=== PATIENT | male | born 1955 | race Caucasian/White ===

== ENCOUNTER → 2016-06-22 | Outpatient (CLI) | payer BC, MEDICARE ==
[2016-06-22 10:40] LABS: Phosphorous 4.2 mg/dL (2.5-4.5); Potassium 4.9 mmol/L (3.5-5.1)
== END | disposition home or self-care (01) ==
LOC: LABWHC1 09:51
PROVIDERS: ATTEND Internal Medicine
DX: Z09 Encounter for follow-up examination after completed treatment for conditions other than malignant neoplasm (principal); Z94.0 Kidney transplant status; Z94.83 Pancreas transplant status
CPT/HCPCS: 36415; 80069

== ENCOUNTER 2016-07-04 10:11 | Emergency (ER) | payer BC, MEDICARE ==
[2016-07-04 11:04] LABS: Anisocytosis Slight; Basophils % (A) 0 %; CH 27.8; Eosinophils # (A) 0.1 k/uL (0-0.7); Eosinophils % (A) 1 %; HCT 28.8 % (39.0-53.0); HDW 3.74; HGB 8.9 gm/dL (13.0-17.5); Hypochromasia Marked; Luc # (Auto) 0.06; Luc % (Auto) 1; Lymphocytes # (A) 0.8 k/uL (1.0-4.8); Lymphocytes % (A) 8 %; MCH 28.1 pg (25.0-35.0); MCHC 31.1 g/dL (31.0-37.0); MCV 90.3 fL (80.0-100.0); Mean Platelet Volume 8.1; Monocytes # (A) 0.3 k/uL (0-1.0); Monocytes % (A) 3 %; Neutrophils # (A) 8.8 k/uL (1.3-7.7); Neutrophils % (A) 88 %; Poikilocytosis Slight; RBC 3.19 m/uL (4.30-5.90); RDW 18.3 % (11.5-15.5); WBC (Perox) 10.63
[2016-07-04 11:16] LABS: Calcium 8.6 mg/dL (8.4-10.2); Magnesium 2.4 mg/dL (1.6-2.3); Total Bilirubin 0.4 mg/dL (0.2-1.3); Total Protein 5.9 g/dL (6.3-8.2)
--- NOTE | 2016-07-04 11:17 | ED ---
Recheck HPI - General Chief Complaint: Recheck/Abnormal Lab/Rx Stated Complaint: Abnormal lab Time Seen by Provider: 07/04/16 10:50 Source: patient, RN notes reviewed Mode of arrival: ambulatory Limitations: no limitations - History of Present Illness Initial Comments: This is a 61-year-old male with a history of a kidney transplant in the who was told recommend because of a low CO2 level on his labs were drawn yesterday. 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 He's had 3 doses of chemo and is to start radiation therapy tomorrow. He's states that his kidney function has deteriorated though he still is making urine. He denies any fevers chills nausea vomiting sweats no headache dizziness blurry vision at this time no nausea no vomiting. - Related Data Home Medications Medication Instructions Recorded Confirmed Atenolol [Tenormin] 50 mg PO QAM 09/01/15 07/04/16 INSULIN LISPRO (HumaLOG) [humaLOG] See Protocol SQ CONTINUOUS 09/01/15 07/04/16 NIFEdipine XL [Procardia XL] 30 mg PO QAM 09/01/15 07/04/16 Pravastatin Sodium [Pravachol] 40 mg PO HS 09/01/15 07/04/16 Sodium Bicarbonate Tab 3,900 mg PO QID 09/01/15 07/04/16 predniSONE 10 mg PO QAM 09/01/15 07/04/16 Dexamethasone [Dexamethasone] See Taper PO DAILY 07/04/16 07/04/16 Finasteride [Finasteride] 2.5 mg PO DAILY 07/04/16 07/04/16 Levothyroxine Sodium [Synthroid] 150 mcg PO DAILY 07/04/16 07/04/16 Ondansetron HCl [Ondansetron HCl] 4 mg PO Q4H PRN 07/04/16 07/04/16 Sulfamethoxazole/Trimethoprim 1 tab PO MOWEFR 07/04/16 07/04/16 [Sulfamethoxazole-Tmp Ss Tablet] Tamsulosin HCl [Tamsulosin HCl] 0.4 mg PO DAILY 07/04/16 07/04/16 Warfarin Sodium [Warfarin Sodium] 2 mg PO DAILY 07/04/16 07/04/16 Allergies Allergy/AdvReac Type Severity Reaction Status Date / Time No Known Allergies Allergy Verified 07/04/16 10:25 Review of Systems ROS Statement: Those systems with pertinent positive or pertinent negative responses have been documented in the HPI. ROS Other: All systems not noted in ROS Statement are negative. Past Medical History Past Medical History: Cancer, Diabetes Mellitus, Deep Vein Thrombosis (DVT), Hyperlipidemia, Hypertension, Renal Disease, Skin Disorder, Thyroid Disorder, Vascular Disorder Additional Past Medical History / Comment(s): wound bottom of left foot, hx vascular calcification, basal cell carcinoma nose removed 2010 History of Any Multi-Drug Resistant Organisms: None Reported Additional Past Surgical History / Comment(s): kidney transplant : 1992 & 1997. RIGHT transmetatarsal amputation. basal cell carcinoma excision. Past Anesthesia/Blood Transfusion Reactions: No Reported Reaction Past Psychological History: No Psychological Hx Reported Smoking Status: Never smoker Past Alcohol Use History: None Reported Past Drug Use History: None Reported - Past Family History Mother Family Medical History: No Reported History General Exam - General Exam Comments Initial Comments: Is a well-developed well-nourished awake alert oriented times 3 male Limitations: no limitations General appearance: alert, in no apparent distress Course Vital Signs 07/04/16 07/04/16 07/04/16 10:23 11:41 13:19 Temperature 95.9 F L Pulse Rate 50 L 59 L 88 Respiratory 16 14 14 Rate Blood Pressure 101/50 103/58 103/60 O2 Sat by Pulse 96 100 96 Oximetry 07/04/16 15:37 Temperature 96.7 F L Pulse Rate 69 Respiratory 14 Rate Blood Pressure 105/67 O2 Sat by Pulse 97 Oximetry Medical Decision Making - Medical Decision Making I did a long discussion with patient regarding findings a also discussed case with Dr. Paula. The original plan was to admit the patient he is refusing admission at this time he just wants IV sodium bicarbonate into be discharged we can make his appointment tomorrow for radiation therapy. He is aware of the risks he states she's been dealing with the renal failure of his transplant for a long time and again is refusing admission he does agree to accept all risks. - Lab Data Result diagrams: 07/04/16 10:50 07/04/16 10:50 Lab Results 07/04/16 07/04/16 Range/Units 10:50 10:50 WBC 10.0 (3.8-10.6) k/uL RBC 3.19 L (4.30-5.90) m/uL Hgb 8.9 L (13.0-17.5) gm/dL Hct 28.8 L (39.0-53.0) % MCV 90.3 (80.0-100.0) fL MCH 28.1 (25.0-35.0) pg MCHC 31.1 (31.0-37.0) g/dL RDW 18.3 H (11.5-15.5) % Plt Count 115 L (150-450) k/uL Neutrophils % 88 % Lymphocytes % 8 % Monocytes % 3 % Eosinophils % 1 % Basophils % 0 % Neutrophils # 8.8 H (1.3-7.7) k/uL Lymphocytes # 0.8 L (1.0-4.8) k/uL Monocytes # 0.3 (0-1.0) k/uL Eosinophils # 0.1 (0-0.7) k/uL Basophils # 0.0 (0-0.2) k/uL Hypochromasia Marked Poikilocytosis Slight Anisocytosis Slight Sodium 136 L (137-145) mmol/L Potassium 5.0 (3.5-5.1) mmol/L Chloride 113 H (98-107) mmol/L Carbon Dioxide 10 L* (22-30) mmol/L Anion Gap 13 mmol/L BUN 100 H* (9-20) mg/dL Creatinine 3.56 H (0.66-1.25) mg/dL Est GFR (MDRD) Af Amer 21 (>60 ml/min/1.73 sqM) Est GFR (MDRD) Non-Af 18 (>60 ml/min/1.73 sqM) Glucose 198 H (74-99) mg/dL Calcium 8.6 (8.4-10.2) mg/dL Magnesium 2.4 H (1.6-2.3) mg/dL Total Bilirubin 0.4 (0.2-1.3) mg/dL AST 11 L (17-59) U/L ALT 36 (21-72) U/L Alkaline Phosphatase 77 (38-126) U/L Total Protein 5.9 L (6.3-8.2) g/dL Albumin 2.7 L (3.5-5.0) g/dL Disposition Clinical Impression: Renal insufficiency syndrome, Acidosis Disposition: HOME SELF-CARE Condition: Good
[2016-07-04] MEDS ORDERED: DEXTROSE 5% IN WATER 1,000 ML with SODIUM BICARB (1 MEQ/ML) 150 ML IV SCH (15:15)
[2016-07-04 16:14] VITALS: TEMP 96.8
--- NOTE | 2016-07-04 17:23 | ED ---
Medical Decision Making - Lab Data Result diagrams: 07/04/16 10:50 07/04/16 10:50 Lab Results 07/04/16 07/04/16 Range/Units 10:50 10:50 WBC 10.0 (3.8-10.6) k/uL RBC 3.19 L (4.30-5.90) m/uL Hgb 8.9 L (13.0-17.5) gm/dL Hct 28.8 L (39.0-53.0) % MCV 90.3 (80.0-100.0) fL MCH 28.1 (25.0-35.0) pg MCHC 31.1 (31.0-37.0) g/dL RDW 18.3 H (11.5-15.5) % Plt Count 115 L (150-450) k/uL Neutrophils % 88 % Lymphocytes % 8 % Monocytes % 3 % Eosinophils % 1 % Basophils % 0 % Neutrophils # 8.8 H (1.3-7.7) k/uL Lymphocytes # 0.8 L (1.0-4.8) k/uL Monocytes # 0.3 (0-1.0) k/uL Eosinophils # 0.1 (0-0.7) k/uL Basophils # 0.0 (0-0.2) k/uL Hypochromasia Marked Poikilocytosis Slight Anisocytosis Slight Sodium 136 L (137-145) mmol/L Potassium 5.0 (3.5-5.1) mmol/L Chloride 113 H (98-107) mmol/L Carbon Dioxide 10 L* (22-30) mmol/L Anion Gap 13 mmol/L BUN 100 H* (9-20) mg/dL Creatinine 3.56 H (0.66-1.25) mg/dL Est GFR (MDRD) Af Amer 21 (>60 ml/min/1.73 sqM) Est GFR (MDRD) Non-Af 18 (>60 ml/min/1.73 sqM) Glucose 198 H (74-99) mg/dL Calcium 8.6 (8.4-10.2) mg/dL Magnesium 2.4 H (1.6-2.3) mg/dL Total Bilirubin 0.4 (0.2-1.3) mg/dL AST 11 L (17-59) U/L ALT 36 (21-72) U/L Alkaline Phosphatase 77 (38-126) U/L Total Protein 5.9 L (6.3-8.2) g/dL Albumin 2.7 L (3.5-5.0) g/dL Disposition Clinical Impression: Renal insufficiency syndrome, Acidosis Disposition: HOME SELF-CARE Condition: Good Instructions: Chronic Kidney Disease (ED) Referrals: Salo Villar MD [Primary Care Provider] - 1-2 days
[2016-07-04 18:34] VITALS: BP 104/60; PULSE 66; RESP 14
== END 2016-07-04 18:40 | disposition home or self-care (01) ==
LOC: EC 10:11
DX: N28.9 Disorder of kidney and ureter, unspecified (principal); E87.2 Acidosis; C85.90 Non-Hodgkin lymphoma, unspecified, unspecified site; E07.9 Disorder of thyroid, unspecified; I10 Essential (primary) hypertension; E11.9 Type 2 diabetes mellitus without complications; E78.5 Hyperlipidemia, unspecified; Z79.4 Long term (current) use of insulin; Z94.0 Kidney transplant status; Z92.21 Personal history of antineoplastic chemotherapy; Z79.01 Long term (current) use of anticoagulants; Z86.718 Personal history of other venous thrombosis and embolism; Z79.899 Other long term (current) drug therapy
CPT/HCPCS: 36415; 80053; 83735; 85025; 96360; 96361; 99283

== ENCOUNTER → 2016-07-06 | Outpatient (CLI) | payer BC, MEDICARE ==
[2016-07-06 14:55] LABS: Calcium 8.5 mg/dL (8.4-10.2); Phosphorous 4.7 mg/dL (2.5-4.5); Potassium 5.3 mmol/L (3.5-5.1)
== END | disposition home or self-care (01) ==
LOC: LABWHC1 13:58
PROVIDERS: ATTEND Internal Medicine
DX: E10.22 Type 1 diabetes mellitus with diabetic chronic kidney disease (principal); N18.9 Chronic kidney disease, unspecified; Z94.0 Kidney transplant status; Z94.83 Pancreas transplant status
CPT/HCPCS: 36415; 80069

== ENCOUNTER → 2016-07-10 | Outpatient (CLI) | payer BC, MEDICARE ==
[2016-07-10 13:47] LABS: Calcium 8.7 mg/dL (8.4-10.2); Potassium 4.7 mmol/L (3.5-5.1)
== END | disposition home or self-care (01) ==
LOC: LABWHC1 12:05
PROVIDERS: ATTEND Internal Medicine
DX: E10.29 Type 1 diabetes mellitus with other diabetic kidney complication (principal); Z94.0 Kidney transplant status
CPT/HCPCS: 36415; 80069

== ENCOUNTER → 2016-08-28 | Outpatient (CLI) | payer BC, MEDICARE ==
[2016-08-28 11:56] LABS: Appearance,Urine Turbid (Clear); Bacteria,Urine Rare /hpf; Bilirubin,Urine Negative (Negative); Glucose,Urine (UA) Negative (Negative); Ketones,Urine Negative (Negative); Leukocyte Esterase,Urine Large (Negative); Nitrite,Urine Negative (Negative); Particle Count 11293; Protein,Urine 1+ (Negative); RBC,Urine 151 /hpf (0-5); Specific Gravity,Urine 1.011 (1.001-1.035); UA Billing (MACRO vs. MICRO) MICRO; Urobilinogen,Urine <2.0 mg/dL (<2.0); WBC,Urine >182 /hpf (0-5)
== END | disposition home or self-care (01) ==
LOC: LABWHC1 11:00
PROVIDERS: ATTEND Family Medicine
DX: N39.0 Urinary tract infection, site not specified (principal)
CPT/HCPCS: 81001; 87077; 87086; 87186

== ENCOUNTER 2016-10-02 09:24 | Outpatient (CLI) | payer BC, MEDICARE ==
[~2016-10-02 09:24] MED LIST: SODIUM CHLORIDE 0.9% 250 ML in EMPTY BAG 1 BAG IV PRN; SODIUM CHLORIDE 0.9% 500 ML in EMPTY BAG 1 BAG IV PRN
[2016-10-02 09:48] VITALS: BP 103/70; RESP 16; TEMP 98
[2016-10-02 10:23] LABS: Anisocytosis Moderate; CH 31.2; CHCM 32.3; HCT 24.3 % (39.0-53.0); HDW 3.37; Hypochromasia Slight; MCH 32.1 pg (25.0-35.0); MCHC 32.9 g/dL (31.0-37.0); MCV 97.3 fL (80.0-100.0); Macrocytosis Moderate; Mean Platelet Volume 8.7; RBC 2.49 m/uL (4.30-5.90); RDW 23.9 % (11.5-15.5); WBC 7.1 k/uL (3.8-10.6); WBC (Perox) 7.44
[2016-10-02 11:11] LABS: Add Differential Manual Differential
[2016-10-02 11:15] LABS: Nucleated Red Blood Cells 0 /100 WBC (0-0); Total Cells Counted 100
[2016-10-02 11:16] LABS: Tear Drop Cells Present
[2016-10-02 11:17] LABS: Polychromasia Present
== END 2016-10-02 13:25 | disposition home or self-care (01) ==
LOC: PROCWHC3 09:24
PROVIDERS: ATTEND Internal Medicine
DX: N18.9 Chronic kidney disease, unspecified (principal); E10.29 Type 1 diabetes mellitus with other diabetic kidney complication; Z94.0 Kidney transplant status
CPT/HCPCS: 85025; 36591; J1642

== ENCOUNTER → 2016-11-17 | Outpatient (CLI) | payer BC, MEDICARE ==
[2016-11-17 10:20] LABS: Anisocytosis Slight; Basophils % (A) 0 %; CHCM 31.8; Eosinophils # (A) 0.1 k/uL (0-0.7); Eosinophils % (A) 1 %; HCT 31.1 % (39.0-53.0); HDW 2.94; HGB 9.8 gm/dL (13.0-17.5); Hypochromasia Slight; Luc # (Auto) 0.13; Luc % (Auto) 3; Lymphocytes # (A) 1.1 k/uL (1.0-4.8); Lymphocytes % (A) 26 %; MCH 32.8 pg (25.0-35.0); MCHC 31.4 g/dL (31.0-37.0); MCV 104.4 fL (80.0-100.0); Macrocytosis Moderate; Mean Platelet Volume 8.6; Monocytes # (A) 0.3 k/uL (0-1.0); Monocytes % (A) 9 %; Neutrophils # (A) 2.5 k/uL (1.3-7.7); Neutrophils % (A) 61 %; RBC 2.98 m/uL (4.30-5.90); RDW 18.1 % (11.5-15.5); WBC 4.1 k/uL (3.8-10.6); WBC (Perox) 4.23
== END | disposition home or self-care (01) ==
LOC: LABWHC1 09:59
PROVIDERS: ATTEND Radiology Radiation Oncology
DX: C85.89 Other specified types of non-Hodgkin lymphoma, extranodal and solid organ sites (principal)
CPT/HCPCS: 36415; 85025

== ENCOUNTER 2016-12-06 13:38 | Emergency (ER) | payer OTHER, BC, MEDICARE ==
[2016-12-06 13:52] VITALS: PULSE 68; TEMP 97.6
[2016-12-06] MEDS ORDERED: SODIUM CHLORIDE 0.9% 1,000 ML IV STA (14:08)
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
[2016-12-06 14:35] VITALS: BP 140/68; RESP 18
== END 2016-12-06 14:50 | disposition home or self-care (01) ==
LOC: EC 13:38
DX: S02.81XA Fracture of other specified skull and facial bones, right side, initial encounter for closed fracture (principal); S52.202A Unspecified fracture of shaft of left ulna, initial encounter for closed fracture; E78.5 Hyperlipidemia, unspecified; E11.9 Type 2 diabetes mellitus without complications; I10 Essential (primary) hypertension; E07.9 Disorder of thyroid, unspecified; Z85.828 Personal history of other malignant neoplasm of skin; Z94.0 Kidney transplant status; Z86.718 Personal history of other venous thrombosis and embolism; Z79.01 Long term (current) use of anticoagulants; Z79.4 Long term (current) use of insulin; Z79.52 Long term (current) use of systemic steroids; Z79.899 Other long term (current) drug therapy; V48.5XXA Car driver injured in noncollision transport accident in traffic accident, initial encounter
CPT/HCPCS: 99284

== ENCOUNTER 2016-12-29 10:45 | Day surgery (SDC) | payer BC, MEDICARE ==
[2016-12-27 09:31] VITALS: BMI 21.3
[~2016-12-29 10:45] MED LIST changes: +DEXAMETHASONE SOD PHOSPHATE 10 MG/ML 1 ML VIAL IV ONE; +LACTATED RINGERS 1,000 ML IV ONE; +MIDAZOLAM 2 MG/2 ML VIAL IV PRN; +ONDANSETRON 4 MG/2 ML VIAL IVP ONE; +SCOPOLAMINE 1.5MG/72HR PATCH TRANSDERM ONE; -SODIUM CHLORIDE 0.9% 250 ML in EMPTY BAG 1 BAG IV PRN; -SODIUM CHLORIDE 0.9% 500 ML in EMPTY BAG 1 BAG IV PRN; +ceFAZolin 2 GM in SODIUM CHLORIDE 0.9% 100 ML IVPB ONE
[2016-12-29] MEDS ORDERED: LIDOCAINE 1% 20 ML VIAL (10MG/ML) FOR IV START INTRADERMA ONE (11:03)
[2016-12-29 11:25] LABS: Glucose,Whole Blood 143 mg/dL (75-99)
[2016-12-29 11:55] LABS: INR 1.1 (<1.1); Partial Thromboplastin Time 23.7 sec (22.0-30.0); Prothrombin Time 11.5 sec (9.0-12.0)
[2016-12-29] MEDS ORDERED: SUCCINYLCHOLINE CHLORIDE 100 MG/5 ML SYR IV ONE (12:40)
[2016-12-29] MEDS ORDERED: PROPOFOL 10 MG/ML 20 ML VIAL IV ONE (12:40)
[2016-12-29] MEDS ORDERED: PHENYLEPHRINE-0.9% NACL SYG 1 MG/10 ML SYRINGE ONE (12:40)
[2016-12-29] MEDS ORDERED: LIDOCAINE 1% INJ 10MG/ML (20 ML MDV) ONE (12:40)
[2016-12-29] MEDS ORDERED: ePHEDrine 50 MG/ML 1 ML AMP ONE (12:40)
[2016-12-29] MEDS ORDERED: LACTATED RINGERS 1,000 ML IV ONE ×2 (12:40→13:39)
[2016-12-29] MEDS ORDERED: MIDAZOLAM 2 MG/2 ML VIAL ONE (12:40)
[2016-12-29] MEDS ORDERED: fentaNYL (PF) 50 MCG/ML 2 ML AMP ONE (12:40)
[2016-12-29] MEDS ORDERED: ceFAZolin 1,000 MG in SODIUM CHLORIDE 0.9% 1,000 ML IRRIGATION ONE (13:05)
[2016-12-29 14:01] LABS: Glucose,Whole Blood 226 mg/dL (75-99)
--- NOTE | 2016-12-29 14:01 | XR ---
Limited left forearm HISTORY: Fracture Intraoperative C-arm image documents the procedure
[2016-12-29 14:09] VITALS: TEMP 96.9
--- NOTE | 2016-12-29 14:12 | FL ---
Fluoroscopy HISTORY: Fracture 1 seconds fluoroscopy time supplied to the referring clinician. 2 intraoperative C-arm images docume nt the procedure. See dictated report from orthopedic surgery.
[2016-12-29] MEDS: HYDROmorphone 1 MG/ML 1 ML SYRINGE IVP PRN ×2 (14:16→14:21)
[2016-12-29 14:27] VITALS: RESP 16
[2016-12-29] MEDS ORDERED: HYDROcodone/APAP 7.5-325MG 1 EACH TAB PO ONE (14:46)
[2016-12-29 15:11] VITALS: BP 113/63; PULSE 55
--- NOTE | 2017-01-03 07:56 | OP ---
DATE OF SERVICE: 12/29/2016 SURGEON, Len Baumann DO CALL CENTER COORDINATOR: none PREOPERATIVE DIAGNOSIS: Displaced fracture of the distal third of the left ulnar shaft. POSTOPERATIVE DIAGNOSIS: Displaced fracture of the distal third of the left ulnar shaft. PROCEDURE PERFORMED: Open reduction, internal fixation of the displaced fracture of the distal third of the shaft of the left ulna. PROCEDURE: Patient was taken to the operative suite and placed in supine position. General inhalation anesthesia performed by the Department of Anesthesiology. A Betadine prep was carried out over the left forearm. The lateral incision over the area of mid position of the fracture. Dissection to the fracture is carried out. The fracture is reduced and distal screw is inserted. Alignment and position are noted. X ray showed anatomical position. The area was irrigated copiously. A No.1 Vicryl suture was then utilized in closing the deep fascia. The subcutaneous tissue was reapproximated with 2-0 Vicryl suture. the skin was reapproximated with 2-0 Nylon suture in an interrupted fashion. Betadine, Adaptic and sterile pressure dressing was applied. A lateral splint is applied. GROSS PATHOLOGY: Displaced fracture of the distal third shaft of the left ulna. GINID
== END 2016-12-29 15:33 | disposition home or self-care (01) ==
LOC: OR 10:45
PROVIDERS: ATTEND Orthopaedic Surgery
DX: S52.222A Displaced transverse fracture of shaft of left ulna, initial encounter for closed fracture (principal); V89.2XXA Person injured in unspecified motor-vehicle accident, traffic, initial encounter; S50.812A Abrasion of left forearm, initial encounter; I10 Essential (primary) hypertension; E03.9 Hypothyroidism, unspecified; E78.5 Hyperlipidemia, unspecified; Z86.718 Personal history of other venous thrombosis and embolism; Z79.01 Long term (current) use of anticoagulants; E11.29 Type 2 diabetes mellitus with other diabetic kidney complication; Z79.4 Long term (current) use of insulin; Z96.41 Presence of insulin pump (external) (internal); N28.9 Disorder of kidney and ureter, unspecified; Z94.0 Kidney transplant status; D69.6 Thrombocytopenia, unspecified; Z79.891 Long term (current) use of opiate analgesic; Z79.899 Other long term (current) drug therapy
CPT/HCPCS: 85610; 85730; 73090; 25545; C1713; J2250; J1100; J0690 ×2; J2405; J2001; J3010; J1170; J2370; J0330; J2704

== ENCOUNTER 2017-03-31 11:08 | Emergency (ER) | payer BC, MEDICARE ==
[2017-03-31] MEDS ORDERED: SODIUM CHLORIDE 0.9% 1,000 ML IV STA (11:35)
--- NOTE | 2017-03-31 11:40 | ED ---
General Adult HPI - General Chief complaint: Extremity Problem,Nontraumatic Stated complaint: DRAGGING LEFT LEG Time Seen by Provider: 03/31/17 11:28 Source: patient, family, RN notes reviewed Mode of arrival: ambulatory Limitations: no limitations - History of Present Illness Initial comments: Patient is a pleasant 61-year-old male presenting to the emergency department with concerns regarding left leg weakness. Onset of symptoms was 5:30 last night. Patient states he does notice symptoms however feels they're pretty mild. is concerned that symptoms are similar to when he was previously diagnosed with brain cancer. Patient has a left frontal tumor and is currently on chemotherapy. Patient's previous symptoms were on the right side. No confusion. No headache. No speech problems. Patient notices no upper extremity weakness. - Related Data Home Medications Medication Instructions Recorded Confirmed Atenolol [Tenormin] 50 mg PO DAILY 09/01/15 03/31/17 NIFEdipine XL [Procardia XL] 30 mg PO DAILY 09/01/15 03/31/17 Pravastatin Sodium [Pravachol] 40 mg PO DAILY 09/01/15 03/31/17 Sodium Bicarbonate Tab 3,900 mg PO QID 09/01/15 03/31/17 Finasteride [Finasteride] 2.5 mg PO DAILY 07/04/16 03/31/17 Tamsulosin HCl [Tamsulosin HCl] 0.8 mg PO QAM 07/04/16 03/31/17 Aspirin [Children's Aspirin] 81 mg PO DAILY 03/31/17 03/31/17 Dexamethasone 0.75 mg PO DAILY 03/31/17 03/31/17 Insulin Aspart (For Pump) [NovoLOG See Protocol SQ-PUMP CONTINUOUS 03/31/17 (For Pump)] Losartan [Cozaar] 50 mg PO DAILY 03/31/17 03/31/17 Previous Rx's Medication Instructions Recorded HYDROcodone/APAP 7.5-325MG [[place] 1 - 2 tab PO Q6HR PRN #60 tab 12/29/16 7.5-325] Allergies Allergy/AdvReac Type Severity Reaction Status Date / Time No Known Allergies Allergy Verified 03/31/17 12:32 Review of Systems ROS Statement: Those systems with pertinent positive or pertinent negative responses have been documented in the HPI. ROS Other: All systems not noted in ROS Statement are negative. Constitutional: Denies: fever Eyes: Denies: eye pain ENT: Denies: ear pain Respiratory: Denies: cough Cardiovascular: Denies: chest pain Endocrine: Denies: fatigue Gastrointestinal: Denies: abdominal pain Genitourinary: Denies: dysuria Musculoskeletal: Denies: back pain Skin: Denies: rash Neurological: Reports: weakness. Denies: headache Past Medical History Past Medical History: Cancer, Diabetes Mellitus, Deep Vein Thrombosis (DVT), Hyperlipidemia, Hypertension, Renal Disease, Skin Disorder, Thyroid Disorder, Vascular Disorder Additional Past Medical History / Comment(s): wound bottom of left foot, hx vascular calcification, basal cell carcinoma nose removed 2010 History of Any Multi-Drug Resistant Organisms: None Reported Additional Past Surgical History / Comment(s): kidney transplant : 1992 & 1997. RIGHT transmetatarsal amputation. basal cell carcinoma excision. Past Anesthesia/Blood Transfusion Reactions: No Reported Reaction Past Psychological History: No Psychological Hx Reported Smoking Status: Never smoker Past Alcohol Use History: None Reported Past Drug Use History: None Reported - Past Family History Mother Family Medical History: No Reported History General Exam Limitations: no limitations General appearance: alert, in no apparent distress Head exam: Present: atraumatic Eye exam: Present: normal appearance, PERRL, EOMI. Absent: nystagmus ENT exam: Present: normal oropharynx Neck exam: Present: normal inspection Respiratory exam: Present: normal lung sounds bilaterally Cardiovascular Exam: Present: regular rate, normal rhythm GI/Abdominal exam: Present: soft. Absent: tenderness Extremities exam: Present: normal inspection, full ROM. Absent: tenderness Neurological exam: Present: alert, oriented X3, CN II-XII intact Expanded Speech: Present: fluid speech Cranial nerves: EOM's Intact: Normal Sensory exam: Upper Extremity Light Touch: Normal, Lower Extremity Light Touch: Normal Motor strength exam: RUE: 5, LUE: 4, RLE: 5, LLE: 4 Eye Response: (4) open spontaneously Motor Response: (6) obeys commands Verbal Response: (5) oriented Psychiatric exam: Present: normal affect, normal mood Skin exam: Present: normal color Course Vital Signs 03/31/17 11:12 Temperature 98 F Pulse Rate 65 Respiratory 20 Rate Blood Pressure 132/69 O2 Sat by Pulse 99 Oximetry - Reevaluation(s) Reevaluation #1: 03/31/17 11:35 Patient recommended computed tomography scan with contrast however refuses any contrast secondary to history of kidney transplant. 03/31/17 12:51 Following report from radiologist patient and family were updated on results. They are made aware of the seriousness of this nature. Patient has previously had care at [facility]. They are recommended going to the closest facility including [facility] or [facility]. Patient and do refuse and would like to go to [facility]. They are aware of possible decompensation in route. 03/31/17 13:02 Case was discussed with Samra as well as Dr. Prabhakar at [facility] who will accept transfer. EKG Findings - EKG Comments: EKG Findings:: Sinus rhythm at 60. NV 178. QRS 88. QT 480. QTC 480. Normal axis. Normal QRS. No acute ST change. Medical Decision Making - Lab Data Result diagrams: 03/31/17 11:46 03/31/17 11:46 Lab Results 03/31/17 03/31/17 03/31/17 Range/Units 11:46 11:46 11:46 WBC 3.3 L (3.8-10.6) k/uL RBC 3.09 L (4.30-5.90) m/uL Hgb 8.9 L (13.0-17.5) gm/dL Hct 27.9 L (39.0-53.0) % MCV 90.3 (80.0-100.0) fL MCH 28.7 (25.0-35.0) pg MCHC 31.8 (31.0-37.0) g/dL RDW 15.2 (11.5-15.5) % Plt Count 87 L (150-450) k/uL Neutrophils % 61 % Lymphocytes % 22 % Monocytes % 10 % Eosinophils % 4 % Basophils % 1 % Neutrophils # 2.0 (1.3-7.7) k/uL Lymphocytes # 0.7 L (1.0-4.8) k/uL Monocytes # 0.3 (0-1.0) k/uL Eosinophils # 0.1 (0-0.7) k/uL Basophils # 0.0 (0-0.2) k/uL Manual Slide Review Performed Hypochromasia Slight Poikilocytosis (manual Present Fragmented RBCs Present PT (9.0-12.0) sec INR (<1.2) APTT (22.0-30.0) sec Sodium 141 (137-145) mmol/L Potassium 4.1 (3.5-5.1) mmol/L Chloride 107 (98-107) mmol/L Carbon Dioxide 26 (22-30) mmol/L Anion Gap 8 mmol/L BUN 38 H (9-20) mg/dL Creatinine 3.08 H (0.66-1.25) mg/dL Est GFR (MDRD) Af Amer 25 (>60 ml/min/1.73 sqM) Est GFR (MDRD) Non-Af 21 (>60 ml/min/1.73 sqM) Glucose 173 H (74-99) mg/dL Calcium 8.6 (8.4-10.2) mg/dL Total Bilirubin 0.3 (0.2-1.3) mg/dL AST 15 L (17-59) U/L ALT 26 (21-72) U/L Alkaline Phosphatase 62 (38-126) U/L Total Creatine Kinase <20 L (55-170) U/L CK-MB (CK-2) 0.4 (0.0-2.4) ng/mL CK-MB (CK-2) Rel Index Troponin I <0.012 (0.000-0.034) ng/mL Total Protein 6.0 L (6.3-8.2) g/dL Albumin 2.8 L (3.5-5.0) g/dL 03/31/17 Range/Units 11:46 WBC (3.8-10.6) k/uL RBC (4.30-5.90) m/uL Hgb (13.0-17.5) gm/dL Hct (39.0-53.0) % MCV (80.0-100.0) fL MCH (25.0-35.0) pg MCHC (31.0-37.0) g/dL RDW (11.5-15.5) % Plt Count (150-450) k/uL Neutrophils % % Lymphocytes % % Monocytes % % Eosinophils % % Basophils % % Neutrophils # (1.3-7.7) k/uL Lymphocytes # (1.0-4.8) k/uL Monocytes # (0-1.0) k/uL Eosinophils # (0-0.7) k/uL Basophils # (0-0.2) k/uL Manual Slide Review Hypochromasia Poikilocytosis (manual Fragmented RBCs PT 11.8 (9.0-12.0) sec INR 1.2 H (<1.2) APTT 24.7 (22.0-30.0) sec Sodium (137-145) mmol/L Potassium (3.5-5.1) mmol/L Chloride (98-107) mmol/L Carbon Dioxide (22-30) mmol/L Anion Gap mmol/L BUN (9-20) mg/dL Creatinine (0.66-1.25) mg/dL Est GFR (MDRD) Af Amer (>60 ml/min/1.73 sqM) Est GFR (MDRD) Non-Af (>60 ml/min/1.73 sqM) Glucose (74-99) mg/dL Calcium (8.4-10.2) mg/dL Total Bilirubin (0.2-1.3) mg/dL AST (17-59) U/L ALT (21-72) U/L Alkaline Phosphatase (38-126) U/L Total Creatine Kinase (55-170) U/L CK-MB (CK-2) (0.0-2.4) ng/mL CK-MB (CK-2) Rel Index Troponin I (0.000-0.034) ng/mL Total Protein (6.3-8.2) g/dL Albumin (3.5-5.0) g/dL - Radiology Data Radiology results: image reviewed (Chest x-ray shows no acute process. Computed tomography scan the brain shows large right frontal acute on subacute subdural hematoma with 8 mm subfalcine shift. Postsurgical changes. Subdural hematoma is 3 cm.) Disposition Clinical Impression: Subdural hematoma Disposition: OTHER INSTITUTION NOT DEFINED Condition: Serious Referrals: Salo Villar MD [Primary Care Provider] - 1-2 days Time of Disposition: 13:03 - Out of Hospital Transfer - Req. Specs Out of Hospital Transfer - Requested Specifics: Other Emergency Center
[2017-03-31 12:10] LABS: Basophils % (A) 1 %; CH 28.7; CHCM 31.9; Eosinophils # (A) 0.1 k/uL (0-0.7); Eosinophils % (A) 4 %; HCT 27.9 % (39.0-53.0); HDW 3.09; HGB 8.9 gm/dL (13.0-17.5); Hypochromasia Slight; Luc % (Auto) 3; Lymphocytes # (A) 0.7 k/uL (1.0-4.8); Lymphocytes % (A) 22 %; MCH 28.7 pg (25.0-35.0); MCHC 31.8 g/dL (31.0-37.0); MCV 90.3 fL (80.0-100.0); Monocytes # (A) 0.3 k/uL (0-1.0); Monocytes % (A) 10 %; Neutrophils % (A) 61 %; RBC 3.09 m/uL (4.30-5.90); RDW 15.2 % (11.5-15.5); WBC 3.3 k/uL (3.8-10.6); WBC (Perox) 3.09
--- NOTE | 2017-03-31 12:12 | CT ---
EXAMINATION TYPE: CT brain wo con DATE OF EXAM: 03/31/2017 COMPARISON: NONE HISTORY: Left leg weakness, Prior tumor removal 2015 CT DLP: 943.8 mGycm Automated exposure control for dose reduction was used. FINDINGS: There is encephalomalacia involving the left frontal lobe. There is a 3 cm subdural hematoma on the r ight. This has both acute and chronic elements. There is approximately 7.8 mm of subfalcine shift tow ards the left. There is been a previous bifrontal craniotomy. There is near complete opacification of the left maxillary sinus with concretions within it. IMPRESSION: 1. LARGE ACUTE ON CHRONIC RIGHT SUBDURAL HEMATOMA WITH 8 MM OF SUBFALCINE SHIFT. 2. EVIDENCE OF A LEFT FRONTAL TRAUMA.. 3. POSTSURGICAL CHANGE. 4. CHRONIC, LEFT MAXILLARY SINUS MUCOSAL DISEASE. THIS REPORT WAS PHONED TO DR. VILLA IN THE EMERGENCY DEPARTMENT AT THE TIME OF REPORTING.
[2017-03-31 12:14] LABS: Calcium 8.6 mg/dL (8.4-10.2); Potassium 4.1 mmol/L (3.5-5.1); Total Bilirubin 0.3 mg/dL (0.2-1.3)
[2017-03-31 12:15] LABS: INR 1.2 (<1.2); Partial Thromboplastin Time 24.7 sec (22.0-30.0); Prothrombin Time 11.8 sec (9.0-12.0)
[2017-03-31 12:26] LABS: Manual Review Performed
[2017-03-31 12:35] LABS: Creatine Kinase <20 U/L (55-170)
[2017-03-31 12:48] LABS: Creatine Kinase MB 0.4 ng/mL (0.0-2.4); Troponin I <0.012 ng/mL (0.000-0.034)
--- NOTE | 2017-03-31 12:52 | XR ---
EXAMINATION TYPE: XR chest 2V DATE OF EXAM: 03/31/2017 HISTORY: altered mental status. REFERENCE: NONE. FINDINGS: There is a MediPort in place via a right subclavian approach. Its tip is at the cavoatrial junction. The lungs are clear. Heart size is within normal limits. There is a small left effusion. IMPRESSION: SMALL LEFT PLEURAL EFFUSION.
[2017-03-31 13:39] VITALS: TEMP 97.8
[2017-03-31 13:41] VITALS: RESP 16
[2017-03-31 14:18] VITALS: BP 148/74; PULSE 78
== END 2017-03-31 14:14 | disposition short-term general hospital (02) ==
LOC: EC 11:08
DX: I62.01 Nontraumatic acute subdural hemorrhage (principal); E11.9 Type 2 diabetes mellitus without complications; E78.5 Hyperlipidemia, unspecified; I10 Essential (primary) hypertension; Z85.89 Personal history of malignant neoplasm of other organs and systems; Z79.82 Long term (current) use of aspirin; Z79.4 Long term (current) use of insulin; Z79.899 Other long term (current) drug therapy
CPT/HCPCS: 36415; 70450; 71020; 80053; 82550; 82553; 84484; 85025; 85610; 85730; 93005; 96360; 96361; 99285

== ENCOUNTER → 2017-07-18 | Outpatient (CLI) | payer MEDICAID, MEDICARE ==
[2017-07-18 10:53] LABS: Albumin 3.5 g/dL (3.5-5.0); Calcium 9.9 mg/dL (8.4-10.2); Phosphorus 3.5 mg/dL (2.5-4.5); Potassium 4.3 mmol/L (3.5-5.1)
[2017-07-18 11:09] LABS: T4, Free (Free Thyroxine) 1.4 ng/dL (0.78-2.19)
[2017-07-18 17:24] LABS: Hemoglobin A1C 6.6 % (4.0-6.0)
== END | disposition home or self-care (01) ==
LOC: LABWHC1 09:46
PROVIDERS: ATTEND Internal Medicine
DX: E10.21 Type 1 diabetes mellitus with diabetic nephropathy (principal)
CPT/HCPCS: 36415; 80069; 83036; 84439; 84443

== ENCOUNTER → 2017-07-31 | Outpatient (CLI) | payer MEDICAID, MEDICARE | END | disposition home or self-care (01) | LOC: LABWHC1 11:40 | PROVIDERS: ATTEND Internal Medicine | DX: Z53.9 Procedure and treatment not carried out, unspecified reason (principal) ==

== ENCOUNTER → 2018-01-07 | Outpatient (CLI) | payer MEDICAID, MEDICARE ==
[2018-01-07 18:49] LABS: Hemoglobin A1C 6.6 % (4.0-6.0)
== END | disposition home or self-care (01) ==
LOC: LABWHC1 07:32
PROVIDERS: ATTEND Internal Medicine Infectious Disease
DX: E11.9 Type 2 diabetes mellitus without complications (principal)
CPT/HCPCS: 36415; 83036

== ENCOUNTER → 2018-01-28 | Outpatient (CLI) | payer MEDICAID, MEDICARE ==
[2018-01-28 10:26] LABS: Anisocytosis Slight; Basophils % (A) 0 %; Eosinophils # (A) 0.1 k/uL (0-0.7); Eosinophils % (A) 1 %; HCT 31.6 % (39.0-53.0); HGB 10.4 gm/dL (13.0-17.5); Lymphocytes # (A) 1.2 k/uL (1.0-4.8); Lymphocytes % (A) 23 %; MCH 27.7 pg (25.0-35.0); MCHC 32.8 g/dL (31.0-37.0); MCV 84.4 fL (80.0-100.0); Mean Platelet Volume 8.1; Monocytes # (A) 0.4 k/uL (0-1.0); Monocytes % (A) 7 %; Neutrophils # (A) 3.6 k/uL (1.3-7.7); Neutrophils % (A) 68 %; RBC 3.74 m/uL (4.30-5.90); RDW 16.5 % (11.5-15.5); WBC 5.3 k/uL (3.8-10.6)
[2018-01-28 10:29] LABS: Platelet Count 79 k/uL (150-450)
[2018-01-28 10:42] LABS: Calcium 9.2 mg/dL (8.4-10.2); Phosphorus 3.1 mg/dL (2.5-4.5); Potassium 4.4 mmol/L (3.5-5.1)
== END | disposition home or self-care (01) ==
LOC: PROCWHC3 09:39
PROVIDERS: ATTEND Internal Medicine Infectious Disease
DX: C85.89 Other specified types of non-Hodgkin lymphoma, extranodal and solid organ sites (principal)
CPT/HCPCS: 80048; 84100; 85025; 36591; J1642

== ENCOUNTER → 2018-06-19 | Outpatient (CLI) | payer MEDICAID, MEDICARE ==
[2018-06-19 15:37] LABS: HCT 32.2 % (39.0-53.0); HGB 10.5 gm/dL (13.0-17.5); Hypochromasia Slight; MCH 29.1 pg (25.0-35.0); MCHC 32.5 g/dL (31.0-37.0); MCV 89.5 fL (80.0-100.0); Mean Platelet Volume 9.4; Platelet Count 116 k/uL (150-450); RDW 15.2 % (11.5-15.5); WBC 5.2 k/uL (3.8-10.6)
[2018-06-19 15:46] LABS: Appearance,Urine Clear (Clear); Bilirubin,Urine Negative (Negative); Blood,Urine Negative (Negative); Color,Urine Light Yellow; Glucose,Urine (UA) 2+ (Negative); Ketones,Urine Negative (Negative); Leukocyte Esterase,Urine Large (Negative); Mucus,Urine Rare /hpf; Nitrite,Urine Negative (Negative); PH, Urine 7.5 (5.0-8.0); Protein,Urine Trace (Negative); RBC,Urine 1 /hpf (0-5); Specific Gravity,Urine 1.007 (1.001-1.035); Urobilinogen,Urine <2.0 mg/dL (<2.0); WBC,Urine 2 /hpf (0-5)
[2018-06-20 03:02] LABS: Albumin 3.8 g/dL (3.80-4.90); Albumin/Globulin Ratio 1.58 (1.20-2.10); Anion Gap 10.2 mmol/L (4.00-12.00); Calcium 9.1 mg/dL (8.7-10.3); Carbon Dioxide 21.8 mmol/L (21.6-31.8); Globulin 2.4 g/dL (1.6-3.3); Phosphorus 3.1 mg/dL (2.4-5.1); Potassium 4.6 mmol/L (3.5-5.5); Total Bilirubin 0.3 mg/dL (0.3-1.2); Total Protein 6.2 g/dL (6.2-8.2)
== END | disposition home or self-care (01) ==
LOC: LABWHC1 14:15
PROVIDERS: ATTEND Family Medicine
DX: R35.1 Nocturia (principal)
CPT/HCPCS: 36415; 80053; 81001; 84100; 84153; 85027

== ENCOUNTER → 2018-07-03 | Outpatient (CLI) | payer MEDICAID, MEDICARE ==
[2018-07-03 16:42] LABS: LDL Cholesterol,Calculated 62.6 mg/dL (0.0-131.0); VLDL Calculation 14.4 mg/dL (5.00-40.00)
[2018-07-03 20:04] LABS: Hemoglobin A1C 6.9 % (4.0-6.0)
== END | disposition home or self-care (01) ==
LOC: LABWHC1 10:30
PROVIDERS: ATTEND Internal Medicine
DX: E10.21 Type 1 diabetes mellitus with diabetic nephropathy (principal)
CPT/HCPCS: 36415; 80061; 82043; 82570; 83036

== ENCOUNTER → 2018-07-29 | Outpatient (CLI) | payer MEDICAID, MEDICARE ==
[2018-07-29 10:12] LABS: Anisocytosis Slight; Basophils % (A) 0 %; Eosinophils # (A) 0.1 k/uL (0-0.7); Eosinophils % (A) 2 %; HCT 33.8 % (39.0-53.0); HGB 10.5 gm/dL (13.0-17.5); Lymphocytes # (A) 1.4 k/uL (1.0-4.8); Lymphocytes % (A) 26 %; MCH 27.7 pg (25.0-35.0); MCHC 31.1 g/dL (31.0-37.0); MCV 89.3 fL (80.0-100.0); Mean Platelet Volume 8.5; Monocytes # (A) 0.4 k/uL (0-1.0); Monocytes % (A) 8 %; Neutrophils # (A) 3.3 k/uL (1.3-7.7); Neutrophils % (A) 62 %; RBC 3.79 m/uL (4.30-5.90); RDW 16.1 % (11.5-15.5); WBC 5.3 k/uL (3.8-10.6)
[2018-07-29 10:23] LABS: Platelet Count 96 k/uL (150-450)
[2018-07-29 17:47] LABS: Albumin 3.7 g/dL (3.80-4.90); Anion Gap 4.6 mmol/L (4.00-12.00); Carbon Dioxide 23.4 mmol/L (21.6-31.8); Phosphorus 3.2 mg/dL (2.4-5.1); Potassium 4.3 mmol/L (3.5-5.5)
== END ==
LOC: LABWHC1 09:21
PROVIDERS: ATTEND Internal Medicine
DX: Z48.22 Encounter for aftercare following kidney transplant (principal); Z94.0 Kidney transplant status
CPT/HCPCS: 36415; 80069; 85025

== ENCOUNTER → 2018-09-02 | Outpatient (CLI) | payer MEDICAID, MEDICARE ==
[2018-09-02 16:02] LABS: Albumin 3.7 g/dL (3.80-4.90); Albumin/Globulin Ratio 1.54 (1.60-3.17); Anion Gap 6.2 mmol/L (4.00-12.00); Calcium 8.7 mg/dL (8.7-10.3); Carbon Dioxide 22.8 mmol/L (21.6-31.8); Globulin 2.4 g/dL (1.6-3.3); Potassium 4.9 mmol/L (3.5-5.5); Total Bilirubin 0.4 mg/dL (0.3-1.2); Total Protein 6.1 g/dL (6.2-8.2)
[2018-09-02 18:46] LABS: Hemoglobin A1C 7.1 % (4.0-6.0)
== END ==
LOC: LABWHC1 09:48
PROVIDERS: ATTEND Internal Medicine
DX: E10.21 Type 1 diabetes mellitus with diabetic nephropathy (principal)
CPT/HCPCS: 36415; 80053; 83036

== ENCOUNTER → 2018-10-14 | Outpatient (CLI) | payer MEDICAID, MEDICARE ==
[2018-10-14 18:44] LABS: Hemoglobin A1C 6.6 % (4.0-6.0)
== END | disposition home or self-care (01) ==
LOC: LABWHC1 09:12
PROVIDERS: ATTEND Internal Medicine
DX: E10.21 Type 1 diabetes mellitus with diabetic nephropathy (principal)
CPT/HCPCS: 36415; 83036

== ENCOUNTER 2018-11-05 14:40 | Inpatient (IN) | payer MEDICAID, MEDICARE ==
[2018-11-05 16:04] LABS: Appearance,Urine Cloudy (Clear); Bilirubin,Urine Negative (Negative); Blood,Urine Moderate (Negative); Color,Urine Light Yellow; Glucose,Urine (UA) Negative (Negative); Ketones,Urine Negative (Negative); Leukocyte Esterase,Urine Large (Negative); Mucus,Urine Rare /hpf; Nitrite,Urine Negative (Negative); PH, Urine 7.5 (5.0-8.0); Protein,Urine 1+ (Negative); RBC,Urine 42 /hpf (0-5); Specific Gravity,Urine 1.011 (1.001-1.035); Urobilinogen,Urine <2.0 mg/dL (<2.0); WBC,Urine 7 /hpf (0-5)
[2018-11-05] MEDS ORDERED: SODIUM CHLORIDE 0.9% 1,000 ML IV SCH (16:45)
--- NOTE | 2018-11-05 16:56 | ED ---
General Adult HPI - General Source: patient, RN notes reviewed, old records reviewed Mode of arrival: ambulatory Limitations: no limitations <Val Thao - Last Filed: 11/05/18 16:52> <Keith Murrieta - Last Filed: 11/05/18 18:56> - General Chief complaint: Recheck/Abnormal Lab/Rx Stated complaint: Kidney pain Time Seen by Provider: 11/05/18 16:10 - History of Present Illness Initial comments: 63-year-old male with extensive history of 2 kidney transplants in 1992, 1997, with transplant team of [facility]. He presents today for abnormal lab values. Patient states that he was recently admitted and discharged from [facility] last Sunday with diagnosis of urinary retention causing kidney failure. Patient nurse's while [place] mentioned the Patient may need dialysis but he has not initiated on dialysis that time. Patient's family Patient reports that he was not seen by neurology or urology while hospitalized at [facility], and stated that he was told to follow up with his outpatient specialty finishing utility person for lab work. He completed the lab work yesterday and was called to coming to emergency department for acute worsening renal failure. Patient was admitted to [facility] and had a Jorge catheter placed and has had some urine output but knows that his urine output has been decreasing. He states is been feeling generally fatigued. He denies any fevers or chills changes in bowel habits. He denies any recent vomiting. Patient also has a history of lymphoma, family states this is caused by immunosuppression drugs from his kidney transplant. He has now been off immunosuppressant drugs and is not a low dose of steroids. Patient patient's reports that his BUN was over 100 and creatinine was 4.5. And Patient needed to be initiated on dialysis. The report that Dr. Stewart has been aware of these changes. (Val Thao) - Related Data Home Medications Medication Instructions Recorded Confirmed Atenolol [Tenormin] 50 mg PO DAILY 09/01/15 11/05/18 NIFEdipine XL [Procardia XL] 30 mg PO DAILY 09/01/15 11/05/18 Pravastatin Sodium [Pravachol] 40 mg PO DAILY 09/01/15 11/05/18 Finasteride 2.5 mg PO DAILY 07/04/16 11/05/18 Aspirin [Children's Aspirin] 81 mg PO DAILY 03/31/17 11/05/18 Dexamethasone 0.75 mg PO DAILY 03/31/17 11/05/18 Losartan [Cozaar] 50 mg PO DAILY 03/31/17 11/05/18 Calcitriol [Rocaltrol] 0.25 mcg PO MOWEFR 11/05/18 11/05/18 Doxazosin [Cardura] 1 mg PO DAILY 11/05/18 11/05/18 Insulin Aspart (Niacinamide) See Protocol SQ-PUMP CONTINUOUS 11/05/18 11/05/18 [Fiasp 100 Unit/ml Vial] Iron Polysaccharide Complex 150 mg PO DAILY 11/05/18 11/05/18 [Ferrex 150] Levothyroxine Sodium 150 mcg PO DAILY 11/05/18 11/05/18 Sodium Bicarbonate Tab 2,600 mg PO BID 11/05/18 11/05/18 Tamsulosin [Flomax] 0.4 mg PO DAILY 11/05/18 11/05/18 predniSONE 10 mg PO DAILY 11/05/18 11/05/18 Allergies Allergy/AdvReac Type Severity Reaction Status Date / Time No Known Allergies Allergy Verified 11/05/18 17:09 Review of Systems ROS Other: All systems not noted in ROS Statement are negative. <Val Thao - Last Filed: 11/05/18 16:52> ROS Other: All systems not noted in ROS Statement are negative. <Keith Murrieta - Last Filed: 11/05/18 18:56> ROS Statement: Those systems with pertinent positive or pertinent negative responses have been documented in the HPI. Past Medical History Past Medical History: Cancer, Diabetes Mellitus, Deep Vein Thrombosis (DVT), Hyperlipidemia, Hypertension, Renal Disease, Skin Disorder, Thyroid Disorder, Vascular Disorder Additional Past Medical History / Comment(s): wound bottom of left foot, hx vascular calcification, basal cell carcinoma nose removed 2010. BRAIN CANCER History of Any Multi-Drug Resistant Organisms: None Reported Additional Past Surgical History / Comment(s): kidney transplant : 1992 & 1997. RIGHT transmetatarsal amputation. basal cell carcinoma excision.BRAIN TUMOR REMOVED WITH CHEMO Past Anesthesia/Blood Transfusion Reactions: No Reported Reaction Past Psychological History: No Psychological Hx Reported Smoking Status: Never smoker Past Alcohol Use History: None Reported Past Drug Use History: None Reported - Past Family History Mother Family Medical History: Diabetes Mellitus <Val Thao - Last Filed: 11/05/18 16:52> General Exam Limitations: no limitations General appearance: alert, in no apparent distress Head exam: Present: atraumatic, normocephalic, normal inspection Eye exam: Present: normal appearance, PERRL, EOMI. Absent: scleral icterus, conjunctival injection, periorbital swelling ENT exam: Present: normal exam, mucous membranes moist Neck exam: Present: normal inspection, other. Absent: tenderness, meningismus, lymphadenopathy Respiratory exam: Present: normal lung sounds bilaterally, other (Patient has a port over his right chest wall.). Absent: respiratory distress, wheezes, rales, rhonchi, stridor Cardiovascular Exam: Present: regular rate, normal rhythm, normal heart sounds. Absent: systolic murmur, diastolic murmur, rubs, gallop, clicks GI/Abdominal exam: Present: soft, normal bowel sounds. Absent: distended, tenderness, guarding, rebound, rigid Extremities exam: Present: normal inspection, full ROM, normal capillary refill. Absent: tenderness, pedal edema, joint swelling, calf tenderness Back exam: Present: normal inspection Neurological exam: Present: alert, oriented X3, CN II-XII intact Psychiatric exam: Present: normal affect, normal mood Skin exam: Present: warm, dry, intact, normal color. Absent: rash <Val Thao - Last Filed: 11/05/18 16:52> - General Exam Comments Initial Comments: 63-year-old male. Alert and oriented 3. (Val Thao) Course Vital Signs 11/05/18 14:54 Temperature 98 F Pulse Rate 72 Respiratory 20 Rate Blood Pressure 177/98 O2 Sat by Pulse 98 Oximetry Medical Decision Making - Lab Data Result diagrams: 11/05/18 16:45 11/05/18 16:45 <Keith Murrieta - Last Filed: 11/05/18 18:56> - Medical Decision Making 63-year-old male in presenting with worsening renal function. Patient appears tremulous, he is hypertensive. He has normal potassium. Creatinine is 4.8 he has elevated BUN. I did discuss case with the specialty finishing utility person Dr. Stewart who is familiar with this patient. Recommends 80 mg of Lasix twice daily. We will evaluate the patient the morning for possible vascular access and need for hemodialysis. (Keith Murrieta) - Lab Data Lab Results 11/05/18 11/05/18 11/05/18 Range/Units 15:56 16:45 16:45 WBC 4.7 (3.8-10.6) k/uL RBC 3.06 L (4.30-5.90) m/uL Hgb 8.9 L (13.0-17.5) gm/dL Hct 26.2 L (39.0-53.0) % MCV 85.4 (80.0-100.0) fL MCH 29.0 (25.0-35.0) pg MCHC 33.9 (31.0-37.0) g/dL RDW 15.8 H (11.5-15.5) % Plt Count 96 L (150-450) k/uL Neutrophils % 76 % Lymphocytes % 16 % Monocytes % 5 % Eosinophils % 1 % Basophils % 0 % Neutrophils # 3.6 (1.3-7.7) k/uL Lymphocytes # 0.7 L (1.0-4.8) k/uL Monocytes # 0.2 (0-1.0) k/uL Eosinophils # 0.1 (0-0.7) k/uL Basophils # 0.0 (0-0.2) k/uL Sodium 138 (137-145) mmol/L Potassium 4.8 (3.5-5.1) mmol/L Chloride 110 H (98-107) mmol/L Carbon Dioxide 19 L (22-30) mmol/L Anion Gap 9 mmol/L BUN 97 H (9-20) mg/dL Creatinine 4.81 H (0.66-1.25) mg/dL Est GFR (CKD-EPI)AfAm 14 (>60 ml/min/1.73 sqM) Est GFR (CKD-EPI)NonAf 12 (>60 ml/min/1.73 sqM) Glucose 108 H (74-99) mg/dL Calcium 8.4 (8.4-10.2) mg/dL Total Bilirubin 0.4 (0.2-1.3) mg/dL AST 18 (17-59) U/L ALT 32 (21-72) U/L Alkaline Phosphatase 48 (38-126) U/L Troponin I (0.000-0.034) ng/mL Total Protein 6.0 L (6.3-8.2) g/dL Albumin 3.1 L (3.5-5.0) g/dL Amylase 32 (30-110) U/L Lipase 79 (23-300) U/L Urine Color Light Yellow Urine Appearance Cloudy (Clear) Urine pH 7.5 (5.0-8.0) Ur Specific [place] 1.011 (1.001-1.035) Urine Protein 1+ H (Negative) Urine Glucose (UA) Negative (Negative) Urine Ketones Negative (Negative) Urine Blood Moderate H (Negative) Urine Nitrite Negative (Negative) Urine Bilirubin Negative (Negative) Urine Urobilinogen <2.0 (<2.0) mg/dL Ur Leukocyte Esterase Large H (Negative) Urine RBC 42 H (0-5) /hpf Urine WBC 7 H (0-5) /hpf Urine Mucus Rare H (None) /hpf 11/05/18 Range/Units 16:45 WBC (3.8-10.6) k/uL RBC (4.30-5.90) m/uL Hgb (13.0-17.5) gm/dL Hct (39.0-53.0) % MCV (80.0-100.0) fL MCH (25.0-35.0) pg MCHC (31.0-37.0) g/dL RDW (11.5-15.5) % Plt Count (150-450) k/uL Neutrophils % % Lymphocytes % % Monocytes % % Eosinophils % % Basophils % % Neutrophils # (1.3-7.7) k/uL Lymphocytes # (1.0-4.8) k/uL Monocytes # (0-1.0) k/uL Eosinophils # (0-0.7) k/uL Basophils # (0-0.2) k/uL Sodium (137-145) mmol/L Potassium (3.5-5.1) mmol/L Chloride (98-107) mmol/L Carbon Dioxide (22-30) mmol/L Anion Gap mmol/L BUN (9-20) mg/dL Creatinine (0.66-1.25) mg/dL Est GFR (CKD-EPI)AfAm (>60 ml/min/1.73 sqM) Est GFR (CKD-EPI)NonAf (>60 ml/min/1.73 sqM) Glucose (74-99) mg/dL Calcium (8.4-10.2) mg/dL Total Bilirubin (0.2-1.3) mg/dL AST (17-59) U/L ALT (21-72) U/L Alkaline Phosphatase (38-126) U/L Troponin I 0.025 (0.000-0.034) ng/mL Total Protein (6.3-8.2) g/dL Albumin (3.5-5.0) g/dL Amylase (30-110) U/L Lipase (23-300) U/L Urine Color Urine Appearance (Clear) Urine pH (5.0-8.0) Ur Specific [place] (1.001-1.035) Urine Protein (Negative) Urine Glucose (UA) (Negative) Urine Ketones (Negative) Urine Blood (Negative) Urine Nitrite (Negative) Urine Bilirubin (Negative) Urine Urobilinogen (<2.0) mg/dL Ur Leukocyte Esterase (Negative) Urine RBC (0-5) /hpf Urine WBC (0-5) /hpf Urine Mucus (None) /hpf Disposition <Val Thao - Last Filed: 11/05/18 16:52> Is patient prescribed a controlled substance at d/c from ED?: No Decision to Admit Reason: Admit from EC Decision Date: 11/05/18 Decision Time: 18:56 <Keith Murrieta - Last Filed: 11/05/18 18:56> Clinical Impression: Fluid overload, Acute on chronic renal failure Disposition: ADMITTED IP TO THIS HOSP Condition: Stable Referrals: Salo Villar MD [Primary Care Provider] - 1-2 days
[2018-11-05 17:11] LABS: Albumin 3.1 g/dL (3.5-5.0); Calcium 8.4 mg/dL (8.4-10.2); Potassium 4.8 mmol/L (3.5-5.1); Total Bilirubin 0.4 mg/dL (0.2-1.3)
[2018-11-05 17:37] LABS: Basophils % (A) 0 %; Eosinophils # (A) 0.1 k/uL (0-0.7); Eosinophils % (A) 1 %; HCT 26.2 % (39.0-53.0); HGB 8.9 gm/dL (13.0-17.5); Lymphocytes # (A) 0.7 k/uL (1.0-4.8); Lymphocytes % (A) 16 %; MCHC 33.9 g/dL (31.0-37.0); MCV 85.4 fL (80.0-100.0); Mean Platelet Volume 8.2; Monocytes # (A) 0.2 k/uL (0-1.0); Monocytes % (A) 5 %; Neutrophils # (A) 3.6 k/uL (1.3-7.7); Neutrophils % (A) 76 %; RBC 3.06 m/uL (4.30-5.90); RDW 15.8 % (11.5-15.5); WBC 4.7 k/uL (3.8-10.6)
[2018-11-05 17:38] LABS: Platelet Count 96 k/uL (150-450)
[2018-11-05] MEDS ORDERED: FUROSEMIDE 10 MG/ML 10 ML VIAL IV STA (18:43)
[2018-11-05] MEDS ORDERED: NALOXONE 0.4 MG/ML 1 ML VIAL IV PRN (18:45)
[2018-11-05] MEDS ORDERED: ACETAMINOPHEN TAB 325 MG TAB PO PRN (18:45)
[2018-11-05] MEDS: DOXAZOSIN 1 MG TAB PO SCH ×2 (20:19→20:20)
[2018-11-05] MEDS ORDERED: INSULIN ASPART 100 UNIT SQ-PUMP SCH (21:15)
--- NOTE | 2018-11-05 21:23 | P.HPIM ---
History of Present Illness H&P Date: 11/05/18 Chief Complaint: fluid overload, acute kidney failure with chronic kidney d isease, urgent h 63-year-old male one of Dr. Salo Villar's patient with past medical history of type 2 diabetes on insulin pump, history of dizziness thrombosis, history of hypertension hyperlipidemia and chronic kidney disease post kidney transplant time to 93 and 98 with acute kidney failure in the last few months become much worse over the last 3 month period of time mahamed Ratliff was s een nephrology today and been with a fluid overload and worsening symptoms especially with his kidney function patient was instructed to come to the hospital process and been admitted for possible need for dialysis line and needed hemodialysis urgently over the next 24 hours. Patient is still having slight difficulty in breathing with mild pain and discomfort and noncontrolled hypertension. Review of Systems CONSTITUTIONAL: Well-developed no acute respiratory distress. EYES: No icterus sclerae, no conjunctivitis. EARS, NOSE, MOUTH, THROAT, and FACE: No sore throat, lymphadenopathy, carotid bruits or deformity. scar tissue over the 4 had from recent craniotomy. RESPIRATORY: positive shortness of breath no cough or wheezes. CARDIOVASCULAR: No CP, Palpitation, PND, Orthopnea, or angina. GASTROINTESTINAL: slight abdominal discomfort with nausea no vomiting GENITOURINARY: has an indwelling Jorge catheter with no hematuria, decrease urine output INTEGUMENT/BREAST: Negative for any muscular injury with mild osteoarthritis.. HEMATOLOGIC/LYMPHATIC: Negative for bleed or purpura. MUSCULOSKELTAL: Negative for Myalgia or arthralgia. NEURLOGICAL: No LOC, Sz or syncope, blurred vision dizziness or abnormality.. BEHAVIORAL/PSYCH: Negative. ENDOCRINE: Negative. Past Medical History Past Medical History: Cancer, Diabetes Mellitus, Deep Vein Thrombosis (DVT), Hyperlipidemia, Hypertension, Renal Disease, Skin Disorder, Thyroid Disorder, Vascular Disorder Additional Past Medical History / Comment(s): wound bottom of left foot, hx vascular calcification, basal cell carcinoma nose removed 2010. BRAIN CANCER History of Any Multi-Drug Resistant Organisms: None Reported Additional Past Surgical History / Comment(s): kidney transplant : 1992 & 1997. RIGHT transmetatarsal amputation. basal cell carcinoma excision.BRAIN TUMOR REMOVED WITH CHEMO Past Anesthesia/Blood Transfusion Reactions: No Reported Reaction Past Psychological History: No Psychological Hx Reported Smoking Status: Never smoker Past Alcohol Use History: None Reported Past Drug Use History: None Reported - Past Family History Mother Family Medical History: Diabetes Mellitus Medications and Allergies Home Medications Medication Instructions Recorded Confirmed Type Atenolol [Tenormin] 50 mg PO DAILY 09/01/15 11/05/18 History NIFEdipine XL [Procardia XL] 30 mg PO DAILY 09/01/15 11/05/18 History Pravastatin Sodium [Pravachol] 40 mg PO DAILY 09/01/15 11/05/18 History Finasteride 2.5 mg PO DAILY 07/04/16 11/05/18 History Aspirin [Children's Aspirin] 81 mg PO DAILY 03/31/17 11/05/18 History Dexamethasone 0.75 mg PO DAILY 03/31/17 11/05/18 History Losartan [Cozaar] 50 mg PO DAILY 03/31/17 11/05/18 History Calcitriol [Rocaltrol] 0.25 mcg PO MOWEFR 11/05/18 11/05/18 History Doxazosin [Cardura] 1 mg PO DAILY 11/05/18 11/05/18 History Insulin Aspart (Niacinamide) See Protocol SQ-PUMP CONTINUOUS 11/05/18 11/05/18 H istory [Fiasp 100 Unit/ml Vial] Iron Polysaccharide Complex 150 mg PO DAILY 11/05/18 11/05/18 History [Ferrex 150] Levothyroxine Sodium 150 mcg PO DAILY 11/05/18 11/05/18 History Sodium Bicarbonate Tab 2,600 mg PO BID 11/05/18 11/05/18 History Tamsulosin [Flomax] 0.4 mg PO DAILY 11/05/18 11/05/18 History predniSONE 10 mg PO DAILY 11/05/18 11/05/18 History Allergies Allergy/AdvReac Type Severity Reaction Status Date / Time No Known Allergies Allergy Verified 11/05/18 17:09 Physical Exam Vitals: Vital Signs Temp Pulse Resp BP Pulse Ox 11/05/18 20:21 69 16 191/109 96 11/05/18 20:00 68 18 194/112 97 11/05/18 19:00 97.9 F 66 16 205/102 97 11/05/18 17:00 72 20 181/56 98 11/05/18 14:54 98 F 72 20 177/98 98 Intake and Output 11/05/18 11/05/18 11/05/18 06:59 14:59 22:59 Output Total 450 Balance -450 Output: Urine 450 Other: Weight 87.09 kg General Appearance: Alert, cooperative, no distress, appears stated age. Neck HEENT: Supple, no lymphadenopathy, no thyroid enlargement, no carotid bruits. right forehead the craniotomy side Lungs: decreased breath some bilaterally with fine rhonchi , no crackles or wheezes. Chest Wall: decrease expansion with deep inspiration no tenderness and no deformity was found on exam, no costochondral pain or discomfort. Heart: Regular rate and rhythm, S1, S2 normal, no murmur, rub or gallop. Back: Symmetric, no curvature, ROM normal, no CVA tenderness. Abdomen: Soft, non-tender, bowel sounds active all four quadrants, no masses, no organomegaly. the left side of lower abdominal area had the insulin pump pain and the right side had the sensor for a glucometer. Extremities: Extremities normal, atraumatic, no cyanosis or edema. Pulses: 2+ and symmetric. Skin: Skin color, texture, tugor normal, no rashes or lesions. Neurologic: Alert oriented x3 cranial nerves II through XII intact, no motor deficit, no abnormal balance or gait. Results CBC & Chem 7: 11/05/18 16:45 11/05/18 16:45 Labs: Abnormal Lab Results - Last 24 Hours (Table) 11/05/18 11/05/18 11/05/18 Range/Units 15:56 16:45 16:45 RBC 3.06 L (4.30-5.90) m/uL Hgb 8.9 L (13.0-17.5) gm/dL Hct 26.2 L (39.0-53.0) % RDW 15.8 H (11.5-15.5) % Plt Count 96 L (150-450) k/uL Lymphocytes # 0.7 L (1.0-4.8) k/uL Chloride 110 H (98-107) mmol/L Carbon Dioxide 19 L (22-30) mmol/L BUN 97 H (9-20) mg/dL Creatinine 4.81 H (0.66-1.25) mg/dL Glucose 108 H (74-99) mg/dL Total Protein 6.0 L (6.3-8.2) g/dL Albumin 3.1 L (3.5-5.0) g/dL Urine Protein 1+ H (Negative) Urine Blood Moderate H (Negative) Ur Leukocyte Esterase Large H (Negative) Urine RBC 42 H (0-5) /hpf Urine WBC 7 H (0-5) /hpf Urine Mucus Rare H (None) /hpf Thrombosis Risk Factor Assmnt - DVT/VTE Prophylaxis DVT/VTE Prophylaxis: Pharmacologic Prophylaxis ordered, Mechanical Prophylaxis ordered Assessment and Plan Plan: 1 acute kidney failure: On the chronic kidney disease with worsening kidney function over the last few month , patient will be hospitalized we'll consult nephrology, we probably need to see vascular surgery and plan for dialysis line and therefore hemodialysis. 2 Fluid overload: From worsening kidney function and acute kidney failure, patient most likely will need hemodialysis as the vest management. 3 type 2 diabetes on insulin pump: Continue insulin pump the same will be managed as an outpatient. 4 urgent hypertension: Blood pressure is not under control in the emergency room patient might have missed few dose of his medication between his nifedipine, Cozaar, Cardura and atenolol will resume all meds and add clonidine for high blood pressure above 160/90. 5 BPH: Patient has been on Flomax, Cardura and still have Jorge catheter. 6 post kidney transplant: Remain on steroid at this point patient apparently is not using most of his transfer medication. 7 chronic iron deficiency anemia: Has been on Procrit and iron sulfate continue medication. 8 arrhythmia: Remain on Tenormin 50 mg a day. 9 hypothyroidism: Continue patient on levothyroxine 150 g daily. 10 hyperlipidemia: Remain on Pravachol 40 mg a day. 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 12 history of DVT and is thrombosis: Will continue patient on DVT prophylaxis. 13 GI prophylaxis: Continue patient on H2 navneet. CODE STATUS: Full code. Admit patient to inpatient status for more than 2 nights.
[2018-11-05] MEDS: cloNIDine HCL 0.1 MG TAB PO PRN (22:41)
[2018-11-05 22:57] VITALS: BMI 24.6
[2018-11-05] MEDS ORDERED: INSULIN PUMP BASAL RATES 1 EACH MISC MISCELLANE PRN (23:16)
[2018-11-05] MEDS ORDERED: INSULIN ASPART (NovoLOG) 100 UNIT/ML VIAL SQ PRN (23:16)
[2018-11-05] MEDS ORDERED: INSPUCOR MISCELLANE PRN (23:16)
[2018-11-05] MEDS: FUROSEMIDE 10 MG/ML 10 ML VIAL IV SCH (23:29)
[2018-11-06] MEDS: SODIUM BICARBONATE TAB 650 MG TAB PO SCH ×3 (00:13→20:43)
[2018-11-06] MEDS: hydrALAZINE HCL 20 MG/ML 1 ML VIAL IVP PRN ×2 (00:25→13:07)
[2018-11-06 02:29] LABS: Glucose,Whole Blood 123 mg/dL (75-99)
[2018-11-06] MEDS: cloNIDine HCL 0.1 MG TAB PO PRN ×3 (03:36→17:51)
[2018-11-06] MEDS: LEVOTHYROXINE 75 MCG TAB PO SCH (06:06)
[2018-11-06 06:44] LABS: Glucose,Whole Blood 132 mg/dL (75-99)
[2018-11-06] MEDS: INSULIN PUMP MEAL BOLUS 1 UNIT MISC MISCELLANE SCH ×4 (06:47→20:42)
[2018-11-06] MEDS: CALCITRIOL 0.25 MCG CAP PO SCH (08:48)
[2018-11-06] MEDS: FINASTERIDE 5 MG TAB PO SCH (08:48)
[2018-11-06] MEDS: LOSARTAN 50 MG TAB PO SCH (08:49)
[2018-11-06] MEDS: PRAVASTATIN SODIUM 40 MG TAB PO SCH (08:49)
[2018-11-06] MEDS: TAMSULOSIN 0.4 MG CAP.ER.24H PO SCH (08:49)
[2018-11-06] MEDS: NIFEdipine XL 30 MG TAB.ER.24 PO SCH (08:49)
[2018-11-06] MEDS: predniSONE 10 MG TAB PO SCH (08:49)
[2018-11-06] MEDS: ATENOLOL 50 MG TAB PO SCH (08:53)
[2018-11-06] MEDS: DEXAMETHASONE 0.5 MG TAB PO SCH (08:58)
[2018-11-06] MEDS: DOXAZOSIN 1 MG TAB PO SCH (09:00)
[2018-11-06] MEDS: IRON POLYSACCHARIDES COMPLEX 150 MG CAP PO SCH (09:00)
[2018-11-06] MEDS: FUROSEMIDE 10 MG/ML 10 ML VIAL IV SCH ×2 (09:13→20:42)
[2018-11-06] MEDS: ASPIRIN 81 MG PO SCH (11:20)
[2018-11-06 12:06] LABS: Glucose,Whole Blood 150 mg/dL (75-99)
[2018-11-06] MEDS ORDERED: INSULIN PUMP ACTIVE INSULIN 1 EACH MISC MISCELLANE PRN (12:12)
[2018-11-06] MEDS ORDERED: INSULIN PUMP TARGET GLUCOSE 1 EACH MISC MISCELLANE PRN (12:12)
--- NOTE | 2018-11-06 12:52 | P.NPCON ---
History of Present Illness - Reason for Consult chronic renal failure - History of Present Illness Reason for consultation: Acute kidney injury on chronic kidney disease History of present illness: Patient is a 63-year-old male seen in renal consultation for acute kidney injury on chronic kidney disease. 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 He then received a living unrelated renal allograft in 1997. His renal function has been progressively declining. Emili rome is maintained on prednisone 10 mg daily for antirejection. Other immunosuppression medications were discontinued due to his history of [employer] lymphoma. Patient was recently admitted at [facility] for acute allograft dysfunction. He was noted to have urinary retention and had a Jorge c atheter placed. Renal function did not improve significantly. Yesterday the patient was feeling unwell and came to the hospital. He is maintained on IV Lasix and has good urine output. However his renal function has not improved much. Creatinine on admission was 4.81. He denies chest pain or shortness of breath. No vomiting or diarrhea. Vital signs are stable. General: The patient appeared well nourished and normally developed. HEENT: Head exam is unremarkable. Neck is without jugular venous distension. LUNGS: Lungs are clear to auscultation and percussion. Breath sounds decreased. HEART: Rate and Rhythm are regular. First and second heart sounds normal. No murmurs, rubs or gallops. ABDOMEN: Abdominal exam reveals normal bowel sounds. Non-tender and non- distended. No evidence of peritonitis. EXTREMITITES: No clubbing, cyanosis, or edema. Past Medical History Past Medical History: Cancer, Diabetes Mellitus, Deep Vein Thrombosis (DVT), Hy perlipidemia, Hypertension, Renal Disease, Skin Disorder, Thyroid Disorder, Vascular Disorder Additional Past Medical History / Comment(s): wound bottom of left foot, hx vascular calcification, basal cell carcinoma nose removed 2010. BRAIN CANCER History of Any Multi-Drug Resistant Organisms: None Reported Additional Past Surgical History / Comment(s): kidney transplant : 1992 & 1997. RIGHT transmetatarsal amputation. basal cell carcinoma excision.BRAIN TUMOR REMOVED WITH CHEMO Past Anesthesia/Blood Transfusion Reactions: No Reported Reaction Past Psychological History: No Psychological Hx Reported Smoking Status: Never smoker Past Alcohol Use History: None Reported Past Drug Use History: None Reported - Past Family History Mother Family Medical History: Diabetes Mellitus Medications and Allergies Home Medications Medication Instructions Recorded Confirmed Type Atenolol [Tenormin] 50 mg PO DAILY 09/01/15 11/05/18 History NIFEdipine XL [Procardia XL] 30 mg PO DAILY 09/01/15 11/05/18 History Pravastatin Sodium [Pravachol] 40 mg PO DAILY 09/01/15 11/05/18 History Finasteride 2.5 mg PO DAILY 07/04/16 11/05/18 History Aspirin [Children's Aspirin] 81 mg PO DAILY 03/31/17 11/05/18 History Dexamethasone 0.75 mg PO DAILY 03/31/17 11/05/18 History Losartan [Cozaar] 50 mg PO DAILY 03/31/17 11/05/18 History Calcitriol [Rocaltrol] 0.25 mcg PO MOWEFR 11/05/18 11/05/18 History Doxazosin [Cardura] 1 mg PO DAILY 11/05/18 11/05/18 History Insulin Aspart (Niacinamide) See Protocol SQ-PUMP CONTINUOUS 11/05/18 11/05/18 History [Fiasp 100 Unit/ml Vial] Iron Polysaccharide Complex 150 mg PO DAILY 11/05/18 11/05/18 History [Ferrex 150] Levothyroxine Sodium 150 mcg PO DAILY 11/05/18 11/05/18 History Sodium Bicarbonate Tab 2,600 mg PO BID 11/05/18 11/05/18 History Tamsulosin [Flomax] 0.4 mg PO DAILY 11/05/18 11/05/18 History predniSONE 10 mg PO DAILY 11/05/18 11/05/18 History Allergies Allergy/AdvReac Type Severity Reaction Status Date / Time No Known Allergies Allergy Verified 11/05/18 17:09 Physical Exam Vitals: Vital Signs Temp Pulse Pulse Resp BP BP BP 11/06/18 12:23 174/94 11/06/18 11:19 97.9 F 70 16 180/109 11/06/18 08:00 16 11/06/18 07:51 98.3 F 75 16 193/90 11/06/18 04:51 172/80 11/06/18 03:40 97.8 F 67 18 183/94 11/06/18 01:26 184/95 11/06/18 00:22 206/96 11/05/18 22:42 97.8 F 73 18 206/98 11/05/18 22:02 97.8 F 74 18 177/93 11/05/18 21:00 71 18 180/102 11/05/18 20:21 69 16 191/109 11/05/18 20:00 68 18 194/112 11/05/18 19:00 97.9 F 66 16 205/102 11/05/18 17:00 72 20 181/56 11/05/18 14:54 98 F 72 20 177/98 Pulse Ox 11/06/18 12:23 11/06/18 11:19 97 11/06/18 08:00 11/06/18 07:51 97 11/06/18 04:51 11/06/18 03:40 98 11/06/18 01:26 11/06/18 00:22 11/05/18 22:42 95 11/05/18 22:02 99 11/05/18 21:00 99 11/05/18 20:21 96 11/05/18 20:00 97 11/05/18 19:00 97 11/05/18 17:00 98 11/05/18 14:54 98 Intake and Output 11/05/18 11/06/18 11/06/18 22:59 06:59 14:59 Intake Total 230 Output Total 750 1300 Balance -750 -1070 Intake: Oral 230 Output: Urine 750 1300 Other: Voiding Method Indwelling Catheter Indwelling Catheter Indwelling Catheter Weight 87.5 kg Results - Lab Results Most recent lab results Calcium 8.4 mg/dL (8.4-10.2) 11/05/18 16:45 11/05/18 16:45 11/05/18 16:45 Assessment and Plan Plan: Assessment: 1. 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 Patient has chronic kidney disease stage IV with progressively declining renal function. Creatinine 4.81 today. 2. Urinary retention. Patient currently is a Jorge catheter in place which was placed over a week ago at [facility]. 3. Metabolic acidosis secondary to acute kidney injury. 4. 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 Patient received a living unrelated renal allograft in 1997. 5. History of [employer] lymphoma. 6. Anemia of chronic kidney disease. 7. Hypertension with chronic kidney disease. Blood pressures high. Plan: With worsening renal function and signs of uremia, I will initiate renal replacement therapy. Patient and in agreement. Consult vascular surgery for permacath placement. Consult housing case manager to help facilitate outpatient hemodialysis in [place]. Maintain oral sodium bicarbonate. Check iron studies. Add Aranesp. Maintain Ojrge catheter. Patient will need to follow-up with urology outpatient. Maintain prednisone 10 mg once daily. First treatment of hemodialysis tomorrow. Thank you for the consultation. I will continue to follow patient with you during his hospital stay.
[2018-11-06] MEDS ORDERED: DARBEPOETIN ALFA 40 MCG/0.4 ML SYRINGE SQ SCH (13:00)
--- NOTE | 2018-11-06 14:15 | P.PN ---
Subjective Progress Note Date: 11/06/18 63-year-old male one of Dr. Salo Villar's patient with past medical history of type 2 diabetes on insulin pump, history of dizziness thrombosis, history of hypertension hyperlipidemia and chronic kidney disease post kidney transplant time to 93 and 98 with acute kidney failure in the last few months become much worse over the last 3 month period of time mahamed Ratliff was seen nephrology today and been with a fluid overload and worsening symptoms especially with his kidney function patient was instructed to come to the hospital process and been admitted for possible need for dialysis line and needed hemodialysis urgently over the next 24 hours. Patient is still having slight difficulty in breathing with mild pain and discomfort and noncontrolled hypertension. 11/06: We will add in a consult with Dr. Healy for dialysis catheter placement. Dr. Stewart is on consult and plan is to start hemodialysis.. Patient is continued on sodium bicarb, Aranesp added, iron studies ordered. Jorge catheter to be in place. And prednisone to be continued at 10 mg daily. Plan is to start hemodialysis tomorrow. He has been afebrile, blood pressure 174/94, heart rate in the 70s, pulse ox 97% on room air. Repeat lab work has been ordered for tomorrow. Review of Systems CONSTITUTIONAL: Well-developed no acute respiratory distress. Denies fever, denies chills. EYES: No icterus sclerae, no conjunctivitis. EARS, NOSE, MOUTH, THROAT, and FACE: No sore throat, lymphadenopathy, carotid bruits or deformity. scar tissue over the 4 had from recent craniotomy. RESPIRATORY: positive shortness of breath no cough or wheezes. CARDIOVASCULAR: No CP, Palpitation, PND, Orthopnea, or angina. GASTROINTESTINAL: slight abdominal discomfort with nausea no vomiting GENITOURINARY: has an indwelling Jorge catheter with no hematuria, decrease urine output INTEGUMENT/BREAST: Negative for any muscular injury with mild osteoarthritis.. HEMATOLOGIC/LYMPHATIC: Negative for bleed or purpura. MUSCULOSKELTAL: Negative for Myalgia or arthralgia. NEURLOGICAL: No LOC, Sz or syncope, blurred vision dizziness or abnormality.. BEHAVIORAL/PSYCH: Negative. ENDOCRINE: Negative. Objective - Vital Signs Vital signs: Vital Signs Temp 97.9 F 11/06/18 11:19 Pulse 70 11/06/18 11:19 Resp 16 11/06/18 11:19 BP 174/94 11/06/18 12:23 Pulse Ox 97 11/06/18 11:19 Intake & Output 11/05/18 11/06/18 11/06/18 18:59 06:59 18:59 Intake Total 230 Output Total 750 1300 Balance -750 -1070 Weight 87.09 kg 87.5 kg Intake: Oral 230 Output: Urine 750 1300 Other: Voiding Method Indwelling Catheter Indwelling Catheter - Exam General Appearance: Alert, cooperative, no acute distress, appears stated age. Neck HEENT: Supple, no lymphadenopathy, no thyroid enlargement, no carotid bruits. right forehead the craniotomy side Lungs: decreased breath some bilaterally with fine rhonchi , no crackles or wheezes. Chest Wall: decrease expansion with deep inspiration no tenderness and no deformity was found on exam, no costochondral pain or discomfort. Heart: Regular rate and rhythm, S1, S2 normal, no murmur, rub or gallop. Back: Symmetric, no curvature, ROM normal, no CVA tenderness. Abdomen: Soft, non-tender, bowel sounds active all four quadrants, no masses, no organomegaly. the left side of lower abdominal area had the insulin pump pain and the right side had the sensor for a glucometer. Extremities: Extremities normal, atraumatic, no cyanosis or edema. Pulses: 2+ and symmetric. Skin: Skin color, texture, tugor normal, no rashes or lesions. Neurologic: Alert oriented x3 cranial nerves II through XII intact, no motor deficit, no abnormal balance or gait. - Labs CBC & Chem 7: 11/05/18 16:45 11/05/18 16:45 Labs: Abnormal Lab Results - Last 24 Hours (Table) 11/05/18 11/05/18 11/05/18 Range/Units 15:56 16:45 16:45 RBC 3.06 L (4.30-5.90) m/uL Hgb 8.9 L (13.0-17.5) gm/dL Hct 26.2 L (39.0-53.0) % RDW 15.8 H (11.5-15.5) % Plt Count 96 L (150-450) k/uL Lymphocytes # 0.7 L (1.0-4.8) k/uL Chloride 110 H (98-107) mmol/L Carbon Dioxide 19 L (22-30) mmol/L BUN 97 H (9-20) mg/dL Creatinine 4.81 H (0.66-1.25) mg/dL Glucose 108 H (74-99) mg/dL POC Glucose (mg/dL) (75-99) mg/dL Total Protein 6.0 L (6.3-8.2) g/dL Albumin 3.1 L (3.5-5.0) g/dL Urine Protein 1+ H (Negative) Urine Blood Moderate H (Negative) Ur Leukocyte Esterase Large H (Negative) Urine RBC 42 H (0-5) /hpf Urine WBC 7 H (0-5) /hpf Urine Mucus Rare H (None) /hpf 11/06/18 11/06/18 11/06/18 Range/Units 02:27 06:44 11:45 RBC (4.30-5.90) m/uL Hgb (13.0-17.5) gm/dL Hct (39.0-53.0) % RDW (11.5-15.5) % Plt Count (150-450) k/uL Lymphocytes # (1.0-4.8) k/uL Chloride (98-107) mmol/L Carbon Dioxide (22-30) mmol/L BUN (9-20) mg/dL Creatinine (0.66-1.25) mg/dL Glucose (74-99) mg/dL POC Glucose (mg/dL) 123 H 132 H 150 H (75-99) mg/dL Total Protein (6.3-8.2) g/dL Albumin (3.5-5.0) g/dL Urine Protein (Negative) Urine Blood (Negative) Ur Leukocyte Esterase (Negative) Urine RBC (0-5) /hpf Urine WBC (0-5) /hpf Urine Mucus (None) /hpf Assessment and Plan Plan: 1 Acute allograft dysfunction now progressed to end-stage renal disease. Consult with Dr. Pat mota. Plan is to start hemodialysis tomorrow. Vascular surgery consult for permacath placement. Continue Aranesp, Hexadrol, calcitriol, sodium bicarb. 2 Fluid overload: From worsening kidney function and acute kidney failure. Continue as in #1. 3 type 2 diabetes on insulin pump: Continue insulin pump the same will be managed as an outpatient. 4 urgent hypertension with underlying hypertension with chronic kidney disease. Continue Catapres as needed, hydralazine as needed, atenolol 50 mg daily, losartan 50 mg daily, Procardia 30 mg daily. 5 BPH with urinary retention. Continue Jorge, Flomax, Cardura. 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 Continue prednisone 10 mg daily, Hexadrol 7 anemia of chronic kidney disease. Iron studies ordered by nephrology. Emili nt started on Aranesp. 8 arrhythmia: Remain on Tenormin 50 mg a day. 9 hypothyroidism: Continue patient on levothyroxine 150 g daily. 10 hyperlipidemia: Remain on Pravachol 40 mg a day. 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 12 history of DVT and thrombosis. 13 Metabolic acidosis secondary to acute kidney injury. Continue sodium bicarb. 14 GI prophylaxis: Continue pepcid. CODE STATUS: Full code. Discharge plan: Home Impression and plan of care have been directed as dictated by the signing physician. Nya Rwals nurse practitioner acting as scribe for signing physician.
[2018-11-06] MEDS ORDERED: fentaNYL (PF) 50 MCG/ML 2 ML AMP IV ONE (16:45)
[2018-11-06] MEDS ORDERED: MIDAZOLAM (PF) 2 MG/2 ML VIAL IV ONE (16:45)
--- NOTE | 2018-11-06 17:14 | P.OP ---
Date of Procedure: 11/06/18 Preoperative Diagnosis: On a kidney diseasestage V. Postoperative Diagnosis: Same. Procedure(s) Performed: Ultrasound guided cannulation left internal jugular vein. Placement of a tunneled hemodialysis catheter via left internal jugular vein with fluoroscopic guidance. Anesthesia: local (With IV sedation of 50 g of fentanyl and 2 mg Versed) Surgeon: Jose Juan Rawls Estimated Blood Loss (ml): 10 IV fluids (ml): 25 Urine output (ml): 0 Pathology: none sent Condition: stable Disposition: floor Indications for Procedure: Patient is a 63-year-old male with a history of chronic renal insufficiency which has progressed to the need for chronic hemodialysis who presents for insertion of a tunneled hemodialysis catheter. Operative Findings: Normal appearing left internal jugular vein Description of Procedure: Patient was brought to the cardiac catheterization laboratory. Ultrasound was utilized to interrogate the left internal jugular vein. This vein was found be normally patent, compressible free of visible thrombus. The patient was placed supine on the artery catheterization table. The left lateral neck as well as the left supraclavicular and anterior chest wall areas were sterilely prepped and draped in the usual manner. Patient received 1 g of Ancef administered intravenously for prophylactic purposes. Ultrasound was utilized to identify the internal jugular vein. Tissues overlying the internal jugular vein were localized with 1% Xylocaine. Utilizing ultrasound guidance a multipurpose needle was utilized to cannulate the vein. Once cannulated Softip guidewire was advanced under fluoroscopic guidance down into the superior vena cava. 1% Xylocaine was utilized for local anesthesia of the tissues lateral and below the angle of clavicle. Through this anesthetized and the skin skin incision was made and the urinalysis catheter was tunneled between the 2 incisions. Vessel dilators of increasing size were advanced and withdrawn from over the guidewire. The catheter sheath and dilator advanced over the guidewire. Guidewire and dilator were withdrawn and the catheter was advanced through the sheath and the sheath was then peeled away. Fluoroscopy demonstrated the catheter to be in good position and free of kinking. Both limbs of the catheter were flushed and blood was easily aspirated through both limbs of the catheter. Each limb was then blocked with 5000 units of heparin times volume sufficient to fill each limb. Replaced over each limb. The neck wound was closed with 4-0 Vicryl and the catheter secured to skin with 3-0 nylon. Proper dressings were applied. Patient tolerated the procedure well. A chest x-ray will be obtained to rule out the possibility of a pneumothorax and to confirm placement of the catheter.
[2018-11-06 17:30] LABS: Glucose,Whole Blood 168 mg/dL (75-99)
--- NOTE | 2018-11-06 18:14 | XR ---
EXAMINATION TYPE: XR chest 1V portable DATE OF EXAM: 11/06/2018 COMPARISON: 03/31/2017 HISTORY: Altered mental status TECHNIQUE: Single frontal view of the chest is obtained. FINDINGS: Heart is normal. There is blunting of both costophrenic angles. There is right central jesse ous catheter with the tip in the superior vena cava. There is left central venous catheter with tip a t the top of the right atrium. There is no heart failure. There is airspace infiltrate at both lung b ases. IMPRESSION: Basilar pulmonary infiltrates and bilateral pleural effusions are significantly increase d compared to old exam. Normal heart.
[2018-11-06 20:38] LABS: Glucose,Whole Blood 141 mg/dL (75-99)
[2018-11-06] MEDS: HYDROmorphone 0.5 MG/0.5 ML SYRINGE IVP PRN ×2 (20:42→23:49)
[2018-11-06 21:29] LABS: Iron Saturation 16.52 (15.00-50.00)
[2018-11-07] MEDS: LEVOTHYROXINE 75 MCG TAB PO SCH (06:04)
[2018-11-07] MEDS: hydrALAZINE HCL 20 MG/ML 1 ML VIAL IVP PRN ×2 (06:04→23:00)
[2018-11-07 06:23] LABS: Basophils % (A) 0 %; Eosinophils # (A) 0.1 k/uL (0-0.7); Eosinophils % (A) 2 %; HCT 25.3 % (39.0-53.0); HGB 8.6 gm/dL (13.0-17.5); Lymphocytes # (A) 0.9 k/uL (1.0-4.8); Lymphocytes % (A) 21 %; MCH 30.2 pg (25.0-35.0); MCHC 33.9 g/dL (31.0-37.0); Mean Platelet Volume 8.7; Monocytes # (A) 0.3 k/uL (0-1.0); Monocytes % (A) 7 %; Neutrophils % (A) 69 %; RBC 2.84 m/uL (4.30-5.90); RDW 15.8 % (11.5-15.5); WBC 4.4 k/uL (3.8-10.6)
[2018-11-07 06:30] LABS: Glucose,Whole Blood 192 mg/dL (75-99)
[2018-11-07 06:30] LABS: Calcium 7.9 mg/dL (8.4-10.2); Potassium 4.6 mmol/L (3.5-5.1)
[2018-11-07] MEDS: INSULIN PUMP MEAL BOLUS 1 UNIT MISC MISCELLANE SCH ×4 (06:41→20:56)
[2018-11-07 06:49] LABS: Platelet Count 83 k/uL (150-450)
[2018-11-07] MEDS: ASPIRIN 81 MG PO SCH (08:19)
[2018-11-07] MEDS: ATENOLOL 50 MG TAB PO SCH (08:19)
[2018-11-07] MEDS: DEXAMETHASONE 0.5 MG TAB PO SCH (08:20)
[2018-11-07] MEDS: DOXAZOSIN 1 MG TAB PO SCH ×2 (08:21)
[2018-11-07] MEDS: FAMOTIDINE 20 MG TAB PO SCH (08:22)
[2018-11-07] MEDS: FINASTERIDE 5 MG TAB PO SCH (08:22)
[2018-11-07] MEDS: IRON POLYSACCHARIDES COMPLEX 150 MG CAP PO SCH (08:23)
[2018-11-07] MEDS: LOSARTAN 50 MG TAB PO SCH (08:23)
[2018-11-07] MEDS: NIFEdipine XL 30 MG TAB.ER.24 PO SCH (08:24)
[2018-11-07] MEDS: PRAVASTATIN SODIUM 40 MG TAB PO SCH (08:24)
[2018-11-07] MEDS: predniSONE 10 MG TAB PO SCH (08:24)
[2018-11-07] MEDS: TAMSULOSIN 0.4 MG CAP.ER.24H PO SCH (08:24)
[2018-11-07] MEDS: SODIUM BICARBONATE TAB 650 MG TAB PO SCH ×2 (08:25→21:00)
[2018-11-07] MEDS: FUROSEMIDE 10 MG/ML 10 ML VIAL IV SCH ×2 (08:26→21:02)
--- NOTE | 2018-11-07 10:47 | P.PN ---
Subjective Patient is seen in follow-up for acute allograft dysfunction which now appears to have progressed to end-stage renal disease. Patient was started on hemodialysis today. Currently seeing while undergoing hemodialysis. He is feeling better. No chest pain or shortness of breath. Patient has a Jorge catheter for urinary retention. Urine output remains good. Vital signs are stable. General: The patient appeared well nourished and normally developed. HEENT: Head exam is unremarkable. Neck is without jugular venous distension. LUNGS: Lungs are clear to auscultation and percussion. Breath sounds decreased. HEART: Rate and Rhythm are regular. First and second heart sounds normal. No murmurs, rubs or gallops. ABDOMEN: Abdominal exam reveals normal bowel sounds. Non-tender and non- distended. No evidence of peritonitis. EXTREMITITES: No clubbing, cyanosis, or edema. Objective - Vital Signs Vital signs: Vital Signs Temp 97.1 F L 11/07/18 05:50 Pulse 91 11/07/18 05:50 Resp 16 11/07/18 05:50 BP 171/98 11/07/18 05:50 Pulse Ox 100 11/07/18 05:50 Intake & Output 11/06/18 11/07/18 11/07/18 18:59 06:59 18:59 Intake Total 503 230 Output Total 2400 1500 Balance -1897 -1270 Intake: IV 123 Sodium Chloride 0.9% 1, 80 000 ml @ 50 mls/hr IV . Q20H [facility] Rx#:[id number] Oral 380 230 Output: Urine 2400 1500 Uretheral (Jorge) 900 Other: Voiding Method Indwelling Catheter Indwelling Catheter - Labs CBC & Chem 7: 11/07/18 06:00 11/07/18 06:00 Labs: Abnormal Lab Results - Last 24 Hours (Table) 11/05/18 11/06/18 11/06/18 Range/Units 16:45 11:45 17:23 RBC (4.30-5.90) m/uL Hgb (13.0-17.5) gm/dL Hct (39.0-53.0) % RDW (11.5-15.5) % Plt Count (150-450) k/uL Lymphocytes # (1.0-4.8) k/uL Chloride (98-107) mmol/L Carbon Dioxide (22-30) mmol/L BUN (9-20) mg/dL Creatinine (0.66-1.25) mg/dL Glucose (74-99) mg/dL POC Glucose (mg/dL) 150 H 168 H (75-99) mg/dL Calcium (8.4-10.2) mg/dL Iron 38 L (65-175) ug/dL 11/06/18 11/07/18 11/07/18 Range/Units 20:37 06:00 06:00 RBC 2.84 L (4.30-5.90) m/uL Hgb 8.6 L (13.0-17.5) gm/dL Hct 25.3 L (39.0-53.0) % RDW 15.8 H (11.5-15.5) % Plt Count 83 L (150-450) k/uL Lymphocytes # 0.9 L (1.0-4.8) k/uL Chloride 109 H (98-107) mmol/L Carbon Dioxide 21 L (22-30) mmol/L BUN 106 H* (9-20) mg/dL Creatinine 4.72 H (0.66-1.25) mg/dL Glucose 166 H (74-99) mg/dL POC Glucose (mg/dL) 141 H (75-99) mg/dL Calcium 7.9 L (8.4-10.2) mg/dL Iron (65-175) ug/dL 11/07/18 Range/Units 06:29 RBC (4.30-5.90) m/uL Hgb (13.0-17.5) gm/dL Hct (39.0-53.0) % RDW (11.5-15.5) % Plt Count (150-450) k/uL Lymphocytes # (1.0-4.8) k/uL Chloride (98-107) mmol/L Carbon Dioxide (22-30) mmol/L BUN (9-20) mg/dL Creatinine (0.66-1.25) mg/dL Glucose (74-99) mg/dL POC Glucose (mg/dL) 192 H (75-99) mg/dL Calcium (8.4-10.2) mg/dL Iron (65-175) ug/dL Assessment and Plan Plan: Assessment: 1. 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 Patient has chronic kidney disease stage IV with progressively declining renal function. Creatinine 4.72 today with BUN 106. Permacath placed on November 06. 2. Urinary retention. Patient currently has a Jorge catheter in place which was placed over a week ago at [facility]. 3. Metabolic acidosis secondary to acute kidney injury. Better. 4. 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 Patient received a living unrelated renal allograft in 1997. 5. History of DISC SANDER lymphoma. 6. Anemia of chronic kidney disease maintained on Aranesp. Iron deficiency noted. 7. Hypertension with chronic kidney disease. Better. Plan: With worsening renal function, volume overload and signs of uremia, patient was started on hemodialysis today. Currently seen while undergoing hemodialysis. Next treatment tomorrow. accounts receivable manager to help facilitate outpatient hemodialysis in [place]. Maintain oral sodium bicarbonate. IV iron 3 doses. First dose today. Maintain prednisone 10 mg once daily. Discontinue Jorge catheter and monitor serial postvoid residuals.
--- NOTE | 2018-11-07 10:55 | IR ---
Fluoroscopy HISTORY: Dialysis catheter placement 0.3 minutes fluoroscopy time supplied to the referring clinician. 102 intraoperative C-arm images d ocument the procedure. See dictated report from vascular surgery.
[2018-11-07 11:52] LABS: Glucose,Whole Blood 162 mg/dL (75-99)
[2018-11-07 13:47] LABS: Hepatitis A Antibody IgM Non-Reactive (Non-Reactive); Hepatitis B Core IgM Non-Reactive (Non-Reactive)
--- NOTE | 2018-11-07 16:25 | P.PN ---
Subjective Progress Note Date: 11/07/18 63-year-old male one of Dr. Salo Villar's patient with past medical history of type 2 diabetes on insulin pump, history of dizziness thrombosis, history of hypertension hyperlipidemia and chronic kidney disease post kidney transplant time to 93 and 98 with acute kidney failure in the last few months become much worse over the last 3 month period of time mahamed Ratliff was seen nephrology today and been with a fluid overload and worsening symptoms especially with his kidney function patient was instructed to come to the hospital process and been admitted for possible need for dialysis line and needed hemodialysis urgently over the next 24 hours. Patient is still having slight difficulty in breathing with mild pain and discomfort and noncontrolled hypertension. 11/06: We will add in a consult with Dr. Healy for dialysis catheter placement. Dr. Stewart is on consult and plan is to start hemodialysis.. Patient is continued on sodium bicarb, Aranesp added, iron studies ordered. Jorge catheter to be in place. And prednisone to be continued at 10 mg daily. Plan is to start hemodialysis tomorrow. He has been afebrile, blood pressure 174/94, heart rate in the 70s, pulse ox 97% on room air. Repeat lab work has been ordered for tomorrow. 11/07: Patient is undergone permacath placement in the left internal jugular vein with Dr. Dillon yesterday. He is scheduled for hemodialysis to start today and again tomorrow as recommended by Dr. Stewart. Patient denies any chest pain or shortness of breath. Jorge catheter is in place. Patient has been ordered for IV Ferrlecit. Review of Systems CONSTITUTIONAL: Denies fever, denies chills. EYES: No icterus sclerae, no conjunctivitis. EARS, NOSE, MOUTH, THROAT, and FACE: No sore throat, lymphadenopathy, carotid bruits or deformity. scar tissue over the 4 had from recent craniotomy. RESPIRATORY: positive shortness of breath no cough or wheezes. CARDIOVASCULAR: No CP, Palpitation, PND, Orthopnea, or angina. GASTROINTESTINAL: slight abdominal discomfort with nausea no vomiting GENITOURINARY: has an indwelling Jorge catheter with no hematuria, decrease urine output INTEGUMENT/BREAST: Negative for any muscular injury with mild osteoarthritis.. HEMATOLOGIC/LYMPHATIC: Negative for bleed or purpura. MUSCULOSKELTAL: Negative for Myalgia or arthralgia. NEURLOGICAL: No LOC, Sz or syncope, blurred vision dizziness or abnormality.. BEHAVIORAL/PSYCH: Negative. ENDOCRINE: Negative. Objective - Vital Signs Vital signs: Vital Signs Temp 97.1 F L 11/07/18 05:50 Pulse 91 11/07/18 05:50 Resp 16 11/07/18 05:50 BP 171/98 11/07/18 05:50 Pulse Ox 100 11/07/18 05:50 Intake & Output 11/06/18 11/07/18 11/07/18 18:59 06:59 18:59 Intake Total 503 230 Output Total 2400 1500 Balance -1897 -1270 Intake: IV 123 Sodium Chloride 0.9% 1, 80 000 ml @ 50 mls/hr IV . Q20H [facility] Rx#:[id number] Oral 380 230 Output: Urine 2400 1500 Uretheral (Jorge) 900 Other: Voiding Method Indwelling Catheter Indwelling Catheter - Exam General Appearance: Alert, cooperative, no acute distress, appears stated age. Neck HEENT: Supple, no lymphadenopathy, no thyroid enlargement, no carotid bruits. right forehead the craniotomy side Lungs: decreased breath some bilaterally with fine rhonchi , no crackles or wheezes. Chest Wall: decrease expansion with deep inspiration no tenderness and no deformity was found on exam, no costochondral pain or discomfort. Heart: Regular rate and rhythm, S1, S2 normal, no murmur, rub or gallop. Back: Symmetric, no curvature, ROM normal, no CVA tenderness. Abdomen: Soft, non-tender, bowel sounds active all four quadrants, no masses, no organomegaly. the left side of lower abdominal area had the insulin pump pain and the right side had the sensor for a glucometer. Extremities: Extremities normal, atraumatic, no cyanosis or edema. Pulses: 2+ and symmetric. Skin: Skin color, texture, tugor normal, no rashes or lesions. Neurologic: Alert oriented x3 cranial nerves II through XII intact, no motor deficit, no abnormal balance or gait. - Labs CBC & Chem 7: 11/07/18 06:00 11/07/18 06:00 Labs: Abnormal Lab Results - Last 24 Hours (Table) 11/05/18 11/06/18 11/06/18 Range/Units 16:45 11:45 17:23 RBC (4.30-5.90) m/uL Hgb (13.0-17.5) gm/dL Hct (39.0-53.0) % RDW (11.5-15.5) % Plt Count (150-450) k/uL Lymphocytes # (1.0-4.8) k/uL Chloride (98-107) mmol/L Carbon Dioxide (22-30) mmol/L BUN (9-20) mg/dL Creatinine (0.66-1.25) mg/dL Glucose (74-99) mg/dL POC Glucose (mg/dL) 150 H 168 H (75-99) mg/dL Calcium (8.4-10.2) mg/dL Iron 38 L (65-175) ug/dL 11/06/18 11/07/18 11/07/18 Range/Units 20:37 06:00 06:00 RBC 2.84 L (4.30-5.90) m/uL Hgb 8.6 L (13.0-17.5) gm/dL Hct 25.3 L (39.0-53.0) % RDW 15.8 H (11.5-15.5) % Plt Count 83 L (150-450) k/uL Lymphocytes # 0.9 L (1.0-4.8) k/uL Chloride 109 H (98-107) mmol/L Carbon Dioxide 21 L (22-30) mmol/L BUN 106 H* (9-20) mg/dL Creatinine 4.72 H (0.66-1.25) mg/dL Glucose 166 H (74-99) mg/dL POC Glucose (mg/dL) 141 H (75-99) mg/dL Calcium 7.9 L (8.4-10.2) mg/dL Iron (65-175) ug/dL 11/07/18 Range/Units 06:29 RBC (4.30-5.90) m/uL Hgb (13.0-17.5) gm/dL Hct (39.0-53.0) % RDW (11.5-15.5) % Plt Count (150-450) k/uL Lymphocytes # (1.0-4.8) k/uL Chloride (98-107) mmol/L Carbon Dioxide (22-30) mmol/L BUN (9-20) mg/dL Creatinine (0.66-1.25) mg/dL Glucose (74-99) mg/dL POC Glucose (mg/dL) 192 H (75-99) mg/dL Calcium (8.4-10.2) mg/dL Iron (65-175) ug/dL Assessment and Plan Plan: 1 Acute allograft dysfunction now progressed to end-stage renal disease. Consult with Dr. Pat mota. Plan is to start hemodialysis today with repeat tomorrow. Vascular surgery has placed permacath. Continue Aranesp, Hexadrol, calcitriol, sodium bicarb. 2 Fluid overload: From worsening kidney function and acute kidney failure. Continue as in #1. 3 type 2 diabetes on insulin pump: Continue insulin pump the same will be managed as an outpatient. 4 urgent hypertension with underlying hypertension with chronic kidney disease. Continue Catapres as needed, hydralazine as needed, atenolol 50 mg daily, losartan 50 mg daily, Procardia 30 mg daily. 5 BPH with urinary retention. Continue Jorge, Flomax, Cardura. 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 Continue prednisone 10 mg daily, Hexadrol 7 anemia of chronic kidney disease. Iron studies ordered by nephrology. Patient started on Aranesp. 8 arrhythmia: Remain on Tenormin 50 mg a day. 9 hypothyroidism: Continue patient on levothyroxine 150 g daily. 10 hyperlipidemia: Remain on Pravachol 40 mg a day. 11 history of malignant brain tumor from his suppress immune system from t ransfer medication, post craniotomy with good result so far. 12 history of DVT and thrombosis. 13 Metabolic acidosis secondary to acute kidney injury. Continue sodium bicarb. 14 GI prophylaxis: Continue pepcid. CODE STATUS: Full code. Discharge plan: Home Impression and plan of care have been directed as dictated by the signing physician. Nya Rawls nurse practitioner acting as scribe for signing physician.
[2018-11-07] MEDS: SODIUM FERRIC GLUCONAT-SUCROSE 125 MG in SODIUM CHLORIDE 0.9% 100 ML IVPB SCH (16:35)
[2018-11-07 16:49] LABS: Glucose,Whole Blood 198 mg/dL (75-99)
[2018-11-07 19:24] LABS: Hepatitis B Surface AB- Quant 3.5 mIU/mL
[2018-11-07 20:29] LABS: Glucose,Whole Blood 122 mg/dL (75-99)
[2018-11-08 04:48] VITALS: RESP 16
[2018-11-08] MEDS: hydrALAZINE HCL 20 MG/ML 1 ML VIAL IVP PRN (04:54)
[2018-11-08 05:58] LABS: Glucose,Whole Blood 130 mg/dL (75-99)
[2018-11-08] MEDS: LEVOTHYROXINE 75 MCG TAB PO SCH (06:17)
[2018-11-08 06:46] LABS: Calcium 7.8 mg/dL (8.4-10.2); Magnesium 2.5 mg/dL (1.6-2.3); Potassium 3.9 mmol/L (3.5-5.1)
--- NOTE | 2018-11-08 08:46 | P.PN ---
Subjective Patient is seen in follow-up for acute allograft dysfunction which now appears to have progressed to end-stage renal disease. Patient was started on hemodialysis on November 07. Tolerated hemodialysis well yesterday. He is feeling better. No chest pain or shortness of breath. Jorge catheter was removed yesterday. He has been voiding. About 300 mL of urine was obtained with straight catheterization overnight. Vital signs are stable. General: The patient appeared well nourished and normally developed. HEENT: Head exam is unremarkable. Neck is without jugular venous distension. LUNGS: Lungs are clear to auscultation and percussion. Breath sounds decreased. HEART: Rate and Rhythm are regular. First and second heart sounds normal. No murmurs, rubs or gallops. ABDOMEN: Abdominal exam reveals normal bowel sounds. Non-tender and non-disten ded. No evidence of peritonitis. EXTREMITITES: No clubbing, cyanosis, or edema. Objective - Vital Signs Vital signs: Vital Signs Temp 98.1 F 11/08/18 04:44 Pulse 68 11/08/18 04:44 Resp 16 11/08/18 04:44 BP 160/74 11/08/18 05:59 Pulse Ox 98 11/08/18 04:44 Intake & Output 11/07/18 11/08/18 11/08/18 18:59 06:59 18:59 Intake Total 1080 Output Total 2825 400 Balance -1745 -400 Weight 86.228 kg Intake: IV 240 Sodium Chloride 0.9% 1, 240 000 ml @ 50 mls/hr IV . Q20H BLAKE Rx#:[id number] Oral 840 Output: Urine 325 400 Hemodialysis 1000 Other 1500 Other: Voiding Method Indwelling Catheter Urinal - Labs CBC & Chem 7: 11/07/18 06:00 11/08/18 06:15 Labs: Abnormal Lab Results - Last 24 Hours (Table) 11/07/18 11/07/18 11/07/18 Range/Units 11:49 16:47 20:26 Sodium (137-145) mmol/L BUN (9-20) mg/dL Creatinine (0.66-1.25) mg/dL Glucose (74-99) mg/dL POC Glucose (mg/dL) 162 H 198 H 122 H (75-99) mg/dL Calcium (8.4-10.2) mg/dL Magnesium (1.6-2.3) mg/dL 11/08/18 11/08/18 Range/Units 05:56 06:15 Sodium 136 L (137-145) mmol/L BUN 79 H (9-20) mg/dL Creatinine 4.09 H (0.66-1.25) mg/dL Glucose 121 H (74-99) mg/dL POC Glucose (mg/dL) 130 H (75-99) mg/dL Calcium 7.8 L (8.4-10.2) mg/dL Magnesium 2.5 H (1.6-2.3) mg/dL Assessment and Plan Plan: Assessment: 1. 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 Patient has chronic kidney disease stage IV with progressively declining renal function. Permacath placed on November 06. Started on hemodialysis November 07. 2. Urinary retention. Patient had a Jorge catheter over a week ago at [facility]. Jorge catheter was discontinued yesterday. He has been voiding on his own. 3. Metabolic acidosis secondary to acute kidney injury. Better. 4. 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 Patient received a living unrelated renal allograft in 1997. 5. History of PROPOSAL DIRECTOR lymphoma. 6. Anemia of chronic kidney disease maintained on Aranesp. Iron deficiency noted. 7. Hypertension with chronic kidney disease. Plan: With worsening renal function, volume overload and signs of uremia, patient was started on hemodialysis on November 07. Second treatment of hemodialysis today. manager economic to help facilitate outpatient hemodialysis in [place]. Discontinue oral sodium bicarbonate. IV iron 3 doses. Second dose today. Maintain prednisone 10 mg once daily. Continue to monitor serial postvoid residuals. I will change Lasix to 80 mg orally twice daily. Stable to be discharged home from nephrology standpoint after dialysis today.
[2018-11-08] MEDS: LOSARTAN 50 MG TAB PO SCH (08:52)
[2018-11-08] MEDS: FAMOTIDINE 20 MG TAB PO SCH (08:52)
[2018-11-08] MEDS: PRAVASTATIN SODIUM 40 MG TAB PO SCH (08:52)
[2018-11-08] MEDS: ASPIRIN 81 MG PO SCH (08:52)
[2018-11-08] MEDS: INSULIN PUMP MEAL BOLUS 1 UNIT MISC MISCELLANE SCH ×3 (08:52→18:13)
[2018-11-08] MEDS: predniSONE 10 MG TAB PO SCH (08:52)
[2018-11-08] MEDS: NIFEdipine XL 30 MG TAB.ER.24 PO SCH (08:53)
[2018-11-08] MEDS: FINASTERIDE 5 MG TAB PO SCH (08:53)
[2018-11-08] MEDS: ATENOLOL 50 MG TAB PO SCH (08:53)
[2018-11-08] MEDS: DEXAMETHASONE 0.5 MG TAB PO SCH (08:53)
[2018-11-08] MEDS: TAMSULOSIN 0.4 MG CAP.ER.24H PO SCH (08:53)
[2018-11-08] MEDS: IRON POLYSACCHARIDES COMPLEX 150 MG CAP PO SCH (08:54)
[2018-11-08] MEDS: DOXAZOSIN 1 MG TAB PO SCH ×2 (08:54)
[2018-11-08] MEDS: CALCITRIOL 0.25 MCG CAP PO SCH (08:57)
[2018-11-08] MEDS: SODIUM FERRIC GLUCONAT-SUCROSE 125 MG in SODIUM CHLORIDE 0.9% 100 ML IVPB SCH (08:57)
[2018-11-08 11:20] VITALS: TEMP 98
[2018-11-08 11:48] LABS: Glucose,Whole Blood 116 mg/dL (75-99)
--- NOTE | 2018-11-08 11:56 | P.DS ---
Providers Date of admission: 11/05/18 18:45 Expected date of discharge: 11/08/18 Attending physician: Ricardo Guillen Consults: 11/05/18 18:45 Consult Physician Urgent Consulting Provider: Felipe Stewart Consult Reason/Comments: Acute on chronic renal failure status post transplant Do you want consulting provider notified?: Already Contacted 11/06/18 10:49 Consult Physician Routine Consulting Provider: Marques Healy Consult Reason/Comments: HD cath Do you want consulting provider notified?: Yes [facility]: 63-year-old male one of Dr. Salo Villar's patient with past medical history of type 2 diabetes on insulin pump, history of dizziness thrombosis, history of hypertension hyperlipidemia and chronic kidney disease post kidney transplant time to 93 and 98 with acute kidney failure in the last few months become much worse over the last 3 month period of time mahamed Ratliff was seen nephrology today and been with a fluid overload and worsening symptoms especially with his kidney function patient was instructed to come to the hospital process and been admitted for possible need for dialysis line and needed hemodialysis urgently over the next 24 hours. Patient is still having slight difficulty in breathing with mild pain and discomfort and noncontrolled hypertension. 11/06: We will add in a consult with Dr. Healy for dialysis catheter placement. Dr. Stewart is on consult and plan is to start hemodialysis.. Patient is continued on sodium bicarb, Aranesp added, iron studies ordered. Jorge catheter to be in place. And prednisone to be continued at 10 mg daily. Plan is to start hemodialysis tomorrow. He has been afebrile, blood pressure 174/94, heart rate in the 70s, pulse ox 97% on room air. Repeat lab work has been ordered for tomorrow. 11/07: Patient is undergone permacath placement in the left internal jugular vein with Dr. Dillon yesterday. He is scheduled for hemodialysis to start today and again tomorrow as recommended by Dr. Stewart. Patient denies any chest pain or shortness of breath. Jorge catheter is in place. Patient has been ordered for IV Ferrlecit. 11/08: Patient states that his shortness of breath is about the same from when he came in. He has been arranged for hemodialysis in [place] Sunday. He has been cleared for discharge by Dr. Stewart later today after hemodialysis is completed. Jorge catheter was discontinued last evening. Patient has been afebrile, heart rate 65, blood pressure 164/84, pulse ox 96% on room air. die cast engineer has been a sinus rhythm. Repeat lab work shows a sodium 136, potassium 3.9, chloride 106, CO2 24, BUN 79 and creatinine 4.09. Blood sugars running between 116 1:30. Magnesium 2.5. diversified crops i farmworker has met with the patient's regarding [place] paperwork. Patient will be discharged home today in stable condition. Discharge diagnoses: 1 Acute allograft dysfunction now progressed to end-stage renal disease. 2 Fluid overload: From worsening kidney function and acute kidney failure. 3 type 2 diabetes on insulin pump 4 urgent hypertension with underlying hypertension with chronic kidney disease. 5 BPH with urinary retention. 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 7 anemia of chronic kidney disease. 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 13 Metabolic acidosis secondary to acute kidney injury. Discharge plan: Home Impression and plan of care have been directed as dictated by the signing physician. Nya Rawls nurse practitioner acting as scribe for signing physician. Patient Condition at Discharge: Good Plan - Discharge Summary Discharge Rx Participant: Yes New Discharge Prescriptions: New Furosemide [Lasix] 80 mg PO BID@0900,1600 #60 tab Continue NIFEdipine XL [Procardia XL] 30 mg PO DAILY Atenolol [Tenormin] 50 mg PO DAILY Pravastatin Sodium [Pravachol] 40 mg PO DAILY Finasteride 2.5 mg PO DAILY Dexamethasone 0.75 mg PO DAILY Losartan [Cozaar] 50 mg PO DAILY Aspirin [Children's Aspirin] 81 mg PO DAILY predniSONE 10 mg PO DAILY Levothyroxine Sodium 150 mcg PO DAILY Tamsulosin [Flomax] 0.4 mg PO DAILY Iron Polysaccharide Complex [Ferrex 150] 150 mg PO DAILY Doxazosin [Cardura] 1 mg PO DAILY Calcitriol [Rocaltrol] 0.25 mcg PO MOWEFR Insulin Aspart (Niacinamide) [Fiasp 100 Unit/ml Vial] See Protocol SQ-PUMP CONTINUOUS Discontinued Sodium Bicarbonate Tab 2,600 mg PO BID Discharge Medication List Atenolol [Tenormin] 50 mg PO DAILY 09/01/15 [History] NIFEdipine XL [Procardia XL] 30 mg PO DAILY 09/01/15 [History] Pravastatin Sodium [Pravachol] 40 mg PO DAILY 09/01/15 [History] Finasteride 2.5 mg PO DAILY 07/04/16 [History] Aspirin [Children's Aspirin] 81 mg PO DAILY 03/31/17 [History] Dexamethasone 0.75 mg PO DAILY 03/31/17 [History] Losartan [Cozaar] 50 mg PO DAILY 03/31/17 [History] Calcitriol [Rocaltrol] 0.25 mcg PO MOWEFR 11/05/18 [History] Doxazosin [Cardura] 1 mg PO DAILY 11/05/18 [History] Insulin Aspart (Niacinamide) [Fiasp 100 Unit/ml Vial] See Protocol SQ-PUMP CONTINUOUS 11/05/18 [History] Iron Polysaccharide Complex [Ferrex 150] 150 mg PO DAILY 11/05/18 [History] Levothyroxine Sodium 150 mcg PO DAILY 11/05/18 [History] Tamsulosin [Flomax] 0.4 mg PO DAILY 11/05/18 [History] predniSONE 10 mg PO DAILY 11/05/18 [History] Furosemide [Lasix] 80 mg PO BID@0900,1600 #60 tab 11/08/18 [Rx] Follow up Appointment(s)/Referral(s): Jose Juan Rawls DO [Doctor of Osteopathic Medicine] - 2 Weeks Salo Villar MD [Primary Care Provider] - 11/14/18 1:45 pm () Patient Instructions/Handouts: Perma-cath Placement (DC) Activity/Diet/Wound Care/Special Instructions: Dialysis set up through [facility] in [place] for Sunday, Sunday and Sunday at 1130. First appointment is SundayNovember 11. Clinic asking that you be there at 1100 with all of your medications and insurance card so the admission paperwork can be completed. You may contact them at [phone].
[2018-11-08 14:55] VITALS: BP 187/89; PULSE 57
[2018-11-08] MEDS: FUROSEMIDE 80 MG TAB PO SCH ×2 (15:49→16:04)
== END 2018-11-08 18:21 | disposition home or self-care (01) | DRG 683 ==
LOC: EC 14:40 → 3SCARD 18:45
PROVIDERS: ADMIT Internal Medicine Geriatric Medicine; ATTEND Internal Medicine Geriatric Medicine
PROC: 02HV33Z Insertion of Infusion Device into Superior Vena Cava, Percutaneous Approach (ICD-10-PCS; principal; 2018-11-06 16:20)
PROC: 5A1D70Z Performance of Urinary Filtration, Intermittent, Less than 6 Hours Per Day (ICD-10-PCS; 2018-11-06 16:20)
DX: N17.9 Acute kidney failure, unspecified (principal); I12.0 Hypertensive chronic kidney disease with stage 5 chronic kidney disease or end stage renal disease; E87.2 Acidosis; Z94.83 Pancreas transplant status; N18.6 End stage renal disease; D50.9 Iron deficiency anemia, unspecified; D63.1 Anemia in chronic kidney disease; E03.9 Hypothyroidism, unspecified; E11.22 Type 2 diabetes mellitus with diabetic chronic kidney disease; E78.5 Hyperlipidemia, unspecified; N40.1 Benign prostatic hyperplasia with lower urinary tract symptoms; R33.8 Other retention of urine; Z79.4 Long term (current) use of insulin; Z79.52 Long term (current) use of systemic steroids; Z79.82 Long term (current) use of aspirin; Z79.890 Hormone replacement therapy; Z79.899 Other long term (current) drug therapy; Z83.3 Family history of diabetes mellitus; Z85.72 Personal history of non-Hodgkin lymphomas; Z85.828 Personal history of other malignant neoplasm of skin; Z85.841 Personal history of malignant neoplasm of brain; Z86.718 Personal history of other venous thrombosis and embolism; Z96.41 Presence of insulin pump (external) (internal); Z99.2 Dependence on renal dialysis; I49.9 Cardiac arrhythmia, unspecified
CPT/HCPCS: 36415; 36571; 71045; 76937; 77001; 80048; 80053; 80074; 81001; 82150; 82728; 83540; 83550; 83690; 83735; 84484; 85025; 86706; 90935; 96374; 96375; 99284

== ENCOUNTER 2019-02-06 07:08 | Day surgery (SDC) | payer MEDICAID, MEDICARE ==
[2019-02-04 12:50] VITALS: BMI 21.2
[~2019-02-06 07:08] MED LIST changes: -DEXAMETHASONE SOD PHOSPHATE 10 MG/ML 1 ML VIAL IV ONE; -LACTATED RINGERS 1,000 ML IV ONE; +LACTATED RINGERS 1,000 ML IV SCH; -MIDAZOLAM 2 MG/2 ML VIAL IV PRN; -ONDANSETRON 4 MG/2 ML VIAL IVP ONE; -SCOPOLAMINE 1.5MG/72HR PATCH TRANSDERM ONE; -ceFAZolin 2 GM in SODIUM CHLORIDE 0.9% 100 ML IVPB ONE
[2019-02-06 07:41] VITALS: TEMP 97.7
[2019-02-06] MEDS ORDERED: LIDOCAINE 1% 20 ML VIAL (10MG/ML) FOR IV START INTRADERMA ONE (07:50)
[2019-02-06 07:59] LABS: Glucose,Whole Blood 144 mg/dL (75-99)
[2019-02-06] MEDS ORDERED: PROPOFOL 10 MG/ML 20 ML VIAL IV ONE (07:59)
[2019-02-06] MEDS ORDERED: ATENOLOL 50 MG TAB PO STA (08:03)
--- NOTE | 2019-02-06 08:15 | P.PCN ---
Date of Procedure: 02/06/19 Procedure(s) Performed: BRIEF HISTORY: Patient is a 63-year-old pleasant white male, scheduled for an elective colonoscopy as a part of screening for colorectal neoplasia. His last colonoscopy was 15 years ago. PROCEDURE PERFORMED: Colonoscopy. PREOPERATIVE DIAGNOSIS: Screening for colon cancer. IV sedation per Anesthesia. PROCEDURE: After informed consent was obtained, the patient, was brought into the endoscopy unit. IV sedation was administered by Anesthesia under continuous monitoring. Digital rectal examination was normal. Initially the Olympus CF-160 flexible video colonoscope was then inserted in the rectum, gradually advanced into the cecum without any difficulty. Careful examination was performed as the scope was gradually being withdrawn. Ileocecal valve and the appendiceal orifice were visualized and appeared normal. Prep was excellent. Mucosa of the cecum, ascending colon, transverse colon, descending colon, sigmoid colon, and rectum appeared normal. Scattered sigmoid diverticulosis seen. Retroflexion was performed in the rectum and no lesions were seen. The patient tolerated the procedure well. IMPRESSION: Normal-appearing colon from rectum to cecum with no evidence of colorectal neoplasia Scattered sigmoid diverticulosis . RECOMMENDATIONS: Findings of this examination were discussed with the patient as well as his family. He was advised to have a repeat screening colonoscopy in 10 years.
[2019-02-06 08:33] LABS: Glucose,Whole Blood 122 mg/dL (75-99)
[2019-02-06 08:38] VITALS: BP 107/78; PULSE 78; RESP 18
== END 2019-02-06 09:05 | disposition home or self-care (01) ==
LOC: ORWHC2ENDO 07:08
PROVIDERS: ATTEND Internal Medicine Gastroenterology
DX: Z12.11 Encounter for screening for malignant neoplasm of colon (principal); K57.30 Diverticulosis of large intestine without perforation or abscess without bleeding; I10 Essential (primary) hypertension; E11.9 Type 2 diabetes mellitus without complications; E07.9 Disorder of thyroid, unspecified; C44.91 Basal cell carcinoma of skin, unspecified; Z86.718 Personal history of other venous thrombosis and embolism; Z79.890 Hormone replacement therapy; Z79.4 Long term (current) use of insulin; Z79.899 Other long term (current) drug therapy
CPT/HCPCS: G0121; J2704; 45378

== ENCOUNTER → 2019-02-18 | Outpatient (CLI) | payer MEDICAID, MEDICARE ==
--- NOTE | 2019-02-18 15:35 | MR ---
EXAMINATION TYPE: MR brain wo con DATE OF EXAM: 02/18/2019 COMPARISON: CT brain dated 03/31/2017 HISTORY: Non-Hodgkins lymphoma TECHNIQUE: Multiplanar, multisequence images of the brain and brainstem is performed without intravenous contras t as the patient refused contrast. FINDINGS: Diffusion weighted images demonstrate no evidence of a recent infarct or other diffusion ab normality. Extra-axial T2 hyperintense and FLAIR hypointense posterior fossa cystic structure has mas s effect on the right cerebellar hemisphere compatible with a benign arachnoid cyst measuring approxi mately 4.8 x 1.1 cm. 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 Small right subdural hygroma appears chronic measuring 8 mm in greatest thickness near along the right hemisphere. There is mild ventricular dilatation of the r emainder of the ventricles that is symmetric to sulcal prominence on the basis of age-related atrophy . Extensive nonspecific white matter changes seen as FLAIR hyperintensity in the periventricular and subcortical white matter. A questionable nodule is seen on the flair axial fat sat sequence, image 27 measuring 8 mm that is isointense to kaminski matter. However this is not visualized on coronal nor axia l T2-weighted imaging and may be artifactual. This is at the cranial aspect of encephalomalacia along the postsurgical site of the left frontal lobe. Midline structures demonstrate normal morphology. The craniocervical junction appears within normal limits. The dural venous sinuses appear patent. There is circumferential mucosal thickening of the le ft maxillary sinus, moderate in degree with scant mucosal thickening in the right maxillary sinus and ethmoid sinuses. Mild leftward nasal septal deviation. Scant mucosal thickening of the frontal sinus es. Sphenoid sinuses and mastoid air cells appear well aerated. IMPRESSION: 1. Questionable 8mm nodule along the cranial aspect of encephalomalacia of the left frontal lobe in t he prior resection cavity. Contrast is recommended to further evaluate this nodule as it is seen on F LAIR images only and may be artifactual. 2. Extensive nonspecific white matter change. As mentioned above more focal encephalomalacia of the l eft frontal lobe from prior surgical resection with extra-axial loculated fluid accumulation along th e anterior resection site margin, possible seroma. 3. Small chronic-appearing right subdural hygroma measuring 8 mm in thickness. 4. Moderate pansinusitis most pronounced of the left maxillary sinus.
== END | disposition home or self-care (01) ==
LOC: RADMRIMAIN 12:03
PROVIDERS: ATTEND Internal Medicine Hematology & Oncology
DX: G93.89 Other specified disorders of brain (principal); R90.89 Other abnormal findings on diagnostic imaging of central nervous system; G96.0 Cerebrospinal fluid leak
CPT/HCPCS: 70551

== ENCOUNTER → 2019-05-09 | Outpatient (CLI) | payer MEDICAID, MEDICARE ==
--- NOTE | 2019-05-10 05:18 | MR ---
EXAMINATION TYPE: MR foot LT wo con DATE OF EXAM: 05/09/2019 COMPARISON: None HISTORY: Type II diabetes with foot ulcer Standard multiplanar, multisequence MRI departmental protocol Multiplanar, multisequence images of the left foot were acquired. FINDINGS: Calcaneus is intact. Talus is intact. Distal tibia and fibula appear intact. Intertarsal isidoro int spaces are fairly normal. There is amputation deformity of the foot at the level of the base of t he metatarsals. There is on the STIR images increased signal in the proximal fifth metatarsal. There is also slight i ncreased signal in the base of the third and fourth metatarsals. There is loss of bone marrow signal. The Achilles tendon is intact. Medial and lateral flexor tendons appear intact. Plantar fascia appea rs intact. IMPRESSION: There is increased edema signal in the base of the third fourth and fifth metatarsals. This could rel ate to osteomyelitis.
== END ==
LOC: RADMRIMAIN 12:01
PROVIDERS: ATTEND Internal Medicine Infectious Disease
DX: R60.0 Localized edema (principal); E11.621 Type 2 diabetes mellitus with foot ulcer; M21.549 Acquired clubfoot, unspecified foot

== ENCOUNTER → 2019-07-25 | Outpatient (CLI) | payer MEDICAID, MEDICARE ==
--- NOTE | 2019-07-25 11:08 | MR ---
MR brain without contrast HISTORY: BAR ATTENDANT lymphoma Multiplanar multisequence imaging through the brain and correlated to prior brain MRI 02/18/2019 Patient refused intravenous gadolinium There is no specific restricted diffusion. Ex vacuo phenomenon is present of the anterior horn of the left lateral ventricle with encephalomalacia and associated cystic appearance of the left frontal re gion as on prior exam, there is adjacent gliotic change as on prior, extensive periventricular as wel l as subcortical and juxtacortical hyperintensities on inversion recovery T2-weighted sequences again noted. Frontal craniotomy change again seen. Nodular focus towards the convexity left frontal lobe s hows a similar appearance on inversion recovery sequences measuring approximately 8 mm but not seen o n T2 or T1-weighted images. There is no evident hemorrhage or hydrocephalus. Cortical atrophy again n oted. Cerebellopontine angles, corpus callosum, pituitary, cervical medullary junction are stable. Ce rebral spinal fluid signal lateral to the right cerebellar hemisphere is again seen. There are normal vascular flow voids. Mild inflammatory change present in the ethmoid air cells, mucosal disease in t he frontal sinus, maxillary sinuses similar to prior. Her graft impression: Essentially stable exam.
== END | disposition home or self-care (01) ==
LOC: RADMRIMAIN 08:50
PROVIDERS: ATTEND Internal Medicine Hematology & Oncology
DX: C85.89 Other specified types of non-Hodgkin lymphoma, extranodal and solid organ sites (principal)
CPT/HCPCS: 70551

== ENCOUNTER → 2019-07-29 | Outpatient (CLI) | payer MEDICAID, MEDICARE ==
--- NOTE | 2019-07-30 10:28 | P.ARTDOP ---
Arterial Doppler LOWER EXTREMITY ARTERIAL DOPPLER: DATE OF SERVICE: 07/29/2019 Reason for study: Ulcer right heel and left foot. Doppler waveforms: Multiphasic bilaterally throughout. Pulse volume recording: Mild distal blunting. Pressure gradients: Mild very distal gradient. Ankle-brachial indices: Cannot occlude. Toe brachial indices: 0.49 on the right, no toe on the left Impression: Normal study with calcific wall disease and good perfusion to the toe level.
== END | disposition home or self-care (01) ==
LOC: RADUSWWP 14:05
PROVIDERS: ATTEND Internal Medicine Infectious Disease
DX: E11.621 Type 2 diabetes mellitus with foot ulcer (principal); M21.549 Acquired clubfoot, unspecified foot; L97.512 Non-pressure chronic ulcer of other part of right foot with fat layer exposed; L97.523 Non-pressure chronic ulcer of other part of left foot with necrosis of muscle; L89.153 Pressure ulcer of sacral region, stage 3; I96 Gangrene, not elsewhere classified
CPT/HCPCS: 93923

== ENCOUNTER 2019-09-16 10:11 | Inpatient (IN) | payer MEDICAID, MEDICARE ==
[2019-09-16 10:49] LABS: Glucose,Whole Blood 130 mg/dL (75-99)
--- NOTE | 2019-09-16 10:56 | ED ---
Weakness HPI - General Chief complaint: Weakness Stated complaint: confusion Time Seen by Provider: 09/16/19 10:11 Source: patient, family, EMS, RN notes reviewed, old records reviewed Mode of arrival: EMS Limitations: no limitations - History of Present Illness Initial comments: This is a 64-year-old male with a history of non-Hodgkin's lymphoma chronic renal failure who is on peritoneal dialysis history of 2 kidney transplants in the past in the late with a history of recent urinary tract infections he was on vancomycin with the last dose being approximately 10 days ago who presents by EMS with complaints of increased weakness and increased urinary frequency also this morning confusion the other symptoms have been coming on over last several days. No nausea no vomiting no diarrhea. Per paramedics temperature of 101.3. No re-reports of rhinorrhea cough earaches sore throat. MD Complaint: generalized weakness - Related Data Home Medications Medication Instructions Recorded Confirmed Atenolol [Tenormin] 50 mg PO DAILY 09/01/15 02/06/19 NIFEdipine XL [Procardia XL] 30 mg PO DAILY 09/01/15 02/06/19 Pravastatin Sodium [Pravachol] 40 mg PO DAILY 09/01/15 02/06/19 Finasteride 2.5 mg PO DAILY 07/04/16 02/06/19 Dexamethasone 0.75 mg PO DAILY 03/31/17 02/06/19 Losartan [Cozaar] 50 mg PO DAILY 03/31/17 02/06/19 Doxazosin [Cardura] 1 mg PO DAILY 11/05/18 02/06/19 Insulin Aspart (Niacinamide) See Protocol SQ-PUMP CONTINUOUS 11/05/18 02/06/19 [Fiasp 100 Unit/ml Vial] Iron Polysaccharide Complex 150 mg PO DAILY 11/05/18 02/06/19 [Ferrex 150] Levothyroxine Sodium 150 mcg PO DAILY 11/05/18 02/06/19 Tamsulosin [Flomax] 0.4 mg PO DAILY 11/05/18 02/06/19 predniSONE 10 mg PO DAILY 11/05/18 02/06/19 Allergies Allergy/AdvReac Type Severity Reaction Status Date / Time No Known Allergies Allergy Verified 02/06/19 07:40 Review of Systems ROS Statement: Those systems with pertinent positive or pertinent negative responses have been documented in the HPI. ROS Other: All systems not noted in ROS Statement are negative. Limitations: ROS unobtainable due to patients medical condition (The patient is a poor historian) Past Medical History Past Medical History: Cancer, Diabetes Mellitus, Deep Vein Thrombosis (DVT), Hyperlipidemia, Hypertension, Renal Disease, Skin Disorder, Thyroid Disorder, Vascular Disorder Additional Past Medical History / Comment(s): , hx vascular calcification, basal cell carcinoma nose removed 2010. BRAIN CANCER History of Any Multi-Drug Resistant Organisms: None Reported Additional Past Surgical History / Comment(s): kidney transplant : 1992 & 1997. RIGHT transmetatarsal amputation. basal cell carcinoma excision.BRAIN TUMOR REMOVED WITH CHEMO . COLONOSCOPY Past Anesthesia/Blood Transfusion Reactions: No Reported Reaction Past Psychological History: No Psychological Hx Reported Smoking Status: Never smoker Past Alcohol Use History: None Reported Past Drug Use History: None Reported - Past Family History Mother Family Medical History: Diabetes Mellitus General Exam - General Exam Comments Initial Comments: This is a well-developed well-nourished awake alert though pleasantly confused male Limitations: no limitations General appearance: alert, in no apparent distress Head exam: Present: atraumatic, normocephalic, normal inspection Eye exam: Present: normal appearance, PERRL, EOMI. Absent: scleral icterus, conjunctival injection, periorbital swelling ENT exam: Present: mucous membranes dry Neck exam: Present: normal inspection, full ROM. Absent: tenderness, meningismus, lymphadenopathy Respiratory exam: Present: normal lung sounds bilaterally. Absent: respiratory distress, wheezes, rales, rhonchi, stridor Cardiovascular Exam: Present: regular rate, normal rhythm, normal heart sounds. Absent: systolic murmur, diastolic murmur, rubs, gallop, clicks GI/Abdominal exam: Present: soft, normal bowel sounds, other (CAPD catheter in place patient is on insulin pump also). Absent: distended, tenderness, guarding, rebound, rigid Extremities exam: Present: full ROM, normal capillary refill, other (Left foot demonstrates partial amputation). Absent: tenderness, pedal edema, joint swelling, calf tenderness Back exam: Present: normal inspection Neurological exam: Present: alert, altered, CN II-XII intact Psychiatric exam: Present: normal affect, normal mood Skin exam: Present: warm, dry, intact, normal color. Absent: rash Course Vital Signs 09/16/19 09/16/19 09/16/19 10:15 10:30 11:00 Temperature 99.2 F Pulse Rate 82 82 80 Respiratory 20 18 18 Rate Blood Pressure 120/90 120/90 133/89 O2 Sat by Pulse 99 99 100 Oximetry 09/16/19 09/16/19 11:30 12:00 Temperature Pulse Rate 81 82 Respiratory 19 18 Rate Blood Pressure 143/91 130/82 O2 Sat by Pulse 98 99 Oximetry EKG Findings - EKG Results: EKG: interpreted by ERMD (Atrial fibrillation rate of 89 QRS 84 QT since QTC 35 8/435 low-voltage QRS nonspecific T-wave configuration) Medical Decision Making - Medical Decision Making I did discuss the findings with the patient family member as well as with Dr. Barnard. The patient will be admitted consultation with infectious disease. - Lab Data Result diagrams: 09/16/19 10:39 09/16/19 10:39 Lab Results 09/16/19 09/16/19 09/16/19 Range/Units 10:39 10:39 10:39 WBC 9.6 (3.8-10.6) k/uL RBC 3.72 L (4.30-5.90) m/uL Hgb 11.5 L (13.0-17.5) gm/dL Hct 34.4 L (39.0-53.0) % MCV 92.5 (80.0-100.0) fL MCH 30.8 (25.0-35.0) pg MCHC 33.3 (31.0-37.0) g/dL RDW 15.7 H (11.5-15.5) % Plt Count 92 L (150-450) k/uL Neutrophils % 84 % Lymphocytes % 9 % Monocytes % 5 % Eosinophils % 0 % Basophils % 0 % Neutrophils # 8.0 H (1.3-7.7) k/uL Lymphocytes # 0.9 L (1.0-4.8) k/uL Monocytes # 0.5 (0-1.0) k/uL Eosinophils # 0.0 (0-0.7) k/uL Basophils # 0.0 (0-0.2) k/uL Manual Slide Review Performed Poikilocytosis Slight Sodium 133 L (137-145) mmol/L Potassium 3.0 L (3.5-5.1) mmol/L Chloride 102 (98-107) mmol/L Carbon Dioxide 18 L (22-30) mmol/L Anion Gap 13 mmol/L BUN 77 H (9-20) mg/dL Creatinine 8.70 H* (0.66-1.25) mg/dL Est GFR (CKD-EPI)AfAm 7 (>60 ml/min/1.73 sqM) Est GFR (CKD-EPI)NonAf 6 (>60 ml/min/1.73 sqM) Glucose 111 H (74-99) mg/dL POC Glucose (mg/dL) (75-99) mg/dL POC Glu Md Physician Dermatologist ID Calcium 7.6 L (8.4-10.2) mg/dL Magnesium 2.0 (1.6-2.3) mg/dL Total Bilirubin 0.5 (0.2-1.3) mg/dL AST 17 (17-59) U/L ALT 13 (4-49) U/L Alkaline Phosphatase 73 (38-126) U/L Ammonia <9 (<30) umol/L Creatine Kinase 52 L (55-170) U/L Troponin I (0.000-0.034) ng/mL Total Protein 5.4 L (6.3-8.2) g/dL Albumin 2.6 L (3.5-5.0) g/dL Urine Color Urine Appearance (Clear) Urine pH (5.0-8.0) Ur Specific [place] (1.001-1.035) Urine Protein (Negative) Urine Glucose (UA) (Negative) Urine Ketones (Negative) Urine Blood (Negative) Urine Nitrite (Negative) Urine Bilirubin (Negative) Urine Urobilinogen (<2.0) mg/dL Ur Leukocyte Esterase (Negative) Urine RBC (0-5) /hpf Urine WBC (0-5) /hpf Urine WBC Clumps (None) /hpf Urine Bacteria (None) /hpf Urine Mucus (None) /hpf 09/16/19 09/16/19 09/16/19 Range/Units 10:39 10:39 10:48 WBC (3.8-10.6) k/uL RBC (4.30-5.90) m/uL Hgb (13.0-17.5) gm/dL Hct (39.0-53.0) % MCV (80.0-100.0) fL MCH (25.0-35.0) pg MCHC (31.0-37.0) g/dL RDW (11.5-15.5) % Plt Count (150-450) k/uL Neutrophils % % Lymphocytes % % Monocytes % % Eosinophils % % Basophils % % Neutrophils # (1.3-7.7) k/uL Lymphocytes # (1.0-4.8) k/uL Monocytes # (0-1.0) k/uL Eosinophils # (0-0.7) k/uL Basophils # (0-0.2) k/uL Manual Slide Review Poikilocytosis Sodium (137-145) mmol/L Potassium (3.5-5.1) mmol/L Chloride (98-107) mmol/L Carbon Dioxide (22-30) mmol/L Anion Gap mmol/L BUN (9-20) mg/dL Creatinine (0.66-1.25) mg/dL Est GFR (CKD-EPI)AfAm (>60 ml/min/1.73 sqM) Est GFR (CKD-EPI)NonAf (>60 ml/min/1.73 sqM) Glucose (74-99) mg/dL POC Glucose (mg/dL) 130 H (75-99) mg/dL POC Glu Md Physician Dermatologist ID Agueda Anderson Calcium (8.4-10.2) mg/dL Magnesium (1.6-2.3) mg/dL Total Bilirubin (0.2-1.3) mg/dL AST (17-59) U/L ALT (4-49) U/L Alkaline Phosphatase (38-126) U/L Ammonia (<30) umol/L Creatine Kinase (55-170) U/L Troponin I 0.031 (0.000-0.034) ng/mL Total Protein (6.3-8.2) g/dL Albumin (3.5-5.0) g/dL Urine Color Yellow Urine Appearance Cloudy (Clear) Urine pH 8.5 H (5.0-8.0) Ur Specific [place] 1.010 (1.001-1.035) Urine Protein 1+ H (Negative) Urine Glucose (UA) Negative (Negative) Urine Ketones Negative (Negative) Urine Blood Large H (Negative) Urine Nitrite Negative (Negative) Urine Bilirubin Negative (Negative) Urine Urobilinogen <2.0 (<2.0) mg/dL Ur Leukocyte Esterase Large H (Negative) Urine RBC >182 H (0-5) /hpf Urine WBC >182 H (0-5) /hpf Urine WBC Clumps Moderate H (None) /hpf Urine Bacteria Rare H (None) /hpf Urine Mucus Rare H (None) /hpf - Radiology Data Radiology results: report reviewed (I did review the imaging and report no acute findings.), image reviewed Disposition Clinical Impression: Urinary tract infection, Chronic renal failure, Febrile illness, acute, Acute confusional state, Hypokalemia Disposition: ADMITTED IP TO THIS HOSP Condition: Fair Referrals: Salo Villar MD [Primary Care Provider] - 1-2 days
[2019-09-16 11:04] LABS: Basophils % (A) 0 %; Eosinophils % (A) 0 %; HCT 34.4 % (39.0-53.0); HGB 11.5 gm/dL (13.0-17.5); Lymphocytes # (A) 0.9 k/uL (1.0-4.8); Lymphocytes % (A) 9 %; MCH 30.8 pg (25.0-35.0); MCHC 33.3 g/dL (31.0-37.0); MCV 92.5 fL (80.0-100.0); Mean Platelet Volume 8.9; Monocytes # (A) 0.5 k/uL (0-1.0); Monocytes % (A) 5 %; Neutrophils % (A) 84 %; Poikilocytosis Slight; RBC 3.72 m/uL (4.30-5.90); RDW 15.7 % (11.5-15.5); WBC 9.6 k/uL (3.8-10.6)
--- NOTE | 2019-09-16 11:06 | XR ---
EXAMINATION TYPE: XR chest 1V portable DATE OF EXAM: 09/16/2019 COMPARISON: 11/06/2018 INDICATION: Fever altered mental status TECHNIQUE: Single frontal view of the chest is obtained. FINDINGS: The heart size is normal. The pulmonary vasculature is normal. The lungs are clear. Double-lumen catheter is on the right with the tips in the superior vena cava region. IMPRESSION: 1. No acute pulmonary process.
[2019-09-16 11:10] LABS: Albumin 2.6 g/dL (3.5-5.0); Calcium 7.6 mg/dL (8.4-10.2); Total Bilirubin 0.5 mg/dL (0.2-1.3); Total Protein 5.4 g/dL (6.3-8.2)
[2019-09-16 11:18] LABS: Appearance,Urine Cloudy (Clear); Bacteria,Urine Rare /hpf; Bilirubin,Urine Negative (Negative); Blood,Urine Large (Negative); Color,Urine Yellow; Glucose,Urine (UA) Negative (Negative); Ketones,Urine Negative (Negative); Leukocyte Esterase,Urine Large (Negative); Mucus,Urine Rare /hpf; Nitrite,Urine Negative (Negative); PH, Urine 8.5 (5.0-8.0); Protein,Urine 1+ (Negative); RBC,Urine >182 /hpf (0-5); Urobilinogen,Urine <2.0 mg/dL (<2.0); WBC,Urine >182 /hpf (0-5)
[2019-09-16 12:49] LABS: Platelet Count 92 k/uL (150-450)
[2019-09-16] MEDS ORDERED: PIPERACILLIN-TAZOBACTAM 3.375 GM in SODIUM CHLORIDE 0.9% 100 ML IVPB STA (13:05)
[2019-09-16] MEDS ORDERED: VANCOMYCIN IV PER PHARMACY 1 EACH MISC MISCELLANE PRN (13:05)
[2019-09-16] MEDS ORDERED: ACETAMINOPHEN TAB 325 MG TAB PO PRN (13:13)
[2019-09-16] MEDS ORDERED: NALOXONE 0.4 MG/ML 1 ML VIAL IV PRN (13:13)
[2019-09-16] MEDS ORDERED: POTASSIUM CHLORIDE ER 20 MEQ TAB.ER PO STA (13:19)
[2019-09-16] MEDS ORDERED: VANCOMYCIN 1,250 MG in SODIUM CHLORIDE 0.9% 250 ML IVPB ONE (13:30)
[2019-09-16] MEDS: SODIUM CHLORIDE 0.9% 1,000 ML IV SCH (15:00)
[2019-09-16] MEDS: DIALYSIS (PERIT 1.5%) 2,000 ML 30 G/2,000 ML BAG INTRAPERIT SCH ×2 (15:29→20:57)
[2019-09-16 16:51] LABS: Glucose,Whole Blood 120 mg/dL (75-99)
[2019-09-16] MEDS: INSULIN ASPART (NovoLOG) 100 UNIT/ML VIAL SQ SCH ×2 (16:52→20:34)
[2019-09-16 20:13] LABS: Glucose,Whole Blood 200 mg/dL (75-99)
[2019-09-16] MEDS: PIPERACILLIN-TAZOBACTAM 3.375 GM in SODIUM CHLORIDE 0.9% 100 ML IVPB SCH (21:29)
[2019-09-17] MEDS: DIALYSIS (PERIT 1.5%) 2,000 ML 30 G/2,000 ML BAG INTRAPERIT SCH (03:07)
[2019-09-17] MEDS: PIPERACILLIN-TAZOBACTAM 3.375 GM in SODIUM CHLORIDE 0.9% 100 ML IVPB SCH ×2 (06:10→17:17)
[2019-09-17] MEDS: LEVOTHYROXINE 100 MCG TAB PO SCH (06:10)
[2019-09-17 07:09] LABS: Glucose,Whole Blood 391 mg/dL (75-99)
[2019-09-17] MEDS: TAMSULOSIN 0.4 MG CAP.ER.24H PO SCH (07:17)
[2019-09-17] MEDS: INSULIN ASPART (NovoLOG) 100 UNIT/ML VIAL SQ SCH ×5 (07:17→20:06)
[2019-09-17] MEDS: NIFEdipine XL 30 MG TAB.ER.24 PO SCH (07:17)
[2019-09-17] MEDS: PRAVASTATIN SODIUM 40 MG TAB PO SCH (07:17)
[2019-09-17] MEDS: IRON POLYSACCHARIDES COMPLEX 150 MG CAP PO SCH (07:18)
[2019-09-17] MEDS: FINASTERIDE 5 MG TAB PO SCH (07:18)
[2019-09-17] MEDS: predniSONE 10 MG TAB PO SCH (07:18)
[2019-09-17] MEDS: DEXAMETHASONE 0.5 MG TAB PO SCH (07:19)
--- NOTE | 2019-09-17 08:18 | P.NPCON ---
History of Present Illness - Reason for Consult end stage renal disease - History of Present Illness Reason for consultation: End-stage renal disease History of present illness: The patient is a 64-year-old male seen in renal consultation for end-stage renal disease. He is maintained on peritoneal dialys is. Patient presented to the hospital due to generalized weakness. He does admit to burning with urination. He had a temperature of 101F on admission. He is awake and alert. Overall feeling better. He is maintained on IV antibiotics. Patient denies any issues with peritoneal dialysis. He denies any abdominal pain. No vomiting or diarrhea. No chest pain or shortness of breath. Hemodynamically stable. Urine culture is pending. Vital signs are stable. General: The patient appeared well nourished and normally developed. HEENT: Head exam is unremarkable. Neck is without jugular venous distension. LUNGS: Lungs are clear to auscultation and percussion. HEART: Rate and Rhythm are regular. ABDOMEN: Nontender. EXTREMITITES: No clubbing, cyanosis, or edema. Past Medical History Past Medical History: Cancer, Diabetes Mellitus, Dialysis, Deep Vein Thrombosis (DVT), GERD/Reflux, Hyperlipidemia, Hypertension, Osteoarthritis (OA), Prostate Disorder, Renal Disease, Skin Disorder, Thyroid Disorder, Vascular Disorder Additional Past Medical History / Comment(s): , hx vascular calcification, basal cell carcinoma nose removed 2010. BRAIN CANCER, NHL History of Any Multi-Drug Resistant Organisms: None Reported Additional Past Surgical History / Comment(s): kidney transplant : 1992 & 1997. Left transmetatarsal amputation. basal cell carcinoma excision.BRAIN TUMOR R EMOVED WITH CHEMO . COLONOSCOPY Past Anesthesia/Blood Transfusion Reactions: No Reported Reaction Past Psychological History: No Psychological Hx Reported Smoking Status: Never smoker Past Alcohol Use History: None Reported Past Drug Use History: None Reported - Past Family History Mother Family Medical History: No Reported History (Mother at the age of 85 from old age.) Father Family Medical History: No Reported History (Father at the age of 95 from old age.) Brother(s) Family Medical History: No Reported History (patient has 2 brothers alive and well.) Sister(s) Family Medical History: No Reported History (patient has 4 sisters alive and well.) Son(s) Family Medical History: No Reported History (patient has 2 healthy boys 33 and 34 year old.) Medications and Allergies Home Medications Medication Instructions Recorded Confirmed Type Pravastatin Sodium [Pravachol] 40 mg PO HS 09/01/15 09/16/19 History Finasteride 2.5 mg PO DAILY 07/04/16 09/16/19 History Insulin Aspart (Niacinamide) See Protocol SQ-PUMP DIRECTED 11/05/18 09/16/19 History [Fiasp 100 Unit/ml Vial] Iron Polysaccharide Complex 150 mg PO DAILY 11/05/18 09/16/19 History [Ferrex 150] Levothyroxine Sodium 150 mcg PO DAILY 11/05/18 09/16/19 History Tamsulosin [Flomax] 0.4 mg PO BID 11/05/18 09/16/19 History Apixaban [Eliquis] 2.5 mg PO BID 09/16/19 09/16/19 History Atorvastatin [Lipitor] 40 mg PO HS 09/16/19 09/16/19 History Calcitriol 0.5 mg PO WE 09/16/19 09/16/19 History Collagenase [Santyl] 1 applic TOPICAL BID PRN 09/16/19 09/16/19 History Dialyvite 800-Zinc 15 Tab 0.8m 1 tab PO HS 09/16/19 09/16/19 History Famotidine [Pepcid] 20 mg PO HS 09/16/19 09/16/19 History Metoprolol Succinate [Toprol XL] 50 mg PO HS 09/16/19 09/16/19 History Midodrine HCl [ProAmatine] 10 mg PO TID 09/16/19 09/16/19 History Sevelamer Carbonate 1,600 mg PO TID-W/MEALS 09/16/19 09/16/19 History predniSONE 9 mg PO DAILY 09/16/19 09/16/19 History Allergies Allergy/AdvReac Type Severity Reaction Status Date / Time No Known Allergies Allergy Verified 02/06/19 07:40 Physical Exam Vitals: Vital Signs Temp Pulse Pulse Resp BP BP Pulse Ox 09/17/19 07:14 98.4 F 73 16 109/58 98 09/17/19 03:36 98.2 F 82 18 130/76 95 09/17/19 00:00 14 09/16/19 23:30 98.2 F 72 14 135/88 94 L 09/16/19 18:36 98.5 F 73 14 122/83 93 L 09/16/19 16:00 17 09/16/19 15:00 99.2 F 54 L 17 107/65 98 09/16/19 14:04 101.0 F H 84 20 127/92 99 09/16/19 12:00 82 18 130/82 99 09/16/19 11:30 81 19 143/91 98 09/16/19 11:00 80 18 133/89 100 09/16/19 10:30 82 18 120/90 99 09/16/19 10:15 99.2 F 82 20 120/90 99 Intake and Output 09/16/19 09/17/19 09/17/19 22:59 06:59 14:59 Other: Voiding Method Toilet CAPD # Voids 1 # Bowel Movements 1 Results - Lab Results Most recent lab results Calcium 7.6 mg/dL (8.4-10.2) L 09/16/19 10:39 Magnesium 2.0 mg/dL (1.6-2.3) 09/16/19 10:39 09/16/19 10:39 09/16/19 10:39 Assessment and Plan Plan: Assessment: 1. End-stage renal disease maintained on peritoneal dialysis. 2. UTI maintained on antibiotics. Urine culture pending. 3. Diabetes mellitus. 4. Hypertension with chronic kidney disease. Controlled. Plan: Maintain current peritoneal dialysis exchanges. Add fibrin to dialysate bags. Check dialysate for cell count, culture and Gram stain. Follow-up cultures. Hold losartan if systolic blood pressure less than 120. Thank you for the consultation. I will continue to follow the patient during his hospital stay.
[2019-09-17] MEDS ORDERED: VANCOMYCIN 1,250 MG in SODIUM CHLORIDE 0.9% 250 ML IVPB ONE (09:00)
[2019-09-17] MEDS ORDERED: LOSARTAN 50 MG TAB PO SCH (09:00)
[2019-09-17] MEDS ORDERED: ATENOLOL 50 MG TAB PO SCH (09:00)
[2019-09-17 09:42] LABS: Calcium 7.3 mg/dL (8.4-10.2); Potassium 3.1 mmol/L (3.5-5.1)
[2019-09-17] MEDS: HEPARIN SODIUM (1,000 UNIT/ML) 1,250 UNIT in DIALYSIS (PERITONL) DEX 1.5% 2,000 ML INTRAPERIT SCH ×3 (10:22→21:15)
--- NOTE | 2019-09-17 11:48 | P.HPIM ---
History of Present Illness H&P Date: 09/16/19 Chief Complaint: weakness This is a 64-year-old male one of Dr. Salo Coelho patient with a previous medical history significant for hypertension and hypertensive cardiovascular disease, hyperlipidemia, diabetes mellitus type 2, hypothyroidism, benign prostatic hypertrophy, history of renal transplant times 2 in 1992 1994 post allograft failure with end-stage renal disease currently on peritoneal dialysis, patient was recently treated for what appears to be a urinary tract infection with a vancomycin as an outpatient according to the emergency room physician note and he was brought into the ER at [facility] today because of increased weakness and dry cugh along with low grade temperature, he was found to have leukocytosis with minimal lymphopenia according to the EMS report his temperature was elevated in route to the hospital, patient was tested for influenza A and B and COVID-19, his urinalysis showed evidence of acute UTI with significant hematuria as well his nitrites was negative however there was clumps of WBC, patient was started on IV antibiotic in the form of Zosyn and vancomycin urine culture, blood culture, infectious disease consultation from Dr. De Leon. Review of Systems Constitutional: Reports anorexia, Reports fatigue, Reports lethargy, Reports weakness Eyes: denies blurred vision, denies bulging eye, denies decreased vision Ears: deny: decreased hearing Ears, nose, mouth and throat: Denies dysphagia, Denies neck lump, Denies sore throat Cardiovascular: Denies chest pain, Denies decreased exercise tolerance, Denies dyspnea on exertion, Denies lightheadedness, Denies rapid heart beat, Denies shortness of breath, Denies syncope Respiratory: Denies congestion, Denies cough, Denies cough with sputum, Denies home oxygen, Denies sleep apnea, Denies snoring, Denies wheezing Gastrointestinal: Denies abdominal pain, Denies BRBPR, Denies heartburn, Denies melena, Denies nausea, Denies vomiting Genitourinary: Denies dysuria, Denies nocturia Musculoskeletal: Denies myalgias Musculoskeletal: absent: ankle pain, ankle stiffness, ankle swelling, elbow pain, elbow stiffness, elbow swelling, hand pain, hand stiffness, hand swelling, hip pain, hip stiffness, hip swelling, knee pain, knee stiffness, knee swelling, shoulder pain, shoulder stiffness, shoulder swelling, wrist pain, wrist stiffness, wrist swelling Integumentary: Denies pruritus, Denies rash Neurological: Denies numbness, Denies weakness Psychiatric: Denies anxiety, Denies depression Endocrine: Denies fatigue, Denies weight change Past Medical History Past Medical History: Cancer, Diabetes Mellitus, Dialysis, Deep Vein Thrombosis (DVT), GERD/Reflux, Hyperlipidemia, Hypertension, Osteoarthritis (OA), Prostate Disorder, Renal Disease, Skin Disorder, Thyroid Disorder, Vascular Disorder Additional Past Medical History / Comment(s): , hx vascular calcification, basal cell carcinoma nose removed 2010. BRAIN CANCER, NHL History of Any Multi-Drug Resistant Organisms: None Reported Additional Past Surgical History / Comment(s): kidney transplant : 1992 & 1997. Left transmetatarsal amputation. basal cell carcinoma excision.BRAIN TUMOR REMOVED WITH CHEMO . COLONOSCOPY Past Anesthesia/Blood Transfusion Reactions: No Reported Reaction Past Psychological History: No Psychological Hx Reported Smoking Status: Never smoker Past Alcohol Use History: None Reported Past Drug Use History: None Reported - Past Family History Mother Family Medical History: No Reported History (Mother at the age of 85 from old age.) Father Family Medical History: No Reported History (Father at the age of 95 from old age.) Brother(s) Family Medical History: No Reported History (patient has 2 brothers alive and well.) Sister(s) Family Medical History: No Reported History (patient has 4 sisters alive and well.) Son(s) Family Medical History: No Reported History (patient has 2 healthy boys 33 and 34 year old.) Medications and Allergies Home Medications Medication Instructions Recorded Confirmed Type Pravastatin Sodium [Pravachol] 40 mg PO HS 09/01/15 09/16/19 History Finasteride 2.5 mg PO DAILY 07/04/16 09/16/19 History Insulin Aspart (Niacinamide) See Protocol SQ-PUMP DIRECTED 11/05/18 09/16/19 History [Fiasp 100 Unit/ml Vial] Iron Polysaccharide Complex 150 mg PO DAILY 11/05/18 09/16/19 History [Ferrex 150] Levothyroxine Sodium 150 mcg PO DAILY 11/05/18 09/16/19 History Tamsulosin [Flomax] 0.4 mg PO BID 11/05/18 09/16/19 History Apixaban [Eliquis] 2.5 mg PO BID 09/16/19 09/16/19 History Atorvastatin [Lipitor] 40 mg PO HS 09/16/19 09/16/19 History Calcitriol 0.5 mg PO WE 09/16/19 09/16/19 History Collagenase [Santyl] 1 applic TOPICAL BID PRN 09/16/19 09/16/19 History Dialyvite 800-Zinc 15 Tab 0.8m 1 tab PO HS 09/16/19 09/16/19 History Famotidine [Pepcid] 20 mg PO HS 09/16/19 09/16/19 History Metoprolol Succinate [Toprol XL] 50 mg PO HS 09/16/19 09/16/19 History Midodrine HCl [ProAmatine] 10 mg PO TID 09/16/19 09/16/19 History Sevelamer Carbonate 1,600 mg PO TID-W/MEALS 09/16/19 09/16/19 History predniSONE 9 mg PO DAILY 09/16/19 09/16/19 History Allergies Allergy/AdvReac Type Severity Reaction Status Date / Time No Known Allergies Allergy Verified 02/06/19 07:40 Physical Exam Vitals: Vital Signs Temp Pulse Resp BP Pulse Ox 09/16/19 14:04 101.0 F H 84 20 127/92 99 09/16/19 12:00 82 18 130/82 99 09/16/19 11:30 81 19 143/91 98 09/16/19 11:00 80 18 133/89 100 09/16/19 10:30 82 18 120/90 99 09/16/19 10:15 99.2 F 82 20 120/90 99 Intake and Output 09/15/19 09/16/19 09/16/19 22:59 06:59 14:59 Other: Weight 70.307 kg H EENT: Head is atraumatic, normocephalic, pupils are equal round reactive light no compression, extraocular muscle movement intact. Neck: Supple, no JVP, no lymphadenopathy. Chest: Decreased breath sound in bases, few rhonchi, no expiratory wheezes, no chest wall tenderness, no costal retractions. Heart: First heart sounds depressed, second heart sounds normal, there are systolic ejection murmur 2/6 located in left sternal border. Abdomen: Soft, nontender, nondistended, positive bowel sounds, positive for PD catheter with a clear liquid. Extremities: Left transmetatarsal amputation, right lower extremity mild edema, dorsalis pedis +1 on the right side. Neurologic examination: Patient appears to be drowsy arousable moves all his extremities. Results CBC & Chem 7: 09/16/19 10:39 09/17/19 08:58 Labs: Abnormal Lab Results - Last 24 Hours (Table) 09/16/19 09/16/19 09/16/19 Range/Units 10:39 10:39 10:39 RBC 3.72 L (4.30-5.90) m/uL Hgb 11.5 L (13.0-17.5) gm/dL Hct 34.4 L (39.0-53.0) % RDW 15.7 H (11.5-15.5) % Plt Count 92 L (150-450) k/uL Neutrophils # 8.0 H (1.3-7.7) k/uL Lymphocytes # 0.9 L (1.0-4.8) k/uL Sodium 133 L (137-145) mmol/L Potassium 3.0 L (3.5-5.1) mmol/L Carbon Dioxide 18 L (22-30) mmol/L BUN 77 H (9-20) mg/dL Creatinine 8.70 H* (0.66-1.25) mg/dL Glucose 111 H (74-99) mg/dL POC Glucose (mg/dL) (75-99) mg/dL Calcium 7.6 L (8.4-10.2) mg/dL Creatine Kinase 52 L (55-170) U/L Total Protein 5.4 L (6.3-8.2) g/dL Albumin 2.6 L (3.5-5.0) g/dL Urine pH 8.5 H (5.0-8.0) Urine Protein 1+ H (Negative) Urine Blood Large H (Negative) Ur Leukocyte Esterase Large H (Negative) Urine RBC >182 H (0-5) /hpf Urine WBC >182 H (0-5) /hpf Urine WBC Clumps Moderate H (None) /hpf Urine Bacteria Rare H (None) /hpf Urine Mucus Rare H (None) /hpf 09/16/19 Range/Units 10:48 RBC (4.30-5.90) m/uL Hgb (13.0-17.5) gm/dL Hct (39.0-53.0) % RDW (11.5-15.5) % Plt Count (150-450) k/uL Neutrophils # (1.3-7.7) k/uL Lymphocytes # (1.0-4.8) k/uL Sodium (137-145) mmol/L Potassium (3.5-5.1) mmol/L Carbon Dioxide (22-30) mmol/L BUN (9-20) mg/dL Creatinine (0.66-1.25) mg/dL Glucose (74-99) mg/dL POC Glucose (mg/dL) 130 H (75-99) mg/dL Calcium (8.4-10.2) mg/dL Creatine Kinase (55-170) U/L Total Protein (6.3-8.2) g/dL Albumin (3.5-5.0) g/dL Urine pH (5.0-8.0) Urine Protein (Negative) Urine Blood (Negative) Ur Leukocyte Esterase (Negative) Urine RBC (0-5) /hpf Urine WBC (0-5) /hpf Urine WBC Clumps (None) /hpf Urine Bacteria (None) /hpf Urine Mucus (None) /hpf Thrombosis Risk Factor Assmnt - DVT/VTE Prophylaxis DVT/VTE Prophylaxis: Pharmacologic Prophylaxis ordered, Mechanical Prophylaxis ordered Assessment and Plan Assessment: Assessment and plan: 1. Metabolic encephalopathy likely related to UTI with sepsis cannot rule out influenza AB/COVID-19. Please check influenza swabs as well as COVID 19. Continue with contact and droplet precautions, start the patient on IV antibiotic in the form of Zosyn and vancomycin pharmacy to dose its peak and trough, patient will be seen in consultation by infectious disease, blood culture, urine culture. 2. End stage renal disease on peritoneal dialysis. Counseled nephrology for PD dialysis ordered. 3. Mild hyponatremia. Repeat CMP in the next 24 hours. 4. Hypokalemia. Status post replacement. 5. Metabolic acidosis likely related to end-stage renal disease and possible sepsis. Repeat CMP in the next 24 hours. 6. Hypertension and hypertensive cardiovascular disease. Continue Atenolol 50mg orally daily, Nifedipine 30 mg orally daily and Losartan 50 mg orally daily. 7. Hyperlipidemia. Continue Pravastatin 40 mg orally once every day. 8. Hypothyroidism. Continue Synthroid 150 mcg orally once every day. 9. History of renal transplant x2 post allograft failure currently on PD. Patient has been on prednisone 9 mg orally once per day. 10. Diabetes mellitus type 2. Continue with SSI. 12. History of brain cancer status post craniotomy. Currently in remission. 13. History of DVT. Resolved. 14. BPH . we will continue with Flomax 0.4 mg orally daily and Finasteride 2.5 mg orally daily along with Doxazosin 1 mg orally daily. 14. DVT prophylaxis. Heparin 5000 units SC Q 12 h. 15. GI prophylaxis. Continue with PPI 16. Admit to inpatient. Estimated length of stay 2 midnights. 17. Patient is full code.
[2019-09-17] MEDS ORDERED: POTASSIUM CHLORIDE ER 20 MEQ TAB.ER PO STA (11:56)
[2019-09-17 11:57] LABS: Glucose,Whole Blood 365 mg/dL (75-99)
[2019-09-17] MEDS: HEPARIN SODIUM,PORCINE 5,000 UNIT/ML 1 ML VIAL SQ SCH ×2 (12:46→23:43)
[2019-09-17] MEDS: DOXAZOSIN 1 MG TAB PO SCH (12:47)
--- NOTE | 2019-09-17 13:26 | P.PN ---
Subjective Progress Note Date: 09/17/19 This is a 64-year-old male one of Dr. Salo Coelho patient with a previous medical history significant for hypertension and hypertensive cardiovascular disease, hyperlipidemia, diabetes mellitus type 2, hypothyroidism, benign prostatic hypertrophy, history of renal transplant times 2 in 1992 1994 post allograft failure with end-stage renal disease currently on peritoneal dialysis, patient was recently treated for what appears to be a urinary tract infection with a vancomycin as an outpatient according to the emergency room physician note and he was brought into the ER at [facility] today because of increased weakness and dry cugh along with low grade temperature, he was found t o have leukocytosis with minimal lymphopenia according to the EMS report his temperature was elevated in route to the hospital, patient was tested for influenza A and B and COVID-19, his urinalysis showed evidence of acute UTI with significant hematuria as well his nitrites was negative however there was clumps of WBC, patient was started on IV antibiotic in the form of Zosyn and vancomycin urine culture, blood culture, infectious disease consultation from Dr. De Leon. 09/16: Patient has been seen in consultation by Dr. Steawrt for end-stage renal disease on peritoneal dialysis. CAPD to be continued. Patient has been afebrile since admission, heart rate 73, blood pressure 109/58, pulse ox 98% on room air. Losartan to be held if systolic blood pressure less than 120 but home medication list was reviewed and patient is no longer on this medication which will be discontinued and metoprolol started.. Patient is currently on Zosyn and vancomycin. Urine culture is in progress. COVID-19 testing is pending. Blood sugars are running up to 391 this morning and scheduled NovoLog will be added. Home medications will be resumed. There is a consult in place for Dr. De Leon as well. Objective - Vital Signs Vital signs: Vital Signs Temp 98.4 F 09/17/19 07:14 Pulse 73 09/17/19 07:14 Resp 16 09/17/19 07:14 BP 109/58 09/17/19 07:14 Pulse Ox 98 09/17/19 07:14 Intake & Output 09/16/19 09/17/19 09/17/19 18:59 06:59 18:59 Weight 70.307 kg Other: Voiding Method Toilet CAPD # Voids 1 # Bowel Movements 1 - Exam Review of Systems Constitutional: Reports anorexia, Reports fatigue, Reports lethargy, Reports weakness, denies fever, denies chills Eyes: denies blurred vision, denies bulging eye, denies decreased vision Ears: deny: decreased hearing Ears, nose, mouth and throat: Denies dysphagia, Denies neck lump, Denies sore throat Cardiovascular: Denies chest pain, Denies decreased exercise tolerance, Denies dyspnea on exertion, Denies lightheadedness, Denies rapid heart beat, Denies shortness of breath, Denies syncope Respiratory: Denies congestion, Denies cough, Denies cough with sputum, Denies home oxygen, Denies sleep apnea, Denies snoring, Denies wheezing Gastrointestinal: Denies abdominal pain, Denies BRBPR, Denies heartburn, Denies melena, Denies nausea, Denies vomiting Genitourinary: Denies dysuria, Denies nocturia Musculoskeletal: Denies myalgias Musculoskeletal: absent: ankle pain, ankle stiffness, ankle swelling, elbow pain, elbow stiffness, elbow swelling, hand pain, hand stiffness, hand swelling, hip pain, hip stiffness, hip swelling, knee pain, knee stiffness, knee swelling, shoulder pain, shoulder stiffness, shoulder swelling, wrist pain, wrist stiffness, wrist swelling Integumentary: Denies pruritus, Denies rash Neurological: Denies numbness, Denies weakness Psychiatric: Denies anxiety, Denies depression Endocrine: Denies fatigue, Denies weight change Physical examination GEN: This is a 64-year-old thin male. He is resting in bed and appears to be comfortable and in no acute distress. HEENT: Head is atraumatic, normocephalic, pupils are equal round reactive light no compression, extraocular muscle movement intact. Neck: Supple, no JVP, no lymphadenopathy. Chest: Decreased breath sound in bases, few rhonchi, no expiratory wheezes, no chest wall tenderness, no costal retractions. Heart: First heart sounds depressed, second heart sounds normal, there are systo lic ejection murmur 2/6 located in left sternal border. Abdomen: Soft, nontender, nondistended, positive bowel sounds, positive for PD catheter with a clear liquid. Extremities: Left transmetatarsal amputation, right lower extremity mild edema, dorsalis pedis +1 on the right side. Neurologic examination: Patient appears to be drowsy arousable moves all his extremities. - Labs CBC & Chem 7: 09/16/19 10:39 09/17/19 08:58 Labs: Abnormal Lab Results - Last 24 Hours (Table) 09/16/19 09/16/19 09/16/19 Range/Units 10:39 10:39 10:39 RBC 3.72 L (4.30-5.90) m/uL Hgb 11.5 L (13.0-17.5) gm/dL Hct 34.4 L (39.0-53.0) % RDW 15.7 H (11.5-15.5) % Plt Count 92 L (150-450) k/uL Neutrophils # 8.0 H (1.3-7.7) k/uL Lymphocytes # 0.9 L (1.0-4.8) k/uL Sodium 133 L (137-145) mmol/L Potassium 3.0 L (3.5-5.1) mmol/L Carbon Dioxide 18 L (22-30) mmol/L BUN 77 H (9-20) mg/dL Creatinine 8.70 H* (0.66-1.25) mg/dL Glucose 111 H (74-99) mg/dL POC Glucose (mg/dL) (75-99) mg/dL Calcium 7.6 L (8.4-10.2) mg/dL Creatine Kinase 52 L (55-170) U/L Total Protein 5.4 L (6.3-8.2) g/dL Albumin 2.6 L (3.5-5.0) g/dL Urine pH 8.5 H (5.0-8.0) Urine Protein 1+ H (Negative) Urine Blood Large H (Negative) Ur Leukocyte Esterase Large H (Negative) Urine RBC >182 H (0-5) /hpf Urine WBC >182 H (0-5) /hpf Urine WBC Clumps Moderate H (None) /hpf Urine Bacteria Rare H (None) /hpf Urine Mucus Rare H (None) /hpf 09/16/19 09/16/19 09/16/19 Range/Units 10:48 16:49 20:11 RBC (4.30-5.90) m/uL Hgb (13.0-17.5) gm/dL Hct (39.0-53.0) % RDW (11.5-15.5) % Plt Count (150-450) k/uL Neutrophils # (1.3-7.7) k/uL Lymphocytes # (1.0-4.8) k/uL Sodium (137-145) mmol/L Potassium (3.5-5.1) mmol/L Carbon Dioxide (22-30) mmol/L BUN (9-20) mg/dL Creatinine (0.66-1.25) mg/dL Glucose (74-99) mg/dL POC Glucose (mg/dL) 130 H 120 H 200 H (75-99) mg/dL Calcium (8.4-10.2) mg/dL Creatine Kinase (55-170) U/L Total Protein (6.3-8.2) g/dL Albumin (3.5-5.0) g/dL Urine pH (5.0-8.0) Urine Protein (Negative) Urine Blood (Negative) Ur Leukocyte Esterase (Negative) Urine RBC (0-5) /hpf Urine WBC (0-5) /hpf Urine WBC Clumps (None) /hpf Urine Bacteria (None) /hpf Urine Mucus (None) /hpf 09/17/19 Range/Units 07:06 RBC (4.30-5.90) m/uL Hgb (13.0-17.5) gm/dL Hct (39.0-53.0) % RDW (11.5-15.5) % Plt Count (150-450) k/uL Neutrophils # (1.3-7.7) k/uL Lymphocytes # (1.0-4.8) k/uL Sodium (137-145) mmol/L Potassium (3.5-5.1) mmol/L Carbon Dioxide (22-30) mmol/L BUN (9-20) mg/dL Creatinine (0.66-1.25) mg/dL Glucose (74-99) mg/dL POC Glucose (mg/dL) 391 H (75-99) mg/dL Calcium (8.4-10.2) mg/dL Creatine Kinase (55-170) U/L Total Protein (6.3-8.2) g/dL Albumin (3.5-5.0) g/dL Urine pH (5.0-8.0) Urine Protein (Negative) Urine Blood (Negative) Ur Leukocyte Esterase (Negative) Urine RBC (0-5) /hpf Urine WBC (0-5) /hpf Urine WBC Clumps (None) /hpf Urine Bacteria (None) /hpf Urine Mucus (None) /hpf Microbiology - Last 24 Hours (Table) 09/16/19 10:39 Urine Culture - Preliminary Urine,Voided Assessment and Plan Plan: 1. Metabolic encephalopathy likely related to UTI with sepsis cannot rule out COVID-19. Influenza testing negative. Testing pending for COVID 19. Continue with contact and droplet precautions, start the patient on IV antibiotic in the form of Zosyn and vancomycin pharmacy to dose its peak and trough, patient will be seen in consultation by infectious disease, blood culture, urine culture. 2. End stage renal disease on peritoneal dialysis. Counseled nephrology for PD dialysis ordered. 3. Mild hyponatremia. Repeat CMP in the next 24 hours. 4. Hypokalemia. Status post replacement. 5. Metabolic acidosis likely related to end-stage renal disease and possible sepsis. Repeat CMP in the next 24 hours. 6. Hypertension and hypertensive cardiovascular disease. Continue Nifedipine 30 mg orally daily and Toprol-XL 50 mg at bedtime. 7. Hyperlipidemia. Continue Pravastatin 40 mg orally once every day. 8. Hypothyroidism. Continue Synthroid 150 mcg orally once every day. 9. History of renal transplant x2 post allograft failure currently on PD. Patient has been on prednisone 10 mg orally once per day. 10. Diabetes mellitus type 2. Continue with SSI. 12. History of brain cancer status post craniotomy. Currently in remission. 13. History of DVT. Resolved. 14. BPH . we will continue with Flomax 0.4 mg orally daily and Finasteride 2.5 mg orally daily along with Doxazosin 1 mg orally daily. 14. DVT prophylaxis. Heparin 5000 units SC Q 12 h. 15. GI prophylaxis. Continue with PPI 16. Patient is full code. Discharge plan: home Impression and plan of care have been directed as dictated by the signing physician. Nya Rawls nurse practitioner acting as scribe for signing physician.
[2019-09-17] MEDS ORDERED: CALCITRIOL 0.25 MCG CAP PO SCH (14:00)
[2019-09-17 14:50] LABS: Color,BF Yellow
[2019-09-17 14:51] LABS: Appearance,BF Clear; Nucleated Cells, Body Fluid 175 /uL; RBC, Body Fluid 115 /uL
[2019-09-17 14:53] LABS: Mononuclear WBC,Body Fluid 80 %; Polynuclear WBC,Body Fluid 20 %; Total Cells Counted,Body Fluid 100
[2019-09-17] MEDS: SODIUM CHLORIDE 0.9% 1,000 ML IV SCH (15:22)
[2019-09-17 16:55] LABS: Glucose,Whole Blood 349 mg/dL (75-99)
[2019-09-17] MEDS: MIDODRINE 5 MG TAB PO SCH (17:17)
[2019-09-17] MEDS: SEVELAMER 800 MG TAB PO SCH (17:18)
[2019-09-17 20:00] LABS: Glucose,Whole Blood 378 mg/dL (75-99)
[2019-09-17] MEDS: APIXABAN 2.5 MG TABLET PO SCH (20:07)
[2019-09-17] MEDS: SODIUM BICARBONATE TAB 650 MG TAB PO SCH (20:17)
[2019-09-17] MEDS ORDERED: INSULIN DETEMIR (LEVEMIR) 100 UNIT/ML SYR SQ SCH (21:00)
[2019-09-17] MEDS ORDERED: COLLAGENASE 250 UNIT/GM OINTMENT 30 GM TUBE TOPICAL SCH (21:00)
[2019-09-17] MEDS ORDERED: FAMOTIDINE 20 MG TAB PO SCH (21:00)
[2019-09-17] MEDS ORDERED: METOPROLOL SUCCINATE (ER) 50 MG TAB.ER.24H PO SCH (21:00)
[2019-09-18] MEDS: HEPARIN SODIUM (1,000 UNIT/ML) 1,250 UNIT in DIALYSIS (PERITONL) DEX 1.5% 2,000 ML INTRAPERIT SCH ×3 (03:33→16:18)
[2019-09-18] MEDS: PIPERACILLIN-TAZOBACTAM 3.375 GM in SODIUM CHLORIDE 0.9% 100 ML IVPB SCH (06:01)
[2019-09-18] MEDS: LEVOTHYROXINE 100 MCG TAB PO SCH (06:01)
[2019-09-18 06:51] LABS: Glucose,Whole Blood 131 mg/dL (75-99)
[2019-09-18] MEDS: INSULIN ASPART (NovoLOG) 100 UNIT/ML VIAL SQ SCH ×4 (07:28→11:59)
[2019-09-18] MEDS: TAMSULOSIN 0.4 MG CAP.ER.24H PO SCH (07:29)
[2019-09-18] MEDS: APIXABAN 2.5 MG TABLET PO SCH (07:29)
[2019-09-18] MEDS: FINASTERIDE 5 MG TAB PO SCH (07:29)
[2019-09-18] MEDS: predniSONE 10 MG TAB PO SCH (07:29)
[2019-09-18] MEDS: MIDODRINE 5 MG TAB PO SCH ×2 (07:29→12:12)
[2019-09-18] MEDS: PRAVASTATIN SODIUM 40 MG TAB PO SCH (07:29)
[2019-09-18] MEDS: IRON POLYSACCHARIDES COMPLEX 150 MG CAP PO SCH (07:30)
[2019-09-18] MEDS: SEVELAMER 800 MG TAB PO SCH ×2 (07:30→12:12)
[2019-09-18] MEDS ORDERED: PANTOPRAZOLE 40 MG TABLET PO SCH (07:30)
[2019-09-18] MEDS: DOXAZOSIN 1 MG TAB PO SCH (07:30)
[2019-09-18] MEDS: DEXAMETHASONE 0.5 MG TAB PO SCH (07:31)
[2019-09-18] MEDS: NIFEdipine XL 30 MG TAB.ER.24 PO SCH (07:32)
[2019-09-18] MEDS: SODIUM BICARBONATE TAB 650 MG TAB PO SCH (07:37)
[2019-09-18 09:12] LABS: Calcium 7.7 mg/dL (8.4-10.2); Magnesium 2.2 mg/dL (1.6-2.3); Potassium 3.4 mmol/L (3.5-5.1)
[2019-09-18] MEDS ORDERED: POTASSIUM CHLORIDE ER 20 MEQ TAB.ER PO STA (10:12)
--- NOTE | 2019-09-18 10:18 | P.PN ---
Subjective Patient is seen in follow-up for end-stage renal disease. He is maintained on peritoneal dialysis. Patient denies any abdominal pain. Dialysate is not cloudy. Urine cultures positive for group D enterococcus and is receiving IV antibiotics. No chest pain or shortness of breath. Vital signs are stable. General: The patient appeared well nourished and normally developed. HEENT: Head exam is unremarkable. Neck is without jugular venous distension. LUNGS: Lungs are clear to auscultation and percussion. Breath sounds decreased. HEART: Rate and Rhythm are regular. First and second heart sounds normal. No murmurs, rubs or gallops. ABDOMEN: Nontender. EXTREMITITES: No clubbing, cyanosis, or edema. Objective - Vital Signs Vital signs: Vital Signs Temp 97.2 F L 09/18/19 09:41 Pulse 80 09/18/19 09:41 Resp 16 09/18/19 09:41 BP 107/67 09/18/19 09:41 Pulse Ox 97 09/18/19 09:41 Intake & Output 09/17/19 09/18/19 09/18/19 18:59 06:59 18:59 Intake Total 480 100 Balance 480 100 Intake: Intake, IV Titration 100 Amount Piperacillin-Tazobactam 3 100 .375 gm In Sodium Chloride 0.9% 100 ml @ 25 mls/hr IVPB Q12H [facility] Rx# :[id number] Oral 480 Other: Voiding Method Toilet Toilet CAPD CAPD # Voids 1 1 # Bowel Movements 1 - Labs CBC & Chem 7: 09/16/19 10:39 09/18/19 07:39 Labs: Abnormal Lab Results - Last 24 Hours (Table) 09/17/19 09/17/19 09/17/19 Range/Units 11:55 16:53 19:58 Sodium (137-145) mmol/L Potassium (3.5-5.1) mmol/L Carbon Dioxide (22-30) mmol/L BUN (9-20) mg/dL Creatinine (0.66-1.25) mg/dL Glucose (74-99) mg/dL POC Glucose (mg/dL) 365 H 349 H 378 H (75-99) mg/dL Calcium (8.4-10.2) mg/dL 09/18/19 09/18/19 Range/Units 06:50 07:39 Sodium 133 L (137-145) mmol/L Potassium 3.4 L (3.5-5.1) mmol/L Carbon Dioxide 18 L (22-30) mmol/L BUN 84 H (9-20) mg/dL Creatinine 8.29 H* (0.66-1.25) mg/dL Glucose 114 H (74-99) mg/dL POC Glucose (mg/dL) 131 H (75-99) mg/dL Calcium 7.7 L (8.4-10.2) mg/dL Microbiology - Last 24 Hours (Table) 09/17/19 10:30 Gram Stain - Preliminary Peritoneal Fluid Body Fluid Culture - Preliminary 09/16/19 10:39 Urine Culture - Preliminary Urine,Voided Group D Enterococcus 09/16/19 10:39 Blood Culture - Preliminary Blood No Growth after 24 hours Assessment and Plan Plan: Assessment: 1. End-stage renal disease maintained on peritoneal dialysis. 2. UTI maintained on antibiotics. Urine culture positive for group D enterococcus. 3. Diabetes mellitus. 4. Hypertension with chronic kidney disease. Controlled. 5. Hypokalemia from poor oral intake and PD losses. 6. Metabolic acidosis secondary to chronic kidney disease. Maintained on oral sodium bicarb. Better. Plan: Maintain current peritoneal dialysis exchanges. Maintain fibrin in dialysate bags. Repeat dialysate for cell count, culture and Gram stain. Doubt peritonitis. Fluid culture shows no organisms or PMNs. Cell count was slightly high at 175 but the PMN count was only 20%. Follow-up cultures. Hold losartan if systolic blood pressure less than 120. Replace potassium. 40 mEq today.
[2019-09-18 10:37] LABS: Vancomycin,Random 18.5 ug/mL
[2019-09-18 11:44] LABS: Glucose,Whole Blood 71 mg/dL (75-99)
[2019-09-18] MEDS ORDERED: VANCOMYCIN 1,250 MG in SODIUM CHLORIDE 0.9% 250 ML IVPB ONE (12:00)
[2019-09-18] MEDS ORDERED: LINEZOLID 600 MG TAB PO SCH (14:30)
--- NOTE | 2019-09-18 14:32 | P.DS ---
Providers Date of admission: 09/16/19 13:14 Expected date of discharge: 09/18/19 Attending physician: Thomas Barnard Consults: 09/16/19 14:26 Consult Physician Routine Consulting Provider: Felipe Stewart Consult Reason/Comments: CAPD Do you want consulting provider notified?: Yes [facility] Course: This is a 64-year-old male one of Dr. Salo Coelho patient with a previous medical history significant for hypertension and hypertensive cardiovascular disease, hyperlipidemia, diabetes mellitus type 2, hypothyroidism, benign prost atic hypertrophy, history of renal transplant times 2 in 1992 1994 post allograft failure with end-stage renal disease currently on peritoneal dialysis, patient was recently treated for what appears to be a urinary tract infection with a vancomycin as an outpatient according to the emergency room physician note and he was brought into the ER at [facility] today because of increased weakness and dry cugh along with low grade temperature, he was found to have leukocytosis with minimal lymphopenia according to the EMS report his temperature was elevated in route to the hospital, patient was tested for influenza A and B and COVID-19, his urinalysis showed evidence of acute UTI with significant hematuria as well his nitrites was negative however there was clumps of WBC, patient was started on IV antibiotic in the form of Zosyn and vancomycin urine culture, blood culture, infectious disease consultation from Dr. De Leon. 09/16: Patient has been seen in consultation by Dr. Stewart for end-stage renal disease on peritoneal dialysis. CAPD to be continued. Patient has been afebrile since admission, heart rate 73, blood pressure 109/58, pulse ox 98% on room air. Losartan to be held if systolic blood pressure less than 120 but home medication list was reviewed and patient is no longer on this medication which will be discontinued and metoprolol started.. Patient is currently on Zosyn and vancomycin. Urine culture is in progress. COVID-19 testing is pending. Blood sugars are running up to 391 this morning and scheduled NovoLog will be added. Home medications will be resumed. There is a consult in place for Dr. De Leon as well. 09/17: COVID-19 testing negative. Patient's been afebrile, heart rate 61, blood pressure 117/68, pulse ox 100% on room air. Yesterday, peritoneal fluid was sent for examination finding clear fluid on the RBCs 115, nucleated cells 175, Donya nuclear cells 20, mononuclear 80. Fluid culture is in progress. Blood cultures no growth at 24 hours. Urine culture preliminary group D enterococcus. Repeat lab work reveals sodium 133, potassium 3.4, chloride 102, CO2 18, BUN 84 creatinine 8.29. Blood sugars running between 71 and 131. Much improved from yesterday running in the 300s. Patient to resume his insulin pump once he gets home. Patient has been seen by Dr. De Leon for UTI and put on Zyvox. Patient will be discharged home today in stable condition. Discharge diagnoses: 1. Metabolic encephalopathy likely related to enterococcus faecium UTI with sepsis. COVID-19 negative. COVID-19 infection ruled out. 2. End stage renal disease on peritoneal dialysis. 3. Mild hyponatremia. 4. Hypokalemia. 5. Metabolic acidosis likely related to end-stage renal disease and possible sepsis. 6. Hypertension and hypertensive cardiovascular disease. 7. Hyperlipidemia. 8. Hypothyroidism. 9. History of renal transplant x2 post allograft failure currently on PD. 10. Diabetes mellitus type 2. 12. History of brain cancer status post craniotomy. Currently in remission. 13. History of DVT. Resolved. 14. BPH. Discharge plan: home Impression and plan of care have been directed as dictated by the signing physician. Nya Rawls nurse practitioner acting as scribe for signing physician. Patient Condition at Discharge: Good Plan - Discharge Summary New Discharge Prescriptions: New Linezolid [Zyvox] 600 mg PO Q12H #12 tab Sodium Bicarbonate Tab 650 mg PO BID #60 tab Continue Pravastatin Sodium [Pravachol] 40 mg PO HS Finasteride 2.5 mg PO DAILY Levothyroxine Sodium 150 mcg PO DAILY Tamsulosin [Flomax] 0.4 mg PO BID Iron Polysaccharide Complex [Ferrex 150] 150 mg PO DAILY Insulin Aspart (Niacinamide) [Fiasp 100 Unit/ml Vial] See Protocol SQ-PUMP DIRECTED predniSONE 9 mg PO DAILY Dialyvite 800-Zinc 15 Tab 0.8m 1 tab PO HS Calcitriol 0.5 mg PO WE Collagenase [Santyl] 1 applic TOPICAL BID PRN PRN Reason: hs-mon,wed,fri Sevelamer Carbonate 1,600 mg PO TID-W/MEALS Metoprolol Succinate [Toprol XL] 50 mg PO HS Famotidine [Pepcid] 20 mg PO HS Midodrine HCl [ProAmatine] 10 mg PO TID Apixaban [Eliquis] 2.5 mg PO BID Atorvastatin [Lipitor] 40 mg PO HS Discharge Medication List Pravastatin Sodium [Pravachol] 40 mg PO HS 09/01/15 [History] Finasteride 2.5 mg PO DAILY 07/04/16 [History] Insulin Aspart (Niacinamide) [Fiasp 100 Unit/ml Vial] See Protocol SQ-PUMP DIRECTED 11/05/18 [History] Iron Polysaccharide Complex [Ferrex 150] 150 mg PO DAILY 11/05/18 [History] Levothyroxine Sodium 150 mcg PO DAILY 11/05/18 [History] Tamsulosin [Flomax] 0.4 mg PO BID 11/05/18 [History] Apixaban [Eliquis] 2.5 mg PO BID 09/16/19 [History] Atorvastatin [Lipitor] 40 mg PO HS 09/16/19 [History] Calcitriol 0.5 mg PO WE 09/16/19 [History] Collagenase [Santyl] 1 applic TOPICAL BID PRN 09/16/19 [History] Dialyvite 800-Zinc 15 Tab 0.8m 1 tab PO HS 09/16/19 [History] Famotidine [Pepcid] 20 mg PO HS 09/16/19 [History] Metoprolol Succinate [Toprol XL] 50 mg PO HS 09/16/19 [History] Midodrine HCl [ProAmatine] 10 mg PO TID 09/16/19 [History] Sevelamer Carbonate 1,600 mg PO TID-W/MEALS 09/16/19 [History] predniSONE 9 mg PO DAILY 09/16/19 [History] Linezolid [Zyvox] 600 mg PO Q12H #12 tab 09/18/19 [Rx] Sodium Bicarbonate Tab 650 mg PO BID #60 tab 09/18/19 [Rx] Follow up Appointment(s)/Referral(s): Felipe Stewart DO [STAFF PHYSICIAN] - 2 Weeks Khushi De Leon MD [STAFF PHYSICIAN] - 2 Weeks Salo Villar MD [Primary Care Provider] - 1 Week
[2019-09-18 14:35] VITALS: BP 102/61; PULSE 60; RESP 18; TEMP 97.5
[2019-09-18 14:52] VITALS: BMI 19.9
--- NOTE | 2019-09-18 16:45 | CONS ---
CONSULTATION DATE OF SERVICE: 09/18/2019 REASON FOR CONSULTATION: VRE urinary tract infection and discharge antibiotic recommendation. HISTORY OF PRESENT ILLNESS: The patient is a 64-year-old, male with a past medical history significant for non-Hodgkin lymphoma, chronic renal insufficiency. The patient did have 2 kidney transplant in the past, currently undergoing peritoneal dialysis. Currently, the patient was treated for UTI on vancomycin, he is presenting to the ER at [facility] on September 15 by EMS with complaint of increased weakness and increased urinary frequency along with some confusion that has been noticed over the last few days. The patient did have a temperature of 101.3 per the EMS and on arrival to the hospital. The patient did spike a fever of 101.0 as well. The patient did not have significant tachycardia or need for supplemental oxygen. Patient did have a normal white count with minimal mild lymphopenia. He did not have LDH, CRP or procalcitonin checked. Influenza PCR was negative. Subsequently, he did have a normal coronavirus swab which came back negative. The patient did have positive UA with large leukocyte esterase, more than 1 to 2 WBC, moderate bacteria. Culture now showing VRE that prompted this infectious disease consultation for discharge antibiotic recommendation. The patient also has some peritoneal fluid sent, did not shows significant by cloudy fluid or elevated white count. The patient is currently clinically feeling better. REVIEW OF SYSTEMS: Positive points have been mentioned in HPI. Rest of the systems have been negative. PAST MEDICAL HISTORY: Non-Hodgkin lymphoma, hypertension, hyperlipidemia, DVT, diabetes mellitus, hypothyroidism, basal cell carcinoma. PAST SURGICAL HISTORY: Kidney transplant x2, right transmetatarsal amputation with tarsal excision, tumor removed with chemo and colonoscopy. SOCIAL HISTORY: The patient denies smoking, drinking or drug use. FAMILY HISTORY: Mother history of diabetes mellitus. ALLERGIES: No known drug allergies. MEDICATIONS: The patient is currently on Tylenol, Eliquis, Rocaltrol, Cardura, Pepcid, Proscar, NovoLog, Levemir, Synthroid, Midodrine, Narcan, Procardia XL, Zosyn and vancomycin. PHYSICAL EXAMINATION: Blood pressure 117/68 with a pulse of 61, temperature 97.5, he is 100% on room air. General description is a middle-aged male up, in the bed in no distress. No tachypnea or dyspnea for respiration use. HEENT: Shows slight pallor. No scleral icterus. Oral mucosa is dry, no pharyngeal erythema, no thrush. NECK: Trachea central, no thyromegaly. LUNGS: Unlabored breathing. Clear to auscultation. No wheeze or crackles. HEART: S1, S2. Regular rate and rhythm. ABDOMEN: Soft, no tenderness. No guarding or rigidity. EXTREMITIES: No edema of the feet. SKIN: Examination no rash or mass palpable. NEUROLOGICAL: Patient is awake, alert, oriented x3. Mood and affect normal. LABS: Hemoglobin is 11.5 with white count of 9.6, BUN of 84, creatinine 8.29, potassium is 3.4. Peritoneal fluid was clear. Only 175 WBCs. Urine shows more than 1 to 2 WBC and large ascites. Culture with VRE, more than 100,000 colonies that is resistant to ampicillin and Cipro. DIAGNOSTIC IMPRESSION AND PLAN: Patient admitted to the hospital with fever, likely UTI in this patient who does have a peritoneal dialysis but still makes urine and has some urinary symptoms of frequency and burning, possible asymptomatic urinary tract infection. PLAN: 1. Discontinue vancomycin and Zosyn. 2. Start the patient on Zyvox 600 mg p.o. q.12 hours. Duration of antibiotic should be 7 days. Prescription sent to pharmacy. Thank you for this consultation. MMODL / IJN: [id number] /
== END 2019-09-18 16:18 | disposition home or self-care (01) | DRG 871 ==
LOC: EC 10:11 → 4SSUR 13:14
PROVIDERS: ADMIT Internal Medicine; ATTEND Internal Medicine
DX: A41.81 Sepsis due to Enterococcus (principal); G93.41 Metabolic encephalopathy; N18.6 End stage renal disease; N39.0 Urinary tract infection, site not specified; Z16.21 Resistance to vancomycin; E87.1 Hypo-osmolality and hyponatremia; E87.2 Acidosis; I13.11 Hypertensive heart and chronic kidney disease without heart failure, with stage 5 chronic kidney disease, or end stage renal disease; T86.12 Kidney transplant failure; E03.9 Hypothyroidism, unspecified; E11.22 Type 2 diabetes mellitus with diabetic chronic kidney disease; Z20.828 Contact with and (suspected) exposure to other viral communicable diseases; E78.5 Hyperlipidemia, unspecified; E87.6 Hypokalemia; N40.0 Benign prostatic hyperplasia without lower urinary tract symptoms; K21.9 Gastro-esophageal reflux disease without esophagitis; M19.90 Unspecified osteoarthritis, unspecified site; Z79.01 Long term (current) use of anticoagulants; Z79.890 Hormone replacement therapy; Z79.899 Other long term (current) drug therapy; Z79.52 Long term (current) use of systemic steroids; Z99.2 Dependence on renal dialysis; Z86.718 Personal history of other venous thrombosis and embolism; Z85.841 Personal history of malignant neoplasm of brain; Z85.828 Personal history of other malignant neoplasm of skin; Z87.440 Personal history of urinary (tract) infections; Z89.431 Acquired absence of right foot; Z85.72 Personal history of non-Hodgkin lymphomas; Z83.3 Family history of diabetes mellitus; Y83.0 Surgical operation with transplant of whole organ as the cause of abnormal reaction of the patient, or of later complication, without mention of misadventure at the time of the procedure
CPT/HCPCS: 36415; 71045; 80048; 80053; 80202; 81001; 82140; 82550; 83735; 84484; 85025; 87040; 87070; 87077; 87086; 87186; 87205; 87502; 89050; 93005; 96365; 99285

== ENCOUNTER 2019-09-26 20:32 | Inpatient (IN) | payer MEDICAID, MEDICARE ==
[2019-09-26] MEDS ORDERED: SODIUM CHLORIDE 0.9% 1,000 ML IV STA (21:02)
--- NOTE | 2019-09-26 21:07 | ED ---
General Adult HPI - General Chief complaint: Seizure Stated complaint: poss seizure Time Seen by Provider: 09/26/19 20:36 Source: patient, RN/MD, EMS, RN notes reviewed Mode of arrival: EMS Limitations: no limitations - History of Present Illness Initial comments: Patient is a pleasant 64-year-old male presenting to the emergency department with concern for seizure. Patient denies any history of seizure and does not recall having any seizures. Reportedly stated that patient had generalized seizure activity there were short lasting and then patient was postictal for approximately 10 minutes following this. Patient states he feels fine and has no complaints. Patient is unclear why he is in the emergency department. Patient does have known history of lymphoma and previous brain tumor removal. Patient states he is not currently on treatment for this, and he is doing well. - Related Data Home Medications Medication Instructions Recorded Confirmed Pravastatin Sodium [Pravachol] 40 mg PO HS 09/01/15 09/26/19 Finasteride 2.5 mg PO DAILY 07/04/16 09/26/19 Insulin Aspart (Niacinamide) See Protocol SQ-PUMP DIRECTED 11/05/18 09/26/19 [Fiasp 100 Unit/ml Vial] Iron Polysaccharide Complex 150 mg PO DAILY 11/05/18 09/26/19 [Ferrex 150] Levothyroxine Sodium 150 mcg PO DAILY 11/05/18 09/26/19 Tamsulosin [Flomax] 0.4 mg PO BID 11/05/18 09/26/19 Apixaban [Eliquis] 2.5 mg PO BID 09/16/19 09/26/19 Atorvastatin [Lipitor] 40 mg PO HS 09/16/19 09/26/19 Calcitriol 0.5 mg PO WE 09/16/19 09/26/19 Collagenase [Santyl] 1 applic TOPICAL BID PRN 09/16/19 09/26/19 Dialyvite 800-Zinc 15 Tab 0.8m 1 tab PO HS 09/16/19 09/26/19 Famotidine [Pepcid] 20 mg PO HS 09/16/19 09/26/19 Metoprolol Succinate [Toprol XL] 50 mg PO HS 09/16/19 09/26/19 Midodrine HCl [ProAmatine] 10 mg PO TID 09/16/19 09/26/19 Sevelamer Carbonate 1,600 mg PO TID-W/MEALS 09/16/19 09/26/19 predniSONE 4 mg PO DAILY 09/16/19 09/26/19 predniSONE 5 mg PO DAILY 09/26/19 09/26/19 Previous Rx's Medication Instructions Recorded Sodium Bicarbonate Tab 650 mg PO BID #60 tab 09/18/19 Allergies Allergy/AdvReac Type Severity Reaction Status Date / Time No Known Allergies Allergy Verified 02/06/19 07:40 Review of Systems ROS Statement: Those systems with pertinent positive or pertinent negative responses have been documented in the HPI. ROS Other: All systems not noted in ROS Statement are negative. Constitutional: Denies: fever, chills Eyes: Denies: eye pain ENT: Denies: ear pain Respiratory: Denies: cough Cardiovascular: Denies: chest pain Endocrine: Denies: fatigue Gastrointestinal: Denies: abdominal pain Genitourinary: Denies: dysuria Musculoskeletal: Denies: back pain Skin: Denies: rash Neurological: Denies: headache, weakness, confusion Past Medical History Past Medical History: Atrial Fibrillation, Cancer, Diabetes Mellitus, Dialysis, Deep Vein Thrombosis (DVT), GERD/Reflux, Hyperlipidemia, Hypertension, Osteoarthritis (OA), Prostate Disorder, Renal Disease, Skin Disorder, Thyroid Disorder, Vascular Disorder Additional Past Medical History / Comment(s): , hx vascular calcification, basal cell carcinoma nose removed 2010. BRAIN CANCER, NHL History of Any Multi-Drug Resistant Organisms: VRE Date of last positivie culture/infection: 09/16/19 MDRO Source:: VRE URINE Additional Past Surgical History / Comment(s): kidney transplant : 1992 & 1997. Left transmetatarsal amputation. basal cell carcinoma excision.BRAIN TUMOR REMOVED WITH CHEMO . COLONOSCOPY Past Anesthesia/Blood Transfusion Reactions: No Reported Reaction Past Psychological History: No Psychological Hx Reported Smoking Status: Never smoker Past Alcohol Use History: None Reported Past Drug Use History: None Reported - Past Family History Mother Family Medical History: No Reported History (Mother at the age of 85 from old age.) Father Family Medical History: No Reported History (Father at the age of 95 from old age.) Brother(s) Family Medical History: No Reported History (patient has 2 brothers alive and well.) Sister(s) Family Medical History: No Reported History (patient has 4 sisters alive and well.) Son(s) Family Medical History: No Reported History (patient has 2 healthy boys 33 and 34 year old.) General Exam Limitations: no limitations General appearance: alert, in no apparent distress Head exam: Present: other (Old well-healed surgical sites) Eye exam: Present: normal appearance, PERRL, EOMI ENT exam: Present: normal oropharynx Neck exam: Present: normal inspection Respiratory exam: Present: normal lung sounds bilaterally Cardiovascular Exam: Present: irregular rhythm GI/Abdominal exam: Present: soft. Absent: tenderness Extremities exam: Present: normal inspection Neurological exam: Present: alert, oriented X3, CN II-XII intact. Absent: motor sensory deficit Psychiatric exam: Present: normal affect, normal mood Skin exam: Present: normal color Course Vital Signs 09/26/19 09/26/19 20:54 21:05 Temperature 99.1 F Pulse Rate 79 72 Respiratory 18 18 Rate Blood Pressure 122/91 138/94 O2 Sat by Pulse 96 100 Oximetry EKG Findings - EKG Comments: EKG Findings:: Atrial flutter with a rate of 77. QRS 86. QT 408. QTC 461. Normal axis. Normal QRS. Nonspecific T waves. Medical Decision Making - Medical Decision Making Patient reevaluated and resting comfortably in bed. Patient updated on results and plan. Case was discussed in detail with Dr. Guillen, covering for Dr. Villar, time will admit. He agrees with antiepileptic medication. Oncology will also be placed supervisor purification. - Lab Data Result diagrams: 09/26/19 21:12 09/26/19 21:12 Lab Results 09/26/19 09/26/19 09/26/19 Range/Units 21:12 21:12 22:00 WBC 6.2 (3.8-10.6) k/uL RBC 3.71 L (4.30-5.90) m/uL Hgb 11.3 L (13.0-17.5) gm/dL Hct 34.7 L (39.0-53.0) % MCV 93.3 (80.0-100.0) fL MCH 30.4 (25.0-35.0) pg MCHC 32.6 (31.0-37.0) g/dL RDW 15.1 (11.5-15.5) % Plt Count 89 L (150-450) k/uL Neutrophils % 82 % Lymphocytes % 11 % Monocytes % 4 % Eosinophils % 1 % Basophils % 0 % Neutrophils # 5.1 (1.3-7.7) k/uL Lymphocytes # 0.7 L (1.0-4.8) k/uL Monocytes # 0.3 (0-1.0) k/uL Eosinophils # 0.0 (0-0.7) k/uL Basophils # 0.0 (0-0.2) k/uL Manual Slide Review Performed Sodium 132 L (137-145) mmol/L Potassium 3.4 L (3.5-5.1) mmol/L Chloride 99 (98-107) mmol/L Carbon Dioxide 20 L (22-30) mmol/L Anion Gap 13 mmol/L BUN 72 H (9-20) mg/dL Creatinine 8.84 H* (0.66-1.25) mg/dL Est GFR (CKD-EPI)AfAm 7 (>60 ml/min/1.73 sqM) Est GFR (CKD-EPI)NonAf 6 (>60 ml/min/1.73 sqM) Glucose 99 (74-99) mg/dL Calcium 8.1 L (8.4-10.2) mg/dL Magnesium 2.4 H (1.6-2.3) mg/dL Total Bilirubin 0.3 (0.2-1.3) mg/dL AST 21 (17-59) U/L ALT 14 (4-49) U/L Alkaline Phosphatase 79 (38-126) U/L Total Protein 5.2 L (6.3-8.2) g/dL Albumin 2.3 L (3.5-5.0) g/dL Urine Color Light Yellow Urine Appearance Clear (Clear) Urine pH 8.5 H (5.0-8.0) Ur Specific Pearl 1.006 (1.001-1.035) Urine Protein 1+ H (Negative) Urine Glucose (UA) Negative (Negative) Urine Ketones Negative (Negative) Urine Blood Large H (Negative) Urine Nitrite Negative (Negative) Urine Bilirubin Negative (Negative) Urine Urobilinogen <2.0 (<2.0) mg/dL Ur Leukocyte Esterase Large H (Negative) Urine RBC 148 H (0-5) /hpf Urine WBC 10 H (0-5) /hpf Urine Mucus Rare H (None) /hpf Disposition Clinical Impression: New onset seizure Disposition: ADMITTED IP TO THIS HOSP Is patient prescribed a controlled substance at d/c from ED?: No Referrals: Salo Villar MD [Primary Care Provider] - 1-2 days Decision Time: 22:59
[2019-09-26 21:42] LABS: Albumin 2.3 g/dL (3.5-5.0); Calcium 8.1 mg/dL (8.4-10.2); Magnesium 2.4 mg/dL (1.6-2.3); Potassium 3.4 mmol/L (3.5-5.1); Total Bilirubin 0.3 mg/dL (0.2-1.3); Total Protein 5.2 g/dL (6.3-8.2)
[2019-09-26 21:44] LABS: Basophils % (A) 0 %; Eosinophils % (A) 1 %; HCT 34.7 % (39.0-53.0); HGB 11.3 gm/dL (13.0-17.5); Lymphocytes # (A) 0.7 k/uL (1.0-4.8); Lymphocytes % (A) 11 %; MCH 30.4 pg (25.0-35.0); MCHC 32.6 g/dL (31.0-37.0); MCV 93.3 fL (80.0-100.0); Mean Platelet Volume 8.8; Monocytes # (A) 0.3 k/uL (0-1.0); Monocytes % (A) 4 %; Neutrophils # (A) 5.1 k/uL (1.3-7.7); Neutrophils % (A) 82 %; RBC 3.71 m/uL (4.30-5.90); RDW 15.1 % (11.5-15.5); WBC 6.2 k/uL (3.8-10.6)
--- NOTE | 2019-09-26 21:45 | CT ---
EXAMINATION TYPE: CT brain wo con DATE OF EXAM: 09/26/2019 COMPARISON: 03/31/2017 and MRI 02/18/2019 HISTORY: 64-year-old male possible seizure TECHNIQUE: Examination was done in axial plane without intravenous contrast. Coronal and sagittal r econstructions performed. CT DLP: 1099.4 mGycm Automated exposure control for dose reduction was used. FINDINGS: Right parietal mario hole. Bifrontal craniotomy flap. Some curvilinear calcification anterior left fro ntal convexity is unchanged, likely postsurgical change. There is extensive encephalomalacia within t he anterior left frontal lobe with its secondary asymmetric enlargement frontal horn left lateral jesse tricle. Mild generalized supratentorial volume loss. Moderate patchy white matter hypodensities poste rior hemispheres. Extensive atherosclerotic calcifications within the carotid siphons. There is no evidence of acute intracranial hemorrhage, acute ischemic changes, mass, mass-effect, or extra-axial fluid collection. There is no effacement of cerebral sulci or basal subarachnoid cister ns. There is no hydrocephalus. There is no midline shift. Patel-white matter distinction is preserv ed. Moderate mucosal thickening left maxillary sinus. Reactive new osteogenesis left maxillary sinus wall and some chronic calcification within the sinus back to 2016. Mastoid air cells are well pneumatized . Orbits and globes are intact. IMPRESSION: 1. Right frontal craniotomy flap. Extensive anterior left frontal lobe encephalomalacia from prior va scular or traumatic insult. 2. Mild generalized atrophy and moderate changes of chronic small vessel ischemic disease. 3. No acute intracranial abnormality seen. 4. Chronic left maxillary sinus disease. Given calcification which was present dating back to 2016, c onsider superimposed aspergillus infection.
[2019-09-26 21:47] LABS: Platelet Count 89 k/uL (150-450)
[2019-09-26 22:19] LABS: Appearance,Urine Clear (Clear); Bilirubin,Urine Negative (Negative); Blood,Urine Large (Negative); Color,Urine Light Yellow; Glucose,Urine (UA) Negative (Negative); Ketones,Urine Negative (Negative); Leukocyte Esterase,Urine Large (Negative); Mucus,Urine Rare /hpf; Nitrite,Urine Negative (Negative); PH, Urine 8.5 (5.0-8.0); Protein,Urine 1+ (Negative); RBC,Urine 148 /hpf (0-5); Specific Gravity,Urine 1.006 (1.001-1.035); Urobilinogen,Urine <2.0 mg/dL (<2.0); WBC,Urine 10 /hpf (0-5)
[2019-09-26] MEDS ORDERED: levETIRAcetam IV 750 MG in SODIUM CHLORIDE 0.9% 100 ML IVPB SCH (23:00)
[2019-09-26] MEDS ORDERED: NALOXONE 0.4 MG/ML 1 ML VIAL IV PRN (23:00)
[2019-09-26] MEDS ORDERED: levETIRAcetam IV 750 MG in SODIUM CHLORIDE 0.9% 100 ML IVPB ONE (23:15)
[2019-09-26] MEDS ORDERED: COLLAGENASE 250 UNIT/GM OINTMENT 30 GM TUBE TOPICAL PRN (23:35)
[2019-09-26] MEDS ORDERED: INSULIN ASPART SQ-PUMP SCH (23:45)
[2019-09-27 00:18] LABS: Glucose,Whole Blood 64 mg/dL (75-99)
[2019-09-27 00:47] LABS: Glucose,Whole Blood 69 mg/dL (75-99)
[2019-09-27 01:37] LABS: Glucose,Whole Blood 111 mg/dL (75-99)
[2019-09-27] MEDS: SODIUM CHLORIDE 0.9% 1,000 ML IV SCH (02:21)
[2019-09-27] MEDS: LEVOTHYROXINE 100 MCG TAB PO SCH (06:35)
[2019-09-27 07:22] LABS: Glucose,Whole Blood 269 mg/dL (75-99)
[2019-09-27] MEDS: IRON POLYSACCHARIDES COMPLEX 150 MG CAP PO SCH (08:02)
[2019-09-27] MEDS: MIDODRINE 5 MG TAB PO SCH ×3 (08:02→17:14)
[2019-09-27] MEDS: SEVELAMER 800 MG TAB PO SCH ×3 (08:02→17:14)
[2019-09-27] MEDS: FINASTERIDE 5 MG TAB PO SCH (08:02)
[2019-09-27] MEDS: TAMSULOSIN 0.4 MG CAP.ER.24H PO SCH ×2 (08:02→20:36)
[2019-09-27] MEDS: predniSONE 5 MG TAB PO SCH (08:02)
[2019-09-27] MEDS: APIXABAN 2.5 MG TABLET PO SCH ×2 (08:02→20:35)
[2019-09-27] MEDS: SODIUM BICARBONATE TAB 650 MG TAB PO SCH ×2 (08:03→20:36)
[2019-09-27] MEDS: predniSONE 1 MG TAB PO SCH (08:03)
[2019-09-27] MEDS: INSULIN ASPART (NovoLOG) 100 UNIT/ML VIAL SQ SCH ×4 (08:03→20:35)
[2019-09-27 09:18] VITALS: BMI 22.4
[2019-09-27] MEDS ORDERED: levETIRAcetam IV 750 MG in SODIUM CHLORIDE 0.9% 100 ML IVPB SCH (11:00)
--- NOTE | 2019-09-27 11:36 | P.HPIM ---
History of Present Illness H&P Date: 09/27/19 Chief Complaint: New onset of seizure, recent history of UTI with sepsis, post craniotomy, t 64-year-old male one of Dr. 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 Patient was doing very well until 09/26/2019 when he had 10 minute witnessed seizure at home he lost his consciousness and had tonic-clonic seizure activity left him debilitated his ended up calling 911 and brought him to the Emergency department at [facility] where was seen and evaluated ended up going for CAT scan of the brain along with full blood work no major finding was found. Patient was loaded with Keppra he was still not acting well mentally decided to admit patient to the hospital not been able to transfer him to any Neuro Center and no neurology service on board family and patient are aware of it so will be managing his in you and try seizure medication and probably run at EEG and stabilized patient to allow him to go home and follow up with his neurosurgeon the neurologist as an outpatient. Review of Systems CONSTITUTIONAL: Well-developed no acute respiratory distress. EYES: No icterus sclerae, no conjunctivitis. EARS, NOSE, MOUTH, THROAT, and FACE: No sore throat, lymphadenopathy, carotid bruits or deformity. RESPIRATORY: No SOB cough or wheezes. CARDIOVASCULAR: No CP, Palpitation, PND, Orthopnea, or angina. GASTROINTESTINAL: No Abd pain, Nausea or vomiting, no Diarrhea or constipation, No GI Bleed, no distention or masses. Mild nausea GENITOURINARY: Negative for Hematuria or UTI, no kidney stones. Mild polyuria with no burning patient had end-stage kidney disease on CAPD. INTEGUMENT/BREAST: Negative for any muscular injury with mild osteoarthritis.. HEMATOLOGIC/LYMPHATIC: Negative for bleed or purpura. MUSCULOSKELTAL: Negative for Myalgia or arthralgia. NEURLOGICAL: Still confused had chronic craniotomy for brain tumor and had seizure activity yesterday. BEHAVIORAL/PSYCH: Negative. ENDOCRINE: Negative. Past Medical History Past Medical History: Atrial Fibrillation, Cancer, Diabetes Mellitus, Dialysis, Deep Vein Thrombosis (DVT), GERD/Reflux, Hyperlipidemia, Hypertension, Osteoarthritis (OA), Prostate Disorder, Renal Disease, Skin Disorder, Thyroid Disorder, Vascular Disorder Additional Past Medical History / Comment(s): , hx vascular calcification, basal cell carcinoma nose removed 2010. BRAIN CANCER, NHL History of Any Multi-Drug Resistant Organisms: VRE Date of last positivie culture/infection: 09/16/19 MDRO Source:: VRE URINE Additional Past Surgical History / Comment(s): kidney transplant : 1992 & 1997. Left transmetatarsal amputation. basal cell carcinoma excision.BRAIN TUMOR REMOVED WITH CHEMO . COLONOSCOPY Past Anesthesia/Blood Transfusion Reactions: No Reported Reaction Past Psychological History: No Psychological Hx Reported Smoking Status: Never smoker Past Alcohol Use History: None Reported Past Drug Use History: None Reported - Past Family History Mother Family Medical History: No Reported History Father Family Medical History: No Reported History Brother(s) Family Medical History: No Reported History Sister(s) Family Medical History: No Reported History Son(s) Family Medical History: No Reported History Medications and Allergies Home Medications Medication Instructions Recorded Confirmed Type Finasteride 2.5 mg PO DAILY 07/04/16 09/26/19 History Insulin Aspart (Niacinamide) See Protocol SQ-PUMP DIRECTED 11/05/18 09/26/19 History [Fiasp 100 Unit/ml Vial] Iron Polysaccharide Complex 150 mg PO DAILY 11/05/18 09/26/19 History [Ferrex 150] Levothyroxine Sodium 150 mcg PO DAILY 11/05/18 09/26/19 History Tamsulosin [Flomax] 0.4 mg PO BID 11/05/18 09/26/19 History Apixaban [Eliquis] 2.5 mg PO BID 09/16/19 09/26/19 History Atorvastatin [Lipitor] 40 mg PO HS 09/16/19 09/26/19 History Calcitriol 0.5 mg PO WE 09/16/19 09/26/19 History Collagenase [Santyl] 1 applic TOPICAL BID PRN 09/16/19 09/26/19 History Dialyvite 800-Zinc 15 Tab 0.8m 1 tab PO HS 09/16/19 09/26/19 History Famotidine [Pepcid] 20 mg PO HS 09/16/19 09/26/19 History Metoprolol Succinate [Toprol XL] 50 mg PO HS 09/16/19 09/26/19 History Midodrine HCl [ProAmatine] 10 mg PO TID 09/16/19 09/26/19 History Sevelamer Carbonate 1,600 mg PO TID-W/MEALS 09/16/19 09/26/19 History predniSONE 4 mg PO DAILY 09/16/19 09/26/19 History Sodium Bicarbonate Tab 650 mg PO BID #60 tab 09/18/19 09/26/19 Rx predniSONE 5 mg PO DAILY 09/26/19 09/26/19 History Allergies Allergy/AdvReac Type Severity Reaction Status Date / Time No Known Allergies Allergy Verified 02/06/19 07:40 Physical Exam Vitals: Vital Signs Temp Pulse Pulse Resp BP BP Pulse Ox 09/27/19 06:37 98.1 F 77 20 149/82 97 09/27/19 01:30 79 145/88 09/27/19 00:07 97.8 F 80 20 161/104 95 09/26/19 23:13 75 18 129/77 99 09/26/19 21:05 72 18 138/94 100 09/26/19 20:54 99.1 F 79 18 122/91 96 Intake and Output 09/26/19 09/27/19 09/27/19 22:59 06:59 14:59 Other: # Bowel Movements 1 Weight 77.111 kg 77.111 kg 77.111 kg General Appearance: Alert, cooperative, no distress, appears stated age. Neck HEENT: Supple, no lymphadenopathy, no thyroid enlargement, no carotid bruits. Scar tissue the forehead area and the spiritism from previous craniotomy Lungs: Clear to auscultation without crackles or wheezes no rhonchi, no deformity. Chest Wall: Chest wall normal expansion with deep inspiration no tenderness and no deformity was found on exam, no costochondral pain or discomfort. Heart: Regular rate and rhythm, S1, S2 normal, no murmur, rub or gallop. Back: Symmetric, no curvature, ROM normal, no CVA tenderness. Abdomen: Soft positive bowel sounds slight distended with CAPD fluid in the ab dominal area. Extremities: Extremities normal, atraumatic, no cyanosis or edema. Pulses: 2+ and symmetric. Skin: Skin color, texture, tugor normal, no rashes or lesions. Neurologic: Alert slightly confused [place] or 2-12 intact positive generalized weakness not able to do gait exam at this point. Results CBC & Chem 7: 09/26/19 21:12 09/26/19 21:12 Labs: Abnormal Lab Results - Last 24 Hours (Table) 09/26/19 09/26/19 09/26/19 Range/Units 21:12 21:12 22:00 RBC 3.71 L (4.30-5.90) m/uL Hgb 11.3 L (13.0-17.5) gm/dL Hct 34.7 L (39.0-53.0) % Plt Count 89 L (150-450) k/uL Lymphocytes # 0.7 L (1.0-4.8) k/uL Sodium 132 L (137-145) mmol/L Potassium 3.4 L (3.5-5.1) mmol/L Carbon Dioxide 20 L (22-30) mmol/L BUN 72 H (9-20) mg/dL Creatinine 8.84 H* (0.66-1.25) mg/dL POC Glucose (mg/dL) (75-99) mg/dL Calcium 8.1 L (8.4-10.2) mg/dL Magnesium 2.4 H (1.6-2.3) mg/dL Total Protein 5.2 L (6.3-8.2) g/dL Albumin 2.3 L (3.5-5.0) g/dL Urine pH 8.5 H (5.0-8.0) Urine Protein 1+ H (Negative) Urine Blood Large H (Negative) Ur Leukocyte Esterase Large H (Negative) Urine RBC 148 H (0-5) /hpf Urine WBC 10 H (0-5) /hpf Urine Mucus Rare H (None) /hpf 09/27/19 09/27/19 09/27/19 Range/Units 00:15 00:42 01:24 RBC (4.30-5.90) m/uL Hgb (13.0-17.5) gm/dL Hct (39.0-53.0) % Plt Count (150-450) k/uL Lymphocytes # (1.0-4.8) k/uL Sodium (137-145) mmol/L Potassium (3.5-5.1) mmol/L Carbon Dioxide (22-30) mmol/L BUN (9-20) mg/dL Creatinine (0.66-1.25) mg/dL POC Glucose (mg/dL) 64 L 69 L 111 H (75-99) mg/dL Calcium (8.4-10.2) mg/dL Magnesium (1.6-2.3) mg/dL Total Protein (6.3-8.2) g/dL Albumin (3.5-5.0) g/dL Urine pH (5.0-8.0) Urine Protein (Negative) Urine Blood (Negative) Ur Leukocyte Esterase (Negative) Urine RBC (0-5) /hpf Urine WBC (0-5) /hpf Urine Mucus (None) /hpf 09/27/19 Range/Units 07:20 RBC (4.30-5.90) m/uL Hgb (13.0-17.5) gm/dL Hct (39.0-53.0) % Plt Count (150-450) k/uL Lymphocytes # (1.0-4.8) k/uL Sodium (137-145) mmol/L Potassium (3.5-5.1) mmol/L Carbon Dioxide (22-30) mmol/L BUN (9-20) mg/dL Creatinine (0.66-1.25) mg/dL POC Glucose (mg/dL) 269 H (75-99) mg/dL Calcium (8.4-10.2) mg/dL Magnesium (1.6-2.3) mg/dL Total Protein (6.3-8.2) g/dL Albumin (3.5-5.0) g/dL Urine pH (5.0-8.0) Urine Protein (Negative) Urine Blood (Negative) Ur Leukocyte Esterase (Negative) Urine RBC (0-5) /hpf Urine WBC (0-5) /hpf Urine Mucus (None) /hpf Thrombosis Risk Factor Assmnt - DVT/VTE Prophylaxis DVT/VTE Prophylaxis: Pharmacologic Prophylaxis ordered, Mechanical Prophylaxis ordered - Choose All That Apply Any of the Below Risk Factors Present?: No Other Risk Factors: Yes Each Risk Factor Represents 2 Points: Age 61-74 years Other congenital or acquired thrombophilia - If yes, enter type in comment: No Thrombosis Risk Factor Assessment Total Risk Factor Score: 2 Thrombosis Risk Factor Assessment Level: Low Risk Assessment and Plan Plan: 1 new onset of seizure activity: Patient will be hospitalized was loaded with Keppra 750 mg twice a day with switch him to oral Keppra 500 mg twice a day EEG was order CAT scan of the brain didn't show any abnormality at this point and patient had not had any other seizure activity since his admission we'll continue O2 keep lorazepam and had for any status seizure. 2 history of brain tumor post removal and chemotherapy back in 2016 has been seen neurosurgeon [place] the city no neurologist in town currently. 3 VRE infection with enterococcus infection from 10 days ago had finished full course of Zyvox his UA still not totally normal at this point awaiting for culture. 4 end-stage renal disease: Patient is on CAPD 3 times a day will consult nephrology. 5 A. fib with RVR: Remain on anticoagulation still on metoprolol with pulse rates under control currently. 6 hypothyroidism: Remain on levothyroxine 150 g daily. 7 type 2 diabetes: Has been on insulin pump according to him has been running slightly bit low the 20 came to the emergency department patient was not hypoglycemic at the time insulin pump will be continue and should be managed by his oil well services dispatcher shortly. 8 BPH: Continue patient on tamsulosin and finasteride. 9 hyperlipidemia: Remain on Lipitor 40 mg a day. 10 iron deficiency anemia: Remain on iron supplement along with multivitamins. 11 mild hypotension: Was on midodrine 10 mg 3 times a day. CODE STATUS: DO NOT RESUSCITATE per patient choice. GI prophylaxis: Patient will be on Pepcid 20 mg daily at bedtime. DVT prophylaxis: Remain on anticoagulation. Admit patient to inpatient status for 1-2 nights.
[2019-09-27 11:38] LABS: Glucose,Whole Blood 222 mg/dL (75-99)
[2019-09-27] MEDS: DIALYSIS (PERIT 1.5%) 2,500 ML 37.5 G/2,500 ML BAG INTRAPERIT SCH (12:45)
[2019-09-27 16:27] LABS: Glucose,Whole Blood 183 mg/dL (75-99)
[2019-09-27] MEDS: DIALYSIS (PERIT 2.5%) 2,500 ML 62.5 G/2,500 ML BAG INTRAPERIT SCH (17:15)
[2019-09-27 20:12] LABS: Appearance,BF Clear; Color,BF Colorless; Nucleated Cells, Body Fluid 92 /uL; RBC, Body Fluid 376 /uL
[2019-09-27 20:23] LABS: Mononuclear WBC,Body Fluid 97 %; Polynuclear WBC,Body Fluid 3 %; Total Cells Counted,Body Fluid 100
[2019-09-27] MEDS: levETIRAcetam 500 MG TAB PO SCH (20:36)
[2019-09-27 20:46] LABS: Glucose,Whole Blood 289 mg/dL (75-99)
[2019-09-27] MEDS ORDERED: FAMOTIDINE 20 MG TAB PO SCH (21:00)
[2019-09-27] MEDS ORDERED: ATORVASTATIN 40 MG TAB PO SCH (21:00)
[2019-09-27] MEDS ORDERED: DIALYVITE ZINC PO SCH (21:00)
[2019-09-27] MEDS ORDERED: PRAVASTATIN SODIUM 40 MG TAB PO SCH (21:00)
[2019-09-27] MEDS ORDERED: METOPROLOL SUCCINATE (ER) 50 MG TAB.ER.24H PO SCH (21:00)
--- NOTE | 2019-09-27 21:02 | CONS ---
CONSULTATION REASON FOR CONSULT: End-stage renal disease. HISTORY OF PRESENT ILLNESS: Patient is a 64-year-old male with end-stage renal disease, currently on peritoneal dialysis. He has had a liver transplant which has failed and he is now on dialysis. The patient had been on hemodialysis after his episode of PD peritonitis and has now gone back to PD. He was admitted to the hospital as his noticed that the patient had a seizure. It appears that it was about 10 minutes. The patient does not remember. Tonic-clonic activity is documented in the chart and therefore the had called 911. The patient has a history of underlying VRE urinary tract infection for which he was treated with Zyvox. He states his PD fluid has been clear. He denies any abdominal pain. There is no fever, chills, nausea, vomiting. He was tested for Covid- 19 and was negative. PAST MEDICAL HISTORY: Atrial fibrillation, ESRD, type 2 diabetes, history of DVT, hypertension, gastroesophageal reflux disease, hypertension, BPH, hypothyroidism, basal cell cancer removal, non-Hodgkin's lymphoma, history of VRE, previous history of kidney transplant. PAST SURGICAL HISTORY: Renal transplant, left metatarsal amputation, resection of basal cell cancer, removal of brain tumor followed by chemotherapy, history of colonoscopy. SOCIAL HISTORY: Negative for smoking, drug abuse or alcohol abuse. MEDICATIONS: Medications prior to admission included finasteride, insulin, sodium, Flomax, Eliquis, Lipitor, calcitriol, Pepcid, Toprol, midodrine, Renvela, prednisone, sodium bicarb. ALLERGIES: None. REVIEW OF SYSTEMS: As per HPI. Other systems negative. EXAMINATION: Patient is comfortable, awake, not in any acute distress. Alert and oriented x3. Blood pressure is 149/82, heart rate 77 per minute. He is afebrile. Examination of the heart S1, S2. Examination of the lungs, decreased breath sounds at bases. ABDOMEN: Soft, nontender. Examination of lower extremities shows no evidence of edema. FINAL CLEANER exam grossly intact. LAB: Shows hemoglobin 11.3, white cell count 6.2, platelet count 89,000, sodium 132, potassium 3.4. UA shows WBCs 10, protein 1+. ASSESSMENT: 1. End-stage renal disease, on peritoneal dialysis. Continue current PD exchanges. I will send the PD fluid down for cell count. 2. Seizure with no prior history of seizures, started on Keppra. The patient will see Neurology as outpatient as no inpatient Neurology service is available at this time. 3. 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 4. Hypothyroidism. PLAN: Check PD fluid for cell count. Continue current medications. Continue current PD exchanges. Continue the sodium bicarb for metabolic acidosis as well. Thank you for the consultation. We will continue to follow the patient with you during his hospitalization. MMPRASANTHL / IJN: [id number] /
[2019-09-28] MEDS: DIALYSIS (PERIT 1.5%) 2,500 ML 37.5 G/2,500 ML BAG INTRAPERIT SCH ×2 (00:15→12:45)
[2019-09-28] MEDS: SODIUM CHLORIDE 0.9% 1,000 ML IV SCH (00:22)
[2019-09-28 04:44] VITALS: BP 106/79; PULSE 79; RESP 18; TEMP 97.4
[2019-09-28] MEDS: DIALYSIS (PERIT 2.5%) 2,500 ML 62.5 G/2,500 ML BAG INTRAPERIT SCH (05:38)
[2019-09-28] MEDS: LEVOTHYROXINE 100 MCG TAB PO SCH (05:38)
[2019-09-28 07:40] LABS: Glucose,Whole Blood 474 mg/dL (75-99)
[2019-09-28] MEDS: predniSONE 5 MG TAB PO SCH (07:59)
[2019-09-28] MEDS: SEVELAMER 800 MG TAB PO SCH ×2 (07:59→12:58)
[2019-09-28] MEDS: SODIUM BICARBONATE TAB 650 MG TAB PO SCH (07:59)
[2019-09-28] MEDS: IRON POLYSACCHARIDES COMPLEX 150 MG CAP PO SCH (07:59)
[2019-09-28] MEDS: FINASTERIDE 5 MG TAB PO SCH (07:59)
[2019-09-28] MEDS: TAMSULOSIN 0.4 MG CAP.ER.24H PO SCH (07:59)
[2019-09-28] MEDS: predniSONE 1 MG TAB PO SCH (07:59)
[2019-09-28] MEDS: levETIRAcetam 500 MG TAB PO SCH (08:00)
[2019-09-28] MEDS: APIXABAN 2.5 MG TABLET PO SCH (08:00)
[2019-09-28] MEDS: MIDODRINE 5 MG TAB PO SCH ×2 (08:00→12:58)
[2019-09-28] MEDS: INSULIN ASPART (NovoLOG) 100 UNIT/ML VIAL SQ SCH ×2 (08:00→12:58)
--- NOTE | 2019-09-28 10:39 | P.DS ---
Providers Date of admission: 09/26/19 23:00 Attending physician: Ricardo Guillen Consults: 09/26/19 23:05 Consult Physician Urgent Consulting Provider: Michell Wright Consult Reason/Comments: Peritoneal dialysis Do you want consulting provider notified?: Yes Primary care physician: Salo Villar [facility] Course: Chief Complaint: New onset of seizure, recent history of UTI with sepsis, post craniotomy, t 64-year-old male one of Dr. 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 Patient was doing very well until 09/26/2019 when he had 10 minute witnessed seizure at home he lost his consciousness and had tonic-clonic seizure activity left him debilitated his ended up calling 911 and brought him to the Emergency department at [facility] where was seen and evaluated ended up going for CAT scan of the brain along with full blood work no major finding was found. Patient was loaded with Keppra he was still not acting well mentally decided to admit patient to the hospital not been able to transfer him to any Neuro Center and no neurology service on board family and patient are aware of it so will be managing his in you and try seizure medication and probably run at EEG and stabilized patient to allow him to go home and follow up with his neurosurgeon the neurologist as an outpatient. Review of Systems CONSTITUTIONAL: Well-developed no acute respiratory distress. EYES: No icterus sclerae, no conjunctivitis. EARS, NOSE, MOUTH, THROAT, and FACE: No sore throat, lymphadenopathy, carotid bruits or deformity. RESPIRATORY: No SOB cough or wheezes. CARDIOVASCULAR: No CP, Palpitation, PND, Orthopnea, or angina. GASTROINTESTINAL: No Abd pain, Nausea or vomiting, no Diarrhea or constipation, No GI Bleed, no distention or masses. Mild nausea GENITOURINARY: Negative for Hematuria or UTI, no kidney stones. Mild polyuria with no burning patient had end-stage kidney disease on CAPD. INTEGUMENT/BREAST: Negative for any muscular injury with mild osteoarthritis.. HEMATOLOGIC/LYMPHATIC: Negative for bleed or purpura. MUSCULOSKELTAL: Negative for Myalgia or arthralgia. NEURLOGICAL: Still confused had chronic craniotomy for brain tumor and had seizure activity yesterday. BEHAVIORAL/PSYCH: Negative. ENDOCRINE: Negative. Physical Exam Vitals: General Appearance: Alert, cooperative, no distress, appears stated age. Neck HEENT: Supple, no lymphadenopathy, no thyroid enlargement, no carotid bruits. Scar tissue the forehead area and the uatsdin from previous craniotomy Lungs: Clear to auscultation without crackles or wheezes no rhonchi, no deformity. Chest Wall: Chest wall normal expansion with deep inspiration no tenderness and no deformity was found on exam, no costochondral pain or discomfort. Heart: Regular rate and rhythm, S1, S2 normal, no murmur, rub or gallop. Back: Symmetric, no curvature, ROM normal, no CVA tenderness. Abdomen: Soft positive bowel sounds slight distended with CAPD fluid in the abdominal area. Extremities: Extremities normal, atraumatic, no cyanosis or edema. Pulses: 2+ and symmetric. Skin: Skin color, texture, tugor normal, no rashes or lesions. Neurologic: Alert slightly confused [place] or 2-12 intact positive generalized weakness not able to do gait exam at this point. Assessment and Plan Plan: 1 new onset of seizure activity: Patient will be hospitalized was loaded with Keppra 750 mg twice a day with switch him to oral Keppra 500 mg twice a day EEG was order CAT scan of the brain didn't show any abnormality at this point and patient had not had any other seizure activity since his admission we'll continue O2 keep lorazepam and had for any status seizure. 2 history of brain tumor post removal and chemotherapy back in 2016 has been seen neurosurgeon [place] in the city no neurologist in town currently. 3 VRE infection with enterococcus infection from 10 days ago had finished full course of Zyvox his UA still not totally normal at this point awaiting for cult ure. 4 end-stage renal disease: Patient is on CAPD 3 times a day will consult nephrology. 5 A. fib with RVR: Remain on anticoagulation still on metoprolol with pulse rates under control currently. 6 hypothyroidism: Remain on levothyroxine 150 g daily. 7 type 2 diabetes: Has been on insulin pump according to him has been running slightly bit low the 20 came to the emergency department patient was not hypoglycemic at the time insulin pump will be continue and should be managed by his formula mixer shortly. 8 BPH: Continue patient on tamsulosin and finasteride. 9 hyperlipidemia: Remain on Lipitor 40 mg a day. 10 iron deficiency anemia: Remain on iron supplement along with multivitamins. 11 mild hypotension: Was on midodrine 10 mg 3 times a day. CODE STATUS: DO NOT RESUSCITATE per patient choice. Hospital course: Patient done very well with Keppra no further seizure, medication was changed to 500 mg orally twice a day, EEG was ordered and was not done we'll be done as an outpatient patient will follow-up with neurology and neurosurgeon as an outpatient along with follow-up with nephrology for CAPD and primary care doctor Jian sometimes earlier this week. Patient is stable to be discharged home the only prescription will be sent this Keppra and he was kept on his insulin pump along with slight and scale be was giving to the patient to follow any blood sugar higher than 150 to be cover with the bolus of insulin to keep it under control. Plan - Discharge Summary Discharge Rx Participant: No New Discharge Prescriptions: New levETIRAcetam [Keppra] 500 mg PO Q12HR #60 tab INSULIN ASPART (NovoLOG) [NovoLOG (formulary)] 0 unit SQ ACHS vial Continue Finasteride 2.5 mg PO DAILY Levothyroxine Sodium 150 mcg PO DAILY Tamsulosin [Flomax] 0.4 mg PO BID Iron Polysaccharide Complex [Ferrex 150] 150 mg PO DAILY Insulin Aspart (Niacinamide) [Fiasp 100 Unit/ml Vial] See Protocol SQ-PUMP DIRECTED predniSONE 4 mg PO DAILY Dialyvite 800-Zinc 15 Tab 0.8m 1 tab PO HS Calcitriol 0.5 mg PO WE Collagenase [Santyl] 1 applic TOPICAL BID PRN PRN Reason: hs-mon,wed,fri Sevelamer Carbonate 1,600 mg PO TID-W/MEALS Metoprolol Succinate [Toprol XL] 50 mg PO HS Famotidine [Pepcid] 20 mg PO HS Midodrine HCl [ProAmatine] 10 mg PO TID Apixaban [Eliquis] 2.5 mg PO BID Atorvastatin [Lipitor] 40 mg PO HS Sodium Bicarbonate Tab 650 mg PO BID #60 tab predniSONE 5 mg PO DAILY Discharge Medication List Finasteride 2.5 mg PO DAILY 07/04/16 [History] Insulin Aspart (Niacinamide) [Fiasp 100 Unit/ml Vial] See Protocol SQ-PUMP DIRECTED 11/05/18 [History] Iron Polysaccharide Complex [Ferrex 150] 150 mg PO DAILY 11/05/18 [History] Levothyroxine Sodium 150 mcg PO DAILY 11/05/18 [History] Tamsulosin [Flomax] 0.4 mg PO BID 11/05/18 [History] Apixaban [Eliquis] 2.5 mg PO BID 09/16/19 [History] Atorvastatin [Lipitor] 40 mg PO HS 09/16/19 [History] Calcitriol 0.5 mg PO WE 09/16/19 [History] Collagenase [Santyl] 1 applic TOPICAL BID PRN 09/16/19 [History] Dialyvite 800-Zinc 15 Tab 0.8m 1 tab PO HS 09/16/19 [History] Famotidine [Pepcid] 20 mg PO HS 09/16/19 [History] Metoprolol Succinate [Toprol XL] 50 mg PO HS 09/16/19 [History] Midodrine HCl [ProAmatine] 10 mg PO TID 09/16/19 [History] Sevelamer Carbonate 1,600 mg PO TID-W/MEALS 09/16/19 [History] predniSONE 4 mg PO DAILY 09/16/19 [History] Sodium Bicarbonate Tab 650 mg PO BID #60 tab 09/18/19 [Rx] predniSONE 5 mg PO DAILY 09/26/19 [History] INSULIN ASPART (NovoLOG) [NovoLOG (formulary)] 0 unit SQ ACHS vial 09/28/19 [Rx] levETIRAcetam [Keppra] 500 mg PO Q12HR #60 tab 09/28/19 [Rx] Follow up Appointment(s)/Referral(s): Salo Villar MD [Primary Care Provider] - 1-2 days
[2019-09-28 12:26] LABS: Glucose,Whole Blood 430 mg/dL (75-99)
--- NOTE | 2019-09-28 15:02 | PN ---
PROGRESS NOTE Patient is seen for followup for end-stage renal disease. He is currently maintained on . He was admitted to the hospital with a seizure. The patient has not had any further seizures. He is maintained on Keppra and he will follow up with the neurologist as an outpatient. EXAMINATION: Blood pressure is 106/79, heart rate 79 per minute. He is afebrile. Examination shows patient is euvolemic, with no evidence of edema lower extremities. ABDOMEN: Soft, nontender. AUDIO INSTALLER exam grossly intact. LABS: Show PD fluid cell count about 92, and appearance was clear. ASSESSMENT: 1. End-stage renal disease maintained on peritoneal dialysis. We will continue the same exchanges for now. 2. Seizure. Patient will see Neurology as outpatient. Currently he has been started on Keppra. 3. History of failed renal transplant. PLAN: Continue current medications. Patient can be discharged from nephrology standpoint. Follow up as outpatient with Urology and at the [facility]. MMODL / IJN: [id number] /
[2019-10-01] MEDS ORDERED: CALCITRIOL 0.25 MCG CAP PO SCH (09:00)
== END 2019-09-28 14:49 | disposition home or self-care (01) | DRG 100 ==
LOC: EC 20:32 → 6NMEDSUR 23:00 → OBSVTOIN 23:00 → 6NMEDSUR 23:33
PROVIDERS: ADMIT Internal Medicine Geriatric Medicine; ATTEND Internal Medicine Geriatric Medicine
DX: R56.9 Unspecified convulsions (principal); N18.6 End stage renal disease; I12.0 Hypertensive chronic kidney disease with stage 5 chronic kidney disease or end stage renal disease; Z16.21 Resistance to vancomycin; Z94.0 Kidney transplant status; Z94.4 Liver transplant status; B95.2 Enterococcus as the cause of diseases classified elsewhere; D50.9 Iron deficiency anemia, unspecified; E03.9 Hypothyroidism, unspecified; E11.22 Type 2 diabetes mellitus with diabetic chronic kidney disease; E78.5 Hyperlipidemia, unspecified; I48.91 Unspecified atrial fibrillation; N25.0 Renal osteodystrophy; N40.0 Benign prostatic hyperplasia without lower urinary tract symptoms; Z66 Do not resuscitate; Z79.01 Long term (current) use of anticoagulants; Z79.4 Long term (current) use of insulin; Z79.890 Hormone replacement therapy; Z79.899 Other long term (current) drug therapy; Z85.72 Personal history of non-Hodgkin lymphomas; Z85.828 Personal history of other malignant neoplasm of skin; Z85.841 Personal history of malignant neoplasm of brain; Z86.718 Personal history of other venous thrombosis and embolism; Z87.440 Personal history of urinary (tract) infections; Z96.41 Presence of insulin pump (external) (internal); Z99.2 Dependence on renal dialysis
CPT/HCPCS: 36415; 70450; 80053; 81001; 83735; 85025; 87070; 87205; 89050; 93005; 96360; 96361; 99285

== ENCOUNTER 2019-10-01 12:06 | Inpatient (IN) | payer MEDICAID, MEDICARE ==
[2019-10-01 12:27] LABS: Glucose,Whole Blood 236 mg/dL (75-99)
[2019-10-01] MEDS ORDERED: SODIUM CHLORIDE 0.9% 500 ML 500 ML IV ONE (12:31)
--- NOTE | 2019-10-01 12:48 | ED ---
General Adult HPI - General Chief complaint: Fever Stated complaint: fever Time Seen by Provider: 10/01/19 12:15 Source: patient, family Mode of arrival: wheelchair Limitations: no limitations - History of Present Illness Initial comments: 64-year-old male patient with history of end-stage renal disease currently receiving peritoneal dialysis, recent urinary tract infection, new-onset seizures recently started on Keppra, presents to the emergency department today for evaluation of elevated blood sugar. Patient states that this morning he found his blood sugar to be elevated on 230. States usually runs around 100. He does take insulin. States he did have oatmeal with real sugar for breakfast. Patient also reports that he had a fever last night of 101F. States he did not take any medication for this. Denies any current hematuria, dysuria, urinary frequency, urinary urgency. Denies any rash, cough, congestion, shortness of breath, sore throat, or nasal congestion. Denies any vomiting or diarrhea. Denies alteration to his taste or smell. Patient denies any recent rash, chest pain, abdominal pain, constipation, back pain, numbness, tingling, dizziness, weakness, headache, visual changes, or any other complaints. - Related Data Home Medications Medication Instructions Recorded Confirmed Finasteride 2.5 mg PO DAILY 07/04/16 10/01/19 Insulin Aspart (Niacinamide) See Protocol SQ-PUMP DIRECTED 11/05/18 10/01/19 [Fiasp 100 Unit/ml Vial] Iron Polysaccharide Complex 150 mg PO DAILY 11/05/18 10/01/19 [Ferrex 150] Levothyroxine Sodium 150 mcg PO DAILY 11/05/18 10/01/19 Tamsulosin [Flomax] 0.4 mg PO BID 11/05/18 10/01/19 Apixaban [Eliquis] 2.5 mg PO BID 09/16/19 10/01/19 Atorvastatin [Lipitor] 40 mg PO HS 09/16/19 10/01/19 Calcitriol 0.5 mg PO WE 09/16/19 10/01/19 Collagenase [Santyl] 1 applic TOPICAL BID PRN 09/16/19 10/01/19 Dialyvite 800-Zinc 15 Tab 0.8m 1 tab PO HS 09/16/19 10/01/19 Famotidine [Pepcid] 20 mg PO HS 09/16/19 10/01/19 Metoprolol Succinate [Toprol XL] 50 mg PO HS 09/16/19 10/01/19 Midodrine HCl [ProAmatine] 10 mg PO TID 09/16/19 10/01/19 Sevelamer Carbonate 1,600 mg PO TID-W/MEALS 09/16/19 10/01/19 predniSONE 4 mg PO DAILY 09/16/19 10/01/19 predniSONE 5 mg PO DAILY 09/26/19 10/01/19 INSULIN ASPART (NovoLOG) [NovoLOG 8 unit SQ ACHS PRN 10/01/19 10/01/19 (formulary)] Previous Rx's Medication Instructions Recorded Sodium Bicarbonate Tab 650 mg PO BID #60 tab 09/18/19 levETIRAcetam [Keppra] 500 mg PO Q12HR #60 tab 09/28/19 Allergies Allergy/AdvReac Type Severity Reaction Status Date / Time No Known Allergies Allergy Verified 10/01/19 13:53 Review of Systems ROS Statement: Those systems with pertinent positive or pertinent negative responses have been documented in the HPI. ROS Other: All systems not noted in ROS Statement are negative. Past Medical History Past Medical History: Atrial Fibrillation, Cancer, Diabetes Mellitus, Dialysis, Deep Vein Thrombosis (DVT), GERD/Reflux, Hyperlipidemia, Hypertension, Osteoarthritis (OA), Prostate Disorder, Renal Disease, Skin Disorder, Thyroid Disorder, Vascular Disorder Additional Past Medical History / Comment(s): , hx vascular calcification, basal cell carcinoma nose removed 2010. BRAIN CANCER, NHL History of Any Multi-Drug Resistant Organisms: VRE Date of last positivie culture/infection: 09/16/19 MDRO Source:: VRE URINE Additional Past Surgical History / Comment(s): kidney transplant : 1992 & 1997. Left transmetatarsal amputation. basal cell carcinoma excision.BRAIN TUMOR REMOVED WITH CHEMO . COLONOSCOPY Past Anesthesia/Blood Transfusion Reactions: No Reported Reaction Past Psychological History: No Psychological Hx Reported Smoking Status: Never smoker Past Alcohol Use History: None Reported Past Drug Use History: None Reported - Past Family History Mother Family Medical History: No Reported History Father Family Medical History: No Reported History Brother(s) Family Medical History: No Reported History Sister(s) Family Medical History: No Reported History Son(s) Family Medical History: No Reported History General Exam Limitations: no limitations General appearance: alert, in no apparent distress, other (Physical well- developed, well-nourished adult male patient in no acute distress. Vital signs upon presentation are temperature 97.7F, pulse 77, respirations 18, blood pressure 101/69, pulse ox 100% on room air.) Eye exam: Present: normal appearance, PERRL, EOMI. Absent: scleral icterus, conjunctival injection, periorbital swelling ENT exam: Present: normal exam, normal oropharynx, mucous membranes moist Respiratory exam: Present: normal lung sounds bilaterally. Absent: respiratory distress, wheezes, rales, rhonchi, stridor Cardiovascular Exam: Present: regular rate, normal rhythm, normal heart sounds. Absent: systolic murmur, diastolic murmur, rubs, gallop, clicks GI/Abdominal exam: Present: soft, normal bowel sounds. Absent: distended, tenderness, guarding, rebound, rigid Neurological exam: Present: alert, oriented X3, CN II-XII intact Psychiatric exam: Present: normal affect, normal mood Skin exam: Present: warm, dry, intact, normal color. Absent: rash Course Vital Signs 10/01/19 10/01/19 10/01/19 12:07 13:00 15:15 Temperature 97.7 F 97.9 F Pulse Rate 77 70 69 Respiratory 18 18 18 Rate Blood Pressure 101/69 125/95 130/93 O2 Sat by Pulse 100 96 98 Oximetry Medical Decision Making - Medical Decision Making 64-year-old male patient presents to the emergency department today for evaluation of fever and elevated blood sugar. Patient states last evening he had a temperature elevated at 101F. Patient does receive peritoneal dialysis, denies any abdominal pain or tenderness. Denies any vomiting or diarrhea. Patient has had history of urinary tract infection with VRE. Labs reviewed and did reveal mildly elevated white blood cell count. Urinary tract infection is present. We will send this for culture. His last culture and sensitivity showed very limited antibiotic selection so we'll admit to the hospital and gentamicin. Nephrology and infectious disease will be consulted. Patient is agreeable this plan. - Lab Data Result diagrams: 10/01/19 12:36 10/01/19 12:36 Lab Results 10/01/19 10/01/19 10/01/19 Range/Units 12:26 12:36 12:36 WBC 5.6 (3.8-10.6) k/uL RBC 3.81 L (4.30-5.90) m/uL Hgb 11.4 L (13.0-17.5) gm/dL Hct 36.0 L (39.0-53.0) % MCV 94.5 (80.0-100.0) fL MCH 29.8 (25.0-35.0) pg MCHC 31.5 (31.0-37.0) g/dL RDW 14.9 (11.5-15.5) % Plt Count 88 L (150-450) k/uL Neutrophils % 74 % Lymphocytes % 14 % Monocytes % 10 % Eosinophils % 0 % Basophils % 0 % Neutrophils # 4.1 (1.3-7.7) k/uL Lymphocytes # 0.8 L (1.0-4.8) k/uL Monocytes # 0.6 (0-1.0) k/uL Eosinophils # 0.0 (0-0.7) k/uL Basophils # 0.0 (0-0.2) k/uL Sodium (137-145) mmol/L Potassium (3.5-5.1) mmol/L Chloride (98-107) mmol/L Carbon Dioxide (22-30) mmol/L Anion Gap mmol/L BUN (9-20) mg/dL Creatinine (0.66-1.25) mg/dL Est GFR (CKD-EPI)AfAm (>60 ml/min/1.73 sqM) Est GFR (CKD-EPI)NonAf (>60 ml/min/1.73 sqM) Glucose (74-99) mg/dL POC Glucose (mg/dL) 236 H (75-99) mg/dL POC Glu [employer] Offbearer ID Amber Leong Calcium (8.4-10.2) mg/dL Magnesium (1.6-2.3) mg/dL Total Bilirubin (0.2-1.3) mg/dL AST (17-59) U/L ALT (4-49) U/L Alkaline Phosphatase (38-126) U/L Total Protein (6.3-8.2) g/dL Albumin (3.5-5.0) g/dL Urine Color Yellow Urine Appearance Cloudy (Clear) Urine pH 8.5 H (5.0-8.0) Ur Specific [place] 1.009 (1.001-1.035) Urine Protein 1+ H (Negative) Urine Glucose (UA) Negative (Negative) Urine Ketones Negative (Negative) Urine Blood Large H (Negative) Urine Nitrite Negative (Negative) Urine Bilirubin Negative (Negative) Urine Urobilinogen <2.0 (<2.0) mg/dL Ur Leukocyte Esterase Large H (Negative) Urine RBC >182 H (0-5) /hpf Urine WBC 66 H (0-5) /hpf Ur Squamous Epith Cells 1 (0-4) /hpf Urine Bacteria Rare H (None) /hpf Urine Mucus Occasional H (None) /hpf 10/01/19 10/01/19 Range/Units 12:36 12:36 WBC (3.8-10.6) k/uL RBC (4.30-5.90) m/uL Hgb (13.0-17.5) gm/dL Hct (39.0-53.0) % MCV (80.0-100.0) fL MCH (25.0-35.0) pg MCHC (31.0-37.0) g/dL RDW (11.5-15.5) % Plt Count (150-450) k/uL Neutrophils % % Lymphocytes % % Monocytes % % Eosinophils % % Basophils % % Neutrophils # (1.3-7.7) k/uL Lymphocytes # (1.0-4.8) k/uL Monocytes # (0-1.0) k/uL Eosinophils # (0-0.7) k/uL Basophils # (0-0.2) k/uL Sodium 138 (137-145) mmol/L Potassium 3.1 L (3.5-5.1) mmol/L Chloride 100 (98-107) mmol/L Carbon Dioxide 24 (22-30) mmol/L Anion Gap 14 mmol/L BUN 64 H (9-20) mg/dL Creatinine 7.77 H* (0.66-1.25) mg/dL Est GFR (CKD-EPI)AfAm 8 (>60 ml/min/1.73 sqM) Est GFR (CKD-EPI)NonAf 7 (>60 ml/min/1.73 sqM) Glucose 211 H (74-99) mg/dL POC Glucose (mg/dL) (75-99) mg/dL POC Glu [employer] Offbearer ID Calcium 7.9 L (8.4-10.2) mg/dL Magnesium 2.5 H (1.6-2.3) mg/dL Total Bilirubin 0.4 (0.2-1.3) mg/dL AST 21 (17-59) U/L ALT 16 (4-49) U/L Alkaline Phosphatase 92 (38-126) U/L Total Protein 5.2 L (6.3-8.2) g/dL Albumin 2.3 L (3.5-5.0) g/dL Urine Color Urine Appearance (Clear) Urine pH (5.0-8.0) Ur Specific [place] (1.001-1.035) Urine Protein (Negative) Urine Glucose (UA) (Negative) Urine Ketones (Negative) Urine Blood (Negative) Urine Nitrite (Negative) Urine Bilirubin (Negative) Urine Urobilinogen (<2.0) mg/dL Ur Leukocyte Esterase (Negative) Urine RBC (0-5) /hpf Urine WBC (0-5) /hpf Ur Squamous Epith Cells (0-4) /hpf Urine Bacteria (None) /hpf Urine Mucus (None) /hpf Disposition Clinical Impression: Urinary tract infection, History of infection with vancomycin resistant Enterococcus (VRE) Disposition: ADMITTED IP TO THIS HOSP Condition: Serious Decision to Admit Reason: Admit from EC Decision Date: 10/01/19 Decision Time: 14:31
[2019-10-01 13:00] LABS: Appearance,Urine Cloudy (Clear); Bacteria,Urine Rare /hpf; Bilirubin,Urine Negative (Negative); Blood,Urine Large (Negative); Color,Urine Yellow; Glucose,Urine (UA) Negative (Negative); Ketones,Urine Negative (Negative); Leukocyte Esterase,Urine Large (Negative); Mucus,Urine Occasional /hpf; Nitrite,Urine Negative (Negative); PH, Urine 8.5 (5.0-8.0); Protein,Urine 1+ (Negative); RBC,Urine >182 /hpf (0-5); Specific Gravity,Urine 1.009 (1.001-1.035); Squamous Epithelial Cell,Urine 1 /hpf (0-4); Urobilinogen,Urine <2.0 mg/dL (<2.0); WBC,Urine 66 /hpf (0-5)
[2019-10-01 13:04] LABS: Basophils % (A) 0 %; Eosinophils % (A) 0 %; HGB 11.4 gm/dL (13.0-17.5); Lymphocytes # (A) 0.8 k/uL (1.0-4.8); Lymphocytes % (A) 14 %; MCH 29.8 pg (25.0-35.0); MCHC 31.5 g/dL (31.0-37.0); MCV 94.5 fL (80.0-100.0); Mean Platelet Volume 9.8; Monocytes # (A) 0.6 k/uL (0-1.0); Monocytes % (A) 10 %; Neutrophils # (A) 4.1 k/uL (1.3-7.7); Neutrophils % (A) 74 %; RBC 3.81 m/uL (4.30-5.90); RDW 14.9 % (11.5-15.5); WBC 5.6 k/uL (3.8-10.6)
[2019-10-01 13:06] LABS: Albumin 2.3 g/dL (3.5-5.0); Calcium 7.9 mg/dL (8.4-10.2); Platelet Count 88 k/uL (150-450); Potassium 3.1 mmol/L (3.5-5.1); Total Bilirubin 0.4 mg/dL (0.2-1.3); Total Protein 5.2 g/dL (6.3-8.2)
[2019-10-01] MEDS ORDERED: POTASSIUM CHLORIDE ER 20 MEQ TAB.ER PO STA (13:40)
[2019-10-01] MEDS ORDERED: GENTAMICIN PER PHARMACY MISCELLANE PRN (13:43)
[2019-10-01] MEDS ORDERED: GENTAMICIN 110 MG in SODIUM CHLORIDE 0.9% 100 ML IVPB ONE (14:00)
[2019-10-01] MEDS ORDERED: NALOXONE 0.4 MG/ML 1 ML VIAL IV PRN (14:12)
[2019-10-01] MEDS ORDERED: ACETAMINOPHEN TAB 325 MG TAB PO PRN (14:12)
[2019-10-01] MEDS ORDERED: COLLAGENASE 250 UNIT/GM OINTMENT 30 GM TUBE TOPICAL PRN (14:19)
[2019-10-01] MEDS: INSULIN ASPART SQ SCH (15:49)
[2019-10-01] MEDS ORDERED: SODIUM CHLORIDE 0.9% IV SCH (16:00)
[2019-10-01] MEDS ORDERED: GENTAMICIN IV SCH (16:00)
[2019-10-01] MEDS: MIDODRINE 5 MG TAB PO SCH ×2 (16:27→21:13)
[2019-10-01 17:15] LABS: Glucose,Whole Blood 93 mg/dL (75-99)
[2019-10-01] MEDS: DIALYSIS (PERITONL) DEX 1.5% 2,000 ML INTRAPERIT SCH (17:16)
[2019-10-01] MEDS: SEVELAMER 800 MG TAB PO SCH (17:17)
[2019-10-01 20:35] LABS: Glucose,Whole Blood 196 mg/dL (75-99)
[2019-10-01] MEDS ORDERED: INSULIN ASPART (NovoLOG) 100 UNIT/ML VIAL SQ PRN (20:37)
[2019-10-01] MEDS ORDERED: ATORVASTATIN 40 MG TAB PO SCH (21:00)
[2019-10-01] MEDS: levETIRAcetam 500 MG TAB PO SCH (21:13)
[2019-10-01] MEDS: APIXABAN 2.5 MG TABLET PO SCH (21:13)
[2019-10-01] MEDS: FAMOTIDINE 20 MG TAB PO SCH (21:13)
[2019-10-01] MEDS: METOPROLOL SUCCINATE (ER) 50 MG TAB.ER.24H PO SCH (21:13)
[2019-10-01] MEDS: TAMSULOSIN 0.4 MG CAP.ER.24H PO SCH (21:14)
[2019-10-01] MEDS: DIALYVITE ZINC PO SCH (21:14)
[2019-10-01] MEDS: SODIUM BICARBONATE TAB 650 MG TAB PO SCH (21:14)
--- NOTE | 2019-10-01 23:48 | CONS ---
CONSULTATION DATE OF SERVICE: 10/01/2019 REASON FOR CONSULTATION: Urinary tract infection. HISTORY OF PRESENT ILLNESS: The patient is a 64-year-old male with a past medical history significant for end-stage renal disease in this patient who did have a failed kidney transplant, currently on peritoneal dialysis. Also history of non-Hodgkin lymphoma. He was recently admitted to this facility at the beginning of September when the patient was diagnosed with a VRE urinary tract infection. He was advised a 7-day course of oral Zyvox on discharge. The patient is now presenting back to [facility] ER this afternoon with the chief complaints of fever of one-day duration and elevated blood sugar. The patient says his symptoms had been going on for about a day before he presented to the hospital. He did have a fever of 101.9 yesterday. The patient denies having any headache. No URI symptoms. Denies having any chest pain or shortness of breath or cough. No abdominal pain or cloudy peritoneal fluid. He has been complaining of some cloudy urine, though, but no blood or mucus in the urine or any diarrhea. With these symptoms, the patient was evaluated by the ER physician. On arrival in the ER, the patient did not have any fever. He had a normal white count. He did have a positive UA with large leukocyte esterase, more than WBCs. Urine culture has been obtained. The patient was started on gentamicin and Rocephin and admitted to the hospital. Infectious Disease was consulted for further recommendations regarding antibiotic therapy. REVIEW OF SYSTEMS: Positive points have been mentioned in the HPI. Rest of the systems are negative. PAST MEDICAL HISTORY: Non-Hodgkin lymphoma, end-stage renal disease, on peritoneal dialysis, hypertension, hyperlipidemia, DVT, diabetes mellitus, hypothyroidism, basal cell carcinoma. PAST SURGICAL HISTORY: Kidney transplant x2, transmetatarsal amputation of the left foot and colonoscopy. SOCIAL HISTORY: The patient denies smoking, drinking or drug use. FAMILY HISTORY: Mother with history of diabetes mellitus. ALLERGIES: NO KNOWN DRUG ALLERGIES. MEDICATIONS: The patient is currently on Rocephin 1 gram daily. He is on gentamicin, Eliquis, Tylenol, Rocaltrol, Pepcid, Proscar, Keppra, Synthroid, Toprol-XL, sliding scale insulin, prednisone, Flomax. PHYSICAL EXAMINATION: Blood pressure 145/88 with a pulse of 80, temperature 98.8. He is 97% on room air. General description is a middle-aged male lying in bed in no distress. No tachypnea or accessory muscle of respiration use. HEENT examination shows slight pallor. No scleral icterus. Oral mucosa membrane is dry. No pharyngeal erythema or thrush. NECK: Trachea is central. No thyromegaly. LUNGS: Unlabored breathing. Clear to auscultation anteriorly. No wheeze or crackle. HEART: S1, S2. Regular rate and rhythm. No added sound. ABDOMEN: Soft. No tenderness. No guarding or rigidity. EXTREMITIES: No edema of the feet. On examination of the right foot, he did have a plantar ulcer. Base looks clean with no slough tissue or surrounding swelling or redness. Left foot lateral border did have a wound with some surrounding callus, but no slough tissue or any drainage. Neurologically the patient is awake, alert, oriented x3. Mood and affect normal. LABS: Hemoglobin is 11.4, white count 5.6. BUN of 64, creatinine 7.77. Urine has been positive. DIAGNOSTIC IMPRESSION AND PLAN: Patient presented to hospital with a fever, elevated blood sugar with concern for a symptomatic urinary tract infection in this patient who had recently grown vancomycin- resistant Enterococcus; could be the same pathogen or Gram-negative. The patient currently with no respiratory symptoms or findings on lung examination. Abdomen has been soft. No other obvious clinical focus of infection. PLAN: 1. Discontinue gentamicin. 2. Will start the patient on daptomycin 4 mg/kg q.48 and continue with Rocephin. 3. Wait for the peritoneal fluid analysis. 4. Will follow on his clinical condition and culture to further adjust medication if needed. Thank you for this consultation. Will follow this patient along with you. MMODL / IJN: [id number] /
[2019-10-02] MEDS: DIALYSIS (PERITONL) DEX 1.5% 2,000 ML INTRAPERIT SCH ×5 (00:16→23:21)
[2019-10-02 06:59] LABS: Glucose,Whole Blood 337 mg/dL (75-99)
[2019-10-02] MEDS: INSULIN ASPART (NovoLOG) 100 UNIT/ML VIAL SQ SCH ×5 (08:15→20:47)
[2019-10-02] MEDS: FINASTERIDE 5 MG TAB PO SCH (08:16)
[2019-10-02] MEDS: SEVELAMER 800 MG TAB PO SCH ×3 (08:16→16:32)
[2019-10-02] MEDS: SODIUM BICARBONATE TAB 650 MG TAB PO SCH ×2 (08:16→20:48)
[2019-10-02] MEDS: MIDODRINE 5 MG TAB PO SCH ×3 (08:16→20:48)
[2019-10-02] MEDS: levETIRAcetam 500 MG TAB PO SCH ×2 (08:17→20:48)
[2019-10-02] MEDS: TAMSULOSIN 0.4 MG CAP.ER.24H PO SCH ×2 (08:17→20:48)
[2019-10-02] MEDS: predniSONE 5 MG TAB PO SCH (08:17)
[2019-10-02] MEDS: APIXABAN 2.5 MG TABLET PO SCH ×2 (08:17→20:47)
[2019-10-02] MEDS: LEVOTHYROXINE 75 MCG TAB PO SCH (08:17)
[2019-10-02 08:32] LABS: HCT 33.3 % (39.0-53.0); HGB 10.6 gm/dL (13.0-17.5); Hypochromasia Slight; MCH 30.6 pg (25.0-35.0); MCHC 31.8 g/dL (31.0-37.0); MCV 96.4 fL (80.0-100.0); Mean Platelet Volume 9.1; RBC 3.45 m/uL (4.30-5.90); RDW 14.9 % (11.5-15.5); WBC 4.4 k/uL (3.8-10.6)
[2019-10-02 08:35] LABS: Platelet Count 89 k/uL (150-450)
[2019-10-02 08:52] LABS: Calcium 7.5 mg/dL (8.4-10.2); Potassium 3.5 mmol/L (3.5-5.1); Total Bilirubin 0.4 mg/dL (0.2-1.3); Total Protein 4.7 g/dL (6.3-8.2)
[2019-10-02] MEDS ORDERED: GENTAMICIN 110 MG in SODIUM CHLORIDE 0.9% 100 ML IVPB ONE (10:00)
--- NOTE | 2019-10-02 11:33 | P.HPIM ---
History of Present Illness H&P Date: 10/02/19 Chief Complaint: Elevated blood sugar This is a 64-year-old male one of Dr. Salo Villar patient with a previous medical history significant for hypertension and hypertensive cardiovascular disease, hyperlipidemia, diabetes mellitus type 2, hypothyroidism, benign prostatic hypertrophy, history of renal transplant times 2 in 1992 and 1997 post allograft failure with end-stage renal disease currently on peritoneal dialysis. Patient was recently treated for a urinary tract infection with vancomycin as an outpatient according to the emergency room physician note and he was brought into the ER at [facility] on September 15 was admitted to the hospital because of increased weakness and dry cugh along with low grade temperature, he was found to have leukocytosis with minimal lymphopenia. Influenza testing and COVID-19 testing negative. Patient was treated for Enterococcus faecium UTI and sepsis, followed by Dr. De Leon and discharged on Zyvox. Patient then presented on September 26 when he had a witnessed 10 minute seizure at home with tonic-clonic movement and loss of consciousness. Patient was started on Keppra and discharged home on September 27. Patient was found yesterday morning with elevated blood sugar at 230 normally runs at 100 as well as fever of 101 the night before. Patient denies having any abdominal pain, nausea vomiting, no diarrhea. He was last seen in the wound healing center on 09/23. Patient came into [facility] emergency center for evaluation. He was afebrile, heart rate 77, blood pressure 101/69, pulse ox 100%. WBC 5.6, hemoglobin 11.4, platelet count 88. Lymphocytes low at 0.8. Sodium 138, potassium 3.1, chloride 100, CO2 24, BUN 64 creatinine 7.77, blood sugar 211. Urinalysis cloudy, blood large, leukoesterase large, RBCs greater than 182, wbc's 66, bacteria rare. Magnesium 2.5. Liver function tests within normal limits. Patient was admitted to the MedSurg floor. Patient was started on gentamicin, Rocephin, consults with infectious disease and nephrology. Patient has been seen by Dr. De Leon with recommendations to discontinue gentamicin. Start patient on daptomycin and continue Rocephin.Blood, peritoneal fluid and urine culture have all been obtained. Dr. Stewart is following as well. Patient is continued on CAPD. Review of Systems Constitutional: Reports chills, Reports fatigue, Reports fever, Denies anorexia, Denies lethargy, Denies malaise, Denies poor appetite, Denies weakness, Denies weight loss Eyes: denies blurred vision, denies pain, denies loss of vision Ears, nose, mouth and throat: Denies dysphagia, Denies headache, Denies nasal congestion, Denies nasal discharge, Denies sore throat, Denies vertigo Cardiovascular: Denies chest pain, Denies decreased exercise tolerance, Denies dyspnea on exertion, Denies edema, Denies leg edema, Denies lightheadedness, Denies shortness of breath, Denies syncope Respiratory: Denies cough, Denies cough with sputum, Denies dyspnea, Denies hemoptysis, Denies home oxygen, Denies respiratory infections, Denies wheezing Gastrointestinal: Denies abdominal pain, Denies bloating, Denies diarrhea, Denies loss of appetite, Denies nausea, Denies vomiting Genitourinary: Denies dysuria, Denies urinary frequency, Denies urinary retention Musculoskeletal: Denies frequent falls, Denies gait dysfunction, Denies muscle weakness, Denies myalgias Integumentary: Reports wounds, Denies pruritus, Denies rash Neurological: Denies change in mentation, Denies change in speech, Denies numbness, Denies seizures, Denies weakness Psychiatric: Denies anxiety, Denies depression Endocrine: Reports high blood sugars, Denies fatigue, Denies weight change Past Medical History Past Medical History: Atrial Fibrillation, Cancer, Diabetes Mellitus, Dialysis, Deep Vein Thrombosis (DVT), GERD/Reflux, Hyperlipidemia, Hypertension, Osteoarthritis (OA), Prostate Disorder, Renal Disease, Skin Disorder, Thyroid Disorder, Vascular Disorder Additional Past Medical History / Comment(s): , hx vascular calcification, basal cell carcinoma nose removed 2010. BRAIN CANCER, NHL History of Any Multi-Drug Resistant Organisms: VRE Date of last positivie culture/infection: 09/16/19 MDRO Source:: VRE URINE Additional Past Surgical History / Comment(s): kidney transplant : 1992 & 1997. Left transmetatarsal amputation. basal cell carcinoma excision.BRAIN TUMOR REMOVED WITH CHEMO . COLONOSCOPY Past Anesthesia/Blood Transfusion Reactions: No Reported Reaction Past Psychological History: No Psychological Hx Reported Smoking Status: Never smoker Past Alcohol Use History: None Reported Past Drug Use History: None Reported - Past Family History Mother Family Medical History: No Reported History Father Family Medical History: No Reported History Brother(s) Family Medical History: No Reported History Sister(s) Family Medical History: No Reported History Son(s) Family Medical History: No Reported History Medications and Allergies Home Medications Medication Instructions Recorded Confirmed Type Finasteride 2.5 mg PO DAILY 07/04/16 10/01/19 History Insulin Aspart (Niacinamide) See Protocol SQ-PUMP DIRECTED 11/05/18 10/01/19 History [Fiasp 100 Unit/ml Vial] Iron Polysaccharide Complex 150 mg PO DAILY 11/05/18 10/01/19 History [Ferrex 150] Levothyroxine Sodium 150 mcg PO DAILY 11/05/18 10/01/19 History Tamsulosin [Flomax] 0.4 mg PO BID 11/05/18 10/01/19 History Apixaban [Eliquis] 2.5 mg PO BID 09/16/19 10/01/19 History Atorvastatin [Lipitor] 40 mg PO HS 09/16/19 10/01/19 History Calcitriol 0.5 mg PO WE 09/16/19 10/01/19 History Collagenase [Santyl] 1 applic TOPICAL BID PRN 09/16/19 10/01/19 History Dialyvite 800-Zinc 15 Tab 0.8m 1 tab PO HS 09/16/19 10/01/19 History Famotidine [Pepcid] 20 mg PO HS 09/16/19 10/01/19 History Metoprolol Succinate [Toprol XL] 50 mg PO HS 09/16/19 10/01/19 History Midodrine HCl [ProAmatine] 10 mg PO TID 09/16/19 10/01/19 History Sevelamer Carbonate 1,600 mg PO TID-W/MEALS 09/16/19 10/01/19 History predniSONE 4 mg PO DAILY 09/16/19 10/01/19 History Sodium Bicarbonate Tab 650 mg PO BID #60 tab 09/18/19 10/01/19 Rx predniSONE 5 mg PO DAILY 09/26/19 10/01/19 History levETIRAcetam [Keppra] 500 mg PO Q12HR #60 tab 09/28/19 10/01/19 Rx INSULIN ASPART (NovoLOG) [NovoLOG 8 unit SQ ACHS PRN 10/01/19 10/01/19 History (formulary)] Allergies Allergy/AdvReac Type Severity Reaction Status Date / Time No Known Allergies Allergy Verified 10/01/19 13:53 Physical Exam Vitals: Vital Signs Temp Pulse Pulse Resp BP BP Pulse Ox 10/02/19 07:00 98.1 F 94 18 121/77 95 10/02/19 04:00 16 10/02/19 00:20 98.5 F 90 16 147/73 97 10/01/19 19:50 16 10/01/19 19:18 98.8 F 80 18 145/88 97 10/01/19 15:52 97.8 F 73 17 134/77 94 L 10/01/19 15:15 97.9 F 69 18 130/93 98 10/01/19 13:00 70 18 125/95 96 10/01/19 12:07 97.7 F 77 18 101/69 100 Intake and Output 10/01/19 10/02/19 10/02/19 22:59 06:59 14:59 Other: # Voids 1 Weight 72.575 kg Gen: This is a thin 64-year-old male. Patient is resting in bed and appears to be comfortable and in no acute distress. HEENT: Head is atraumatic, normocephalic. Pupils equal, round. Sclerae is anicteric. Scar on the jehovah's witness from previous craniotomy. NECK: Supple. No JVD. No lymphadenopathy. No thyromegaly. LUNGS: Clear to auscultation. No wheezes or rhonchi. No intercostal retractions. HEART: Regular rate and rhythm. No murmur. ABDOMEN: Soft. Bowel sounds are present. No masses. No tenderness. CAPD catheter in place. EXTREMITIES: No pedal edema. No calf tenderness. Diabetic ulcers on the left lateral foot and right heel. See nursing documentation for details. NEUROLOGICAL: Patient is awake, alert and oriented x3. Cranial nerves 2 through 12 are grossly intact. Results CBC & Chem 7: 10/02/19 07:39 10/02/19 07:39 Labs: Abnormal Lab Results - Last 24 Hours (Table) 10/01/19 10/01/19 10/01/19 Range/Units 12:26 12:36 12:36 RBC 3.81 L (4.30-5.90) m/uL Hgb 11.4 L (13.0-17.5) gm/dL Hct 36.0 L (39.0-53.0) % Plt Count 88 L (150-450) k/uL Lymphocytes # 0.8 L (1.0-4.8) k/uL Potassium (3.5-5.1) mmol/L BUN (9-20) mg/dL Creatinine (0.66-1.25) mg/dL Glucose (74-99) mg/dL POC Glucose (mg/dL) 236 H (75-99) mg/dL Calcium (8.4-10.2) mg/dL Magnesium (1.6-2.3) mg/dL Total Protein (6.3-8.2) g/dL Albumin (3.5-5.0) g/dL Urine pH 8.5 H (5.0-8.0) Urine Protein 1+ H (Negative) Urine Blood Large H (Negative) Ur Leukocyte Esterase Large H (Negative) Urine RBC >182 H (0-5) /hpf Urine WBC 66 H (0-5) /hpf Urine Bacteria Rare H (None) /hpf Urine Mucus Occasional H (None) /hpf 10/01/19 10/01/19 10/01/19 Range/Units 12:36 12:36 20:34 RBC (4.30-5.90) m/uL Hgb (13.0-17.5) gm/dL Hct (39.0-53.0) % Plt Count (150-450) k/uL Lymphocytes # (1.0-4.8) k/uL Potassium 3.1 L (3.5-5.1) mmol/L BUN 64 H (9-20) mg/dL Creatinine 7.77 H* (0.66-1.25) mg/dL Glucose 211 H (74-99) mg/dL POC Glucose (mg/dL) 196 H (75-99) mg/dL Calcium 7.9 L (8.4-10.2) mg/dL Magnesium 2.5 H (1.6-2.3) mg/dL Total Protein 5.2 L (6.3-8.2) g/dL Albumin 2.3 L (3.5-5.0) g/dL Urine pH (5.0-8.0) Urine Protein (Negative) Urine Blood (Negative) Ur Leukocyte Esterase (Negative) Urine RBC (0-5) /hpf Urine WBC (0-5) /hpf Urine Bacteria (None) /hpf Urine Mucus (None) /hpf 10/02/19 Range/Units 06:55 RBC (4.30-5.90) m/uL Hgb (13.0-17.5) gm/dL Hct (39.0-53.0) % Plt Count (150-450) k/uL Lymphocytes # (1.0-4.8) k/uL Potassium (3.5-5.1) mmol/L BUN (9-20) mg/dL Creatinine (0.66-1.25) mg/dL Glucose (74-99) mg/dL POC Glucose (mg/dL) 337 H (75-99) mg/dL Calcium (8.4-10.2) mg/dL Magnesium (1.6-2.3) mg/dL Total Protein (6.3-8.2) g/dL Albumin (3.5-5.0) g/dL Urine pH (5.0-8.0) Urine Protein (Negative) Urine Blood (Negative) Ur Leukocyte Esterase (Negative) Urine RBC (0-5) /hpf Urine WBC (0-5) /hpf Urine Bacteria (None) /hpf Urine Mucus (None) /hpf Microbiology - Last 24 Hours (Table) 10/01/19 12:36 Urine Culture - Preliminary Urine,Voided Thrombosis Risk Factor Assmnt - DVT/VTE Prophylaxis DVT/VTE Prophylaxis: Pharmacologic Prophylaxis ordered Assessment and Plan Plan: 1. Febrile illness, possibly related to urinary tract infection. Consult with Dr. De Leon appreciated. Gentamicin was discontinued. Patient was started on daptomycin and continued on Rocephin. Blood culture, urine culture and peritoneal fluid culture in progress. 2. Elevated blood sugar secondary to infection. Continue treatment as in #1. 3. Mild hypokalemia, status post replacement. 4. Recent hospitalization for new onset seizure activity possibly due to Zyvox. Continue Keppra 500 mg twice daily. No further seizure activity. 5. History of brain tumor status post removal and chemotherapy in 2016. 6. End-stage renal disease on CAPD. Consult nephrology. Continue midodrine 10 mg 3 times daily. 7. Hypertension, hypertensive cardiovascular disease. Continue Toprol-XL 50 mg at bedtime. 8. History of renal transplant 2 post allograft failure currently on CAPD. Continue prednisone 9 mg daily. 9. Hyperlipidemia. 10. Hypothyroidism. Continue levothyroxine 150 g daily. 11. Diabetes mellitus type 2, insulin requiring. Continue insulin pump. 12. History of DVT, resolved. 13. Benign prostatic hypertrophy. Continue Flomax 0.4 mg twice daily and finasteride 2.5 mg dailyy. 14. Chronic thrombocytopenia. Monitor. 15. Anemia of chronic disease. Continue supplementation. 16. Chronic atrial fibrillation. Continue Eliquis. 17. Diabetic foot ulcer left lateral foot and right calcaneus. 18. DVT prophylaxis. Eliquis. 19. GI prophylaxis. Patient will be admitted to the hospital for a minimum of 2 night stay. Discharge plan: Most likely return home. Impression and plan of care have been directed as dictated by the signing physician. Nya Rawls nurse practitioner acting as scribe for signing makaylai livia.
[2019-10-02] MEDS: INSULIN ASPART SQ SCH (11:38)
[2019-10-02 11:57] LABS: Glucose,Whole Blood 343 mg/dL (75-99)
--- NOTE | 2019-10-02 12:09 | P.NPCON ---
History of Present Illness - Reason for Consult end stage renal disease - History of Present Illness Reason for consultation: End-stage renal disease History of present illness: Patient is a 64-year-old male seen in renal consultation for end-stage renal disease. He is maintained on peritoneal dialysis. Patient denies any problems with his PDA changes. Patient states that dialysis it has been clear. He denies any abdominal pain. No vomiting or diarrhea. Patient was recently admitted for seizure episode and was discharged on Sunday. No seizure episodes since. He is also being treated for VRE UTI and was receiving Zyvox outpatient. It has now been changed to IV daptomycin. He is also receiving IV Rocephin at this time. Repeat cultures are pending. He was having some dysuria prior to ad mission but is better now. He is also afebrile this morning. Hemodynamically stable. No edema. Vital signs are stable. General: The patient appeared well nourished and normally developed. HEENT: Head exam is unremarkable. Neck is without jugular venous distension. LUNGS: Lungs are clear to auscultation and percussion. Breath sounds decreased. HEART: Rate and Rhythm are regular. First and second heart sounds normal. No murmurs, rubs or gallops. ABDOMEN: Abdominal exam reveals normal bowel sounds. Non-tender and non- distended. EXTREMITITES: No clubbing, cyanosis, or edema. Past Medical History Past Medical History: Atrial Fibrillation, Cancer, Diabetes Mellitus, Dialysis, Deep Vein Thrombosis (DVT), GERD/Reflux, Hyperlipidemia, Hypertension, Ost eoarthritis (OA), Prostate Disorder, Renal Disease, Skin Disorder, Thyroid Disorder, Vascular Disorder Additional Past Medical History / Comment(s): , hx vascular calcification, basal cell carcinoma nose removed 2010. BRAIN CANCER, NHL History of Any Multi-Drug Resistant Organisms: VRE Date of last positivie culture/infection: 09/16/19 MDRO Source:: VRE URINE Additional Past Surgical History / Comment(s): kidney transplant : 1992 & 1997. Left transmetatarsal amputation. basal cell carcinoma excision.BRAIN TUMOR REMOVED WITH CHEMO . COLONOSCOPY Past Anesthesia/Blood Transfusion Reactions: No Reported Reaction Past Psychological History: No Psychological Hx Reported Smoking Status: Never smoker Past Alcohol Use History: None Reported Past Drug Use History: None Reported - Past Family History Mother Family Medical History: No Reported History Father Family Medical History: No Reported History Brother(s) Family Medical History: No Reported History Sister(s) Family Medical History: No Reported History Son(s) Family Medical History: No Reported History Medications and Allergies Home Medications Medication Instructions Recorded Confirmed Type Finasteride 2.5 mg PO DAILY 07/04/16 10/01/19 History Insulin Aspart (Niacinamide) See Protocol SQ-PUMP DIRECTED 11/05/18 10/01/19 History [Fiasp 100 Unit/ml Vial] Iron Polysaccharide Complex 150 mg PO DAILY 11/05/18 10/01/19 History [Ferrex 150] Levothyroxine Sodium 150 mcg PO DAILY 11/05/18 10/01/19 History Tamsulosin [Flomax] 0.4 mg PO BID 11/05/18 10/01/19 History Apixaban [Eliquis] 2.5 mg PO BID 09/16/19 10/01/19 History Atorvastatin [Lipitor] 40 mg PO HS 09/16/19 10/01/19 History Calcitriol 0.5 mg PO WE 09/16/19 10/01/19 History Collagenase [Santyl] 1 applic TOPICAL BID PRN 09/16/19 10/01/19 History Dialyvite 800-Zinc 15 Tab 0.8m 1 tab PO HS 09/16/19 10/01/19 History Famotidine [Pepcid] 20 mg PO HS 09/16/19 10/01/19 History Metoprolol Succinate [Toprol XL] 50 mg PO HS 09/16/19 10/01/19 History Midodrine HCl [ProAmatine] 10 mg PO TID 09/16/19 10/01/19 History Sevelamer Carbonate 1,600 mg PO TID-W/MEALS 09/16/19 10/01/19 History predniSONE 4 mg PO DAILY 09/16/19 10/01/19 History Sodium Bicarbonate Tab 650 mg PO BID #60 tab 09/18/19 10/01/19 Rx predniSONE 5 mg PO DAILY 09/26/19 10/01/19 History levETIRAcetam [Keppra] 500 mg PO Q12HR #60 tab 09/28/19 10/01/19 Rx INSULIN ASPART (NovoLOG) [NovoLOG 8 unit SQ ACHS PRN 10/01/19 10/01/19 History (formulary)] Allergies Allergy/AdvReac Type Severity Reaction Status Date / Time No Known Allergies Allergy Verified 10/01/19 13:53 Physical Exam Vitals: Vital Signs Temp Pulse Pulse Resp BP BP Pulse Ox 10/02/19 11:14 98.9 F 93 16 110/69 10/02/19 07:00 98.1 F 94 18 121/77 95 10/02/19 04:00 16 10/02/19 00:20 98.5 F 90 16 147/73 97 10/01/19 19:50 16 10/01/19 19:18 98.8 F 80 18 145/88 97 10/01/19 15:52 97.8 F 73 17 134/77 94 L 10/01/19 15:15 97.9 F 69 18 130/93 98 10/01/19 13:00 70 18 125/95 96 10/01/19 12:07 97.7 F 77 18 101/69 100 Intake and Output 10/01/19 10/02/19 10/02/19 22:59 06:59 14:59 Other: # Voids 1 Weight 72.575 kg Results - Lab Results Most recent lab results Calcium 7.5 mg/dL (8.4-10.2) L 10/02/19 07:39 Magnesium 2.5 mg/dL (1.6-2.3) H 10/01/19 12:36 10/02/19 07:39 10/02/19 07:39 Assessment and Plan Plan: assessment: 1. End-stage renal disease maintained on peritoneal dialysis. 2. 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 Repeat culture pending. 3. Chronic kidney disease mineral bone disease maintained on Renvela and calcitriol. 4. Diabetes mellitus. 5. Metabolic acidosis secondary to chronic kidney disease maintained on oral bicarbonate. 6. Chronic hypotension maintained on midodrine. Plan: Maintain current PD exchanges with 1.5% dextrose solution. Follow-up cultures. Maintain midodrine. Thank you for the consultation. I will continue to follow patient with you during his hospital stay.
[2019-10-02] MEDS: IRON POLYSACCHARIDES COMPLEX 150 MG CAP PO SCH (12:30)
[2019-10-02] MEDS ORDERED: INSULIN ASPART (NovoLOG) 100 UNIT/ML VIAL SQ ONE (13:36)
--- NOTE | 2019-10-02 14:03 | P.CONS ---
History of Present Illness - Reason for Consult Consult date: 10/02/19 Wound care - History of Present Illness This is a 64-year-old patient known to the wound care center being seen on 4 S. for continuation of wound care. Patient comes to the wound care center weekly. Patient has a ulceration to the left lateral foot and to the right calcaneus. Patient has an owll boot that he utilizes for the left foot. A owl boot was ordered for the right foot however he has not received it yet. Patient has noted increased drainage to the right calcaneus ulceration. He states that started about a week ago. Patient is in the hospital for a resistant UTI. Patient's past medical history significant for atrophic fibrillation, diabetes mellitus, dialysis, reflux, hyperlipidemia, hypertension, end-stage renal disease, hypothyroid, brain cancer Review of Systems Review Of Systems: Constitutional: No fever, no chills, no night sweats. No weight change. No wea kness, fatigue or lethargy. No daytime sleepiness. Integumentary:reports wounds, no lesions. No rash or pruritus. No unusual bruising. No change in hair or nails. Past Medical History Past Medical History: Atrial Fibrillation, Cancer, Diabetes Mellitus, Dialysis, Deep Vein Thrombosis (DVT), GERD/Reflux, Hyperlipidemia, Hypertension, Osteoart hritis (OA), Prostate Disorder, Renal Disease, Skin Disorder, Thyroid Disorder, Vascular Disorder Additional Past Medical History / Comment(s): , hx vascular calcification, basal cell carcinoma nose removed 2010. BRAIN CANCER, NHL History of Any Multi-Drug Resistant Organisms: VRE Year Discovered:: 09/16/19 MDRO Source:: VRE URINE Additional Past Surgical History / Comment(s): kidney transplant : 1992 & 1997. Left transmetatarsal amputation. basal cell carcinoma excision.BRAIN TUMOR REMOVED WITH CHEMO . COLONOSCOPY Past Anesthesia/Blood Transfusion Reactions: No Reported Reaction Past Psychological History: No Psychological Hx Reported Smoking Status: Never smoker Past Alcohol Use History: None Reported Past Drug Use History: None Reported - Past Family History Mother Family Medical History: No Reported History Father Family Medical History: No Reported History Brother(s) Family Medical History: No Reported History Sister(s) Family Medical History: No Reported History Son(s) Family Medical History: No Reported History Medications and Allergies Home Medications Medication Instructions Recorded Confirmed Type Finasteride 2.5 mg PO DAILY 07/04/16 10/01/19 History Insulin Aspart (Niacinamide) See Protocol SQ-PUMP DIRECTED 11/05/18 10/01/19 History [Fiasp 100 Unit/ml Vial] Iron Polysaccharide Complex 150 mg PO DAILY 11/05/18 10/01/19 History [Ferrex 150] Levothyroxine Sodium 150 mcg PO DAILY 11/05/18 10/01/19 History Tamsulosin [Flomax] 0.4 mg PO BID 11/05/18 10/01/19 History Apixaban [Eliquis] 2.5 mg PO BID 09/16/19 10/01/19 History Atorvastatin [Lipitor] 40 mg PO HS 09/16/19 10/01/19 History Calcitriol 0.5 mg PO WE 09/16/19 10/01/19 History Collagenase [Santyl] 1 applic TOPICAL BID PRN 09/16/19 10/01/19 History Dialyvite 800-Zinc 15 Tab 0.8m 1 tab PO HS 09/16/19 10/01/19 History Famotidine [Pepcid] 20 mg PO HS 09/16/19 10/01/19 History Metoprolol Succinate [Toprol XL] 50 mg PO HS 09/16/19 10/01/19 History Midodrine HCl [ProAmatine] 10 mg PO TID 09/16/19 10/01/19 History Sevelamer Carbonate 1,600 mg PO TID-W/MEALS 09/16/19 10/01/19 History predniSONE 4 mg PO DAILY 09/16/19 10/01/19 History Sodium Bicarbonate Tab 650 mg PO BID #60 tab 09/18/19 10/01/19 Rx predniSONE 5 mg PO DAILY 09/26/19 10/01/19 History levETIRAcetam [Keppra] 500 mg PO Q12HR #60 tab 09/28/19 10/01/19 Rx INSULIN ASPART (NovoLOG) [NovoLOG 8 unit SQ ACHS PRN 10/01/19 10/01/19 History (formulary)] Allergies Allergy/AdvReac Type Severity Reaction Status Date / Time No Known Allergies Allergy Verified 10/01/19 13:53 Physical Exam Vitals: Vital Signs Temp Pulse Pulse Resp BP BP Pulse Ox 04/16/20 11:14 98.9 F 93 16 110/69 10/02/19 07:00 98.1 F 94 18 121/77 95 10/02/19 04:00 16 10/02/19 00:20 98.5 F 90 16 147/73 97 10/01/19 19:50 16 10/01/19 19:18 98.8 F 80 18 145/88 97 10/01/19 15:52 97.8 F 73 17 134/77 94 L 10/01/19 15:15 97.9 F 69 18 130/93 98 Intake and Output 10/01/19 10/02/19 10/02/19 22:59 06:59 14:59 Other: # Voids 1 Weight 72.575 kg Physical exam: General Appearance: Alert, cooperative, no distress, appears stated age. Skin: Left lateral foot ulceration diabetic foot ulceration with fatty layer ex posure. Measuring approximately 1.9 x 0.4 x 0.1 cm, there is no tunneling however there is undermining starting at 8:00 ending at 11:00 with a maximum distance of 0.3 cm a medium amount of serous sickness drainage noted. Wound margin is indistinct and nonvisible. Small amount of granulation is seen within the wound bed. There is a medium amount of necrotic tissue that include Slough. Right calcaneus ulceration diabetic foot ulceration with fatty layer exposure measuring proximally 2.4 x 1.9 x 0.1 cm there is no tunneling or undermining. There is moderate amount amount of serous drainage wound margins are indistinct and nonvisible, large amount of granulation within the wound that a moderate amount of necrotic tissue within the wound bed that includes adherent Slough, all other Skin color, texture, tugor normal, no rashes or lesions. Neurologic: Alert oriented x3 Results CBC & Chem 7: 10/02/19 07:39 10/02/19 07:39 Labs: Abnormal Lab Results - Last 24 Hours (Table) 10/01/19 10/01/19 10/02/19 Range/Units 12:36 20:34 06:55 RBC (4.30-5.90) m/uL Hgb (13.0-17.5) gm/dL Hct (39.0-53.0) % Plt Count (150-450) k/uL Sodium (137-145) mmol/L BUN (9-20) mg/dL Creatinine (0.66-1.25) mg/dL Glucose (74-99) mg/dL POC Glucose (mg/dL) 196 H 337 H (75-99) mg/dL Calcium (8.4-10.2) mg/dL Magnesium 2.5 H (1.6-2.3) mg/dL Total Protein (6.3-8.2) g/dL Albumin (3.5-5.0) g/dL 10/02/19 10/02/19 10/02/19 Range/Units 07:39 07:39 11:54 RBC 3.45 L (4.30-5.90) m/uL Hgb 10.6 L (13.0-17.5) gm/dL Hct 33.3 L (39.0-53.0) % Plt Count 89 L (150-450) k/uL Sodium 132 L (137-145) mmol/L BUN 63 H (9-20) mg/dL Creatinine 7.45 H* (0.66-1.25) mg/dL Glucose 344 H (74-99) mg/dL POC Glucose (mg/dL) 343 H (75-99) mg/dL Calcium 7.5 L (8.4-10.2) mg/dL Magnesium (1.6-2.3) mg/dL Total Protein 4.7 L (6.3-8.2) g/dL Albumin 2.0 L (3.5-5.0) g/dL Microbiology - Last 24 Hours (Table) 10/02/19 01:15 Body Fluid Culture - Preliminary Peritoneal Fluid 10/01/19 12:36 Urine Culture - Preliminary Urine,Voided Assessment and Plan (1) Diabetic ulcer of left foot associated with diabetes mellitus due to underlying condition, with fat layer exposed Current Visit: No Status: Acute Code(s): E08.621 - DIABETES MELLITUS DUE TO UNDERLYING CONDITION W FOOT ULCER; L97.522 - NON-PRS CHRONIC ULCER OTH PRT LEFT FOOT W FAT LAYER EXPOSED SNOMED Code(s): 744107121 (2) Type 2 diabetes mellitus with right diabetic foot infection Current Visit: No Status: Acute Code(s): E11.69 - TYPE 2 DIABETES MELLITUS WITH OTHER SPECIFIED COMPLICATION SNOMED Code(s): 10555957 Plan: Left lateral foot ulceration continue with collagen to the site. Apply collagen, saline moistened gauze, dry gauze, rolled gauze and secure with paper tape change Sunday. The right calcaneus ulceration change to absorptive Silver to help with drainage apply dry foam and rolled gauze secured with paper tape change Sunday. You may change the outer dressing if it is heavily soiled as needed however leave the silver and plays every 48 hours. Continue to use owl boot to the left foot, and nonweightbearing to the right calcaneus. Patient to continue his outpatient wound care treatments upon discharge. However due to the covid 19 some of these appointments can be done patellar telehealth. Thank you kindly for the consultation. Any questions please contact the wound care center DNP note has been reviewed and discussed with Dr. Goff and the impression and plan of care has been directed as dictated.
[2019-10-02 16:42] LABS: Glucose,Whole Blood 366 mg/dL (75-99)
--- NOTE | 2019-10-02 20:29 | PN ---
PROGRESS NOTE DATE OF SERVICE: 10/02/2019 REASON FOR FOLLOWUP: Fever and urinary tract infection. INTERVAL HISTORY: The patient is currently afebrile. The patient is breathing comfortably. The patient denies having any chest pain or shortness of breath or cough. No nausea, vomiting, abdominal pain or diarrhea. PHYSICAL EXAMINATION: Blood pressure 144/83 with a pulse of 77, temperature 98.8. He is 96% on room air. General description is a middle-aged male lying in bed in no distress. RESPIRATORY SYSTEM: Unlabored breathing. Clear to auscultation anteriorly. HEART: S1, S2. Regular rate and rhythm. ABDOMEN: Soft. No tenderness. LABS: White count 4.4. Urinary cultures are currently pending. The peritoneal fluid was not sent for analysis though sent for cultures, which are currently pending. DIAGNOSTIC IMPRESSION AND PLAN: Patient admitted to hospital with a fever with concern for possible urinary tract infection in this patient with a history of VRE urinary tract infection recently. We are waiting for the urine culture to be finalized. Continue with the Rocephin and daptomycin and monitor his clinical course closely. MMODL / IJN: [id number] /
[2019-10-02 20:35] LABS: Glucose,Whole Blood 284 mg/dL (75-99)
[2019-10-02] MEDS: FAMOTIDINE 20 MG TAB PO SCH (20:47)
[2019-10-02] MEDS: METOPROLOL SUCCINATE (ER) 50 MG TAB.ER.24H PO SCH (20:48)
[2019-10-02] MEDS ORDERED: INSULIN DETEMIR (LEVEMIR) 100 UNIT/ML SYR SQ SCH (21:00)
[2019-10-02] MEDS: DIALYVITE ZINC PO SCH (22:48)
[2019-10-03] MEDS: DIALYSIS (PERITONL) DEX 1.5% 2,000 ML INTRAPERIT SCH ×2 (05:00→11:35)
[2019-10-03 07:00] LABS: Glucose,Whole Blood 54 mg/dL (75-99)
[2019-10-03 07:10] LABS: Glucose,Whole Blood 66 mg/dL (75-99)
[2019-10-03] MEDS: INSULIN ASPART (NovoLOG) 100 UNIT/ML VIAL SQ SCH ×5 (07:28→22:35)
[2019-10-03 07:31] LABS: Glucose,Whole Blood 128 mg/dL (75-99)
[2019-10-03] MEDS: SODIUM BICARBONATE TAB 650 MG TAB PO SCH ×2 (07:33→21:52)
[2019-10-03] MEDS: TAMSULOSIN 0.4 MG CAP.ER.24H PO SCH ×2 (07:34→21:53)
[2019-10-03] MEDS: levETIRAcetam 500 MG TAB PO SCH ×2 (07:34→21:52)
[2019-10-03] MEDS: SEVELAMER 800 MG TAB PO SCH ×3 (07:34→16:12)
[2019-10-03] MEDS: MIDODRINE 5 MG TAB PO SCH ×3 (07:34→21:53)
[2019-10-03] MEDS: APIXABAN 2.5 MG TABLET PO SCH ×2 (07:34→21:46)
[2019-10-03] MEDS: LEVOTHYROXINE 75 MCG TAB PO SCH (07:34)
[2019-10-03] MEDS: FINASTERIDE 5 MG TAB PO SCH (07:34)
[2019-10-03] MEDS: predniSONE 5 MG TAB PO SCH (07:35)
--- NOTE | 2019-10-03 11:27 | P.PN ---
Subjective Patient is seen in follow-up for her incisional disease. He is maintained on peritoneal dialysis. Urine cultures positive for group D enterococcus. He is receiving IV antibiotics. Currently awake and alert. No chest pain or shortness of breath. No abdominal pain. Vital signs are stable. General: The patient appeared well nourished and normally developed. HEENT: Head exam is unremarkable. Neck is without jugular venous distension. LUNGS: Lungs are clear to auscultation and percussion. Breath sounds decreased. HEART: Rate and Rhythm are regular. First and second heart sounds normal. No murmurs, rubs or gallops. ABDOMEN: Abdominal exam reveals normal bowel sounds. Non-tender and non- distended. EXTREMITITES: No clubbing, cyanosis, or edema. Objective - Vital Signs Vital signs: Vital Signs Temp 98.0 F 10/03/19 07:00 Pulse 101 H 10/03/19 07:00 Resp 19 10/03/19 07:00 BP 125/79 10/03/19 07:00 Pulse Ox 99 10/03/19 07:00 Intake & Output 10/02/19 10/03/19 10/03/19 18:59 06:59 18:59 Intake Total 150 Balance 150 Intake: Intake, IV Titration 50 Amount cefTRIAXone 1 gm In 50 Sodium Chloride 0.9% 50 ml @ 100 mls/hr IVPB Q24H [facility] Rx#:[id number] Oral 100 Other: # Voids 1 - Labs CBC & Chem 7: 10/02/19 07:39 10/02/19 07:39 Labs: Abnormal Lab Results - Last 24 Hours (Table) 10/02/19 10/02/19 10/02/19 Range/Units 11:54 16:28 20:33 POC Glucose (mg/dL) 343 H 366 H 284 H (75-99) mg/dL 10/03/19 10/03/19 10/03/19 Range/Units 06:51 07:08 07:29 POC Glucose (mg/dL) 54 L 66 L 128 H (75-99) mg/dL Microbiology - Last 24 Hours (Table) 10/02/19 01:15 Gram Stain - Preliminary Peritoneal Fluid Body Fluid Culture - Preliminary 10/01/19 12:36 Urine Culture - Preliminary Urine,Voided Group D Enterococcus 10/01/19 14:11 Blood Culture - Preliminary Blood No Growth after 24 hours Assessment and Plan Plan: assessment: 1. End-stage renal disease maintained on peritoneal dialysis. 2. 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 Repeat culture positive for group D enterococcus. 3. Chronic kidney disease mineral bone disease maintained on Renvela and calcitriol. 4. Diabetes mellitus. 5. Metabolic acidosis secondary to chronic kidney disease maintained on oral bicarbonate. 6. Chronic hypotension maintained on midodrine. Plan: Maintain current PD exchanges with 1.5% dextrose solution. Follow-up cultures. Maintain midodrine.
[2019-10-03 11:31] LABS: Glucose,Whole Blood 99 mg/dL (75-99)
--- NOTE | 2019-10-03 12:06 | P.PN ---
Subjective Progress Note Date: 10/03/19 This is a 64-year-old male one of Dr. Salo Villar patient with a previous medical history significant for hypertension and hypertensive cardiovascular disease, hyperlipidemia, diabetes mellitus type 2, hypothyroidism, benign prostatic hypertrophy, history of renal transplant times 2 in 1992 and 1997 post allograft failure with end-stage renal disease currently on peritoneal dialysis. Patient was recently treated for a urinary tract infection with vancomycin as an outpatient according to the emergency room physician note and he was brought into the ER at [facility] on September 15 was admitted to the hospital because of increased weakness and dry cugh along with low grade temperature, he was found to have leukocytosis with minimal lymphopenia. Influenza testing and COVID-19 testing negative. Patient was treated for Enterococcus faecium UTI and sepsis, followed by Dr. De Leon and discharged on Zyvox. Patient then presented on September 26 when he had a witnessed 10 minute seizure at home with tonic-clonic movement and loss of consciousness. Patient was started on Keppra and discharged home on September 27. Patient was found yesterday morning with elevated blood sugar at 230 normally runs at 100 as well as fever of 101 the night before. Patient denies having any abdominal pain, nausea vomiting, no diarrhea. He was last seen in the wound healing center on 09/23. Patient came into [facility] emergency center for evaluation. He was afebrile, heart rate 77, blood pressure 101/69, pulse ox 100%. WBC 5.6, hemoglobin 11.4, platelet count 88. Lymphocytes low at 0.8. Sodium 138, potassium 3.1, chloride 100, CO2 24, BUN 64 creatinine 7.77, blood sugar 211. Urinalysis cloudy, blood large, leukoesterase large, RBCs greater than 182, wbc's 66, bacteria rare. Magnesium 2.5. Liver function tests within normal limits. Patient was admitted to the MedSurg floor. Patient was started on gentamicin, Rocephin, consults with infectious disease and nephrology. Patient has been seen by Dr. De Leon with recommendations to discontinue gentamicin. Start patient on daptomycin and continue Rocephin. Blood, peritoneal fluid and urine culture have all been obtained. Dr. Stewart is following as well. Patient is continued on CAPD. 10/02: Dr. De Leon recommends continuing Rocephin and daptomycin. Patient has been seen by the wound care team with recommendations for local wound care. Patient is afebrile, heart rate 60, blood pressure 137/84, pulse ox 96% on room air. Th e patient's insulin pump was not functioning yesterday and patient was started on Levemir 21 units at bedtime, NovoLog 7 units with meals and NovoLog scale. Yesterday, blood sugars were running in the 300s. This morning, patient's blood sugar was at 54. Scheduled NovoLog will be discontinued and Levemir decreased to 18 units. Urine culture is showing group D enterococcus. Blood culture no growth in 24 hours and peritoneal fluid in process. Dr. De Leon has cleared patient for midline placement which will be ordered for today. Patient does have a sitter at the bedside. He is known to have short-term memory loss and at time confused which is his baseline. business operations manager has followed up with the patient's regarding plan for discharge home and IV antibiotics. [facility] care arranged. Objective - Vital Signs Vital signs: Vital Signs Temp 99 F 10/03/19 05:27 Pulse 60 10/03/19 05:27 Resp 18 10/03/19 05:27 BP 137/84 10/03/19 05:27 Pulse Ox 96 10/03/19 05:27 Intake & Output 10/02/19 10/03/19 10/03/19 18:59 06:59 18:59 Intake Total 150 Balance 150 Intake: Intake, IV Titration 50 Amount cefTRIAXone 1 gm In 50 Sodium Chloride 0.9% 50 ml @ 100 mls/hr IVPB Q24H [facility] Rx#:[id number] Oral 100 Other: # Voids 1 - Exam Review of Systems Constitutional: Denies chills, Reports fatigue, Reports fever, Denies anorexia, Denies lethargy, Denies malaise, Denies poor appetite, Denies weakness, Denies weight loss Eyes: denies blurred vision, denies pain, denies loss of vision Ears, nose, mouth and throat: Denies dysphagia, Denies headache, Denies nasal congestion, Denies nasal discharge, Denies sore throat, Denies vertigo Cardiovascular: Denies chest pain, Denies decreased exercise tolerance, Denies dyspnea on exertion, Denies edema, Denies leg edema, Denies lightheadedness, Denies shortness of breath, Denies syncope Respiratory: Denies cough, Denies cough with sputum, Denies dyspnea, Denies hemoptysis, Denies home oxygen, Denies respiratory infections, Denies wheezing Gastrointestinal: Denies abdominal pain, Denies bloating, Denies diarrhea, Denies loss of appetite, Denies nausea, Denies vomiting Genitourinary: Denies dysuria, Denies urinary frequency, Denies urinary retention Musculoskeletal: Denies frequent falls, Denies gait dysfunction, Denies muscle weakness, Denies myalgias Integumentary: Reports wounds, Denies pruritus, Denies rash Neurological: Denies change in mentation, Denies change in speech, Denies numbness, Denies seizures, Denies weakness Psychiatric: Denies anxiety, Denies depression Endocrine: Reports high blood sugars, Denies fatigue, Denies weight change Physical examination Gen: This is a thin 64-year-old male. Patient is resting in bed and appears to be comfortable and in no acute distress. Sitter is at the bedside. HEENT: Head is atraumatic, normocephalic. Pupils equal, round. Sclerae is anicteric. Scar on the buddhism from previous craniotomy. NECK: Supple. No JVD. No lymphadenopathy. No thyromegaly. LUNGS: Clear to auscultation. No wheezes or rhonchi. No intercostal retractio ns. HEART: Regular rate and rhythm. No murmur. ABDOMEN: Soft. Bowel sounds are present. No masses. No tenderness. CAPD catheter in place. EXTREMITIES: No pedal edema. No calf tenderness. Diabetic ulcers on the left lateral foot and right heel. See nursing documentation for details. NEUROLOGICAL: Patient is awake, alert and oriented x2. Cranial nerves 2 through 12 are grossly intact. - Labs CBC & Chem 7: 10/02/19 07:39 10/02/19 07:39 Labs: Abnormal Lab Results - Last 24 Hours (Table) 10/02/19 10/02/19 10/02/19 Range/Units 07:39 07:39 11:54 RBC 3.45 L (4.30-5.90) m/uL Hgb 10.6 L (13.0-17.5) gm/dL Hct 33.3 L (39.0-53.0) % Plt Count 89 L (150-450) k/uL Sodium 132 L (137-145) mmol/L BUN 63 H (9-20) mg/dL Creatinine 7.45 H* (0.66-1.25) mg/dL Glucose 344 H (74-99) mg/dL POC Glucose (mg/dL) 343 H (75-99) mg/dL Calcium 7.5 L (8.4-10.2) mg/dL Total Protein 4.7 L (6.3-8.2) g/dL Albumin 2.0 L (3.5-5.0) g/dL 10/02/19 10/02/19 10/03/19 Range/Units 16:28 20:33 06:51 RBC (4.30-5.90) m/uL Hgb (13.0-17.5) gm/dL Hct (39.0-53.0) % Plt Count (150-450) k/uL Sodium (137-145) mmol/L BUN (9-20) mg/dL Creatinine (0.66-1.25) mg/dL Glucose (74-99) mg/dL POC Glucose (mg/dL) 366 H 284 H 54 L (75-99) mg/dL Calcium (8.4-10.2) mg/dL Total Protein (6.3-8.2) g/dL Albumin (3.5-5.0) g/dL 10/03/19 10/03/19 Range/Units 07:08 07:29 RBC (4.30-5.90) m/uL Hgb (13.0-17.5) gm/dL Hct (39.0-53.0) % Plt Count (150-450) k/uL Sodium (137-145) mmol/L BUN (9-20) mg/dL Creatinine (0.66-1.25) mg/dL Glucose (74-99) mg/dL POC Glucose (mg/dL) 66 L 128 H (75-99) mg/dL Calcium (8.4-10.2) mg/dL Total Protein (6.3-8.2) g/dL Albumin (3.5-5.0) g/dL Microbiology - Last 24 Hours (Table) 10/02/19 01:15 Gram Stain - Preliminary Peritoneal Fluid Body Fluid Culture - Preliminary 04/15/20 12:36 Urine Culture - Preliminary Urine,Voided Group D Enterococcus 10/01/19 14:11 Blood Culture - Preliminary Blood No Growth after 24 hours Assessment and Plan Plan: 1. Febrile illness, possibly related to urinary tract infection. Consult with Dr. De Leon appreciated. Continue daptomycin and Rocephin. Blood culture, urine culture and peritoneal fluid culture in progress. Midline ordered. 2. Elevated blood sugar secondary to infection. Continue treatment as in #1. 3. Mild hypokalemia, status post replacement. 4. Recent hospitalization for new onset seizure activity possibly due to Zyvox. Continue Keppra 500 mg twice daily. No further seizure activity. 5. History of brain tumor status post removal and chemotherapy in 2016. 6. End-stage renal disease on CAPD. Consult nephrology. Continue midodrine 10 mg 3 times daily. 7. Hypertension, hypertensive cardiovascular disease. Continue Toprol-XL 50 mg at bedtime. 8. History of renal transplant 2 post allograft failure currently on CAPD. Continue prednisone 9 mg daily. 9. Hyperlipidemia. 10. Hypothyroidism. Continue levothyroxine 150 g daily. 11. Diabetes mellitus type 2, insulin requiring, uncontrolled with hypog lycemia. Levemir decreased to 18 units at bedtime, NovoLog schedule discontinued. Continue NovoLog scale. 12. History of DVT, resolved. 13. Benign prostatic hypertrophy. Continue Flomax 0.4 mg twice daily and finasteride 2.5 mg dailyy. 14. Chronic thrombocytopenia. Monitor. 15. Anemia of chronic disease. Continue supplementation. 16. Chronic atrial fibrillation. Continue Eliquis. 17. Diabetic foot ulcer left lateral foot and right calcaneus. Wound Care Team consult appreciated. Continue local wound care 18. DVT prophylaxis. Eliquis. 19. GI prophylaxis. 20. Short-term memory deficit with suspected dementia. Mental status is at baseline. Sitter is at bedside. Discharge plan: business operations manager has confirmed that patient will be returning home with the patient's and she will manage IV antibiotics. [facility] care has been arranged. Impression and plan of care have been directed as dictated by the signing physician. Nya Rawls nurse practitioner acting as scribe for signing physician.
[2019-10-03] MEDS: INSULIN ASPART SQ SCH (12:25)
[2019-10-03] MEDS: IRON POLYSACCHARIDES COMPLEX 150 MG CAP PO SCH (12:26)
[2019-10-03] MEDS: HEPARIN SODIUM PORCINE INTRAPERIT SCH ×2 (16:12→21:53)
[2019-10-03] MEDS: DIALYSIS DEX INTRAPERIT SCH ×2 (16:12→21:53)
[2019-10-03 16:41] LABS: Glucose,Whole Blood 194 mg/dL (75-99)
[2019-10-03 17:17] LABS: Hepatitis B Surface Antigen Non-Reactive (Non-Reactive); Hepatitis C IgG Antibody Non-Reactive (Non-Reactive)
[2019-10-03 21:33] LABS: Glucose,Whole Blood 300 mg/dL (75-99)
[2019-10-03] MEDS: DIALYVITE ZINC PO SCH (21:41)
[2019-10-03] MEDS: FAMOTIDINE 20 MG TAB PO SCH (21:51)
[2019-10-03] MEDS: METOPROLOL SUCCINATE (ER) 50 MG TAB.ER.24H PO SCH (21:52)
[2019-10-03] MEDS: INSULIN DETEMIR (LEVEMIR) 100 UNIT/ML SYR SQ SCH (22:35)
--- NOTE | 2019-10-04 00:29 | PN ---
PROGRESS NOTE DATE OF SERVICE: 10/03/2019 REASON FOR FOLLOWUP: Urinary tract infection. INTERVAL HISTORY: The patient is currently afebrile. He has been breathing comfortably. Denies having any chest pain. No cough. No nausea, no vomiting. No abdominal pain or diarrhea. PHYSICAL EXAMINATION: Blood pressure is 119/75, pulse of 85, temperature 98.2. He is 97% on room air. General description: The patient is a middle-aged male lying in bed in no distress. Respiratory system: Unlabored breathing. Clear to auscultation anteriorly. Heart S1, S2. Regular rate and rhythm. Abdomen soft, no tenderness. LABS: Urine has been finalized with VRE. DIAGNOSTIC IMPRESSION AND PLAN: Patient admitted to the hospital with fever, source likely VRE urinary tract infection. Patient is covered with daptomycin to continue for at least another 7-10 days for which a midline will be placed in view of recurrent infection of the hand. Continue supportive care. MMODL / IJN: [id number] /
[2019-10-04] MEDS: HEPARIN SODIUM PORCINE INTRAPERIT SCH ×4 (04:17→20:51)
[2019-10-04] MEDS: DIALYSIS DEX INTRAPERIT SCH ×4 (04:17→20:51)
[2019-10-04 06:34] LABS: Glucose,Whole Blood 93 mg/dL (75-99)
[2019-10-04] MEDS: INSULIN ASPART (NovoLOG) 100 UNIT/ML VIAL SQ SCH ×4 (07:58→20:28)
[2019-10-04] MEDS: SODIUM BICARBONATE TAB 650 MG TAB PO SCH ×2 (08:07→20:28)
[2019-10-04] MEDS: APIXABAN 2.5 MG TABLET PO SCH ×2 (08:08→20:29)
[2019-10-04] MEDS: SEVELAMER 800 MG TAB PO SCH ×3 (08:08→17:44)
[2019-10-04] MEDS: LEVOTHYROXINE 75 MCG TAB PO SCH (08:08)
[2019-10-04] MEDS: TAMSULOSIN 0.4 MG CAP.ER.24H PO SCH ×2 (08:08→20:28)
[2019-10-04] MEDS: predniSONE 5 MG TAB PO SCH (08:08)
[2019-10-04] MEDS: FINASTERIDE 5 MG TAB PO SCH (08:08)
[2019-10-04] MEDS: levETIRAcetam 500 MG TAB PO SCH ×2 (08:08→20:28)
[2019-10-04] MEDS: IRON POLYSACCHARIDES COMPLEX 150 MG CAP PO SCH (08:09)
[2019-10-04] MEDS: MIDODRINE 5 MG TAB PO SCH ×3 (09:41→20:29)
--- NOTE | 2019-10-04 10:42 | P.PN ---
Subjective Progress Note Date: 10/04/19 Principal diagnosis: 64-year-old is a patient known to us with ESRD, previous kidney transplant which failed, came in because of urinary tract infection with VRE. The IV antibiotics He is currently on 1.5% 2000 mL 4 exchanges a day Lasix as needed. About 200 mL. He denies any fever chills cough shortness of breath nausea vomiting His only diabetes atrial fibrillation DVT hypertension and wound infection of his feet. He had kidney transplant in 1992 at 89 has had left metatarsal amputation. History of a [employer] tumor treated with chemotherapy Objective - Vital Signs Vital signs: Vital Signs Temp 98.2 F 10/04/19 10:04 Pulse 77 10/04/19 10:04 Resp 16 10/04/19 10:04 BP 102/62 10/04/19 10:04 Pulse Ox 95 10/04/19 10:04 Intake & Output 10/03/19 10/04/19 10/04/19 18:59 06:59 18:59 Intake Total 240 150 250 Balance 240 150 250 Intake: Intake, IV Titration 150 Amount DAPTOmycin 300 mg In 100 Sodium Chloride 0.9% 50 ml @ 100 mls/hr IVPB Q48H [facility] Rx#:[id number] cefTRIAXone 1 gm In 50 Sodium Chloride 0.9% 50 ml @ 100 mls/hr IVPB Q24H [facility] Rx#:[id number] Oral 240 250 Other: Voiding Method CAPD # Voids 1 1 # Bowel Movements 1 2 On exam he is awake alert seems to be somewhat forgetful office treatment schedule regarding PD No JVP neck is supple no wheezes asymmetry Lungs are clear to auscultation with good air entry bilaterally Heart sounds are unremarkable he is in atrial fibrillation. Abdomen soft nontender exit site is clear with aggressive Extremity exam was trace edema His feet are bandaged Neurologically awake alert oriented 3 but poor memory No asterixis - Labs CBC & Chem 7: 10/02/19 07:39 10/02/19 07:39 Labs: Abnormal Lab Results - Last 24 Hours (Table) 10/03/19 10/03/19 Range/Units 16:36 21:32 POC Glucose (mg/dL) 194 H 300 H (75-99) mg/dL Microbiology - Last 24 Hours (Table) 10/02/19 01:15 Gram Stain - Preliminary Peritoneal Fluid Body Fluid Culture - Preliminary 10/01/19 12:36 Urine Culture - Final Urine,Voided Enterococcus faecium VRE 10/01/19 14:11 Blood Culture - Preliminary Blood No Growth after 48 hours Assessment and Plan Assessment: Impression 1. ESRD on peritoneal dialysis on 1.5% 2 L 4 exchanges. Ultrafiltration is minimal 2. Admitted for UTI with enterococcus cc in, sensitive to daptomycin and currently on 3. Diabetes mellitus with diabetic feet 4. Atrial fibrillation 5. Hypotension on midodrine 6. Mild hyponatremia secondary to ESRD Recommendation 1. Maintain dialysis with 1.5% 2 L 4 exchanges 2. Monitor labs including hemoglobin A calcium phosphorus. 3. Treat UTI as at present
[2019-10-04 11:33] LABS: Glucose,Whole Blood 185 mg/dL (75-99)
[2019-10-04 16:19] LABS: Glucose,Whole Blood 64 mg/dL (75-99)
[2019-10-04 16:42] LABS: Glucose,Whole Blood 93 mg/dL (75-99)
[2019-10-04 20:17] LABS: Glucose,Whole Blood 242 mg/dL (75-99)
[2019-10-04] MEDS: METOPROLOL SUCCINATE (ER) 50 MG TAB.ER.24H PO SCH (20:28)
[2019-10-04] MEDS: INSULIN DETEMIR (LEVEMIR) 100 UNIT/ML SYR SQ SCH (20:28)
[2019-10-04] MEDS: FAMOTIDINE 20 MG TAB PO SCH (20:28)
[2019-10-04] MEDS: DIALYVITE ZINC PO SCH (20:29)
--- NOTE | 2019-10-04 20:46 | P.PN ---
Subjective Progress Note Date: 10/04/19 Principal diagnosis: Sepsis and UTI, recent history of seizure, altered mental status, history of brain tumor post craniotomy and chemotherapy, end-stage renal disease on CAPD, history of renal transplant time to post allograft failure. 64-year-old male one of Dr. Salo Villar's patient who was hospitalized week early for a tonic-clonic seizure as a new onset of seizure was started on Keppra that's shortly after right UTI with enterococcus infection was treated with Zyvox for total of 10 days shortly after he is done with his antibiotic he had a seizure activity and turn around and return to the hospital 3 days later with fever chills and altered mental status found to have DC with very positive urine at this point. Patient was started on daptomycin IV consult infectious disease and admitted to the hospital. Patient infection was found to be enterococcus as well and VRE this time the patient will be on longer term of daptomycin IV with no Zyvox this time should plan to do management for between 2-3 weeks. Back to his seizure activity I believe there is a slight interaction and possibility that side effect of Zyvox might have caused seizure at the time which I highly encourage the patient and his still to see his neurologist soon and go for an EEG and determine whether he should be on Keppra long-term or short-term at this point. Patient has been seen by the wound care team and recommendation for local wound care. Blood sugar still not totally controlled but doing better on current medication and management patient was on insulin pump with supposed to be started back soon as he goes home. If stable and been able to be discharged tomorrow if not on Sunday patient already had midline and the right forearm area and his antibiotic infusion is done through with at this point. Objective - Vital Signs Vital signs: Vital Signs Temp 98.7 F 10/04/19 15:00 Pulse 72 10/04/19 15:00 Resp 16 10/04/19 16:20 BP 100/54 10/04/19 15:00 Pulse Ox 96 10/04/19 15:00 Intake & Output 10/04/19 10/04/19 10/05/19 06:59 18:59 06:59 Intake Total 150 1380 Balance 150 1380 Intake: Intake, IV Titration 150 Amount DAPTOmycin 300 mg In 100 Sodium Chloride 0.9% 50 ml @ 100 mls/hr IVPB Q48H [facility] Rx#:[id number] cefTRIAXone 1 gm In 50 Sodium Chloride 0.9% 50 ml @ 100 mls/hr IVPB Q24H [facility] Rx#:[id number] Oral 1380 Other: Voiding Method Toilet Toilet CAPD CAPD # Voids 1 3 # Bowel Movements 2 - Exam Review of systems: CONSTITUTIONAL: Well-developed no acute respiratory distress. EYES: No icterus sclerae, no conjunctivitis. EARS, NOSE, MOUTH, THROAT, and FACE: No sore throat, lymphadenopathy, carotid bruits or deformity. RESPIRATORY: No SOB cough or wheezes. CARDIOVASCULAR: No CP, Palpitation, PND, Orthopnea, or angina. GASTROINTESTINAL: No Abd pain, Nausea or vomiting, no Diarrhea or constipation, No GI Bleed, no distention or masses. GENITOURINARY: End-stage renal disease on CAPD. INTEGUMENT/BREAST: Negative for any muscular injury with mild osteoarthritis.. HEMATOLOGIC/LYMPHATIC: Negative for bleed or purpura. MUSCULOSKELTAL: Dialyze muscle and joint pain. NEURLOGICAL: Mild mental status change in the recent history of seizure. BEHAVIORAL/PSYCH: Negative. ENDOCRINE: Negative. Physical examination: General Appearance: Alert, cooperative, no distress, appears stated age. Neck HEENT: Supple, no lymphadenopathy, no thyroid enlargement, no carotid bruits. Scar tissue in the forehead area from craniotomy. Lungs: Clear to auscultation without crackles or wheezes no rhonchi, no deformity. Chest Wall: Chest wall normal expansion with deep inspiration no tenderness and no deformity was found on exam, no costochondral pain or discomfort. Heart: Regular rate and rhythm, S1, S2 normal, no murmur, rub or gallop. Back: Symmetric, no curvature, ROM normal, no CVA tenderness. Abdomen: Soft positive bowel sounds slight peritoneal fluid and from CAPD no tenderness no rebound or rigidity. Extremities: Extremities normal, atraumatic, no cyanosis or edema. Pulses: 2+ and symmetric. Skin: Skin color, texture, tugor normal, no rashes or lesions. Neurologic: Alert slight confusion chronic nerve II-12 intact positive generalized weakness no focal deficit possible normal balance and gait. - Labs CBC & Chem 7: 10/02/19 07:39 10/02/19 07:39 Labs: Abnormal Lab Results - Last 24 Hours (Table) 10/03/19 10/04/19 10/04/19 Range/Units 21:32 11:32 16:17 POC Glucose (mg/dL) 300 H 185 H 64 L (75-99) mg/dL 10/04/19 Range/Units 20:16 POC Glucose (mg/dL) 242 H (75-99) mg/dL Microbiology - Last 24 Hours (Table) 10/01/19 14:11 Blood Culture - Preliminary Blood No Growth after 72 hours 10/02/19 01:15 Gram Stain - Preliminary Peritoneal Fluid Body Fluid Culture - Preliminary 10/01/19 12:36 Urine Culture - Final Urine,Voided Enterococcus faecium VRE Assessment and Plan Assessment: 1 UTI with acute sepsis: Secondary to VRE, patient has been on daptomycin and Rocephin patient will be continue on daptomycin longer term exteriorly has a mi dline and will try to make an arrangement for outpatient IV infusion versus custodial rehab. 2 type 2 diabetes on insulin pump with a blood sugar been elevated patient pump is now working currently in the hospital continue to adjust his insulin ~insulin pump his back. 3 end-stage renal disease on CAPD currently seen nephrology regular basis continue management. 4 history of brain tumor post craniotomy and chemotherapy from 2016. 5 recent hospitalization with seizure activity most likely secondary to Zyvox patient remain on Keppra 500 mg twice a day today seen urology and run an EEG and decide long-term management by [facility]. 6 hypothyroidism: Remain on levothyroxine 150 g daily. 7 hypertension: Remain on Toprol-XL 50 mg at bedtime. 8 history of renal transplant 2 post allograft failure patient is on CAPD currently still on prednisone. 9 diuretics ulcer of the left foot associated with diabetes and chronic disease patient still seen at the wound clinic still doing collagen and the dressing. 10 A. fib with RVR: Remain on Eliquis 2.5 mg twice a day along with metoprolol XL 50 mg daily. 11 mildly hypotension: Patient remain on midodrine on as needed basis. 12 chronic anemia: Remain on iron supplement. CODE STATUS: Full code. Discharge expectation: In the next 24-48 hours.
--- NOTE | 2019-10-04 23:20 | PN ---
PROGRESS NOTE DATE OF SERVICE: 10/04/2019 REASON FOR FOLLOW UP: VRE urinary tract infection. INTERVAL HISTORY: The patient is currently afebrile. He has been breathing comfortably. Denies having any chest pain, cough. No nausea, vomiting. No abdominal pain. No diarrhea. PHYSICAL EXAMINATION: Blood pressure 150/84 with a pulse of 86. Temperature 98.1. He is 97% on room air. General description is a middle-aged male lying in bed in no distress. Respiratory system: Unlabored breathing. Clear to auscultation anteriorly. Heart S1, S2. Regular rate and rhythm. Abdomen soft, no tenderness. LABS: Urine has been finalized with VRE. Blood culture negative. Peritoneal fluid culture so far pending. DIAGNOSTIC IMPRESSION AND PLAN: Patient with VRE urinary tract infection in view of recurrent infection, he did a get a midline to continue with daptomycin. Hopefully can be arranged on Sunday for a total of 2 weeks and will monitor clinical course closely. MMODL / IJN: [id number] /
[2019-10-05] MEDS: HEPARIN SODIUM PORCINE INTRAPERIT SCH ×4 (02:51→20:54)
[2019-10-05] MEDS: DIALYSIS DEX INTRAPERIT SCH ×4 (02:51→20:54)
[2019-10-05 06:39] LABS: Glucose,Whole Blood 31 mg/dL (75-99)
[2019-10-05] MEDS ORDERED: DEXTROSE 50% SYRINGE 50 ML IVP ONE (06:56)
[2019-10-05] MEDS: INSULIN ASPART (NovoLOG) 100 UNIT/ML VIAL SQ SCH ×4 (07:01→20:29)
[2019-10-05 07:02] LABS: Glucose,Whole Blood 48 mg/dL (75-99)
[2019-10-05 07:34] LABS: Glucose,Whole Blood 218 mg/dL (75-99)
[2019-10-05] MEDS: FINASTERIDE 5 MG TAB PO SCH (07:51)
[2019-10-05] MEDS: TAMSULOSIN 0.4 MG CAP.ER.24H PO SCH ×2 (07:51→20:29)
[2019-10-05] MEDS: MIDODRINE 5 MG TAB PO SCH ×3 (07:51→20:29)
[2019-10-05] MEDS: SODIUM BICARBONATE TAB 650 MG TAB PO SCH ×2 (07:51→20:29)
[2019-10-05] MEDS: APIXABAN 2.5 MG TABLET PO SCH ×2 (07:52→20:29)
[2019-10-05] MEDS: LEVOTHYROXINE 75 MCG TAB PO SCH (07:52)
[2019-10-05] MEDS: SEVELAMER 800 MG TAB PO SCH ×3 (07:52→17:09)
[2019-10-05] MEDS: predniSONE 5 MG TAB PO SCH (07:53)
[2019-10-05] MEDS: IRON POLYSACCHARIDES COMPLEX 150 MG CAP PO SCH (07:53)
[2019-10-05] MEDS: levETIRAcetam 500 MG TAB PO SCH ×2 (07:53→20:30)
[2019-10-05 07:57] LABS: Glucose,Whole Blood 181 mg/dL (75-99)
[2019-10-05 11:18] LABS: Glucose,Whole Blood 119 mg/dL (75-99)
--- NOTE | 2019-10-05 11:55 | P.PN ---
Subjective Progress Note Date: 10/05/19 Principal diagnosis: 64-year-old is a patient known to us with ESRD, previous kidney transplant which failed, came in because of symptomatic urinary tract infection with VRE. On IV antibiotics He is currently on 1.5% 2000 mL 4 exchanges a day UF is neg 200- 400 cc but has giood UO and does not have sob or edema, He denies any fever chills cough shortness of breath nausea vomiting He has diabetes atrial fibrillation DVT hypertension and wound infection of his feet. He had kidney transplant in 1992 at 89 has had left metatarsal amputation. History of a [employer] tumor treated with chemotherapy Objective - Vital Signs Vital signs: Vital Signs Temp 95.4 F L 10/05/19 08:06 Pulse 107 H 10/05/19 07:00 Resp 13 10/05/19 07:06 BP 109/68 10/05/19 07:00 Pulse Ox 94 L 10/05/19 07:00 Intake & Output 10/04/19 10/05/19 10/05/19 18:59 06:59 18:59 Intake Total 1380 50 700 Balance 1380 50 700 Intake: Intake, IV Titration 50 Amount cefTRIAXone 1 gm In 50 Sodium Chloride 0.9% 50 ml @ 100 mls/hr IVPB Q24H [facility] Rx#:[id number] Oral 1380 700 Other: Voiding Method Toilet Toilet Toilet CAPD CAPD CAPD # Voids 3 1 HEENT: no JVP, neck is supple, HS: normal , no robs, gallop, murmurs LUNGS: Clear to Auscyltation, good BS bilat ABD: soft, non tender EXT: no edema [employer] ; [facility] ORx3 - Labs CBC & Chem 7: 10/02/19 07:39 10/02/19 07:39 Labs: Abnormal Lab Results - Last 24 Hours (Table) 10/04/19 10/04/19 10/05/19 Range/Units 16:17 20:16 06:36 POC Glucose (mg/dL) 64 L 242 H 31 L (75-99) mg/dL 10/05/19 10/05/19 10/05/19 Range/Units 06:54 07:07 07:55 POC Glucose (mg/dL) 48 L 218 H 181 H (75-99) mg/dL 04/19/20 Range/Units 11:16 POC Glucose (mg/dL) 119 H (75-99) mg/dL Microbiology - Last 24 Hours (Table) 10/02/19 01:15 Gram Stain - Preliminary Peritoneal Fluid Body Fluid Culture - Preliminary 10/01/19 14:11 Blood Culture - Preliminary Blood No Growth after 72 hours Assessment and Plan Assessment: Impression 1. ESRD on peritoneal dialysis on 1.5% 2 L 4 exchanges. Ultrafiltration is minimal to negative, 200-400 cc but Good UO and no volume overload. 2. Admitted for UTI with enterococcus cc in, sensitive to daptomycin and currently on it 3. Diabetes mellitus with diabetic feet 4. Atrial fibrillation 5. Hypotension on midodrine 6. Mild hyponatremia secondary to ESRD Recommendation 1. Maintain dialysis with 1.5% 2 L 4 exchanges 2. Monitor labs including hemoglobin calcium phosphorus. 3. Treat UTI as at present
[2019-10-05 13:31] LABS: Glucose,Whole Blood 159 mg/dL (75-99)
[2019-10-05 16:17] LABS: Glucose,Whole Blood 102 mg/dL (75-99)
[2019-10-05 20:26] LABS: Glucose,Whole Blood 288 mg/dL (75-99)
[2019-10-05] MEDS: FAMOTIDINE 20 MG TAB PO SCH (20:29)
[2019-10-05] MEDS: METOPROLOL SUCCINATE (ER) 50 MG TAB.ER.24H PO SCH (20:29)
[2019-10-05] MEDS: INSULIN DETEMIR (LEVEMIR) 100 UNIT/ML SYR SQ SCH (20:30)
[2019-10-05] MEDS: DIALYVITE ZINC PO SCH (20:57)
--- NOTE | 2019-10-05 21:36 | P.PN ---
Subjective Progress Note Date: 10/05/19 Principal diagnosis: Sepsis and UTI, recent history of seizure, altered mental status, history of brain tumor post craniotomy and chemotherapy, end-stage renal disease on CAPD, history of renal transplant time to post allograft failure. 64-year-old male one of Dr. Salo Villar's patient who was hospitalized week early for a tonic-clonic seizure as a new onset of seizure was started on Keppra that's shortly after right UTI with enterococcus infection was treated with Zyvox for total of 10 days shortly after he is done with his antibiotic he had a seizure activity and turn around and return to the hospital 3 days later with fever chills and altered mental status found to have IL with very positive urine at this point. Patient was started on daptomycin IV consult infectious disease and admitted to the hospital. Patient infection was found to be enterococcus as well and VRE this time the patient will be on longer term of daptomycin IV with no Zyvox this time should plan to do management for between 2-3 weeks. Back to his seizure activity I believe there is a slight interaction and possibility that side effect of Zyvox might have caused seizure at the time which I highly encourage the patient and his still to see his neurologist soon and go for an EEG and determine whether he should be on Keppra long-term or short-term at this point. Patient has been seen by the wound care team and recommendation for local wound care. Blood sugar still not totally controlled but doing better on current medication and management patient was on insulin pump with supposed to be started back soon as he goes home. If stable and been able to be discharged tomorrow if not on Sunday patient already had midline and the right forearm area and his antibiotic infusion is done through with at this point. 10/04: Patient has done very well so far less symptomatic no seizure activity has a midline on the right arm still doing antibiotics with daptomycin which patient be continued for total of 2-3 weeks. And prepare for discharge tomorrow either home with IV infusion antibiotic or alf with IV antibiotics. Objective - Vital Signs Vital signs: Vital Signs Temp 97.6 F 10/05/19 03:00 Pulse 89 10/05/19 03:00 Resp 18 10/05/19 03:00 BP 136/89 10/05/19 03:00 Pulse Ox 97 10/05/19 03:00 Intake & Output 10/04/19 10/05/19 10/05/19 18:59 06:59 18:59 Intake Total 1380 50 Balance 1380 50 Intake: Intake, IV Titration 50 Amount cefTRIAXone 1 gm In 50 Sodium Chloride 0.9% 50 ml @ 100 mls/hr IVPB Q24H [facility] Rx#:[id number] Oral 1380 Other: Voiding Method Toilet Toilet CAPD CAPD # Voids 3 1 - Exam Review of systems: CONSTITUTIONAL: Well-developed no acute respiratory distress. EYES: No icterus sclerae, no conjunctivitis. EARS, NOSE, MOUTH, THROAT, and FACE: No sore throat, lymphadenopathy, carotid bruits or deformity. RESPIRATORY: No SOB cough or wheezes. CARDIOVASCULAR: No CP, Palpitation, PND, Orthopnea, or angina. GASTROINTESTINAL: No Abd pain, Nausea or vomiting, no Diarrhea or constipation, No GI Bleed, no distention or masses. GENITOURINARY: End-stage renal disease on CAPD. INTEGUMENT/BREAST: Negative for any muscular injury with mild osteoarthritis.. HEMATOLOGIC/LYMPHATIC: Negative for bleed or purpura. MUSCULOSKELTAL: Dialyze muscle and joint pain. NEURLOGICAL: Mild mental status change in the recent history of seizure. BEHAVIORAL/PSYCH: Negative. ENDOCRINE: Negative. Physical examination: General Appearance: Alert, cooperative, no distress, appears stated age. Neck HEENT: Supple, no lymphadenopathy, no thyroid enlargement, no carotid bruits. Scar tissue in the forehead area from craniotomy. Lungs: Clear to auscultation without crackles or wheezes no rhonchi, no deformity. Chest Wall: Chest wall normal expansion with deep inspiration no tenderness and no deformity was found on exam, no costochondral pain or discomfort. Heart: Regular rate and rhythm, S1, S2 normal, no murmur, rub or gallop. Back: Symmetric, no curvature, ROM normal, no CVA tenderness. Abdomen: Soft positive bowel sounds slight peritoneal fluid and from CAPD no tenderness no rebound or rigidity. Extremities: Extremities normal, atraumatic, no cyanosis or edema. Pulses: 2+ and symmetric. Skin: Skin color, texture, tugor normal, no rashes or lesions. Neurologic: Alert slight confusion chronic nerve II-12 intact positive generalized weakness no focal deficit possible normal balance and gait. - Labs CBC & Chem 7: 10/02/19 07:39 10/02/19 07:39 Labs: Abnormal Lab Results - Last 24 Hours (Table) 10/04/19 10/04/19 10/04/19 Range/Units 11:32 16:17 20:16 POC Glucose (mg/dL) 185 H 64 L 242 H (75-99) mg/dL 10/05/19 10/05/19 Range/Units 06:36 06:54 POC Glucose (mg/dL) 31 L 48 L (75-99) mg/dL Microbiology - Last 24 Hours (Table) 10/01/19 14:11 Blood Culture - Preliminary Blood No Growth after 72 hours 10/02/19 01:15 Gram Stain - Preliminary Peritoneal Fluid Body Fluid Culture - Preliminary Assessment and Plan Assessment: 1 UTI with acute sepsis: Secondary to VRE, patient has been on daptomycin and Rocephin patient will be continue on daptomycin longer term exteriorly has a midline and will try to make an arrangement for outpatient IV infusion versus alf rehab. 2 type 2 diabetes on insulin pump: Pump is out for now patient is on Lantus and NovoLog continue to adjust medication to his discharge home to go back on his insulin pump. 3 end-stage renal disease on CAPD currently seen nephrology regular basis continue management. 4 history of brain tumor post craniotomy and chemotherapy from 2016. 5 recent hospitalization with seizure activity most likely secondary to Zyvox patient remain on Keppra 500 mg twice a day today seen urology and run an EEG and decide long-term management by neurology. 6 hypothyroidism: Remain on levothyroxine 150 g daily. 7 hypertension: Remain on Toprol-XL 50 mg at bedtime. 8 history of renal transplant 2 post allograft failure patient is on CAPD currently still on prednisone. 9 diuretics ulcer of the left foot associated with diabetes and chronic disease patient still seen at the wound clinic still doing collagen and the dressing. 10 A. fib with RVR: Remain on Eliquis 2.5 mg twice a day along with metoprolol XL 50 mg daily. 11 mildly hypotension: Patient remain on midodrine on as needed basis. 12 chronic anemia: Remain on iron supplement. CODE STATUS: Full code. Discharge planning: Hopefully home tomorrow with IV antibiotics for total of 2-3 weeks or rehab with IV infusion..
--- NOTE | 2019-10-06 02:03 | PN ---
PROGRESS NOTE DATE OF SERVICE: 10/05/2019 REASON FOR FOLLOWUP: VRE urinary tract infection. INTERVAL HISTORY: The patient is currently afebrile. The patient has been breathing comfortably. Patient denies having any chest pain or shortness of breath or cough. No nausea, vomiting or diarrhea. PHYSICAL EXAMINATION: Blood pressure 134/80 with a pulse of 72, temperature 97.6. He is 98% on room air. General description is a middle-aged male lying in bed in no distress. RESPIRATORY SYSTEM: Unlabored breathing, clear to auscultation anteriorly. HEART: S1, S2. Regular rate and rhythm. ABDOMEN: Soft, no tenderness. LAB: Peritoneal fluid culture so far negative. Blood culture negative. Urine with the VRE. DIAGNOSTIC IMPRESSION AND PLAN: Patient with VRE urinary tract infection. The patient is currently covered with daptomycin to continue to finish a total of 2 week course of therapy. He did have Midline hopefully antibiotic arranged tomorrow so he can go home. Continue supportive care. MMODL / IJN: [id number] /
[2019-10-06] MEDS: HEPARIN SODIUM PORCINE INTRAPERIT SCH ×2 (02:53→09:05)
[2019-10-06] MEDS: DIALYSIS DEX INTRAPERIT SCH ×2 (02:53→09:05)
[2019-10-06 07:02] LABS: Glucose,Whole Blood 40 mg/dL (75-99)
[2019-10-06 07:02] LABS: Glucose,Whole Blood 40 mg/dL (75-99)
[2019-10-06 07:23] LABS: Glucose,Whole Blood 71 mg/dL (75-99)
[2019-10-06] MEDS: INSULIN ASPART (NovoLOG) 100 UNIT/ML VIAL SQ SCH ×2 (08:00→12:14)
[2019-10-06 08:30] VITALS: PULSE 87
[2019-10-06] MEDS: APIXABAN 2.5 MG TABLET PO SCH (08:31)
[2019-10-06] MEDS: FINASTERIDE 5 MG TAB PO SCH (08:31)
[2019-10-06] MEDS: LEVOTHYROXINE 75 MCG TAB PO SCH (08:31)
[2019-10-06] MEDS: SODIUM BICARBONATE TAB 650 MG TAB PO SCH (08:31)
[2019-10-06] MEDS: MIDODRINE 5 MG TAB PO SCH (08:32)
[2019-10-06] MEDS: TAMSULOSIN 0.4 MG CAP.ER.24H PO SCH (08:33)
[2019-10-06] MEDS: SEVELAMER 800 MG TAB PO SCH ×2 (08:34→12:14)
[2019-10-06] MEDS: levETIRAcetam 500 MG TAB PO SCH (08:34)
[2019-10-06] MEDS: predniSONE 5 MG TAB PO SCH (08:35)
[2019-10-06 09:16] VITALS: BP 130/75; RESP 14; TEMP 98.1
[2019-10-06 11:45] LABS: Glucose,Whole Blood 76 mg/dL (75-99)
--- NOTE | 2019-10-06 11:55 | P.DS ---
Providers Date of admission: 10/01/19 14:12 Expected date of discharge: 10/06/19 Attending physician: Ricardo Guillen Consults: 10/01/19 14:03 Consult Physician Routine Consulting Provider: Khushi De Leon Consult Reason/Comments: history of VRE Do you want consulting provider notified?: Yes 10/01/19 14:16 Consult Physician Routine Consulting Provider: Michell Wright Consult Reason/Comments: Dialysis Do you want consulting provider notified?: Yes Primary care physician: Salo Villar [facility] Course: This is a 64-year-old male one of Dr. Salo Villar patient with a previous medical history significant for hypertension and hypertensive cardiovascular disease, hyperlipidemia, diabetes mellitus type 2, hypothyroidism, benign prostatic hypertrophy, history of renal transplant times 2 in 1992 and 1997 post allograft failure with end-stage renal disease currently on peritoneal dialysis. Patient was recently treated for a urinary tract infection with vancomycin as an outpatient according to the emergency room physician note and he was brought into the ER at [facility] on September 15 was admitted to the hospital because of increased weakness and dry cugh along with low grade temperature, he was found to have leukocytosis with minimal lymphopenia. Influenza testing and COVID-19 testing negative. Patient was treated for Enterococcus faecium UTI and sepsis, followed by Dr. De Leon and discharged on Zyvox. Patient then presented on September 26 when he had a witnessed 10 minute seizure at home with tonic-clonic movement and loss of consciousness. Patient was started on Keppra and discharged home on September 27. Patient was found yesterday morning with elevated blood sugar at 230 normally runs at 100 as well as fever of 101 the night before. Patient denies having any abdominal pain, nausea vomiting, no diarrhea. He was last seen in the wound healing center on 09/23. Patient came into [facility] emergency center for evaluation. He was afebrile, heart rate 77, blood pressure 101/69, pulse ox 100%. WBC 5.6, hemoglobin 11.4, platelet count 88. Lymphocytes low at 0.8. Sodium 138, potassium 3.1, chloride 100, CO2 24, BUN 64 creatinine 7.77, blood sugar 211. Urinalysis cloudy, blood large, leukoesterase large, RBCs greater than 182, wbc's 66, bacteria rare. Magnesium 2.5. Liver function tests within normal limits. Patient was admitted to the [facility] floor. Patient was started on gentamicin, Rocephin, consults with infectious disease and nephrology. Patient has been seen by Dr. De Leon with recommendations to discontinue gentamicin. Start patient on daptomycin and continue Rocephin. Blood, peritoneal fluid and urine culture have all been obtained. Dr. Stewart is following as well. Patient is continued on CAPD. 10/02: Dr. De Leon recommends continuing Rocephin and daptomycin. Patient has been seen by the wound care team with recommendations for local wound care. Patient is afebrile, heart rate 60, blood pressure 137/84, pulse ox 96% on room air. The patient's insulin pump was not functioning yesterday and patient was started on Levemir 21 units at bedtime, NovoLog 7 units with meals and NovoLog scale. Yesterday, blood sugars were running in the 300s. This morning, patient's blood sugar was at 54. Scheduled NovoLog will be discontinued and Levemir decreased to 18 units. Urine culture is showing group D enterococcus. Blood culture no growth in 24 hours and peritoneal fluid in process. Dr. De Leon has cleared patient for midline placement which will be ordered for today. Patient does have a sitter at the bedside. He is known to have short-term memory loss and at time confused which is his baseline. manager hospital has followed up with the patient's regarding plan for discharge home and IV antibiotics. [facility] care arranged. 10/03: Patient infection was found to be enterococcus as well and VRE this time the patient will be on longer term of daptomycin IV with no Zyvox this time should plan to do management for between 2-3 weeks. Back to his seizure activity I believe there is a slight interaction and possibility that side effect of Zyvox might have caused seizure at the time which I highly encourage the patient and his still to see his neurologist soon and go for an EEG and determine whether he should be on Keppra long-term or short-term at this point. Patient has been seen by the wound care team and recommendation for local wound care. Blood sugar still not totally controlled but doing better on current medication and management patient was on insulin pump with supposed to be started back soon as he goes home. If stable and been able to be discharged tomorrow if not on Sunday patient already had midline and the right forearm area and his antibiotic infusion is done through with at this point. 10/04: Patient has done very well so far less symptomatic no seizure activity has a midline on the right arm still doing antibiotics with daptomycin which patient be continued for total of 2-3 weeks. And prepare for discharge tomorrow either home with IV infusion antibiotic or custodial with IV antibiotics. 10/05: Patient is afebrile, heart rate 87, blood pressure 130/75, pulse ox 94% on room air . Blood sugars were low this morning at 40 repeat at 71 and 76. Once patient returns home, insulin pump will be resumed. Dr. De Leon has recommended daptomycin for a 2 week course. We will also adding in Macrodantin for 2 week course to be started once IV daptomycin has been completed. Prescription has been left in the chart for case management. Patient will be discharged home today once all arrangements for IV antibiotics have been completed. Discharge diagnoses: 1. Febrile illness, VRE UTI and sepsis. 2. Elevated blood sugar secondary to infection. 3. Mild hypokalemia, status post replacement. 4. Recent hospitalization for new onset seizure activity possibly due to Zyvox. 5. History of brain tumor status post removal and chemotherapy in 2016. 6. End-stage renal disease on CAPD. 7. Hypertension, hypertensive cardiovascular disease. 8. History of renal transplant 2 post allograft failure currently on CAPD. 9. Hyperlipidemia. 10. Hypothyroidism. 11. Diabetes mellitus type 2, insulin requiring, uncontrolled with hypoglycemia. 12. History of DVT, resolved. 13. Benign prostatic hypertrophy. 14. Chronic thrombocytopenia. 15. Anemia of chronic disease. 16. Chronic atrial fibrillation. 17. Diabetic foot ulcer left lateral foot and right calcaneus. 18. Short-term memory deficit with suspected dementia. Discharge plan: home with [facility] Impression and plan of care have been directed as dictated by the signing physician. Nya Rawls nurse practitioner acting as scribe for signing physician. Patient Condition at Discharge: Good Plan - Discharge Summary New Discharge Prescriptions: New DAPTOmycin [Cubicin] 300 mg IVPB Q48H #7 vial Nitrofurantoin Macrocrystal [Macrodantin] 100 mg PO HS #14 cap Continue Finasteride 2.5 mg PO DAILY Levothyroxine Sodium 150 mcg PO DAILY Tamsulosin [Flomax] 0.4 mg PO BID Iron Polysaccharide Complex [Ferrex 150] 150 mg PO DAILY Insulin Aspart (Niacinamide) [Fiasp 100 Unit/ml Vial] See Protocol SQ-PUMP DIRECTED predniSONE 4 mg PO DAILY Dialyvite 800-Zinc 15 Tab 0.8m 1 tab PO HS Calcitriol 0.5 mg PO WE Collagenase [Santyl] 1 applic TOPICAL BID PRN PRN Reason: hs-mon,wed,fri Sevelamer Carbonate 1,600 mg PO TID-W/MEALS Metoprolol Succinate [Toprol XL] 50 mg PO HS Famotidine [Pepcid] 20 mg PO HS Midodrine HCl [ProAmatine] 10 mg PO TID Apixaban [Eliquis] 2.5 mg PO BID Atorvastatin [Lipitor] 40 mg PO HS Sodium Bicarbonate Tab 650 mg PO BID #60 tab predniSONE 5 mg PO DAILY levETIRAcetam [Keppra] 500 mg PO Q12HR #60 tab INSULIN ASPART (NovoLOG) [NovoLOG (formulary)] 8 unit SQ ACHS PRN PRN Reason: IF PATIENT NOT WEARING PUMP Discharge Medication List Finasteride 2.5 mg PO DAILY 07/04/16 [History] Insulin Aspart (Niacinamide) [Fiasp 100 Unit/ml Vial] See Protocol SQ-PUMP DIRECTED 11/05/18 [History] Iron Polysaccharide Complex [Ferrex 150] 150 mg PO DAILY 11/05/18 [History] Levothyroxine Sodium 150 mcg PO DAILY 11/05/18 [History] Tamsulosin [Flomax] 0.4 mg PO BID 11/05/18 [History] Apixaban [Eliquis] 2.5 mg PO BID 09/16/19 [History] Atorvastatin [Lipitor] 40 mg PO HS 09/16/19 [History] Calcitriol 0.5 mg PO WE 09/16/19 [History] Collagenase [Santyl] 1 applic TOPICAL BID PRN 09/16/19 [History] Dialyvite 800-Zinc 15 Tab 0.8m 1 tab PO HS 09/16/19 [History] Famotidine [Pepcid] 20 mg PO HS 09/16/19 [History] Metoprolol Succinate [Toprol XL] 50 mg PO HS 09/16/19 [History] Midodrine HCl [ProAmatine] 10 mg PO TID 09/16/19 [History] Sevelamer Carbonate 1,600 mg PO TID-W/MEALS 09/16/19 [History] predniSONE 4 mg PO DAILY 09/16/19 [History] Sodium Bicarbonate Tab 650 mg PO BID #60 tab 09/18/19 [Rx] predniSONE 5 mg PO DAILY 09/26/19 [History] levETIRAcetam [Keppra] 500 mg PO Q12HR #60 tab 09/28/19 [Rx] INSULIN ASPART (NovoLOG) [NovoLOG (formulary)] 8 unit SQ ACHS PRN 10/01/19 [History] DAPTOmycin [Cubicin] 300 mg IVPB Q48H #7 vial 10/06/19 [Rx] Nitrofurantoin Macrocrystal [Macrodantin] 100 mg PO HS #14 cap 10/06/19 [Rx] Follow up Appointment(s)/Referral(s): [facility], [NON-STAFF] - Khushi De Leon MD [STAFF PHYSICIAN] - 10/13/19 3:00 pm Salo Villar MD [Primary Care Provider] - 10/14/19 10:30 am (PLEASE CALL IF NOT GOING TO MAKE APPOINTMENT) Discharge Disposition: HOME WITH HOME HEALTH SERVICES
[2019-10-06] MEDS: IRON POLYSACCHARIDES COMPLEX 150 MG CAP PO SCH (12:15)
--- NOTE | 2019-10-06 14:57 | PN ---
PROGRESS NOTE DATE OF SERVICE: 10/06/2019 REASON FOR FOLLOWUP: VRE urinary tract infection. INTERVAL HISTORY: The patient is currently afebrile, has been breathing comfortably. Denies having any chest pain, shortness of breath or cough. No nausea, vomiting, abdominal pain or diarrhea. PHYSICAL EXAMINATION: Blood pressure 130/75 with a pulse of 87, temperature 98.1, he is 96% on room air. General description is a middle-aged male, up in the chair in no distress. RESPIRATORY SYSTEM: Unlabored breathing, clear to auscultation anteriorly. HEART: S1, S2. Regular rate and rhythm. ABDOMEN: Soft, no tenderness. LABS: No new labs have been obtained today. DIAGNOSTIC IMPRESSION AND PLAN: Patient admitted to the hospital with fever, source is likely VRE urinary tract infection. Clinically responding to daptomycin. He will continue for another 7 doses to finish a 2-week course of therapy and close outpatient followup. MMODL / IJN: [id number] /
--- NOTE | 2019-10-06 15:34 | PN ---
PROGRESS NOTE Patient is seen for followup for end-stage renal disease. Currently he is maintained on CAPD. He is doing fairly well. There are plans to be discharged today. PHYSICAL EXAMINATION: On examination, blood pressure was 129/84, heart rate 87 per minute. Patient is afebrile. Exam reveals no edema in lower extremities. ABDOMEN: Soft, nontender. Patient appears euvolemic. LABS: Blood sugar was slightly low at 40, now picked up at 71 and 76 mg/dL. Last labs done on 10/02/2019 show serum potassium 3.5, serum creatinine 7.45. ASSESSMENT: 1. End-stage renal disease, on peritoneal dialysis. Continue current PD exchanges. 2. Failed previous renal transplant. 3. Urinary tract infection with Enterococcus. 4. Type 2 diabetes. 5. Chronic atrial fibrillation. 6. Chronic hypotension, maintained on midodrine. PLAN: Continue current PD exchanges. Follow up at the outpatient dialysis unit post discharge. MMODL / IJN: [id number] /
--- NOTE | 2019-10-08 06:46 | CDI ---
Documentation Clarification Form Date: 10/08/2019 From: Lamine Aguilar Phone: If you have a question about this query, please contact Nerissa Calhoun, [employer] at [phone] between 8am and 5pm. Admit Date: 10/01/2019 Discharge Date:10/06/2019 Patient Name: Salvador Hernandez Visit Number: [id number] ATTENTION: The Clinical Documentation Specialists (CDI) and [facility] Coding Staff appreciate your assistance in clarifying documentation. Please respond to the clarification below the line at the bottom and electronically sign. The CDI & [facility] Coding staff will review the response and follow-up if needed. Please note: Queries are made part of the Legal Health Record. If you have any questions, please contact the author of this message via ITS. Dear Ricardo Vaz., The patient presented with the following UTI History/Risk Factors: UTI, ESRD, GERD, Atrail fibrilation. WBC : 4.4 Blood cultures: NA Vitals signs on admission: 10/01/19 12:07 97.7 F 77 18 101/69 100 10/02/19 07:00 98.1 F 94 18 121/77 95 Treatment: zyvox, Iv fluids, Dialysis ID Consult: Khushi De Leon MD Antibiotics: Zyvox, daptomycin IV Other: 10/01 H&P noted "Febrile illness, possibly related to urinary tract infection." 10/02 progress note and DS stated "Febrile illness, VRE UTI and sepsis". In your professional opinion, please clarify if these findings signify one of the following conditions, whether the Sepsis is POA? Present on Admission XX Yes No MTDD
[2019-10-08] MEDS ORDERED: CALCITRIOL 0.25 MCG CAP PO SCH (09:00)
== END 2019-10-06 13:44 | disposition home health service (06) | DRG 871 ==
LOC: EC 12:06 → 4SSUR 14:12
PROVIDERS: ADMIT Internal Medicine Geriatric Medicine; ATTEND Internal Medicine Geriatric Medicine
PROC: 05H933Z Insertion of Infusion Device into Right Brachial Vein, Percutaneous Approach (ICD-10-PCS; principal; 2019-10-06)
PROC: 5A1D70Z Performance of Urinary Filtration, Intermittent, Less than 6 Hours Per Day (ICD-10-PCS; 2019-10-06)
DX: A41.81 Sepsis due to Enterococcus (principal); N18.6 End stage renal disease; E87.1 Hypo-osmolality and hyponatremia; E87.2 Acidosis; I13.11 Hypertensive heart and chronic kidney disease without heart failure, with stage 5 chronic kidney disease, or end stage renal disease; N39.0 Urinary tract infection, site not specified; T86.12 Kidney transplant failure; I48.20 Chronic atrial fibrillation, unspecified; D63.8 Anemia in other chronic diseases classified elsewhere; D69.6 Thrombocytopenia, unspecified; Z20.828 Contact with and (suspected) exposure to other viral communicable diseases; E03.9 Hypothyroidism, unspecified; E11.22 Type 2 diabetes mellitus with diabetic chronic kidney disease; E11.628 Type 2 diabetes mellitus with other skin complications; E11.65 Type 2 diabetes mellitus with hyperglycemia; E78.5 Hyperlipidemia, unspecified; E87.6 Hypokalemia; K21.9 Gastro-esophageal reflux disease without esophagitis; M19.90 Unspecified osteoarthritis, unspecified site; F03.90 Unspecified dementia, unspecified severity, without behavioral disturbance, psychotic disturbance, mood disturbance, and anxiety; E11.621 Type 2 diabetes mellitus with foot ulcer; R56.9 Unspecified convulsions; N25.0 Renal osteodystrophy; N40.0 Benign prostatic hyperplasia without lower urinary tract symptoms; Z96.41 Presence of insulin pump (external) (internal); Z99.2 Dependence on renal dialysis; Z92.21 Personal history of antineoplastic chemotherapy; Z87.440 Personal history of urinary (tract) infections; Z86.718 Personal history of other venous thrombosis and embolism; Z79.899 Other long term (current) drug therapy; Z79.890 Hormone replacement therapy; Z79.4 Long term (current) use of insulin; Z79.01 Long term (current) use of anticoagulants; Z85.841 Personal history of malignant neoplasm of brain; Z85.828 Personal history of other malignant neoplasm of skin; Z85.72 Personal history of non-Hodgkin lymphomas; Z83.3 Family history of diabetes mellitus; Z98.890 Other specified postprocedural states
CPT/HCPCS: 36410; 36415; 76937; 80053; 81001; 83735; 85025; 85027; 86701; 86704; 86803; 87040; 87070; 87077; 87086; 87186; 87205; 87340; 96361; 96365; 99284

== ENCOUNTER 2019-10-14 19:51 | Emergency (ER) | payer MEDICAID, MEDICARE ==
[2019-10-14 20:06] VITALS: RESP 18
[2019-10-14] MEDS ORDERED: SODIUM CHLORIDE 0.9% 1,000 ML IV STA (20:54)
[2019-10-14 21:04] LABS: Basophils % (A) 1 %; Eosinophils # (A) 0.1 k/uL (0-0.7); Eosinophils % (A) 1 %; HCT 31.9 % (39.0-53.0); HGB 10.1 gm/dL (13.0-17.5); Hypochromasia Slight; Lymphocytes # (A) 0.9 k/uL (1.0-4.8); Lymphocytes % (A) 20 %; MCH 30.2 pg (25.0-35.0); MCHC 31.6 g/dL (31.0-37.0); MCV 95.6 fL (80.0-100.0); Monocytes # (A) 0.5 k/uL (0-1.0); Monocytes % (A) 11 %; Neutrophils # (A) 2.9 k/uL (1.3-7.7); Neutrophils % (A) 65 %; Platelet Count 139 k/uL (150-450); RBC 3.34 m/uL (4.30-5.90); RDW 15.8 % (11.5-15.5); WBC 4.4 k/uL (3.8-10.6)
--- NOTE | 2019-10-14 21:05 | ED ---
Weakness HPI - General Chief complaint: Weakness Stated complaint: Weakness Time Seen by Provider: 10/14/19 20:19 Source: patient, EMS, RN notes reviewed Mode of arrival: EMS Limitations: altered mental status - History of Present Illness Initial comments: 64-year-old male presents emergency Department with chief complaint weakness, fever secondary hypertension. Patient is currently be treated for VRE urinary tract infection. Patient was receiving daptomycin at home. states that he has extensive past medical history including brain cancer, hypertension, dialysis, transplant, diabetes. states that he was tachycardic in the 130s, mild hypertension. Patient noted have low-grade temp here. Patient is doing slightly better than he was earlier. She states that he had shaking chills. He's also had uncontrolled diarrhea since being on antibiotics. She states last 12 hours came very weak more lethargic than his normal state. P atient himself has no specific complaints other than he felt very achy earlier - Related Data Home Medications Medication Instructions Recorded Confirmed Finasteride 2.5 mg PO DAILY 07/04/16 10/01/19 Insulin Aspart (Niacinamide) See Protocol SQ-PUMP DIRECTED 11/05/18 10/01/19 [Fiasp 100 Unit/ml Vial] Iron Polysaccharide Complex 150 mg PO DAILY 11/05/18 10/01/19 [Ferrex 150] Levothyroxine Sodium 150 mcg PO DAILY 11/05/18 10/01/19 Tamsulosin [Flomax] 0.4 mg PO BID 11/05/18 10/01/19 Apixaban [Eliquis] 2.5 mg PO BID 09/16/19 10/01/19 Atorvastatin [Lipitor] 40 mg PO HS 09/16/19 10/01/19 Calcitriol 0.5 mg PO WE 09/16/19 10/01/19 Collagenase [Santyl] 1 applic TOPICAL BID PRN 09/16/19 10/01/19 Dialyvite 800-Zinc 15 Tab 0.8m 1 tab PO HS 09/16/19 10/01/19 Famotidine [Pepcid] 20 mg PO HS 09/16/19 10/01/19 Metoprolol Succinate [Toprol XL] 50 mg PO HS 09/16/19 10/01/19 Midodrine HCl [ProAmatine] 10 mg PO TID 09/16/19 10/01/19 Sevelamer Carbonate 1,600 mg PO TID-W/MEALS 09/16/19 10/01/19 predniSONE 4 mg PO DAILY 09/16/19 10/01/19 predniSONE 5 mg PO DAILY 09/26/19 10/01/19 INSULIN ASPART (NovoLOG) [NovoLOG 8 unit SQ ACHS PRN 10/01/19 10/01/19 (formulary)] Previous Rx's Medication Instructions Recorded Sodium Bicarbonate Tab 650 mg PO BID #60 tab 09/18/19 levETIRAcetam [Keppra] 500 mg PO Q12HR #60 tab 09/28/19 DAPTOmycin [Cubicin] 300 mg IVPB Q48H #7 vial 10/06/19 Nitrofurantoin Macrocrystal 100 mg PO HS #14 cap 10/06/19 [Macrodantin] Allergies Allergy/AdvReac Type Severity Reaction Status Date / Time No Known Allergies Allergy Verified 10/14/19 20:03 Review of Systems ROS Statement: Those systems with pertinent positive or pertinent negative responses have been documented in the HPI. ROS Other: All systems not noted in ROS Statement are negative. Past Medical History Past Medical History: Atrial Fibrillation, Cancer, Diabetes Mellitus, Dialysis, Deep Vein Thrombosis (DVT), GERD/Reflux, Hyperlipidemia, Hypertension, Osteoarthritis (OA), Prostate Disorder, Renal Disease, Skin Disorder, Thyroid Disorder, Vascular Disorder Additional Past Medical History / Comment(s): , hx vascular calcification, basal cell carcinoma nose removed 2010. BRAIN CANCER, NHL History of Any Multi-Drug Resistant Organisms: Unobtainable Date of last positivie culture/infection: 10/01/19 MDRO Source:: VRE URINE Additional Past Surgical History / Comment(s): kidney transplant : 1992 & 1997. Left transmetatarsal amputation. basal cell carcinoma excision.BRAIN TUMOR REMOVED WITH CHEMO . COLONOSCOPY Past Anesthesia/Blood Transfusion Reactions: No Reported Reaction Past Psychological History: No Psychological Hx Reported Smoking Status: Never smoker Past Alcohol Use History: None Reported Past Drug Use History: None Reported - Past Family History Mother Family Medical History: No Reported History Father Family Medical History: No Reported History Brother(s) Family Medical History: No Reported History Sister(s) Family Medical History: No Reported History Son(s) Family Medical History: No Reported History General Exam Limitations: altered mental status General appearance: alert, in no apparent distress Head exam: Present: atraumatic, normocephalic, normal inspection Eye exam: Present: normal appearance, PERRL, EOMI. Absent: scleral icterus, conjunctival injection, periorbital swelling ENT exam: Present: normal exam, mucous membranes moist Neck exam: Present: normal inspection, full ROM. Absent: tenderness, meningismus, lymphadenopathy Respiratory exam: Present: normal lung sounds bilaterally. Absent: respiratory distress, wheezes, rales, rhonchi, stridor Cardiovascular Exam: Present: regular rate, normal rhythm, normal heart sounds. Absent: systolic murmur, diastolic murmur, rubs, gallop, clicks GI/Abdominal exam: Present: soft, normal bowel sounds, other (Peritoneal dialysis port noted). Absent: distended, tenderness, guarding, rebound, rigid Extremities exam: Present: other (Right midarm - PICC line noted, no signs of erythema, drainage site is clean and dry) Neurological exam: Present: alert, oriented X3, CN II-XII intact Skin exam: Present: warm, dry, intact, normal color. Absent: rash Course Vital Signs 10/14/19 10/14/19 10/14/19 20:03 22:00 23:00 Temperature 100.8 F H 98.5 F 98.6 F Pulse Rate 96 91 90 Respiratory 18 18 18 Rate Blood Pressure 107/76 114/73 108/68 O2 Sat by Pulse 98 96 96 Oximetry Medical Decision Making - Medical Decision Making 64-year-old male presents emergency Department with chief complaint of generalized weakness. He stated patient that she improving prior to coming. Patient complete workup including labs x-rays, urinalysis, Jian testing, C. diff testing. There are no significant acute abnormality's. Patient has chronic renal failure with creatinine of 8. Coated testing is negative, C. diff is negative, no leukocytosis. There remains 33 white cells in the urinalysis though patient is on daptomycin. Patient has a dose of daptomycin in the morning. I long discussion with patient, patient's regarding labs and imaging. She feels that he would be better served at home at this time. Did discuss admission pending cultures. Again patient stated that she prefers to go home and return for any worsening or change of symptoms. - Lab Data Result diagrams: 10/14/19 20:31 10/14/19 20:31 Lab Results 10/14/19 10/14/19 10/14/19 Range/Units 20:31 20:31 20:31 WBC 4.4 (3.8-10.6) k/uL RBC 3.34 L (4.30-5.90) m/uL Hgb 10.1 L (13.0-17.5) gm/dL Hct 31.9 L (39.0-53.0) % MCV 95.6 (80.0-100.0) fL MCH 30.2 (25.0-35.0) pg MCHC 31.6 (31.0-37.0) g/dL RDW 15.8 H (11.5-15.5) % Plt Count 139 L (150-450) k/uL Neutrophils % 65 % Lymphocytes % 20 % Monocytes % 11 % Eosinophils % 1 % Basophils % 1 % Neutrophils # 2.9 (1.3-7.7) k/uL Lymphocytes # 0.9 L (1.0-4.8) k/uL Monocytes # 0.5 (0-1.0) k/uL Eosinophils # 0.1 (0-0.7) k/uL Basophils # 0.0 (0-0.2) k/uL Hypochromasia Slight PT 23.9 H (9.0-12.0) sec INR 2.5 H (<1.2) APTT 30.8 H (22.0-30.0) sec Sodium 137 (137-145) mmol/L Potassium 3.4 L (3.5-5.1) mmol/L Chloride 106 (98-107) mmol/L Carbon Dioxide 22 (22-30) mmol/L Anion Gap 9 mmol/L BUN 57 H (9-20) mg/dL Creatinine 8.16 H* (0.66-1.25) mg/dL Est GFR (CKD-EPI)AfAm 7 (>60 ml/min/1.73 sqM) Est GFR (CKD-EPI)NonAf 6 (>60 ml/min/1.73 sqM) Glucose 66 L (74-99) mg/dL POC Glucose (mg/dL) (75-99) mg/dL POC Glu Softball Player ID Plasma Lactic Acid Chavez (0.7-2.0) mmol/L Calcium 7.4 L (8.4-10.2) mg/dL Magnesium 2.1 (1.6-2.3) mg/dL Total Bilirubin 0.2 (0.2-1.3) mg/dL AST 19 (17-59) U/L ALT 17 (4-49) U/L Alkaline Phosphatase 129 H (38-126) U/L Troponin I (0.000-0.034) ng/mL Total Protein 4.4 L (6.3-8.2) g/dL Albumin 2.0 L (3.5-5.0) g/dL Urine Color Urine Appearance (Clear) Urine pH (5.0-8.0) Ur Specific [place] (1.001-1.035) Urine Protein (Negative) Urine Glucose (UA) (Negative) Urine Ketones (Negative) Urine Blood (Negative) Urine Nitrite (Negative) Urine Bilirubin (Negative) Urine Urobilinogen (<2.0) mg/dL Ur Leukocyte Esterase (Negative) Urine RBC (0-5) /hpf Urine WBC (0-5) /hpf Ur Squamous Epith Cells (0-4) /hpf Amorphous Sediment (None) /hpf Urine Bacteria (None) /hpf Urine Mucus (None) /hpf C. difficile (EIA) Intrp (Negative) Coronavirus (PCR) (Not Detectd) 10/14/19 10/14/19 10/14/19 Range/Units 20:31 20:31 21:25 WBC (3.8-10.6) k/uL RBC (4.30-5.90) m/uL Hgb (13.0-17.5) gm/dL Hct (39.0-53.0) % MCV (80.0-100.0) fL MCH (25.0-35.0) pg MCHC (31.0-37.0) g/dL RDW (11.5-15.5) % Plt Count (150-450) k/uL Neutrophils % % Lymphocytes % % Monocytes % % Eosinophils % % Basophils % % Neutrophils # (1.3-7.7) k/uL Lymphocytes # (1.0-4.8) k/uL Monocytes # (0-1.0) k/uL Eosinophils # (0-0.7) k/uL Basophils # (0-0.2) k/uL Hypochromasia PT (9.0-12.0) sec INR (<1.2) APTT (22.0-30.0) sec Sodium (137-145) mmol/L Potassium (3.5-5.1) mmol/L Chloride (98-107) mmol/L Carbon Dioxide (22-30) mmol/L Anion Gap mmol/L BUN (9-20) mg/dL Creatinine (0.66-1.25) mg/dL Est GFR (CKD-EPI)AfAm (>60 ml/min/1.73 sqM) Est GFR (CKD-EPI)NonAf (>60 ml/min/1.73 sqM) Glucose (74-99) mg/dL POC Glucose (mg/dL) (75-99) mg/dL POC Glu Softball Player ID Plasma Lactic Acid Chavez 1.1 (0.7-2.0) mmol/L Calcium (8.4-10.2) mg/dL Magnesium (1.6-2.3) mg/dL Total Bilirubin (0.2-1.3) mg/dL AST (17-59) U/L ALT (4-49) U/L Alkaline Phosphatase (38-126) U/L Troponin I 0.018 (0.000-0.034) ng/mL Total Protein (6.3-8.2) g/dL Albumin (3.5-5.0) g/dL Urine Color Urine Appearance (Clear) Urine pH (5.0-8.0) Ur Specific [place] (1.001-1.035) Urine Protein (Negative) Urine Glucose (UA) (Negative) Urine Ketones (Negative) Urine Blood (Negative) Urine Nitrite (Negative) Urine Bilirubin (Negative) Urine Urobilinogen (<2.0) mg/dL Ur Leukocyte Esterase (Negative) Urine RBC (0-5) /hpf Urine WBC (0-5) /hpf Ur Squamous Epith Cells (0-4) /hpf Amorphous Sediment (None) /hpf Urine Bacteria (None) /hpf Urine Mucus (None) /hpf C. difficile (EIA) Intrp (Negative) Coronavirus (PCR) Not Detected (Not Detectd) 10/14/19 10/14/19 10/14/19 Range/Units 22:00 22:17 22:38 WBC (3.8-10.6) k/uL RBC (4.30-5.90) m/uL Hgb (13.0-17.5) gm/dL Hct (39.0-53.0) % MCV (80.0-100.0) fL MCH (25.0-35.0) pg MCHC (31.0-37.0) g/dL RDW (11.5-15.5) % Plt Count (150-450) k/uL Neutrophils % % Lymphocytes % % Monocytes % % Eosinophils % % Basophils % % Neutrophils # (1.3-7.7) k/uL Lymphocytes # (1.0-4.8) k/uL Monocytes # (0-1.0) k/uL Eosinophils # (0-0.7) k/uL Basophils # (0-0.2) k/uL Hypochromasia PT (9.0-12.0) sec INR (<1.2) APTT (22.0-30.0) sec Sodium (137-145) mmol/L Potassium (3.5-5.1) mmol/L Chloride (98-107) mmol/L Carbon Dioxide (22-30) mmol/L Anion Gap mmol/L BUN (9-20) mg/dL Creatinine (0.66-1.25) mg/dL Est GFR (CKD-EPI)AfAm (>60 ml/min/1.73 sqM) Est GFR (CKD-EPI)NonAf (>60 ml/min/1.73 sqM) Glucose (74-99) mg/dL POC Glucose (mg/dL) 128 H (75-99) mg/dL POC Glu Softball Player ID Mario, Courtney Plasma Lactic Acid Chavez (0.7-2.0) mmol/L Calcium (8.4-10.2) mg/dL Magnesium (1.6-2.3) mg/dL Total Bilirubin (0.2-1.3) mg/dL AST (17-59) U/L ALT (4-49) U/L Alkaline Phosphatase (38-126) U/L Troponin I (0.000-0.034) ng/mL Total Protein (6.3-8.2) g/dL Albumin (3.5-5.0) g/dL Urine Color Colorless Urine Appearance Cloudy (Clear) Urine pH 8.0 (5.0-8.0) Ur Specific [place] 1.006 (1.001-1.035) Urine Protein 1+ H (Negative) Urine Glucose (UA) Negative (Negative) Urine Ketones Negative (Negative) Urine Blood Small H (Negative) Urine Nitrite Negative (Negative) Urine Bilirubin Negative (Negative) Urine Urobilinogen <2.0 (<2.0) mg/dL Ur Leukocyte Esterase Large H (Negative) Urine RBC 3 (0-5) /hpf Urine WBC 33 H (0-5) /hpf Ur Squamous Epith Cells 1 (0-4) /hpf Amorphous Sediment Few H (None) /hpf Urine Bacteria Rare H (None) /hpf Urine Mucus Moderate H (None) /hpf C. difficile (EIA) Intrp Negative (Negative) Coronavirus (PCR) (Not Detectd) Disposition Clinical Impression: Generalized weakness, Chronic renal failure, UTI (urinary tract infection) Disposition: HOME SELF-CARE Condition: Stable Instructions (If sedation given, give patient instructions): Weakness (ED) Additional Instructions: Please return to the Emergency Department if symptoms worsen or any other concerns. Is patient prescribed a controlled substance at d/c from ED?: No Referrals: Salo Villar MD [Primary Care Provider] - 1-2 days Time of Disposition: 23:15
[2019-10-14 21:13] LABS: Calcium 7.4 mg/dL (8.4-10.2); Magnesium 2.1 mg/dL (1.6-2.3); Potassium 3.4 mmol/L (3.5-5.1); Total Bilirubin 0.2 mg/dL (0.2-1.3); Total Protein 4.4 g/dL (6.3-8.2)
[2019-10-14 21:20] LABS: INR 2.5 (<1.2); Partial Thromboplastin Time 30.8 sec (22.0-30.0); Prothrombin Time 23.9 sec (9.0-12.0)
--- NOTE | 2019-10-14 21:54 | XR ---
EXAMINATION TYPE: XR chest 2V DATE OF EXAM: 10/14/2019 COMPARISON: 09/16/2019 HISTORY: Weakness TECHNIQUE: 2 views FINDINGS: There is no heart failure nor confluent pneumonic infiltrate. Costophrenic angles are clear . Heart size is normal. There are chest leads. IMPRESSION: No active cardiopulmonary disease. Normal heart. No change.
[2019-10-14 22:29] LABS: Amorphous Sediment,Urine Few /hpf; Appearance,Urine Cloudy (Clear); Bacteria,Urine Rare /hpf; Bilirubin,Urine Negative (Negative); Blood,Urine Small (Negative); Color,Urine Colorless; Glucose,Urine (UA) Negative (Negative); Ketones,Urine Negative (Negative); Leukocyte Esterase,Urine Large (Negative); Mucus,Urine Moderate /hpf; Nitrite,Urine Negative (Negative); Protein,Urine 1+ (Negative); RBC,Urine 3 /hpf (0-5); Specific Gravity,Urine 1.006 (1.001-1.035); Squamous Epithelial Cell,Urine 1 /hpf (0-4); Urobilinogen,Urine <2.0 mg/dL (<2.0); WBC,Urine 33 /hpf (0-5)
[2019-10-14 22:40] LABS: Glucose,Whole Blood 128 mg/dL (75-99)
[2019-10-14 23:12] VITALS: BP 108/68; PULSE 90; TEMP 98.6
== END 2019-10-14 23:30 | disposition home or self-care (01) ==
LOC: EC 19:51
DX: Z03.818 Encounter for observation for suspected exposure to other biological agents ruled out (principal); N39.0 Urinary tract infection, site not specified; E11.22 Type 2 diabetes mellitus with diabetic chronic kidney disease; I12.0 Hypertensive chronic kidney disease with stage 5 chronic kidney disease or end stage renal disease; N18.6 End stage renal disease; I48.91 Unspecified atrial fibrillation; K21.9 Gastro-esophageal reflux disease without esophagitis; E78.5 Hyperlipidemia, unspecified; N42.9 Disorder of prostate, unspecified; E07.9 Disorder of thyroid, unspecified; Z79.4 Long term (current) use of insulin; Z79.890 Hormone replacement therapy; Z79.52 Long term (current) use of systemic steroids; Z79.01 Long term (current) use of anticoagulants; Z79.899 Other long term (current) drug therapy; Z94.0 Kidney transplant status; Z92.21 Personal history of antineoplastic chemotherapy; Z99.2 Dependence on renal dialysis; Z85.828 Personal history of other malignant neoplasm of skin; Z86.718 Personal history of other venous thrombosis and embolism; Z95.828 Presence of other vascular implants and grafts
CPT/HCPCS: 36415; 71046; 80053; 81001; 83605; 83735; 84484; 85025; 85610; 85730; 87040; 87045; 87046; 87086; 87324; 87635; 93005; 96360; 96361; 99285

== ENCOUNTER → 2019-10-31 | Outpatient (CLI) | payer MEDICAID, MEDICARE ==
--- NOTE | 2019-10-31 13:12 | XR ---
EXAMINATION TYPE: XR calcaneus 2V RT DATE OF EXAM: 10/31/2019 COMPARISON: NONE HISTORY: Heel ulcer TECHNIQUE: Views of the os calcis are submitted. FINDINGS: Status post operative screws and rods are noted about the os calcis. There is a soft tissue wound noted posterior aspect of the calcaneus without evidence for bony destruction to suggest osteo myelitis. Chronic appearing bony fragmentation seen. Marked narrowing of the ankle mortise noted with flattening of the os calcis. IMPRESSION: Soft tissue wound without radiographic evidence to suggest osteomyelitis at this time.
== END | disposition home or self-care (01) ==
LOC: RADXRMAIN 12:36
PROVIDERS: ATTEND Nurse Practitioner Family
DX: M79.89 Other specified soft tissue disorders (principal); E11.621 Type 2 diabetes mellitus with foot ulcer; M21.549 Acquired clubfoot, unspecified foot; L97.512 Non-pressure chronic ulcer of other part of right foot with fat layer exposed; L97.523 Non-pressure chronic ulcer of other part of left foot with necrosis of muscle; L89.153 Pressure ulcer of sacral region, stage 3

== ENCOUNTER → 2019-10-31 | Outpatient (CLI) | payer MEDICAID, MEDICARE ==
--- NOTE | 2019-10-31 14:19 | MR ---
EXAMINATION TYPE: MR brain wo con DATE OF EXAM: 10/31/2019 2:10 PM COMPARISON: NONE HISTORY: Lymphoma. Follow up Study FINDINGS: The ventricles, basal cisterns and sulci overlying the cerebral convexities are moderately enlarged. There is evidence of severe confluent increased signal within the deep and periventricular white nettie er of both cerebral hemispheres. Remote deep white matter insults are also noted. Cystic encephalomalacia left frontal lobe. Postoperative craniotomy changes within the frontal region s. Clarissa hole noted. No acute edema is seen on diffusion weighted imaging. There is no evidence for midline shift or mass effect. Acute intracranial hemorrhage or extra-axial collection is not evident. Chronic paranasal sinusitis. 2. Mastoid air cells are well-aerated. IMPRESSION: Age-related atrophic and chronic small vessel ischemic change. No acute intracranial process at this time. Stable postoperative changes as above.
== END | disposition home or self-care (01) ==
LOC: RADMRIMAIN 12:28
PROVIDERS: ATTEND Internal Medicine Hematology & Oncology
DX: G31.1 Senile degeneration of brain, not elsewhere classified (principal); I67.82 Cerebral ischemia; C85.89 Other specified types of non-Hodgkin lymphoma, extranodal and solid organ sites; Z98.890 Other specified postprocedural states
CPT/HCPCS: 70551

== ENCOUNTER → 2019-12-05 | Outpatient (CLI) | payer MEDICAID, MEDICARE ==
--- NOTE | 2019-12-05 16:27 | CT ---
EXAMINATION TYPE: CT abdomen wo con DATE OF EXAM: 12/05/2019 COMPARISON: HISTORY: recurrent UTI. CT DLP: 330.6 mGycm Examination of the solid and hollow viscera is limited given the lack of contrast. Unenhanced CT of t he abdomen was performed. GI contrast was utilized. Examination is limited given the lack of IV contr ast. FINDINGS: LUNG BASES: No evidence for nodule. No evidence for infiltrate. LIVER/GB: The gallbladder is unremarkable. No space-occupying hepatic lesion. PANCREAS: Pancreatic atrophy with cystic dilatation of the deep. Cystic mass in pancreatic 7.8 by 8 c m. Multiple pancreatic calcifications compatible with chronic pancreatitis. SPLEEN: No evidence for splenomegaly. No intrasplenic lesions seen. ADRENALS: No adrenal nodules identified. No evidence for thickening. KIDNEYS: Renal atrophic changes with renal vascular calcifications noted. No evidence for renal mass. No nephrolithiasis. No hydronephrosis. Hemodialysis shunt catheter noted. Right pelvic transplanted kidney identified. BOWEL: Appendix has a normal appearance. No evidence of bowel obstruction. No inflammatory process. Lymph nodes: No evidence for adenopathy greater than 1 cm. Abdominal aorta: Atheromatous changes seen. No evidence for aneurysm. Genital organs: No significant abnormality. Other: Free fluid right paracolic gutter and adjacent to the hepatic edge. Masslike area identified o n the final image 73 of 73 measuring 3.6 x 7.9 cm is poorly characterized. Consider CT of the pelvis. Pelvic ultrasound may also be of value. IMPRESSION: 1. Pancreatic atrophy with changes of chronic pancreatitis and cystic dilatation of the pancreatic du ct. Cystic masslike area of the pancreatic head could reflect chronic pseudocyst. 2. Poorly defined masslike area within the small bowel mesentery identified on the last image. This c ould reflect a confluence of bowel however mass of other etiology is not excluded. 3. Cholelithiasis. 4. Renal atrophic changes. Partially imaged transplanted right pelvic kidney.
== END | disposition home or self-care (01) ==
LOC: RADCTMAIN 15:08
PROVIDERS: ATTEND Internal Medicine Infectious Disease
DX: K86.1 Other chronic pancreatitis (principal); K80.20 Calculus of gallbladder without cholecystitis without obstruction; N26.1 Atrophy of kidney (terminal); N39.0 Urinary tract infection, site not specified
CPT/HCPCS: 74150

== ENCOUNTER → 2019-12-05 | Day surgery (SDC) | payer MEDICAID, MEDICARE ==
[2019-12-03 13:23] VITALS: BMI 21.8
[2019-12-05 14:35] LABS: Glucose,Whole Blood 209 mg/dL (75-99)
[2019-12-05 14:40] VITALS: BP 92/54; PULSE 67; RESP 16; TEMP 98.7
== END ==
LOC: CATHCVL 14:38
PROVIDERS: ATTEND Internal Medicine Infectious Disease
DX: N39.0 Urinary tract infection, site not specified (principal); B95.2 Enterococcus as the cause of diseases classified elsewhere; Z16.21 Resistance to vancomycin; E11.22 Type 2 diabetes mellitus with diabetic chronic kidney disease; N18.6 End stage renal disease; C44.91 Basal cell carcinoma of skin, unspecified; I82.409 Acute embolism and thrombosis of unspecified deep veins of unspecified lower extremity; E78.5 Hyperlipidemia, unspecified; I12.0 Hypertensive chronic kidney disease with stage 5 chronic kidney disease or end stage renal disease; E03.9 Hypothyroidism, unspecified; C85.90 Non-Hodgkin lymphoma, unspecified, unspecified site; N42.9 Disorder of prostate, unspecified; Z86.14 Personal history of Methicillin resistant Staphylococcus aureus infection; Z99.2 Dependence on renal dialysis; Z79.2 Long term (current) use of antibiotics; Z79.01 Long term (current) use of anticoagulants; Z79.4 Long term (current) use of insulin; Z79.899 Other long term (current) drug therapy; Z79.890 Hormone replacement therapy; Z79.52 Long term (current) use of systemic steroids
CPT/HCPCS: 36410; C1751

== ENCOUNTER 2020-01-20 14:44 | Inpatient (IN) | payer MEDICAID, MEDICARE ==
[2020-01-20 15:07] LABS: Glucose,Whole Blood 131 mg/dL (75-99)
[2020-01-20 15:08] LABS: Glucose,Whole Blood 133 mg/dL (75-99)
[2020-01-20] MEDS ORDERED: ACETAMINOPHEN TAB 500 MG TAB PO STA (16:00)
--- NOTE | 2020-01-20 16:01 | ED ---
General Adult HPI - General Chief complaint: Recheck/Abnormal Lab/Rx Stated complaint: weak Time Seen by Provider: 01/20/20 15:09 Source: patient, family, RN notes reviewed Mode of arrival: wheelchair Limitations: no limitations - History of Present Illness Initial comments: Patient is a pleasant 64-year-old male presenting to the emergency Department w ith general weakness. Onset of symptoms was yesterday. is present and provides majority of history. Patient is a poor historian. Patient does have history of previous ring cancer with surgical excision. did not notice fever earlier today. She states she does take temperature daily. Patient does have chronic bilateral foot wounds, more right ankle. Patient was at [facility] Center and found to be weak with low blood sugar. Patient was sent to emergency department. Patient denies any specific complaints at this time. Patient is unable to or hand to place which states he normally can do. - Related Data Home Medications Medication Instructions Recorded Confirmed Finasteride 2.5 mg PO DAILY 07/04/16 01/20/20 Insulin Aspart (Niacinamide) 0.01 unit SQ-PUMP CONTINUOUS 11/05/18 01/20/20 [Fiasp 100 Unit/ml Vial] Iron Polysaccharide Complex 150 mg PO DAILY 11/05/18 01/20/20 [Ferrex 150] Levothyroxine Sodium 150 mcg PO DAILY 11/05/18 01/20/20 Tamsulosin [Flomax] 0.4 mg PO DAILY 11/05/18 01/20/20 Apixaban [Eliquis] 2.5 mg PO BID 09/16/19 01/20/20 Atorvastatin [Lipitor] 40 mg PO HS 09/16/19 01/20/20 Dialyvite 800-Zinc 15 Tab 0.8m 1 tab PO HS 09/16/19 01/20/20 Famotidine [Pepcid] 20 mg PO 09/16/19 01/20/20 Metoprolol Succinate [Toprol XL] 50 mg PO 09/16/19 01/20/20 Midodrine HCl [ProAmatine] 10 mg PO TID 09/16/19 01/20/20 Sevelamer Carbonate 1,600 mg PO AC-TID 09/16/19 01/20/20 calcitrioL [Calcitriol] 0.5 mg PO WE 09/16/19 01/20/20 predniSONE 5 mg PO DAILY 09/26/19 01/20/20 Potassium Chloride ER [K-Dur 10] 10 meq PO Q48H 01/20/20 01/20/20 Sevelamer [Renvela] 800 mg PO BID PRN 01/20/20 01/20/20 levETIRAcetam [Keppra] 500 mg PO Q12H 01/20/20 01/20/20 Previous Rx's Medication Instructions Recorded Sodium Bicarbonate Tab 650 mg PO BID #60 tab 09/18/19 Allergies Allergy/AdvReac Type Severity Reaction Status Date / Time No Known Allergies Allergy Verified 01/20/20 17:05 Review of Systems ROS Statement: Those systems with pertinent positive or pertinent negative responses have been documented in the HPI. ROS Other: All systems not noted in ROS Statement are negative. Constitutional: Denies: fever Eyes: Denies: eye pain ENT: Denies: throat pain Respiratory: Denies: cough, dyspnea Cardiovascular: Denies: chest pain Endocrine: Reports: fatigue Gastrointestinal: Denies: abdominal pain, vomiting Genitourinary: Denies: dysuria Musculoskeletal: Denies: back pain Skin: Denies: rash Neurological: Reports: as per HPI. Denies: headache Past Medical History Past Medical History: Atrial Fibrillation, Cancer, Diabetes Mellitus, Dialysis, Deep Vein Thrombosis (DVT), GERD/Reflux, Hyperlipidemia, Hypertension, Osteoarthritis (OA), Prostate Disorder, Renal Disease, Skin Disorder, Thyroid Disorder, Vascular Disorder Additional Past Medical History / Comment(s): hx vascular calcification, basal cell carcinoma nose removed 2010. 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 Left transmetatarsal amputation. basal cell carcinoma excision.BRAIN TUMOR REMOVED WITH CHEMO , brain hematoma drained. COLONOSCOPY Past Anesthesia/Blood Transfusion Reactions: No Reported Reaction Past Psychological History: No Psychological Hx Reported Past Alcohol Use History: None Reported Past Drug Use History: None Reported - Past Family History Mother Family Medical History: No Reported History Father Family Medical History: No Reported History Brother(s) Family Medical History: No Reported History Sister(s) Family Medical History: No Reported History Son(s) Family Medical History: No Reported History General Exam Limitations: no limitations General appearance: alert, in no apparent distress Head exam: Present: normocephalic Eye exam: Present: normal appearance ENT exam: Present: normal oropharynx Neck exam: Present: normal inspection. Absent: tenderness, meningismus Respiratory exam: Present: normal lung sounds bilaterally Cardiovascular Exam: Present: regular rate, normal rhythm GI/Abdominal exam: Present: soft. Absent: tenderness Extremities exam: Absent: tenderness Neurological exam: Present: alert Expanded Neurological exam: Present: protecting the airway Patient oriented to: Present: person. Absent: place, time Motor strength exam: RUE: 4, LUE: 4, RLE: 4, LLE: 4 Eye Response: (4) open spontaneously Motor Response: (6) obeys commands Verbal Response: (4) confused conversation Psychiatric exam: Present: normal affect, normal mood Skin exam: Present: normal color Course Vital Signs 01/20/20 01/20/20 01/20/20 14:56 15:32 16:00 Temperature 98.1 F 102.8 F H Pulse Rate 56 L 112 H Respiratory 19 18 14 Rate Blood Pressure 112/78 91/78 O2 Sat by Pulse 96 92 L Oximetry 01/20/20 01/20/20 01/20/20 16:30 17:00 17:30 Temperature Pulse Rate 110 H 105 H 99 Respiratory 14 18 14 Rate Blood Pressure 117/96 134/101 102/62 O2 Sat by Pulse 95 96 Oximetry 01/20/20 18:00 Temperature Pulse Rate 99 Respiratory 15 Rate Blood Pressure 92/63 O2 Sat by Pulse 97 Oximetry - Reevaluation(s) Reevaluation #1: 01/20/20 16:48 Patient given fluid bolus of 2500 mL. 77 kg 30 mL/kg equals 2300 mL. 01/20/20 17:45 There is concern for septic shock diagnosed at 1730. Blood culture and lactic acid and fluid bolus all ordered. IV antibiotics have been ordered. 01/20/20 18:08 Case was discussed with Dr. Villar who did come evaluate this patient and will admit. EKG Findings - EKG Comments: EKG Findings:: A. fib with RVR, rate 120. Motion artifact present. QRS 82. QT 304. QTC 429. Normal axis. Low QRS voltage. Nonspecific ST-T. Procedures - Sepsis Sepsis Focused Exam #1 Time Sepsis Criteria Met: 17:30 Sepsis Focused Exam Date: 01/20/20 Sepsis Focused Exam Time: 18:13 Sepsis Focused Exam Complete: Yes Vital Signs & RN Notes Reviewed: Yes Capillary Refill: < 2 Seconds: Fingers, Toes Peripheral Pulses: Normal: Radial (R), Radial (L) Skin Color: Normal for Patient Respiratory Exam: normal lung sounds Cardiovascular Exam: regular rate, normal rhythm Medical Decision Making - Medical Decision Making Patient reevaluated. Patient and family updated on results and plan. Dr. Briggs has been paged for admission. states patient has had similar problems to this previously with urinary tract infections. - Lab Data Result diagrams: 01/20/20 16:06 01/20/20 16:06 Lab Results 01/20/20 01/20/20 01/20/20 Range/Units 14:56 15:07 16:06 WBC 6.3 (3.8-10.6) k/uL RBC 3.70 L (4.30-5.90) m/uL Hgb 11.2 L (13.0-17.5) gm/dL Hct 35.6 L (39.0-53.0) % MCV 96.4 D (80.0-100.0) fL MCH 30.2 (25.0-35.0) pg MCHC 31.3 (31.0-37.0) g/dL RDW 15.4 (11.5-15.5) % Plt Count 112 L (150-450) k/uL Neutrophils % 69 % Lymphocytes % 22 % Monocytes % 7 % Eosinophils % 1 % Basophils % 1 % Neutrophils # 4.3 (1.3-7.7) k/uL Lymphocytes # 1.4 (1.0-4.8) k/uL Monocytes # 0.4 (0-1.0) k/uL Eosinophils # 0.0 (0-0.7) k/uL Basophils # 0.1 (0-0.2) k/uL Hypochromasia Slight PT (9.0-12.0) sec INR (<1.2) APTT (22.0-30.0) sec Sodium (137-145) mmol/L Potassium (3.5-5.1) mmol/L Chloride (98-107) mmol/L Carbon Dioxide (22-30) mmol/L Anion Gap mmol/L BUN (9-20) mg/dL Creatinine (0.66-1.25) mg/dL Est GFR (CKD-EPI)AfAm (>60 ml/min/1.73 sqM) Est GFR (CKD-EPI)NonAf (>60 ml/min/1.73 sqM) Glucose (74-99) mg/dL POC Glucose (mg/dL) 131 H 133 H (75-99) mg/dL POC Glu Accounts Administrator Aggie Rodriguez [place] Plasma Lactic Acid Chavez (0.7-2.0) mmol/L Calcium (8.4-10.2) mg/dL Total Bilirubin (0.2-1.3) mg/dL AST (17-59) U/L ALT (4-49) U/L Alkaline Phosphatase (38-126) U/L Creatine Kinase (55-170) U/L CK-MB (CK-2) (0.0-2.4) ng/mL Troponin I (0.000-0.034) ng/mL C-Reactive Protein (<10.0) mg/L Total Protein (6.3-8.2) g/dL Albumin (3.5-5.0) g/dL Urine Color Urine Appearance (Clear) Urine pH (5.0-8.0) Ur Specific Blackstone (1.001-1.035) Urine Protein (Negative) Urine Glucose (UA) (Negative) Urine Ketones (Negative) Urine Blood (Negative) Urine Nitrite (Negative) Urine Bilirubin (Negative) Urine Urobilinogen (<2.0) mg/dL Ur Leukocyte Esterase (Negative) Urine RBC (0-5) /hpf Urine WBC (0-5) /hpf Urine Bacteria (None) /hpf Urine Mucus (None) /hpf 01/20/20 01/20/20 01/20/20 Range/Units 16:06 16:06 16:06 WBC (3.8-10.6) k/uL RBC (4.30-5.90) m/uL Hgb (13.0-17.5) gm/dL Hct (39.0-53.0) % MCV (80.0-100.0) fL MCH (25.0-35.0) pg MCHC (31.0-37.0) g/dL RDW (11.5-15.5) % Plt Count (150-450) k/uL Neutrophils % % Lymphocytes % % Monocytes % % Eosinophils % % Basophils % % Neutrophils # (1.3-7.7) k/uL Lymphocytes # (1.0-4.8) k/uL Monocytes # (0-1.0) k/uL Eosinophils # (0-0.7) k/uL Basophils # (0-0.2) k/uL Hypochromasia PT 27.1 H (9.0-12.0) sec INR 2.8 H (<1.2) APTT 33.2 H (22.0-30.0) sec Sodium 131 L (137-145) mmol/L Potassium 3.9 (3.5-5.1) mmol/L Chloride 100 (98-107) mmol/L Carbon Dioxide 18 L (22-30) mmol/L Anion Gap 13 mmol/L BUN 69 H (9-20) mg/dL Creatinine 9.11 H* (0.66-1.25) mg/dL Est GFR (CKD-EPI)AfAm 6 (>60 ml/min/1.73 sqM) Est GFR (CKD-EPI)NonAf 5 (>60 ml/min/1.73 sqM) Glucose 139 H (74-99) mg/dL POC Glucose (mg/dL) (75-99) mg/dL POC Glu Accounts Administrator ID Plasma Lactic Acid Chavez 4.4 H* (0.7-2.0) mmol/L Calcium 7.9 L (8.4-10.2) mg/dL Total Bilirubin 0.4 (0.2-1.3) mg/dL AST 23 (17-59) U/L ALT 19 (4-49) U/L Alkaline Phosphatase 90 (38-126) U/L Creatine Kinase 108 (55-170) U/L CK-MB (CK-2) (0.0-2.4) ng/mL Troponin I (0.000-0.034) ng/mL C-Reactive Protein 55.0 H (<10.0) mg/L Total Protein 4.6 L (6.3-8.2) g/dL Albumin 2.1 L (3.5-5.0) g/dL Urine Color Urine Appearance (Clear) Urine pH (5.0-8.0) Ur Specific [place] (1.001-1.035) Urine Protein (Negative) Urine Glucose (UA) (Negative) Urine Ketones (Negative) Urine Blood (Negative) Urine Nitrite (Negative) Urine Bilirubin (Negative) Urine Urobilinogen (<2.0) mg/dL Ur Leukocyte Esterase (Negative) Urine RBC (0-5) /hpf Urine WBC (0-5) /hpf Urine Bacteria (None) /hpf Urine Mucus (None) /hpf 01/20/20 01/20/20 Range/Units 16:06 16:45 WBC (3.8-10.6) k/uL RBC (4.30-5.90) m/uL Hgb (13.0-17.5) gm/dL Hct (39.0-53.0) % MCV (80.0-100.0) fL MCH (25.0-35.0) pg MCHC (31.0-37.0) g/dL RDW (11.5-15.5) % Plt Count (150-450) k/uL Neutrophils % % Lymphocytes % % Monocytes % % Eosinophils % % Basophils % % Neutrophils # (1.3-7.7) k/uL Lymphocytes # (1.0-4.8) k/uL Monocytes # (0-1.0) k/uL Eosinophils # (0-0.7) k/uL Basophils # (0-0.2) k/uL Hypochromasia PT (9.0-12.0) sec INR (<1.2) APTT (22.0-30.0) sec Sodium (137-145) mmol/L Potassium (3.5-5.1) mmol/L Chloride (98-107) mmol/L Carbon Dioxide (22-30) mmol/L Anion Gap mmol/L BUN (9-20) mg/dL Creatinine (0.66-1.25) mg/dL Est GFR (CKD-EPI)AfAm (>60 ml/min/1.73 sqM) Est GFR (CKD-EPI)NonAf (>60 ml/min/1.73 sqM) Glucose (74-99) mg/dL POC Glucose (mg/dL) (75-99) mg/dL POC Glu Accounts Administrator ID Plasma Lactic Acid Chavez (0.7-2.0) mmol/L Calcium (8.4-10.2) mg/dL Total Bilirubin (0.2-1.3) mg/dL AST (17-59) U/L ALT (4-49) U/L Alkaline Phosphatase (38-126) U/L Creatine Kinase (55-170) U/L CK-MB (CK-2) 2.4 (0.0-2.4) ng/mL Troponin I 0.016 (0.000-0.034) ng/mL C-Reactive Protein (<10.0) mg/L Total Protein (6.3-8.2) g/dL Albumin (3.5-5.0) g/dL Urine Color Light Yellow Urine Appearance Cloudy (Clear) Urine pH 8.5 H (5.0-8.0) Ur Specific [place] 1.006 (1.001-1.035) Urine Protein Trace H (Negative) Urine Glucose (UA) Negative (Negative) Urine Ketones Negative (Negative) Urine Blood Large H (Negative) Urine Nitrite Negative (Negative) Urine Bilirubin Negative (Negative) Urine Urobilinogen <2.0 (<2.0) mg/dL Ur Leukocyte Esterase Large H (Negative) Urine RBC 33 H (0-5) /hpf Urine WBC 174 H (0-5) /hpf Urine Bacteria Rare H (None) /hpf Urine Mucus Rare H (None) /hpf Critical Care Time Critical Care Time: Yes Total Critical Care Time: 34 Disposition Clinical Impression: Urinary tract infection, Septic shock Disposition: ADMITTED IP TO THIS HOSP Condition: Serious Is patient prescribed a controlled substance at d/c from ED?: No Decision Time: 17:46
[2020-01-20] MEDS: SODIUM CHLORIDE 0.9% 1,000 ML IV SCH (16:11)
[2020-01-20] MEDS: SODIUM CHLORIDE 0.9% 500 ML 500 ML IV SCH (16:11)
[2020-01-20 16:13] LABS: Basophils # (A) 0.1 k/uL (0-0.2); Basophils % (A) 1 %; Eosinophils % (A) 1 %; HCT 35.6 % (39.0-53.0); HGB 11.2 gm/dL (13.0-17.5); Hypochromasia Slight; Lymphocytes # (A) 1.4 k/uL (1.0-4.8); Lymphocytes % (A) 22 %; MCH 30.2 pg (25.0-35.0); MCHC 31.3 g/dL (31.0-37.0); Mean Platelet Volume 10.4; Monocytes # (A) 0.4 k/uL (0-1.0); Monocytes % (A) 7 %; Neutrophils # (A) 4.3 k/uL (1.3-7.7); Neutrophils % (A) 69 %; Platelet Count 112 k/uL (150-450); RDW 15.4 % (11.5-15.5); WBC 6.3 k/uL (3.8-10.6)
[2020-01-20 16:20] LABS: MCV 96.4 fL (80.0-100.0)
[2020-01-20 16:23] LABS: INR 2.8 (<1.2); Partial Thromboplastin Time 33.2 sec (22.0-30.0); Prothrombin Time 27.1 sec (9.0-12.0)
[2020-01-20] MEDS ORDERED: SODIUM CHLORIDE 0.9% 500 ML 500 ML IV STA (16:25)
[2020-01-20] MEDS ORDERED: SODIUM CHLORIDE 0.9% 1,000 ML IV STA (16:25)
[2020-01-20 16:26] LABS: Creatine Kinase MB 2.4 ng/mL (0.0-2.4); Troponin I 0.016 ng/mL (0.000-0.034)
[2020-01-20 16:33] LABS: Albumin 2.1 g/dL (3.5-5.0); Calcium 7.9 mg/dL (8.4-10.2); Potassium 3.9 mmol/L (3.5-5.1); Total Bilirubin 0.4 mg/dL (0.2-1.3); Total Protein 4.6 g/dL (6.3-8.2)
--- NOTE | 2020-01-20 16:34 | XR ---
EXAMINATION TYPE: XR chest 2V DATE OF EXAM: 01/20/2020 COMPARISON: 10/14/2019 INDICATION: Fever TECHNIQUE: Frontal and lateral views of the chest are obtained. FINDINGS: The heart size is normal. The pulmonary vasculature is normal. The lungs are clear. IMPRESSION: 1. No acute pulmonary process.
[2020-01-20 17:15] LABS: Appearance,Urine Cloudy (Clear); Bacteria,Urine Rare /hpf; Bilirubin,Urine Negative (Negative); Blood,Urine Large (Negative); Color,Urine Light Yellow; Glucose,Urine (UA) Negative (Negative); Ketones,Urine Negative (Negative); Leukocyte Esterase,Urine Large (Negative); Mucus,Urine Rare /hpf; Nitrite,Urine Negative (Negative); PH, Urine 8.5 (5.0-8.0); Protein,Urine Trace (Negative); RBC,Urine 33 /hpf (0-5); Specific Gravity,Urine 1.006 (1.001-1.035); Urobilinogen,Urine <2.0 mg/dL (<2.0); WBC,Urine 174 /hpf (0-5)
[2020-01-20] MEDS ORDERED: ACETAMINOPHEN TAB 325 MG TAB PO PRN (17:46)
[2020-01-20] MEDS ORDERED: NALOXONE 0.4 MG/ML 1 ML VIAL IV PRN (17:46)
[2020-01-20] MEDS ORDERED: SEVELAMER 800 MG TAB PO PRN (17:55)
[2020-01-20] MEDS ORDERED: INSULIN ASPART SQ-PUMP SCH (18:00)
[2020-01-20] MEDS ORDERED: NIACINAMIDE SQ-PUMP SCH (18:00)
[2020-01-20] MEDS: APIXABAN 2.5 MG TABLET PO SCH (20:53)
[2020-01-20] MEDS: levETIRAcetam 500 MG TAB PO SCH (20:53)
[2020-01-20] MEDS: FAMOTIDINE 20 MG TAB PO SCH (20:53)
[2020-01-20] MEDS: SODIUM BICARBONATE TAB 650 MG TAB PO SCH (20:53)
[2020-01-20] MEDS: ATORVASTATIN 40 MG TAB PO SCH (20:53)
[2020-01-20] MEDS: METOPROLOL SUCCINATE (ER) 50 MG TAB.ER.24H PO SCH (20:59)
[2020-01-20] MEDS: FOLIC ACID-VIT B COMPLEX-VIT C 1 CAP PO SCH (21:16)
[2020-01-21 06:21] LABS: Glucose,Whole Blood 281 mg/dL (75-99)
[2020-01-21 07:11] LABS: Albumin 1.8 g/dL (3.5-5.0); Calcium 7.3 mg/dL (8.4-10.2); Potassium 4.2 mmol/L (3.5-5.1); Total Bilirubin 0.4 mg/dL (0.2-1.3); Total Protein 3.9 g/dL (6.3-8.2)
[2020-01-21 07:44] LABS: Basophils % (A) 0 %; Eosinophils % (A) 1 %; HCT 33.8 % (39.0-53.0); HGB 10.4 gm/dL (13.0-17.5); Hypochromasia Slight; Lymphocytes # (A) 0.8 k/uL (1.0-4.8); Lymphocytes % (A) 14 %; MCHC 30.9 g/dL (31.0-37.0); Mean Platelet Volume 9.6; Monocytes # (A) 0.6 k/uL (0-1.0); Monocytes % (A) 11 %; Neutrophils % (A) 73 %; RBC 3.49 m/uL (4.30-5.90); RDW 15.2 % (11.5-15.5); WBC 5.4 k/uL (3.8-10.6)
[2020-01-21 08:01] LABS: Platelet Count 94 k/uL (150-450)
[2020-01-21] MEDS ORDERED: PANTOPRAZOLE 40 MG/10 ML VIAL IV SCH (09:00)
[2020-01-21] MEDS: SODIUM CHLORIDE 0.9% 1,000 ML IV SCH ×3 (09:25→16:40)
[2020-01-21] MEDS: SEVELAMER 800 MG TAB PO SCH ×3 (09:33→16:51)
[2020-01-21] MEDS: levETIRAcetam 500 MG TAB PO SCH ×2 (09:36→20:52)
[2020-01-21] MEDS: SODIUM BICARBONATE TAB 650 MG TAB PO SCH ×2 (09:36→20:51)
[2020-01-21] MEDS: LEVOTHYROXINE 75 MCG TAB PO SCH (09:37)
[2020-01-21] MEDS: FINASTERIDE 5 MG TAB PO SCH (09:37)
[2020-01-21] MEDS: APIXABAN 2.5 MG TABLET PO SCH ×2 (09:38→20:52)
[2020-01-21] MEDS: TAMSULOSIN 0.4 MG CAP.ER.24H PO SCH (09:38)
[2020-01-21] MEDS: MIDODRINE 5 MG TAB PO SCH ×3 (09:38→16:51)
[2020-01-21] MEDS: POTASSIUM CHLORIDE ER 10 MEQ TAB.ER.PRT PO SCH (09:38)
[2020-01-21] MEDS: predniSONE 5 MG TAB PO SCH (09:42)
--- NOTE | 2020-01-21 12:32 | P.CONS ---
History of Present Illness - Reason for Consult Consult date: 01/21/20 wound care - History of Present Illness This is a 64-year-old pleasant gentleman who is known to the wound care center with nonhealing ulcerations to the left lateral foot, right lateral calcaneus, right calcaneus, and right dorsal foot. Patient has history of brain CA status post radiation and chemotherapy. His last chemotherapy was in June 2017. Patient was seen in the past by Dr. Goff with a post-Transmetatarsal indentation to the left foot, patient was seen in the wound care center yesterday and it was noted his ulcerations have declined. A oral antibiotic was given. Upon discharge patient became increasingly weak and confused which is not normal and was sent to the ER for evaluation. Review of Systems Review Of Systems: Constitutional: No fever, no chills, no night sweats. No weight change. No weakness, fatigue or lethargy. No daytime sleepiness. Integumentary:reports wounds, no lesions. No rash or pruritus. No unusual bruising. No change in hair or nails. Past Medical History Past Medical History: Atrial Fibrillation, Cancer, Diabetes Mellitus, Dialysis, Deep Vein Thrombosis (DVT), GERD/Reflux, Hyperlipidemia, Hypertension, Osteoarthritis (OA), Prostate Disorder, Renal Disease, Skin Disorder, Thyroid Disorder, Vascular Disorder Additional Past Medical History / Comment(s): hx vascular calcification, basal cell carcinoma nose removed 2010. 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 Left transmetatarsal amputation. basal cell carcinoma excision.BRAIN TUMOR REMOVED WITH CHEMO , brain hematoma drained. COLONOSCOPY Past Anesthesia/Blood Transfusion Reactions: No Reported Reaction Past Psychological History: No Psychological Hx Reported Smoking Status: Never smoker Past Alcohol Use History: None Reported Past Drug Use History: None Reported - Past Family History Mother Family Medical History: No Reported History Father Family Medical History: No Reported History Brother(s) Family Medical History: No Reported History Sister(s) Family Medical History: No Reported History Son(s) Family Medical History: No Reported History Medications and Allergies Home Medications Medication Instructions Recorded Confirmed Type Finasteride 2.5 mg PO DAILY 07/04/16 01/20/20 History Insulin Aspart (Niacinamide) 0.01 unit SQ-PUMP CONTINUOUS 11/05/18 01/20/20 History [Fiasp 100 Unit/ml Vial] Iron Polysaccharide Complex 150 mg PO DAILY 11/05/18 01/20/20 History [Ferrex 150] Levothyroxine Sodium 150 mcg PO DAILY 11/05/18 01/20/20 History Tamsulosin [Flomax] 0.4 mg PO DAILY 11/05/18 01/20/20 History Apixaban [Eliquis] 2.5 mg PO BID 09/16/19 01/20/20 History Atorvastatin [Lipitor] 40 mg PO HS 09/16/19 01/20/20 History Dialyvite 800-Zinc 15 Tab 0.8m 1 tab PO HS 09/16/19 01/20/20 History Famotidine [Pepcid] 20 mg PO HS 09/16/19 01/20/20 History Metoprolol Succinate [Toprol XL] 50 mg PO HS 09/16/19 01/20/20 History Midodrine HCl [ProAmatine] 10 mg PO TID 09/16/19 01/20/20 History Sevelamer Carbonate 1,600 mg PO AC-TID 09/16/19 01/20/20 History calcitrioL [Calcitriol] 0.5 mg PO WE 09/16/19 01/20/20 History Sodium Bicarbonate Tab 650 mg PO BID #60 tab 09/18/19 01/20/20 Rx predniSONE 5 mg PO DAILY 09/26/19 01/20/20 History Potassium Chloride ER [K-Dur 10] 10 meq PO Q48H 01/20/20 01/20/20 History Sevelamer [Renvela] 800 mg PO BID PRN 01/20/20 01/20/20 History levETIRAcetam [Keppra] 500 mg PO Q12H 01/20/20 01/20/20 History Allergies Allergy/AdvReac Type Severity Reaction Status Date / Time No Known Allergies Allergy Verified 01/20/20 17:05 Physical Exam Vitals: Vital Signs Temp Pulse Pulse Resp BP BP Pulse Ox 01/21/20 12:00 98.1 F 82 18 125/57 98 01/21/20 11:03 102 H 01/21/20 08:00 98.4 F 102 H 18 118/89 92 L 01/21/20 05:17 98.7 F 66 16 89/67 95 01/21/20 04:40 98.5 F 101 H 18 100/66 97 01/21/20 02:00 98.0 F 95 16 98/56 96 01/20/20 22:58 98.6 F 93 16 87/48 98 01/20/20 21:17 102 H 16 89/49 96 01/20/20 20:57 90 16 85/62 99 01/20/20 19:04 99.1 F 01/20/20 18:12 100.1 F H 01/20/20 18:00 99 15 92/63 97 01/20/20 17:30 99 14 102/62 96 01/20/20 17:00 105 H 18 134/101 01/20/20 16:30 110 H 14 117/96 95 01/20/20 16:00 14 91/78 01/20/20 15:32 102.8 F H 112 H 18 112/78 92 L 01/20/20 14:56 98.1 F 56 L 19 96 Intake and Output 01/20/20 01/21/20 01/21/20 22:59 06:59 14:59 Other: Weight 77.111 kg 71.5 kg Physical exam: General Appearance: Alert, cooperative, no distress, appears stated age. Skin: Right lateral calcaneus is a grade 2 diabetic foot ulceration with fatty layer exposure measuring approximate 4.6 x 1.7 x 0.1 cm there is no tunneling or undermining small amount of serous drainage, wound margins distinct, there is no granulation seen with the wound bed. A large amount of necrotic tissue that includes adherent Slough. Right dorsal foot ulceration is a diabetic foot ulceration secondary to pressure grade 2 with fatty layer exposure measuring approximately 3.8 x 2.2 x 0.1 cm there is no tunneling or undermining noted small amount of serous drainage the wound margin is indistinct and a visible. Is no granulation seen within the wound bed. A large amount of necrotic tissue including adherent Slough. Right calcaneus ulceration is diabetic foot ulceration with fatty layer exposure measuring 2.5 x 2.5 x 0.1 cm there is a small amount of serous drainage noted the wound margin is indistinct and an visible there is a medium amount of granulation seen within the wound bed and immediately amount of adherent Slough. Left lateral foot ulceration is a diabetic foot ulceration measuring 2.7 x 0.9 x 0.3 cm with fat layer exposure undermining noted to the distal portion of the ulceration small amount of serous drainage noted a large amount of granulation seen within the wound bed and a small amount of necrotic tissue including adherent Slough. all other Skin color, texture, tugor normal, no rashes or lesions. Neurologic: Alert oriented x3 Results CBC & Chem 7: 01/21/20 06:38 01/21/20 06:38 Labs: Abnormal Lab Results - Last 24 Hours (Table) 01/20/20 01/20/20 01/20/20 Range/Units 14:56 15:07 16:06 RBC 3.70 L (4.30-5.90) m/uL Hgb 11.2 L (13.0-17.5) gm/dL Hct 35.6 L (39.0-53.0) % MCHC (31.0-37.0) g/dL Plt Count 112 L (150-450) k/uL Lymphocytes # (1.0-4.8) k/uL PT (9.0-12.0) sec INR (<1.2) APTT (22.0-30.0) sec Sodium (137-145) mmol/L Carbon Dioxide (22-30) mmol/L BUN (9-20) mg/dL Creatinine (0.66-1.25) mg/dL Glucose (74-99) mg/dL POC Glucose (mg/dL) 131 H 133 H (75-99) mg/dL Plasma Lactic Acid Chavez (0.7-2.0) mmol/L Calcium (8.4-10.2) mg/dL Troponin I (0.000-0.034) ng/mL C-Reactive Protein (<10.0) mg/L Total Protein (6.3-8.2) g/dL Albumin (3.5-5.0) g/dL Urine pH (5.0-8.0) Urine Protein (Negative) Urine Blood (Negative) Ur Leukocyte Esterase (Negative) Urine RBC (0-5) /hpf Urine WBC (0-5) /hpf Urine Bacteria (None) /hpf Urine Mucus (None) /hpf 01/20/20 01/20/20 01/20/20 Range/Units 16:06 16:06 16:06 RBC (4.30-5.90) m/uL Hgb (13.0-17.5) gm/dL Hct (39.0-53.0) % MCHC (31.0-37.0) g/dL Plt Count (150-450) k/uL Lymphocytes # (1.0-4.8) k/uL PT 27.1 H (9.0-12.0) sec INR 2.8 H (<1.2) APTT 33.2 H (22.0-30.0) sec Sodium 131 L (137-145) mmol/L Carbon Dioxide 18 L (22-30) mmol/L BUN 69 H (9-20) mg/dL Creatinine 9.11 H* (0.66-1.25) mg/dL Glucose 139 H (74-99) mg/dL POC Glucose (mg/dL) (75-99) mg/dL Plasma Lactic Acid Chavez 4.4 H* (0.7-2.0) mmol/L Calcium 7.9 L (8.4-10.2) mg/dL Troponin I (0.000-0.034) ng/mL C-Reactive Protein 55.0 H (<10.0) mg/L Total Protein 4.6 L (6.3-8.2) g/dL Albumin 2.1 L (3.5-5.0) g/dL Urine pH (5.0-8.0) Urine Protein (Negative) Urine Blood (Negative) Ur Leukocyte Esterase (Negative) Urine RBC (0-5) /hpf Urine WBC (0-5) /hpf Urine Bacteria (None) /hpf Urine Mucus (None) /hpf 01/20/20 01/20/20 01/21/20 Range/Units 16:45 21:19 06:19 RBC (4.30-5.90) m/uL Hgb (13.0-17.5) gm/dL Hct (39.0-53.0) % MCHC (31.0-37.0) g/dL Plt Count (150-450) k/uL Lymphocytes # (1.0-4.8) k/uL PT (9.0-12.0) sec INR (<1.2) APTT (22.0-30.0) sec Sodium (137-145) mmol/L Carbon Dioxide (22-30) mmol/L BUN (9-20) mg/dL Creatinine (0.66-1.25) mg/dL Glucose (74-99) mg/dL POC Glucose (mg/dL) 281 H (75-99) mg/dL Plasma Lactic Acid Chavez (0.7-2.0) mmol/L Calcium (8.4-10.2) mg/dL Troponin I 0.035 H* (0.000-0.034) ng/mL C-Reactive Protein (<10.0) mg/L Total Protein (6.3-8.2) g/dL Albumin (3.5-5.0) g/dL Urine pH 8.5 H (5.0-8.0) Urine Protein Trace H (Negative) Urine Blood Large H (Negative) Ur Leukocyte Esterase Large H (Negative) Urine RBC 33 H (0-5) /hpf Urine WBC 174 H (0-5) /hpf Urine Bacteria Rare H (None) /hpf Urine Mucus Rare H (None) /hpf 01/21/20 01/21/20 Range/Units 06:38 06:38 RBC 3.49 L (4.30-5.90) m/uL Hgb 10.4 L (13.0-17.5) gm/dL Hct 33.8 L (39.0-53.0) % MCHC 30.9 L (31.0-37.0) g/dL Plt Count 94 L (150-450) k/uL Lymphocytes # 0.8 L (1.0-4.8) k/uL PT (9.0-12.0) sec INR (<1.2) APTT (22.0-30.0) sec Sodium 134 L (137-145) mmol/L Carbon Dioxide 19 L (22-30) mmol/L BUN 76 H (9-20) mg/dL Creatinine 9.16 H* (0.66-1.25) mg/dL Glucose 200 H (74-99) mg/dL POC Glucose (mg/dL) (75-99) mg/dL Plasma Lactic Acid Chavez (0.7-2.0) mmol/L Calcium 7.3 L (8.4-10.2) mg/dL Troponin I (0.000-0.034) ng/mL C-Reactive Protein (<10.0) mg/L Total Protein 3.9 L (6.3-8.2) g/dL Albumin 1.8 L (3.5-5.0) g/dL Urine pH (5.0-8.0) Urine Protein (Negative) Urine Blood (Negative) Ur Leukocyte Esterase (Negative) Urine RBC (0-5) /hpf Urine WBC (0-5) /hpf Urine Bacteria (None) /hpf Urine Mucus (None) /hpf Microbiology - Last 24 Hours (Table) 01/20/20 17:05 Blood Culture - Final Blood 01/20/20 16:45 Urine Culture - Preliminary Urine,Catheterized Assessment and Plan (1) Pressure ulcer of right heel, stage 2 Current Visit: Yes Status: Acute Code(s): L89.612 - PRESSURE ULCER OF RIGHT HEEL, STAGE 2 SNOMED Code(s): 390724047 (2) Non-healing ulcer of left foot with fat layer exposed Current Visit: Yes Status: Acute Code(s): L97.522 - NON-PRS CHRONIC ULCER OTH PRT LEFT FOOT W FAT LAYER EXPOSED SNOMED Code(s): 303475668 (3) Diabetic ulcer of left foot associated with diabetes mellitus due to underlying condition, with fat layer exposed Current Visit: No Status: Acute Code(s): E08.621 - DIABETES MELLITUS DUE TO UNDERLYING CONDITION W FOOT ULCER; L97.522 - NON-PRS CHRONIC ULCER OTH PRT LEFT FOOT W FAT LAYER EXPOSED SNOMED Code(s): 177293782 Plan: Apply absoprtive silver, saline moistened gauze, foam, and rolled gauze secured with tape. Patient should wear owl boots when ambulating. Apply foam heel boots when resting in bed. Patient to return to the wound care center upon discharge his next scheduled appointment is 01/27/2020 at 1245. Thank you kindly for the consultation any questions please contact the wound care center DNP note has been reviewed and discussed with Dr. Goff and the impression and plan of care has been directed as dictated.
[2020-01-21 12:36] LABS: Glucose,Whole Blood 196 mg/dL (75-99)
[2020-01-21] MEDS ORDERED: DIALYSIS (PERIT 1.5%) 2,500 ML 30 G/2,000 ML BAG INTRAPERIT SCH (13:00)
[2020-01-21] MEDS ORDERED: VANCOMYCIN IV PER PHARMACY 1 EACH MISC MISCELLANE PRN (13:33)
[2020-01-21] MEDS: IRON POLYSACCHARIDES COMPLEX 150 MG CAP PO SCH (13:39)
[2020-01-21] MEDS ORDERED: VANCOMYCIN 1,250 MG in SODIUM CHLORIDE 0.9% 250 ML IVPB ONE (14:00)
--- NOTE | 2020-01-21 14:43 | P.CRDCN ---
History of Present Illness Consult date: 01/21/20 History of present illness: This is a very pleasant 64-year-old gentleman with an extensive medical history consistent off long-standing persistent atrial fibrillation on oral anticoagulation, hypertension, dyslipidemia, and history of chronic bilateral lower extremities ulcers where the patient does follow at the wound clinic was brought by his family to the hospital for further evaluation off generalized weakness associated with fever. The patient was diagnosed with urinary tract infection/sepsis and he was admitted and started on antibiotic. We involved in the care of the patient because of abnormal troponin. Clinically the patient denies any symptoms of chest pain or chest discomfort, shortness of breath, dizziness, heart racing or syncope. He denies any history of coronary artery disease. No coronary revascularization in the past. When he presented to the hospital the EKG showed A. fib with RVR and he was quite tachycardic. During this hospital stay, the creatinine is elevated. Currently he is on statin as well as metoprolol as well as oral anticoagulation. The chest x-ray did not show any acute abnormalities. Please note that the patient does have end stage renal disease and he is also on peritoneal dialysis. Also please note that the patient's somewhat is a poor historian. Past Medical History Past Medical History: Atrial Fibrillation, Cancer, Diabetes Mellitus, Dialysis, Deep Vein Thrombosis (DVT), GERD/Reflux, Hyperlipidemia, Hypertension, Osteoarthritis (OA), Prostate Disorder, Renal Disease, Skin Disorder, Thyroid Disorder, Vascular Disorder Additional Past Medical History / Comment(s): hx vascular calcification, basal cell carcinoma nose removed 2010. 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 Left transmetatarsal amputation. basal cell carcinoma excision.BRAIN TUMOR REMOVED WITH CHEMO , brain hematoma drained. COLONOSCOPY Past Anesthesia/Blood Transfusion Reactions: No Reported Reaction Past Psychological History: No Psychological Hx Reported Smoking Status: Never smoker Past Alcohol Use History: None Reported Past Drug Use History: None Reported - Past Family History Mother Family Medical History: No Reported History Father Family Medical History: No Reported History Brother(s) Family Medical History: No Reported History Sister(s) Family Medical History: No Reported History Son(s) Family Medical History: No Reported History Medications and Allergies Home Medications Medication Instructions Recorded Confirmed Type Finasteride 2.5 mg PO DAILY 07/04/16 01/20/20 History Insulin Aspart (Niacinamide) 0.01 unit SQ-PUMP CONTINUOUS 11/05/18 01/20/20 History [Fiasp 100 Unit/ml Vial] Iron Polysaccharide Complex 150 mg PO DAILY 11/05/18 01/20/20 History [Ferrex 150] Levothyroxine Sodium 150 mcg PO DAILY 11/05/18 01/20/20 History Tamsulosin [Flomax] 0.4 mg PO DAILY 11/05/18 01/20/20 History Apixaban [Eliquis] 2.5 mg PO BID 09/16/19 01/20/20 History Atorvastatin [Lipitor] 40 mg PO HS 09/16/19 01/20/20 History Dialyvite 800-Zinc 15 Tab 0.8m 1 tab PO HS 09/16/19 01/20/20 History Famotidine [Pepcid] 20 mg PO HS 09/16/19 01/20/20 History Metoprolol Succinate [Toprol XL] 50 mg PO HS 09/16/19 01/20/20 History Midodrine HCl [ProAmatine] 10 mg PO TID 09/16/19 01/20/20 History Sevelamer Carbonate 1,600 mg PO AC-TID 09/16/19 01/20/20 History calcitrioL [Calcitriol] 0.5 mg PO WE 09/16/19 01/20/20 History Sodium Bicarbonate Tab 650 mg PO BID #60 tab 09/18/19 01/20/20 Rx predniSONE 5 mg PO DAILY 09/26/19 01/20/20 History Potassium Chloride ER [K-Dur 10] 10 meq PO Q48H 01/20/20 01/20/20 History Sevelamer [Renvela] 800 mg PO BID PRN 01/20/20 01/20/20 History levETIRAcetam [Keppra] 500 mg PO Q12H 01/20/20 01/20/20 History Allergies Allergy/AdvReac Type Severity Reaction Status Date / Time No Known Allergies Allergy Verified 01/20/20 17:05 Physical Exam Vitals: Vital Signs Temp Pulse Pulse Resp BP BP Pulse Ox 01/21/20 12:00 98.1 F 82 18 125/57 98 01/21/20 11:03 102 H 01/21/20 08:00 98.4 F 102 H 18 118/89 92 L 01/21/20 05:17 98.7 F 66 16 89/67 95 01/21/20 04:40 98.5 F 101 H 18 100/66 97 01/21/20 02:00 98.0 F 95 16 98/56 96 01/20/20 22:58 98.6 F 93 16 87/48 98 01/20/20 21:17 102 H 16 89/49 96 01/20/20 20:57 90 16 85/62 99 01/20/20 19:04 99.1 F 01/20/20 18:12 100.1 F H 01/20/20 18:00 99 15 92/63 97 01/20/20 17:30 99 14 102/62 96 01/20/20 17:00 105 H 18 134/101 01/20/20 16:30 110 H 14 117/96 95 01/20/20 16:00 14 91/78 01/20/20 15:32 102.8 F H 112 H 18 112/78 92 L 01/20/20 14:56 98.1 F 56 L 19 96 Intake and Output 01/20/20 01/21/20 01/21/20 22:59 06:59 14:59 Other: Weight 77.111 kg 71.5 kg 71.5 kg - Constitutional General appearance: no acute distress - Respiratory Respiratory: bilateral: diminished - Cardiovascular Rhythm: irregularly irregular Heart sounds: normal: S1, S2 Results 01/21/20 06:38 01/21/20 06:38 Cardiac Enzymes 01/20/20 01/20/20 01/20/20 Range/Units 16:06 16:06 21:19 AST 23 (17-59) U/L CK-MB (CK-2) 2.4 (0.0-2.4) ng/mL Troponin I 0.016 0.035 H* (0.000-0.034) ng/mL 01/21/20 Range/Units 06:38 AST 48 (17-59) U/L CK-MB (CK-2) (0.0-2.4) ng/mL Troponin I (0.000-0.034) ng/mL Coagulation 01/20/20 Range/Units 16:06 PT 27.1 H (9.0-12.0) sec APTT 33.2 H (22.0-30.0) sec CBC 01/20/20 01/21/20 Range/Units 16:06 06:38 WBC 6.3 5.4 (3.8-10.6) k/uL RBC 3.70 L 3.49 L (4.30-5.90) m/uL Hgb 11.2 L 10.4 L (13.0-17.5) gm/dL Hct 35.6 L 33.8 L (39.0-53.0) % Plt Count 112 L 94 L (150-450) k/uL Comprehensive Metabolic Panel 01/20/20 01/21/20 Range/Units 16:06 06:38 Sodium 131 L 134 L (137-145) mmol/L Potassium 3.9 4.2 (3.5-5.1) mmol/L Chloride 100 105 (98-107) mmol/L Carbon Dioxide 18 L 19 L (22-30) mmol/L BUN 69 H 76 H (9-20) mg/dL Creatinine 9.11 H* 9.16 H* (0.66-1.25) mg/dL Glucose 139 H 200 H (74-99) mg/dL Calcium 7.9 L 7.3 L (8.4-10.2) mg/dL AST 23 48 (17-59) U/L ALT 19 21 (4-49) U/L Alkaline Phosphatase 90 84 (38-126) U/L Total Protein 4.6 L 3.9 L (6.3-8.2) g/dL Albumin 2.1 L 1.8 L (3.5-5.0) g/dL Current Medications Generic Name Dose Route Start Last Admin Trade Name Freq PRN Reason Stop Dose Admin Acetaminophen 650 mg 01/20/20 17:46 Tylenol Tab PO Q6HR PRN Mild Pain or Fever > 100.5 Apixaban 2.5 mg 01/20/20 21:00 01/21/20 09:38 Eliquis PO 2.5 mg BID BLAKE Administration Atorvastatin Calcium 40 mg 01/20/20 21:00 01/20/20 20:53 Lipitor PO 40 mg HS BLAKE Administration Calcitriol 0.5 mcg 01/21/20 09:00 01/21/20 09:36 Rocaltrol PO 0.5 mcg WE BLAKE Administration Famotidine 20 mg 01/20/20 21:00 01/20/20 20:53 Pepcid PO 20 mg HS BLAKE Administration Finasteride 2.5 mg 01/21/20 09:00 01/21/20 09:37 Proscar PO 2.5 mg DAILY BLAKE Administration Sodium Chloride 1,000 mls @ 130 mls/hr 01/20/20 16:00 01/21/20 09:42 Saline 0.9% IV 130 mls/hr .Q7H42M BLAKE Administration Ceftriaxone Sodium 1 gm/ 50 mls @ 100 mls/hr 01/20/20 21:00 01/21/20 09:35 Sodium Chloride IVPB 100 mls/hr Q12HR BLAKE Administration Peritoneal Dialysis Solution 30 g in 2,000 mls @ 0 mls/hr 01/21/20 13:00 01/21/20 13:39 Delflex With 1.5% Dextrose (2,500 Ml) INTRAPERIT 999 mls/hr Q6HR BLAKE Administration Protocol As Directed Vancomycin HCl 1,250 mg/ 250 mls @ 125 mls/hr 01/21/20 14:00 Sodium Chloride IVPB 01/21/20 15:59 ONCE ONE Vancomycin HCl 1,250 mg/ 250 mls @ 125 mls/hr 01/22/20 09:00 Sodium Chloride IVPB 01/22/20 10:59 ONCE ONE Insulin Aspart 0 unit 01/21/20 17:30 Novolog SQ ACHS BLAKE Protocol Levetiracetam 500 mg 01/20/20 21:00 01/21/20 09:36 Keppra PO 500 mg Q12HR BLAKE Administration Levothyroxine Sodium 150 mcg 01/21/20 06:30 01/21/20 09:37 Synthroid PO 150 mcg DAILY@0630 BLAKE Administration Metoprolol Succinate 50 mg 01/20/20 21:00 01/20/20 20:59 Toprol Xl PO Not Given HS BLAKE Midodrine 10 mg 01/21/20 07:30 01/21/20 12:13 Proamatine PO Not Given AC-TID BLAKE Miscellaneous Information 1 each 01/21/20 13:33 Pharmacy To Dose Iv Vancomycin MISCELLANE DIRECTED PRN Per Protocol Protocol Multivit/Ca Carb/B Cmplx/FA/Prenat 1 each 01/20/20 21:00 01/20/20 21:16 Nephrocaps PO 1 each HS BLAKE Administration Naloxone HCl 0.2 mg 01/20/20 17:46 Narcan IV Q2M PRN Opioid Reversal Polysaccharide Iron Complex 150 mg 01/21/20 12:00 01/21/20 13:39 Niferex-150 PO 150 mg DAILY@1200 BLAKE Administration Potassium Chloride 10 meq 01/21/20 09:00 01/21/20 09:38 K-Dur 10 PO 10 meq Q48H BLAKE Administration Prednisone 5 mg 01/21/20 09:00 01/21/20 09:42 PO 5 mg DAILY BLAKE Administration Sevelamer Carbonate 800 mg 01/20/20 17:55 Renvela PO BID PRN snacks Sevelamer Carbonate 1,600 mg 01/21/20 07:30 01/21/20 12:16 Renvela PO 1,600 mg AC-TID BLAKE Administration Sodium Bicarbonate 650 mg 01/20/20 21:00 01/21/20 09:36 Sodium Bicarbonate Tab PO 650 mg BID BLAKE Administration Tamsulosin HCl 0.4 mg 01/21/20 09:00 01/21/20 09:38 Flomax PO 0.4 mg DAILY BLAKE Administration Intake and Output 01/20/20 01/21/20 01/21/20 22:59 06:59 14:59 Other: Weight 77.111 kg 71.5 kg 71.5 kg Patient Weight 01/22/20 06:59 Weight 71.5 kg 01/21/20 06:38 01/21/20 06:38 Assessment and Plan Assessment: Assessment #1 urinary tract infection/sepsis #2 into stage renal disease #3 chronic bilateral lower extremities critical limb ischemia #4 elevated troponin #5 multiple comorbid conditions Plan #1 consider medical treatment for the mildly abnormal troponin #2 the abnormal troponin is likely secondary to renal failure as well as tachycardia when the patient presented to the hospital #3 continue the current medical regimen #4 obtain an echocardiogram was Doppler #5 follow-up with the patient Thank you for allowing us participate in his care
--- NOTE | 2020-01-21 17:09 | HP ---
HISTORY AND PHYSICAL DATE OF SERVICE: 01/20/2020 A white male came to the emergency room due to nonhealing ulceration of left lateral foot, right lateral calcaneus and UTI, large amount of UTI at which time he was admitted to the hospital for UTI with sepsis. He has a history of end-stage renal disease and peripheral vascular disease and history of brain cancer. Transmetatarsal indentation of the left foot. Seen in the Wound Center yesterday, pulses declined, oral antibiotic was given. He became confused due to UTI with sepsis and was admitted to the hospital. 14 POINT REVIEW OF SYSTEMS: Otherwise negative. PAST MEDICAL HISTORY: Atrial fibrillation, cancer, diabetes mellitus, end-stage renal disease, GERD, dyslipidemia, hypertension, osteoarthritis, prostate disorder, renal disease, skin disorder, hypothyroidism, vascular disorder, non-Hodgkin's lymphoma, history of vascular calcification, basal cell cancer 2010, history of MRSA in the heel, VRE in the urine, kidney transplant, metatarsal amputation, basal cell excision of the brain tumor with chemo. FAMILY HISTORY: Mother negative, father negative. HOME MEDICINES: Finasteride 2.5 daily, 0.01 units subcu pump, iron, Ferrex 150 daily, levothyroxine 150 daily, Flomax 0.4 daily, Eliquis 2.5 b.i.d., Lipitor 40 daily, Dialyvite zinc 1 tab daily, Pepcid 20 daily, metoprolol 50 q.h.s., Primatene 10 mg t.i.d., calcitriol 0.5 weekly, sodium bicarb 650 b.i.d., prednisone 5 daily, potassium chloride 10 mEq q.48 hours, Renvela 800 b.i.d., Keppra 500 q.12. ALLERGIES: Negative. Temp 98 to 102.8, max, blood pressure 90s to 112/60s to 80s, O2 is 92% to 96% on room air. Pacing then no acute distress, sitting there, giving appropriate answers, integument is dry, poor dry mucous membranes. Cardiovascular S1, S2. GI: Some mild tenderness in lower quadrants. Fairly does home dialysis, hemodialysis at home. Heel shows a lot of drainage from the right heel, bloody purulent material about 2.7 x 0.9 x 0.3 cm. BUN 76, creatinine 9.16, hemoglobin 10.4, white count 5.4, sodium 134, potassium 4.2. UA has large red blood cells, large leukocyte esterase, blood, 174 white cells. Sodium 134. Please see orders. Blood cultures have been done. Urine catheterization had been done. Broad-spectrum IV antibiotics are being given for UTI and urosepsis. Dialysis will be continued. Vascular surgeon for pressure ulcers of the heel, stage II, nonhealing ulcer of the left foot, diabetic ulcer of the left foot with underlying diabetes mellitus. Will continue with IV antibiotics per Dr. Singh's recommendations, sees him in the Wound Clinic. Dialysis will be done per for per renal physician. Await for Infectious Disease recommendations. MMODL / IJN: [id number] /
[2020-01-21 17:17] LABS: Glucose,Whole Blood 378 mg/dL (75-99)
[2020-01-21] MEDS: INSULIN ASPART (NovoLOG) 100 UNIT/ML VIAL SQ SCH ×2 (17:41→20:52)
[2020-01-21 20:17] LABS: Glucose,Whole Blood 408 mg/dL (75-99)
--- NOTE | 2020-01-21 20:24 | CONS ---
CONSULTATION REASON FOR CONSULT: End-stage renal disease. HISTORY OF PRESENT ILLNESS: The patient is a 64-year-old male, on peritoneal dialysis, who was admitted to the hospital with complaints of fever. He stated that he was feeling weak. He denied any significant abdominal pain, nausea, vomiting or diarrhea. The patient does have a nonhealing wound and ulcers on his left foot. He has been going to the wound clinic for that. Patient follows with Dr. Goff. He has been tolerating his peritoneal dialysis fairly well. PAST MEDICAL HISTORY: A-fib, type 2 diabetes, DVT, end-stage renal disease, basal cell carcinoma on the nose, non-Hodgkin's lymphoma with metastasis to brain, history of peritonitis, hypothyroidism, peripheral vascular disease, chronic heel ulcer. PAST SURGICAL HISTORY: Renal transplant in 1992, 1997, left transmetatarsal amputation, excision of basal cell carcinoma, colonoscopy, multiple wound debridements. SOCIAL HISTORY: Negative for smoking, drug abuse or alcohol abuse. MEDICATIONS: Include finasteride, insulin, Synthroid, Flomax Eliquis, Lipitor, Dialyvite, Pepcid, Toprol, midodrine, Renvela, calcitriol, prednisone, sodium bicarb, potassium, Keppra. ALLERGIES: None. REVIEW OF SYSTEMS: As per HPI. Other systems negative. PHYSICAL EXAMINATION: Patient is comfortable, awake. He is not in any acute distress. Alert and oriented x3. Blood pressure is 125/57, heart rate 82 per minute. He is afebrile currently, but patient had a temperature of 102.8 yesterday. Examination of the heart S1, S2. Examination of the lungs, bilateral breath sounds are heard. Abdomen is soft, nontender. Examination of lower extremities shows no evidence of edema. PEARL DIGGER exam grossly intact. Left foot is currently wrapped. LABS: Show sodium of 134, potassium 4.2, chloride 105, CO2 is 19, BUN 76 serum creatinine 9.16, hemoglobin 10.4 g/dL. ASSESSMENT: 1. End-stage renal disease, maintained on peritoneal dialysis. We will resume PD exchanges. 2. Fever, most likely related to the foot ulcer. Blood cultures are pending. The patient follows at the wound clinic. He is maintained on empiric antibiotics. 3. Chronic kidney disease, mineral bone disorder maintained on calcitriol iron. Patient is on Renvela as his phosphate binders. 4. Hypokalemia as outpatient, maintained on potassium supplementation which we will continue. 5. History of lymphoma with brain lesions. Brain MRI done on 10/31/2019 shows no acute intracranial process. PLAN: Start peritoneal dialysis. Continue empiric antibiotics. Discontinue IV fluids. Thank you for this consultation. We will continue to follow the patient with you during his hospitalization. UMANGL / VANN: [id number] /
[2020-01-21] MEDS: ATORVASTATIN 40 MG TAB PO SCH (20:51)
[2020-01-21] MEDS: FAMOTIDINE 20 MG TAB PO SCH (20:51)
[2020-01-21] MEDS: METOPROLOL SUCCINATE (ER) 50 MG TAB.ER.24H PO SCH (20:52)
[2020-01-21] MEDS: DIALYSIS (PERIT 1.5%) 2,500 ML 30 G/2,000 ML BAG INTRAPERIT SCH (20:57)
[2020-01-21] MEDS: FOLIC ACID-VIT B COMPLEX-VIT C 1 CAP PO SCH (20:59)
--- NOTE | 2020-01-21 23:12 | PN ---
PROGRESS NOTE This patient was seen by Dr. Goff for wound debridement of the right heel. Cardiology saw him as well as a renal physician. We are waiting for infectious disease consult. He is on broad-spectrum antibiotics for urosepsis versus wound infection in the right heel. He remains on vancomycin and Rocephin. Wait for Dr. De Leon's recommendations for long-term antibiotics. Continue with dialysis while he is here. Possible discharge home. Cardiology saw the patient. Medications were reviewed was recommended and listened to. Follow up in the next 24-[address] De Leon's recommendations for long-term antibiotics. Wait for urine culture. MMODL / IJN: [id number] /
[2020-01-22] MEDS: DIALYSIS (PERIT 1.5%) 2,500 ML 30 G/2,000 ML BAG INTRAPERIT SCH ×4 (02:12→21:22)
[2020-01-22 06:21] LABS: Glucose,Whole Blood 252 mg/dL (75-99)
[2020-01-22] MEDS: LEVOTHYROXINE 75 MCG TAB PO SCH (06:57)
[2020-01-22] MEDS: SEVELAMER 800 MG TAB PO SCH ×3 (06:58→17:48)
[2020-01-22] MEDS: MIDODRINE 5 MG TAB PO SCH ×3 (06:58→17:47)
[2020-01-22] MEDS: INSULIN ASPART (NovoLOG) 100 UNIT/ML VIAL SQ SCH ×4 (06:58→21:22)
[2020-01-22 07:54] LABS: Basophils % (A) 1 %; Eosinophils # (A) 0.1 k/uL (0-0.7); Eosinophils % (A) 1 %; HCT 32.3 % (39.0-53.0); Hypochromasia Slight; Lymphocytes # (A) 0.9 k/uL (1.0-4.8); Lymphocytes % (A) 15 %; MCH 29.9 pg (25.0-35.0); MCV 96.5 fL (80.0-100.0); Mean Platelet Volume 8.9; Monocytes # (A) 0.8 k/uL (0-1.0); Monocytes % (A) 13 %; Neutrophils # (A) 3.9 k/uL (1.3-7.7); Neutrophils % (A) 67 %; Platelet Count 106 k/uL (150-450); RBC 3.35 m/uL (4.30-5.90); RDW 15.3 % (11.5-15.5); WBC 5.8 k/uL (3.8-10.6)
[2020-01-22] MEDS: SODIUM BICARBONATE TAB 650 MG TAB PO SCH ×2 (07:57→21:21)
[2020-01-22] MEDS: predniSONE 5 MG TAB PO SCH (07:57)
[2020-01-22] MEDS: TAMSULOSIN 0.4 MG CAP.ER.24H PO SCH (07:58)
[2020-01-22] MEDS: APIXABAN 2.5 MG TABLET PO SCH ×2 (07:58→21:21)
[2020-01-22] MEDS: levETIRAcetam 500 MG TAB PO SCH ×2 (07:58→21:21)
[2020-01-22] MEDS: FINASTERIDE 5 MG TAB PO SCH (07:58)
[2020-01-22 08:05] LABS: Albumin 1.7 g/dL (3.5-5.0); Calcium 7.5 mg/dL (8.4-10.2); Potassium 3.5 mmol/L (3.5-5.1); Total Bilirubin 0.2 mg/dL (0.2-1.3); Total Protein 3.8 g/dL (6.3-8.2)
[2020-01-22] MEDS ORDERED: VANCOMYCIN 1,250 MG in SODIUM CHLORIDE 0.9% 250 ML IVPB ONE (09:00)
--- NOTE | 2020-01-22 10:00 | ECHOF ---
Referral Reason:nstemi MEASUREMENTS -------- HEIGHT: 182.9 cm WEIGHT: 71.2 kg BP: IVSd: 1.4 cm (0.6 - 1.1) LVIDd: 4.8 cm (3.9 - 5.3) LVPWd: 1.3 cm (0.6 - 1.1) IVSs: 1.4 cm LVIDs: 3.8 cm LVPWs: 1.5 cm LA Diam: 4.5 cm (2.7 - 3.8) RVIDd: 3.6 cm (< 3.3) Ao Diam: 3.9 cm (2.0 - 3.7) EPSS: 0.4 cm RAP: 5.00 mmHg RVSP: 21.56 mmHg MV EF SLOPE: 66.51 mm/s (70 - 150) MV EXCURSION: 17.01 mm (> 18.000) FINDINGS -------- Atrial fibrillation. This was a technically adequate study. The left ventricular size is normal. There is moderate concentric left ventricular hypertrophy. O verall left ventricular systolic function is low-normal with, an EF between 50 - 55 %. The right ventricle is mildly enlarged. The left atrial size is normal. The right atrium is mildly enlarged. There is mild aortic valve sclerosis. There is no evidence of aortic regurgitation. Mild mitral annular calcification present. Mild mitral regurgitation is present. Mild tricuspid regurgitation present. Right ventricular systolic pressure is normal at < 35 mmHg. There is no pulmonic regurgitation present. The aortic root size is normal. There is a trivial pericardial effusion present. CONCLUSIONS -------- 1. The left ventricular size is normal. 2. There is moderate concentric left ventricular hypertrophy. 3. Overall left ventricular systolic function is low-normal with, an EF between 50 - 55 %. 4. The right ventricle is mildly enlarged. 5. The left atrial size is normal. 6. The right atrium is mildly enlarged. 7. There is mild aortic valve sclerosis. 8. Mild mitral annular calcification present. 9. Mild mitral regurgitation is present. 10. Mild tricuspid regurgitation present. 11. Right ventricular systolic pressure is normal at < 35 mmHg. 12. There is a trivial pericardial effusion present. PHARMACIST PER DIEM: Paris Mayberry RDCS
[2020-01-22 11:42] LABS: Glucose,Whole Blood 169 mg/dL (75-99)
--- NOTE | 2020-01-22 12:04 | P.PN ---
Subjective Progress Note Date: 01/22/20 Principal diagnosis: Elevated troponin This is a very pleasant 64-year-old gentleman with an extensive medical history consistent off long-standing persistent atrial fibrillation on oral anticoagulation, hypertension, dyslipidemia, and history of chronic bilateral lower extremities ulcers where the patient does follow at the wound clinic was brought by his family to the hospital for further evaluation off generalized weakness associated with fever. The patient was diagnosed with urinary tract infection/sepsis and he was admitted and started on antibiotic. We involved in the care of the patient because of abnormal troponin. Clinically the patient denies any symptoms of chest pain or chest discomfort, shortness of breath, dizziness, heart racing or syncope. He denies any history of coronary artery disease. No coronary revascularization in the past. When he presented to the hospital the EKG showed A. fib with RVR and he was quite tachycardic. During this hospital stay, the creatinine is elevated. Currently he is on statin as well as metoprolol as well as oral anticoagulation. The chest x-ray did not show any acute abnormalities. Please note that the patient does have end stage renal disease and he is also on peritoneal dialysis. Also please note that the patient's somewhat is a poor historian. The patient was seen today January [id number]. He remains asymptomatic from a perivascular standpoint overview. Hemodynamically he is hypotensive with a s ystolic pressure in the 80s. I am going to decrease the dose of metoprolol to 25 mg by mouth daily. Continue the rest of his current medical regimen and continue following up with the patient Objective - Vital Signs Vital signs: Vital Signs Temp 97.4 F L 01/22/20 07:55 Pulse 82 01/22/20 07:55 Resp 18 01/22/20 07:55 BP 86/50 01/22/20 07:55 Pulse Ox 100 01/22/20 07:55 Intake & Output 01/21/20 01/22/20 01/22/20 18:59 06:59 18:59 Intake Total 120 Output Total 4080 Balance -4080 120 Weight 71.5 kg Intake: Oral 120 Output: Urine 680 Other 3400 Other: Voiding Method Toilet # Voids 2 - Constitutional General appearance: Present: no acute distress - Respiratory Respiratory: bilateral: CTA - Cardiovascular Heart sounds: normal: S1, S2 - Labs CBC & Chem 7: 01/22/20 07:00 01/22/20 07:00 Labs: Abnormal Lab Results - Last 24 Hours (Table) 01/21/20 01/21/20 01/21/20 Range/Units 12:34 17:09 20:15 RBC (4.30-5.90) m/uL Hgb (13.0-17.5) gm/dL Hct (39.0-53.0) % Plt Count (150-450) k/uL Lymphocytes # (1.0-4.8) k/uL Sodium (137-145) mmol/L Carbon Dioxide (22-30) mmol/L BUN (9-20) mg/dL Creatinine (0.66-1.25) mg/dL Glucose (74-99) mg/dL POC Glucose (mg/dL) 196 H 378 H 408 H (75-99) mg/dL Calcium (8.4-10.2) mg/dL Total Protein (6.3-8.2) g/dL Albumin (3.5-5.0) g/dL 01/22/20 01/22/20 01/22/20 Range/Units 06:19 07:00 07:00 RBC 3.35 L (4.30-5.90) m/uL Hgb 10.0 L (13.0-17.5) gm/dL Hct 32.3 L (39.0-53.0) % Plt Count 106 L (150-450) k/uL Lymphocytes # 0.9 L (1.0-4.8) k/uL Sodium 134 L (137-145) mmol/L Carbon Dioxide 19 L (22-30) mmol/L BUN 79 H (9-20) mg/dL Creatinine 9.03 H* (0.66-1.25) mg/dL Glucose 169 H (74-99) mg/dL POC Glucose (mg/dL) 252 H (75-99) mg/dL Calcium 7.5 L (8.4-10.2) mg/dL Total Protein 3.8 L (6.3-8.2) g/dL Albumin 1.7 L (3.5-5.0) g/dL 01/22/20 Range/Units 11:40 RBC (4.30-5.90) m/uL Hgb (13.0-17.5) gm/dL Hct (39.0-53.0) % Plt Count (150-450) k/uL Lymphocytes # (1.0-4.8) k/uL Sodium (137-145) mmol/L Carbon Dioxide (22-30) mmol/L BUN (9-20) mg/dL Creatinine (0.66-1.25) mg/dL Glucose (74-99) mg/dL POC Glucose (mg/dL) 169 H (75-99) mg/dL Calcium (8.4-10.2) mg/dL Total Protein (6.3-8.2) g/dL Albumin (3.5-5.0) g/dL Microbiology - Last 24 Hours (Table) 01/20/20 17:09 Blood Culture Gram Stain - Preliminary Blood 01/20/20 17:05 Blood Culture Gram Stain - Preliminary Blood Blood Culture - Preliminary Presumptive MRSA 01/20/20 17:09 Blood Culture - Preliminary Blood 01/20/20 16:45 Urine Culture - Preliminary Urine,Catheterized Group D Enterococcus 01/20/20 17:05 Blood Culture - Final Blood Assessment and Plan Assessment: Assessment #1 urinary tract infection/sepsis #2 into stage renal disease #3 chronic bilateral lower extremities critical limb ischemia #4 elevated troponin #5 multiple comorbid conditions Plan #1 consider medical treatment for the mildly abnormal troponin #2 the abnormal troponin is likely secondary to renal failure as well as tachycardia when the patient presented to the hospital #3 the echo revealed normal only function #4 decrease the dose of metoprolol #5 follow-up with the patient
[2020-01-22] MEDS: IRON POLYSACCHARIDES COMPLEX 150 MG CAP PO SCH (12:20)
--- NOTE | 2020-01-22 12:32 | PN ---
PROGRESS NOTE Patient is seen for followup for end-stage renal disease. He is currently maintained on peritoneal dialysis. He is tolerating his PD treatments well. No significant complaints today. Blood cultures are growing presumptive MRSA. PHYSICAL EXAMINATION: On examination, blood pressure is low 86/50, heart rate 82 per minute, patient is afebrile. Examination of the heart S1, S2. Examination of the lungs, decreased breath sounds at bases. Abdomen is soft, nontender. Examination of the lower extremities shows edema 1+ bilaterally. Both heels are currently wrapped. LABS: Show sodium 134, potassium 3.5, chloride 104, CO2 is 19, BUN 79, creatinine 9.03. ASSESSMENT: 1. End-stage renal disease, on peritoneal dialysis, continue current PD exchanges. 2. Fever with blood cultures positive for MRSA, source possibly the ulcers on the feet. 3. Hypotension maintained on midodrine. Also most likely related to underlying infection. 4. Pyuria. Urine culture grew group D Enterococcus. 5. CKD mineral bone disorder maintained on calcitriol and Renvela as the phosphate binder. 6. Metabolic acidosis maintained on sodium bicarb. PLAN: Continue current PD exchanges. Antibiotics as per ID. MMODL / IJN: [id number] /
--- NOTE | 2020-01-22 13:52 | P.CONS ---
History of Present Illness - Reason for Consult Consult date: 01/21/20 sepsis Requesting physician: Ricardo Villar - Chief Complaint Fever and weakenss x 1 day - History of Present Illness Patient is a 64-year-old male with a past medical history significant for end-stage renal disease patient currently undergoing peritoneal dialysis patient also have a history of brain cancer status post radiation and chemotherapy did have a history of diabetic foot in this patient who did have a left foot transmetatarsal amputation patient currently do have a wound on the right heel and on the dorsum aspect of the right foot for the patient has been evaluated at [facility] wound care center patient presented to [facility] ER yesterday afternoon with generalized weakness that the patient has been going on for a day before he presented to hospital patient noticed to have a temperature the day of presentation to the hospital patient still denies having significant complaints on arrival to the ER the patient was afebrile subsequently spiked a fever of 102.8 F patient was tachycardic with a heart rate of 102 patient did have a normal white count though patient did have positive UA with the patient has been diagnosed with a urinary tract infection he was started on Rocephin has been admitted to hospital subsequently but did spike a have a positive blood cultures that prompted this infectious disease consultation, patient at time of evaluation denies having any chest pain or shortness of breath or cough no nausea no vomiting no abdominal pain no significant urinary symptoms , patient did have a chronic wound to the left heel he is not sure about the treatment he is receiving for it he is currently have some pressure ulcer denies any pain to the heel there is swelling and redness and some drainage. Review of Systems Positive point has been mentioned HPI rest of the systems negative Past Medical History Past Medical History: Atrial Fibrillation, Cancer, Diabetes Mellitus, Dialysis, Deep Vein Thrombosis (DVT), GERD/Reflux, Hyperlipidemia, Hypertension, Osteoarthritis (OA), Prostate Disorder, Renal Disease, Skin Disorder, Thyroid Disorder, Vascular Disorder Additional Past Medical History / Comment(s): hx vascular calcification, basal cell carcinoma nose removed 2010. 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 Left transmetatarsal amputation. basal cell carcinoma excision.BRAIN TUMOR REMOVED WITH CHEMO , brain hematoma drained. COLONOSCOPY Past Anesthesia/Blood Transfusion Reactions: No Reported Reaction Past Psychological History: No Psychological Hx Reported Smoking Status: Never smoker Past Alcohol Use History: None Reported Past Drug Use History: None Reported - Past Family History Mother Family Medical History: No Reported History Father Family Medical History: No Reported History Brother(s) Family Medical History: No Reported History Sister(s) Family Medical History: No Reported History Son(s) Family Medical History: No Reported History Medications and Allergies Home Medications Medication Instructions Recorded Confirmed Type Finasteride 2.5 mg PO DAILY 07/04/16 01/20/20 History Insulin Aspart (Niacinamide) 0.01 unit SQ-PUMP CONTINUOUS 11/05/18 01/20/20 History [Fiasp 100 Unit/ml Vial] Iron Polysaccharide Complex 150 mg PO DAILY 11/05/18 01/20/20 History [Ferrex 150] Levothyroxine Sodium 150 mcg PO DAILY 11/05/18 01/20/20 History Tamsulosin [Flomax] 0.4 mg PO DAILY 11/05/18 01/20/20 History Apixaban [Eliquis] 2.5 mg PO BID 09/16/19 01/20/20 History Atorvastatin [Lipitor] 40 mg PO HS 09/16/19 01/20/20 History Dialyvite 800-Zinc 15 Tab 0.8m 1 tab PO HS 09/16/19 01/20/20 History Famotidine [Pepcid] 20 mg PO HS 09/16/19 01/20/20 History Metoprolol Succinate [Toprol XL] 50 mg PO HS 09/16/19 01/20/20 History Midodrine HCl [ProAmatine] 10 mg PO TID 09/16/19 01/20/20 History Sevelamer Carbonate 1,600 mg PO AC-TID 09/16/19 01/20/20 History calcitrioL [Calcitriol] 0.5 mg PO WE 09/16/19 01/20/20 History Sodium Bicarbonate Tab 650 mg PO BID #60 tab 09/18/19 01/20/20 Rx predniSONE 5 mg PO DAILY 09/26/19 01/20/20 History Potassium Chloride ER [K-Dur 10] 10 meq PO Q48H 01/20/20 01/20/20 History Sevelamer [Renvela] 800 mg PO BID PRN 01/20/20 01/20/20 History levETIRAcetam [Keppra] 500 mg PO Q12H 01/20/20 01/20/20 History Allergies Allergy/AdvReac Type Severity Reaction Status Date / Time No Known Allergies Allergy Verified 01/20/20 17:05 Physical Exam Vitals: Vital Signs Temp Pulse Pulse Resp BP BP Pulse Ox 01/21/20 05:17 98.7 F 66 16 89/67 95 01/21/20 04:40 98.5 F 101 H 18 100/66 97 01/21/20 02:00 98.0 F 95 16 98/56 96 01/20/20 22:58 98.6 F 93 16 87/48 98 01/20/20 21:17 102 H 16 89/49 96 01/20/20 20:57 90 16 85/62 99 01/20/20 19:04 99.1 F 01/20/20 18:12 100.1 F H 01/20/20 18:00 99 15 92/63 97 01/20/20 17:30 99 14 102/62 96 01/20/20 17:00 105 H 18 134/101 01/20/20 16:30 110 H 14 117/96 95 01/20/20 16:00 14 91/78 01/20/20 15:32 102.8 F H 112 H 18 112/78 92 L 01/20/20 14:56 98.1 F 56 L 19 96 Intake and Output 01/20/20 01/21/20 01/21/20 22:59 06:59 14:59 Other: Weight 77.111 kg 71.5 kg GENERAL DESCRIPTION: Elderly male lying in bed, no distress. No tachypnea or accessory muscle of respiration use. HEENT: Shows Pallor , no scleral icterus. Oral mucous membrane is dry. No pharyngeal erythema or thrush NECK: Trachea central, no thyromegaly. LUNGS: Unlabored breathing. Clear to auscultation anteriorly. No wheeze or crackle. HEART: S1, S2, regular rate and rhythm. No loud murmur ABDOMEN: Soft, no tenderness , guarding or rigidity, no organomegaly EXTREMITIES: No edema of feet. Right heel wound with deep tissue injury some surrounding necrotic changes and foul-smelling drainage SKIN: No rash, no masses palpable. NEUROLOGICAL: The patient is awake, alert, oriented x3, mood and affect normal. Results CBC & Chem 7: 01/22/20 07:00 01/22/20 07:00 Labs: Abnormal Lab Results - Last 24 Hours (Table) 01/20/20 01/20/20 01/20/20 Range/Units 14:56 15:07 16:06 RBC 3.70 L (4.30-5.90) m/uL Hgb 11.2 L (13.0-17.5) gm/dL Hct 35.6 L (39.0-53.0) % MCHC (31.0-37.0) g/dL Plt Count 112 L (150-450) k/uL Lymphocytes # (1.0-4.8) k/uL PT (9.0-12.0) sec INR (<1.2) APTT (22.0-30.0) sec Sodium (137-145) mmol/L Carbon Dioxide (22-30) mmol/L BUN (9-20) mg/dL Creatinine (0.66-1.25) mg/dL Glucose (74-99) mg/dL POC Glucose (mg/dL) 131 H 133 H (75-99) mg/dL Plasma Lactic Acid Chavez (0.7-2.0) mmol/L Calcium (8.4-10.2) mg/dL Troponin I (0.000-0.034) ng/mL C-Reactive Protein (<10.0) mg/L Total Protein (6.3-8.2) g/dL Albumin (3.5-5.0) g/dL Urine pH (5.0-8.0) Urine Protein (Negative) Urine Blood (Negative) Ur Leukocyte Esterase (Negative) Urine RBC (0-5) /hpf Urine WBC (0-5) /hpf Urine Bacteria (None) /hpf Urine Mucus (None) /hpf 01/20/20 01/20/20 01/20/20 Range/Units 16:06 16:06 16:06 RBC (4.30-5.90) m/uL Hgb (13.0-17.5) gm/dL Hct (39.0-53.0) % MCHC (31.0-37.0) g/dL Plt Count (150-450) k/uL Lymphocytes # (1.0-4.8) k/uL PT 27.1 H (9.0-12.0) sec INR 2.8 H (<1.2) APTT 33.2 H (22.0-30.0) sec Sodium 131 L (137-145) mmol/L Carbon Dioxide 18 L (22-30) mmol/L BUN 69 H (9-20) mg/dL Creatinine 9.11 H* (0.66-1.25) mg/dL Glucose 139 H (74-99) mg/dL POC Glucose (mg/dL) (75-99) mg/dL Plasma Lactic Acid Chavez 4.4 H* (0.7-2.0) mmol/L Calcium 7.9 L (8.4-10.2) mg/dL Troponin I (0.000-0.034) ng/mL C-Reactive Protein 55.0 H (<10.0) mg/L Total Protein 4.6 L (6.3-8.2) g/dL Albumin 2.1 L (3.5-5.0) g/dL Urine pH (5.0-8.0) Urine Protein (Negative) Urine Blood (Negative) Ur Leukocyte Esterase (Negative) Urine RBC (0-5) /hpf Urine WBC (0-5) /hpf Urine Bacteria (None) /hpf Urine Mucus (None) /hpf 01/20/20 01/20/20 01/21/20 Range/Units 16:45 21:19 06:19 RBC (4.30-5.90) m/uL Hgb (13.0-17.5) gm/dL Hct (39.0-53.0) % MCHC (31.0-37.0) g/dL Plt Count (150-450) k/uL Lymphocytes # (1.0-4.8) k/uL PT (9.0-12.0) sec INR (<1.2) APTT (22.0-30.0) sec Sodium (137-145) mmol/L Carbon Dioxide (22-30) mmol/L BUN (9-20) mg/dL Creatinine (0.66-1.25) mg/dL Glucose (74-99) mg/dL POC Glucose (mg/dL) 281 H (75-99) mg/dL Plasma Lactic Acid Chavez (0.7-2.0) mmol/L Calcium (8.4-10.2) mg/dL Troponin I 0.035 H* (0.000-0.034) ng/mL C-Reactive Protein (<10.0) mg/L Total Protein (6.3-8.2) g/dL Albumin (3.5-5.0) g/dL Urine pH 8.5 H (5.0-8.0) Urine Protein Trace H (Negative) Urine Blood Large H (Negative) Ur Leukocyte Esterase Large H (Negative) Urine RBC 33 H (0-5) /hpf Urine WBC 174 H (0-5) /hpf Urine Bacteria Rare H (None) /hpf Urine Mucus Rare H (None) /hpf 01/21/20 01/21/20 Range/Units 06:38 06:38 RBC 3.49 L (4.30-5.90) m/uL Hgb 10.4 L (13.0-17.5) gm/dL Hct 33.8 L (39.0-53.0) % MCHC 30.9 L (31.0-37.0) g/dL Plt Count 94 L (150-450) k/uL Lymphocytes # 0.8 L (1.0-4.8) k/uL PT (9.0-12.0) sec INR (<1.2) APTT (22.0-30.0) sec Sodium 134 L (137-145) mmol/L Carbon Dioxide 19 L (22-30) mmol/L BUN 76 H (9-20) mg/dL Creatinine 9.16 H* (0.66-1.25) mg/dL Glucose 200 H (74-99) mg/dL POC Glucose (mg/dL) (75-99) mg/dL Plasma Lactic Acid Chavez (0.7-2.0) mmol/L Calcium 7.3 L (8.4-10.2) mg/dL Troponin I (0.000-0.034) ng/mL C-Reactive Protein (<10.0) mg/L Total Protein 3.9 L (6.3-8.2) g/dL Albumin 1.8 L (3.5-5.0) g/dL Urine pH (5.0-8.0) Urine Protein (Negative) Urine Blood (Negative) Ur Leukocyte Esterase (Negative) Urine RBC (0-5) /hpf Urine WBC (0-5) /hpf Urine Bacteria (None) /hpf Urine Mucus (None) /hpf Microbiology - Last 24 Hours (Table) 01/20/20 16:45 Urine Culture - Preliminary Urine,Catheterized Assessment and Plan Assessment: 1-patient presented to hospital with sepsis in this patient did have fever tachycardia now with evidence of gram-positive bacteremia source is likely right heel infected wound with secondary bacteremia underlying osteomyelitis needs to be ruled out 2-positive UA with a previous history of VRE urinary tract infection we will wait for the urine culture finalized however with the blood cultures showing more of a gram-positive cocci in clusters will be more likely Staphylococcus aureus and presumed MRSA not likely from the urinary source (1) Sepsis Current Visit: Yes Status: Acute Code(s): A41.9 - SEPSIS, UNSPECIFIED ORGANISM SNOMED Code(s): 06665394 (2) Staphylococcus aureus bacteremia Current Visit: Yes Status: Acute Code(s): R78.81 - BACTEREMIA; B95.61 - METHICILLIN SUSCEP STAPH INFCT CAUSING DIS CLASSD [id number] SNOMED Code(s): 650793401 Plan: 1-vancomycin pharmacy to dose target trough of 15 while watching his kidney function and vancomycin trough closely 2-blood cultures will be repeated document clearance of bacteremia 3-x-rays of the right ankle 4-vascular surgery consultation for debridement of the wound and deep culture 5-local wound care per the wound care team We will follow on clinical condition and cultures to further adjust medication if needed Thank you for this consultation will follow this patient along with you Time with Patient: Greater than 30
--- NOTE | 2020-01-22 14:19 | XR ---
EXAMINATION TYPE: XR foot complete RT DATE OF EXAM: 01/22/2020 COMPARISON: 04/21/2019 HISTORY: Ulcer on the heel ' TECHNIQUE: Three views are submitted. FINDINGS: Arthropathy of the MTP joint first digit. Vascular calcifications noted. Postsurgical change involvin g the ankle with soft tissue ossification. Diffuse osteopenia. Hammertoe deformities noted. Marked de formity of the ankle joint with postsurgical changes. Soft tissue ulceration seen involving the plant ar surface of the heel. No destructive bony changes. Diffuse soft tissue edema noted. IMPRESSION: 1. Soft tissue edema and suspected ulcer involving the plantar surface of the foot with no evidence o f destructive change to suggest osteomyelitis. 2. Postsurgical changes.
--- NOTE | 2020-01-22 15:23 | P.GSCN ---
History of Present Illness Consult date: 01/22/20 History of present illness: The patient is a 64-year-old male with a past medical history significant for end-stage renal disease on peritoneal dialysis, brain cancer, non-Hodgkin's lymphoma with metastasis, status post radiation and chemotherapy, diabetic foot infection with transmetatarsal a dictation on the left, atrial fibrillation, diabetes, history of DVT, hypertension, basal cell carcinoma who has bilateral lower extremity wounds that he has been previously seen for at this hospital's wound care. He initially presented with generalized weakness a nd malaise with subsequent fever and findings consistent with urosepsis. We are asked to see the patient regarding his chronic heel wound. The patient is swelling in his legs is at its baseline. He has had debridement and wound care and the wound to maintain stability. He denies much ambulation other than to transfer. Otherwise he usually sits in a wheelchair at home. He currently denies any erythema, drainage or discharge from his foot. Denies a pain in his legs. Review of Systems 14 point review systems performed. Pertinent positives and negatives per the HPI. Past Medical History Past Medical History: Atrial Fibrillation, Cancer, Diabetes Mellitus, Dialysis, Deep Vein Thrombosis (DVT), GERD/Reflux, Hyperlipidemia, Hypertension, Osteoarthritis (OA), Prostate Disorder, Renal Disease, Skin Disorder, Thyroid Disorder, Vascular Disorder Additional Past Medical History / Comment(s): hx vascular calcification, basal cell carcinoma nose removed 2010. 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 Left transmetatarsal amputation. basal cell carcinoma excision.BRAIN TUMOR REMOVED WITH CHEMO , brain hematoma drained. COLONOSCOPY Past Anesthesia/Blood Transfusion Reactions: No Reported Reaction Past Psychological History: No Psychological Hx Reported Smoking Status: Never smoker Past Alcohol Use History: None Reported Past Drug Use History: None Reported - Past Family History Mother Family Medical History: No Reported History Father Family Medical History: No Reported History Brother(s) Family Medical History: No Reported History Sister(s) Family Medical History: No Reported History Son(s) Family Medical History: No Reported History Medications and Allergies Home Medications Medication Instructions Recorded Confirmed Type Finasteride 2.5 mg PO DAILY 07/04/16 01/20/20 History Insulin Aspart (Niacinamide) 0.01 unit SQ-PUMP CONTINUOUS 11/05/18 01/20/20 History [Fiasp 100 Unit/ml Vial] Iron Polysaccharide Complex 150 mg PO DAILY 11/05/18 01/20/20 History [Ferrex 150] Levothyroxine Sodium 150 mcg PO DAILY 11/05/18 01/20/20 History Tamsulosin [Flomax] 0.4 mg PO DAILY 11/05/18 01/20/20 History Apixaban [Eliquis] 2.5 mg PO BID 09/16/19 01/20/20 History Atorvastatin [Lipitor] 40 mg PO HS 09/16/19 01/20/20 History Dialyvite 800-Zinc 15 Tab 0.8m 1 tab PO HS 09/16/19 01/20/20 History Famotidine [Pepcid] 20 mg PO HS 09/16/19 01/20/20 History Metoprolol Succinate [Toprol XL] 50 mg PO HS 09/16/19 01/20/20 History Midodrine HCl [ProAmatine] 10 mg PO TID 09/16/19 01/20/20 History Sevelamer Carbonate 1,600 mg PO AC-TID 09/16/19 01/20/20 History calcitrioL [Calcitriol] 0.5 mg PO WE 09/16/19 01/20/20 History Sodium Bicarbonate Tab 650 mg PO BID #60 tab 09/18/19 01/20/20 Rx predniSONE 5 mg PO DAILY 09/26/19 01/20/20 History Potassium Chloride ER [K-Dur 10] 10 meq PO Q48H 01/20/20 01/20/20 History Sevelamer [Renvela] 800 mg PO BID PRN 01/20/20 01/20/20 History levETIRAcetam [Keppra] 500 mg PO Q12H 01/20/20 01/20/20 History Allergies Allergy/AdvReac Type Severity Reaction Status Date / Time No Known Allergies Allergy Verified 01/20/20 17:05 Surgical - Exam Vital Signs Temp Pulse Resp Pulse Ox 98.1 F 56 L 19 96 01/20/20 14:56 01/20/20 14:56 01/20/20 14:56 01/20/20 14:56 Gen. a pleasant cooperative ill-appearing male in no acute distress. HEENT is normocephalic, atraumatic, excellent motion intact. Heart is irregularly irregular. Neck is supple, trachea is midline. No respiratory distress. Abdomen is soft, nontender, peritoneal dialysis catheter in place with dressing. Extremity show no clubbing or cyanosis. His bilateral lower extremity 2+ pitting edema. He has palpable radial, femoral and dorsalis pedis pulses bilaterally. There is a small wound on the left lateral foot with minimal fibrinous tissue. On the right, there is a healed wound is unstageable with eschar and the anterior foot has a wound likely from pressure sore from a dressing or shoe that was too tight across the crux of the ankle. Normal mood and affect. Cranial nerves II through XII grossly intact Results - Labs 01/22/20 07:00 01/22/20 07:00 Abnormal Lab Results - Last 24 Hours (Table) 01/21/20 01/21/20 01/22/20 Range/Units 17:09 20:15 06:19 RBC (4.30-5.90) m/uL Hgb (13.0-17.5) gm/dL Hct (39.0-53.0) % Plt Count (150-450) k/uL Lymphocytes # (1.0-4.8) k/uL Sodium (137-145) mmol/L Carbon Dioxide (22-30) mmol/L BUN (9-20) mg/dL Creatinine (0.66-1.25) mg/dL Glucose (74-99) mg/dL POC Glucose (mg/dL) 378 H 408 H 252 H (75-99) mg/dL Calcium (8.4-10.2) mg/dL Total Protein (6.3-8.2) g/dL Albumin (3.5-5.0) g/dL 01/22/20 01/22/20 01/22/20 Range/Units 07:00 07:00 11:40 RBC 3.35 L (4.30-5.90) m/uL Hgb 10.0 L (13.0-17.5) gm/dL Hct 32.3 L (39.0-53.0) % Plt Count 106 L (150-450) k/uL Lymphocytes # 0.9 L (1.0-4.8) k/uL Sodium 134 L (137-145) mmol/L Carbon Dioxide 19 L (22-30) mmol/L BUN 79 H (9-20) mg/dL Creatinine 9.03 H* (0.66-1.25) mg/dL Glucose 169 H (74-99) mg/dL POC Glucose (mg/dL) 169 H (75-99) mg/dL Calcium 7.5 L (8.4-10.2) mg/dL Total Protein 3.8 L (6.3-8.2) g/dL Albumin 1.7 L (3.5-5.0) g/dL Microbiology - Last 24 Hours (Table) 01/20/20 17:09 Blood Culture Gram Stain - Preliminary Blood 01/20/20 17:05 Blood Culture Gram Stain - Preliminary Blood Blood Culture - Preliminary Presumptive MRSA 01/20/20 17:09 Blood Culture - Preliminary Blood 01/20/20 16:45 Urine Culture - Preliminary Urine,Catheterized Group D Enterococcus 01/20/20 17:05 Blood Culture - Final Blood Diabetes panel 01/22/20 Range/Units 07:00 Sodium 134 L (137-145) mmol/L Potassium 3.5 (3.5-5.1) mmol/L Chloride 104 (98-107) mmol/L Carbon Dioxide 19 L (22-30) mmol/L BUN 79 H (9-20) mg/dL Creatinine 9.03 H* (0.66-1.25) mg/dL Glucose 169 H (74-99) mg/dL Calcium 7.5 L (8.4-10.2) mg/dL AST 40 (17-59) U/L ALT 22 (4-49) U/L Alkaline Phosphatase 87 (38-126) U/L Total Protein 3.8 L (6.3-8.2) g/dL Albumin 1.7 L (3.5-5.0) g/dL Calcium panel 01/22/20 Range/Units 07:00 Calcium 7.5 L (8.4-10.2) mg/dL Albumin 1.7 L (3.5-5.0) g/dL Pituitary panel 01/22/20 Range/Units 07:00 Sodium 134 L (137-145) mmol/L Potassium 3.5 (3.5-5.1) mmol/L Chloride 104 (98-107) mmol/L Carbon Dioxide 19 L (22-30) mmol/L BUN 79 H (9-20) mg/dL Creatinine 9.03 H* (0.66-1.25) mg/dL Glucose 169 H (74-99) mg/dL Calcium 7.5 L (8.4-10.2) mg/dL Adrenal panel 01/22/20 Range/Units 07:00 Sodium 134 L (137-145) mmol/L Potassium 3.5 (3.5-5.1) mmol/L Chloride 104 (98-107) mmol/L Carbon Dioxide 19 L (22-30) mmol/L BUN 79 H (9-20) mg/dL Creatinine 9.03 H* (0.66-1.25) mg/dL Glucose 169 H (74-99) mg/dL Calcium 7.5 L (8.4-10.2) mg/dL Total Bilirubin 0.2 (0.2-1.3) mg/dL AST 40 (17-59) U/L ALT 22 (4-49) U/L Alkaline Phosphatase 87 (38-126) U/L Total Protein 3.8 L (6.3-8.2) g/dL Albumin 1.7 L (3.5-5.0) g/dL Assessment and Plan Assessment: #1 bilateral lower extremity wounds #2 diabetes #3 bilateral lower extremity edema #4 atrial fibrillation #5 end-stage renal disease on peritoneal dialysis #6 urosepsis #7 non-Hodgkin's lymphoma with metastasis to brain Plan: Evaluation of lower extremity reveals unstageable ulcerations of the heel. Given this we will plan to take him to the operative suite for formal debridement to bring him back to healthier appearing tissue so that local wound care may be resumed. We will also plan to perform local wound care on the left foot and debridement the tissues at that time. We may utilize a wound VAC dep ending on the tissue at the time of surgery. Was all discussed with the patient is seemingly understands and is willing to proceed as such. Thank you for allowing me to participate in the care of patient
[2020-01-22 17:40] LABS: Glucose,Whole Blood 276 mg/dL (75-99)
[2020-01-22 20:06] LABS: Glucose,Whole Blood 382 mg/dL (75-99)
[2020-01-22] MEDS: FOLIC ACID-VIT B COMPLEX-VIT C 1 CAP PO SCH (21:21)
[2020-01-22] MEDS: ATORVASTATIN 40 MG TAB PO SCH (21:21)
[2020-01-22] MEDS: METOPROLOL SUCCINATE (ER) 25 MG TAB.ER.24H PO SCH (21:21)
[2020-01-22] MEDS: FAMOTIDINE 20 MG TAB PO SCH (21:21)
--- NOTE | 2020-01-22 22:20 | PN ---
PROGRESS NOTE DATE OF SERVICE: 01/22/2020 REASON FOR FOLLOW UP: MRSA bacteremia, source likely right heel infected pressure ulcer with concern for underlying osteomyelitis. INTERVAL HISTORY: The patient is afebrile. The patient is breathing comfortably. The patient denies having any chest pain or shortness of breath or cough. No nausea or vomiting. No abdominal pain or any worsening pain to the right heel area. PHYSICAL EXAMINATION: Blood pressure 121/58 with a pulse of 90, temperature 97.8. She is 97% on room air. General description is a middle-aged male lying in bed in no distress. Respiratory system: Unlabored breathing, clear to auscultation anteriorly. Heart S1, S2. Regular rate and rhythm. ABDOMEN: Soft. No tenderness. Right hand did have unstageable pressure ulcer with some surrounding redness and drainage with foul smelling. LABS: Hemoglobin is 10.3, white count 5.8. BUN of 79, creatinine 9.03. DIAGNOSTIC IMPRESSION AND PLAN: Patient with MRSA bacteremia, concern likely for the right heel infected pressure ulcer with concern for underlying osteomyelitis. Vascular surgery has been consulted and will be doing debridement tomorrow and deep cultures. Continue supportive care. MMODL / IJN: [id number] /
--- NOTE | 2020-01-22 23:20 | PN ---
PROGRESS NOTE This patient is a 64-year-old white male with dialysis. He is going to have some debridement of the right heel tomorrow by vascular surgeon. Dr. De Leon saw the patient today for MRSA bacteremia; source likely right heel infected pressure ulcer with concern for osteomyelitis. CARDIOVASCULAR: S1, S2. LUNGS: Clear. GI: Soft. HEMATOLOGY: Negative Homans. Temperature 97.8, pulse 90, blood pressure 120s over 50s, 97 on room air. Abdomen is soft, nontender. White count 5.8, hemoglobin 10.3, BUN is 79, creatinine is 9.03. ASSESSMENT: 1. MRSA bacteremia. 2. Osteomyelitis. Vascular surgery debridement, deep cultures. Continue with broad- spectrum antibiotics. tolerated. MMODL / IJN: [id number] /
[2020-01-23] MEDS: DIALYSIS (PERIT 1.5%) 2,500 ML 30 G/2,000 ML BAG INTRAPERIT SCH ×5 (02:40→21:34)
[2020-01-23 06:06] LABS: Basophils % (A) 0 %; Eosinophils # (A) 0.1 k/uL (0-0.7); Eosinophils % (A) 1 %; HCT 31.1 % (39.0-53.0); HGB 9.6 gm/dL (13.0-17.5); Hypochromasia Slight; Lymphocytes # (A) 0.9 k/uL (1.0-4.8); Lymphocytes % (A) 18 %; MCH 29.5 pg (25.0-35.0); MCHC 30.9 g/dL (31.0-37.0); MCV 95.5 fL (80.0-100.0); Mean Platelet Volume 9.1; Monocytes # (A) 0.5 k/uL (0-1.0); Monocytes % (A) 10 %; Neutrophils # (A) 3.2 k/uL (1.3-7.7); Neutrophils % (A) 66 %; RBC 3.25 m/uL (4.30-5.90); RDW 15.3 % (11.5-15.5); WBC 4.9 k/uL (3.8-10.6)
[2020-01-23 06:10] LABS: Platelet Count 96 k/uL (150-450)
[2020-01-23 06:11] LABS: Albumin 1.6 g/dL (3.5-5.0); Calcium 7.6 mg/dL (8.4-10.2); Potassium 3.8 mmol/L (3.5-5.1); Total Bilirubin 0.2 mg/dL (0.2-1.3); Total Protein 3.6 g/dL (6.3-8.2)
[2020-01-23 06:17] LABS: Glucose,Whole Blood 280 mg/dL (75-99)
[2020-01-23 06:17] LABS: Vancomycin,Random 21.2 ug/mL
[2020-01-23] MEDS: SEVELAMER 800 MG TAB PO SCH ×3 (06:21→17:50)
[2020-01-23] MEDS: LEVOTHYROXINE 75 MCG TAB PO SCH (06:24)
[2020-01-23] MEDS: MIDODRINE 5 MG TAB PO SCH ×3 (06:24→17:50)
[2020-01-23] MEDS: INSULIN ASPART (NovoLOG) 100 UNIT/ML VIAL SQ SCH ×4 (06:24→21:05)
[2020-01-23] MEDS: predniSONE 5 MG TAB PO SCH (08:11)
[2020-01-23] MEDS: SODIUM BICARBONATE TAB 650 MG TAB PO SCH ×2 (08:11→21:04)
[2020-01-23] MEDS: levETIRAcetam 500 MG TAB PO SCH ×2 (08:11→21:04)
[2020-01-23] MEDS: FINASTERIDE 5 MG TAB PO SCH (08:11)
[2020-01-23] MEDS: TAMSULOSIN 0.4 MG CAP.ER.24H PO SCH (08:11)
[2020-01-23] MEDS: POTASSIUM CHLORIDE ER 10 MEQ TAB.ER.PRT PO SCH (08:11)
[2020-01-23 10:06] LABS: Prothrombin Time 29.7 sec (9.0-12.0)
--- NOTE | 2020-01-23 11:01 | P.PN ---
Subjective Progress Note Date: 01/23/20 Principal diagnosis: Elevated troponin This is a very pleasant 64-year-old gentleman with an extensive medical history consistent off long-standing persistent atrial fibrillation on oral anticoagulation, hypertension, dyslipidemia, and history of chronic bilateral lower extremities ulcers where the patient does follow at the wound clinic was brought by his family to the hospital for further evaluation off generalized weakness associated with fever. The patient was diagnosed with urinary tract infection/sepsis and he was admitted and started on antibiotic. We involved in the care of the patient because of abnormal troponin. Clinically the patient denies any symptoms of chest pain or chest discomfort, shortness of breath, dizziness, heart racing or syncope. He denies any history of coronary artery disease. No coronary revascularization in the past. When he presented to the hospital the EKG showed A. fib with RVR and he was quite tachycardic. During this hospital stay, the creatinine is elevated. Currently he is on statin as well as metoprolol as well as oral anticoagulation. The chest x-ray did not show any acute abnormalities. Please note that the patient does have end stage renal disease and he is also on peritoneal dialysis. Also please note that the patient's somewhat is a poor historian. The patient was seen today January 222019. He remains asymptomatic from a perivascular standpoint overview. Hemodynamically he is hypotensive with a s ystolic pressure in the 80s. We will continue the current medical regimen Objective - Vital Signs Vital signs: Vital Signs Temp 97.7 F 01/23/20 09:18 Pulse 58 L 01/23/20 09:18 Resp 18 01/23/20 09:18 BP 91/57 01/23/20 09:18 Pulse Ox 94 L 01/23/20 09:18 Intake & Output 01/22/20 01/23/20 01/23/20 18:59 06:59 18:59 Intake Total 570 Output Total 1500 Balance 570 -1500 Weight 78.1 kg Intake: Intake, IV Titration 250 Amount Vancomycin 1,250 mg In 250 Sodium Chloride 0.9% 250 ml @ 125 mls/hr IVPB ONCE ONE Rx#:[id number] Oral 320 Output: Urine 1500 Other: Voiding Method Toilet # Voids 3 - Constitutional General appearance: Present: no acute distress - Respiratory Respiratory: bilateral: CTA - Cardiovascular Heart sounds: normal: S1, S2 - Labs CBC & Chem 7: 01/23/20 05:44 01/23/20 05:44 Labs: Abnormal Lab Results - Last 24 Hours (Table) 01/22/20 01/22/20 01/22/20 Range/Units 11:40 17:28 20:05 RBC (4.30-5.90) m/uL Hgb (13.0-17.5) gm/dL Hct (39.0-53.0) % MCHC (31.0-37.0) g/dL Plt Count (150-450) k/uL Lymphocytes # (1.0-4.8) k/uL PT (9.0-12.0) sec INR (<1.2) Sodium (137-145) mmol/L Carbon Dioxide (22-30) mmol/L BUN (9-20) mg/dL Creatinine (0.66-1.25) mg/dL Glucose (74-99) mg/dL POC Glucose (mg/dL) 169 H 276 H 382 H (75-99) mg/dL Calcium (8.4-10.2) mg/dL Total Protein (6.3-8.2) g/dL Albumin (3.5-5.0) g/dL 01/23/20 01/23/20 01/23/20 Range/Units 05:44 05:44 06:16 RBC 3.25 L (4.30-5.90) m/uL Hgb 9.6 L (13.0-17.5) gm/dL Hct 31.1 L (39.0-53.0) % MCHC 30.9 L (31.0-37.0) g/dL Plt Count 96 L (150-450) k/uL Lymphocytes # 0.9 L (1.0-4.8) k/uL PT (9.0-12.0) sec INR (<1.2) Sodium 130 L (137-145) mmol/L Carbon Dioxide 20 L (22-30) mmol/L BUN 80 H (9-20) mg/dL Creatinine 8.50 H* (0.66-1.25) mg/dL Glucose 253 H (74-99) mg/dL POC Glucose (mg/dL) 280 H (75-99) mg/dL Calcium 7.6 L (8.4-10.2) mg/dL Total Protein 3.6 L (6.3-8.2) g/dL Albumin 1.6 L (3.5-5.0) g/dL 01/23/20 Range/Units 09:42 RBC (4.30-5.90) m/uL Hgb (13.0-17.5) gm/dL Hct (39.0-53.0) % MCHC (31.0-37.0) g/dL Plt Count (150-450) k/uL Lymphocytes # (1.0-4.8) k/uL PT 29.7 H (9.0-12.0) sec INR 3.0 H (<1.2) Sodium (137-145) mmol/L Carbon Dioxide (22-30) mmol/L BUN (9-20) mg/dL Creatinine (0.66-1.25) mg/dL Glucose (74-99) mg/dL POC Glucose (mg/dL) (75-99) mg/dL Calcium (8.4-10.2) mg/dL Total Protein (6.3-8.2) g/dL Albumin (3.5-5.0) g/dL Microbiology - Last 24 Hours (Table) 01/22/20 07:00 Blood Culture - Preliminary Blood No Growth after 24 hours 01/20/20 16:45 Urine Culture - Final Urine,Catheterized Enterococcus faecium VRE 01/20/20 17:09 Blood Culture Gram Stain - Final Blood Blood Culture - Final Methicillin resist S. aureus 01/20/20 17:05 Blood Culture Gram Stain - Final Blood Blood Culture - Final Methicillin resist S. aureus 01/20/20 17:09 Blood Culture - Final Blood 01/21/20 14:11 Blood Culture - Preliminary Blood No Growth after 24 hours Assessment and Plan Assessment: Assessment #1 urinary tract infection/sepsis #2 into stage renal disease #3 chronic bilateral lower extremities critical limb ischemia #4 elevated troponin #5 multiple comorbid conditions Plan #1 consider medical treatment for the mildly abnormal troponin #2 the abnormal troponin is likely secondary to renal failure as well as tachycardia when the patient presented to the hospital #3 the echo revealed normal only function #4 follow-up with the patient on when necessary case
[2020-01-23 11:53] LABS: Glucose,Whole Blood 223 mg/dL (75-99)
--- NOTE | 2020-01-23 12:06 | PN ---
PROGRESS NOTE Patient is seen for followup for end-stage renal disease. He is currently maintained on peritoneal dialysis and doing well. Patient has positive blood cultures for MRSA. He is being followed by ID. He has bilateral lower extremity wounds with worsening right foot ulcer. PHYSICAL EXAMINATION: On examination today, blood pressure is 91/57, heart rate 58 per minute, he is afebrile. Examination of the lower extremities shows bilateral feet to be currently wrapped. Abdomen is soft, nontender. LABS: Show from today sodium 130, potassium 3.8, creatinine 8.5, hemoglobin 9.6 g/dL. ASSESSMENT: 1. End-stage renal disease maintained on peritoneal dialysis, continue current PD exchanges. 2. MRSA bacteremia source is likely infected right heel ulcer with concern for possible osteomyelitis, being followed by Vascular Surgery, scheduled for debridement today. 3. CKD mineral bone disorder. 4. History of coronary artery disease. 5. Metabolic acidosis, maintained on sodium bicarb. 6. Pyuria. Urine culture grew group D Enterococcus. PLAN: Continue antibiotics as per ID. Continue current PD exchanges. MMODL / IJN: [id number] /
[2020-01-23 13:36] LABS: Glucose,Whole Blood 204 mg/dL (75-99)
[2020-01-23] MEDS ORDERED: SODIUM CHLORIDE 0.9% 250 ML IV ONE (13:37)
[2020-01-23] MEDS ORDERED: ePHEDrine SULFATE/0.9% NACL/PF 50 MG/5 ML SYRINGE IV ONE (14:15)
[2020-01-23] MEDS ORDERED: PHENYLEPHRINE-0.9% NACL SYG 1 MG/10 ML SYRINGE ONE (14:15)
[2020-01-23] MEDS ORDERED: PROPOFOL 10 MG/ML 20 ML VIAL IV ONE (14:15)
[2020-01-23] MEDS ORDERED: fentaNYL (PF) 50 MCG/ML 2 ML AMP ONE (14:15)
[2020-01-23] MEDS ORDERED: MIDAZOLAM 2 MG/2 ML VIAL ONE (14:15)
[2020-01-23] MEDS ORDERED: LIDOCAINE 1% INJ 10MG/ML (20 ML MDV) ONE (14:15)
[2020-01-23] MEDS ORDERED: SODIUM CHLORIDE 0.9% 500 ML 500 ML IV ONE (15:06)
--- NOTE | 2020-01-23 15:37 | P.OP ---
Date of Procedure: 01/23/20 Description of Procedure: Preoperative diagnosis: Bilateral lower extremity wounds, diabetes, neuropathy Postoperative diagnosis: Same Procedure: [#1 sharp excisional debridement of right heel wound to bone, 8 x 5.1 x 0.3 cm #2 sharp excisional debridement right anterior ankle to subcutaneous tissues 6 x 3 x 0.1 #4 sharp excisional debridement left lateral foot wound to bone 4x 2 x 1.0 #5 delayed primary closure left foot wound] Surgeon: Cindy Jorge D.O. Anesthesia: Gen. LMA EBL: [Less than 20 mL] IV fluids: See anesthesia records] Urine output: [Not measured] Culture: Bone culture right heel Drains: [None] Complications: [None immediately apparent Condition: [Stable to recovery] Operative indication and findings: [The patient is a 64-year-old male with extensive past medical history and also including diabetes with neuropathy. He had wounds on his bilateral lower extremities which are nonhealing. He presented to the hospital with fever and malaise. We were asked to see the patient regarding evaluation of his lower extremity wounds and need for operative debridement. His preoperative labs were somewhat abnormal with an elevated INR but no other changes in his liver function testing. He does not take any anticoagulation. Given the minimal bleeding risk of this procedure, it was decided to go forth with the procedure and treat his supratherapeutic INR with FFP. Risks and benefits were discussed including the increased risk of bleeding. The patient seemingly understood and was willing to proceed as such] Procedure in detail: [The patient was taken the operative suite and placed in supine position. Bilateral lower extremities were prepped and draped in usual sterile fashion. A preprocedure timeout was performed, all parties were in agreement. Beginning with the left foot, the wound itself was sharply debrided with curet. It was tracking down to the level of the bone. The measurements are as above. There was adequate overlying the tissue surrounding the bone and once healthy appearing granulation tissue was achieved, there was cleansed and interrupted vertical mattress sutures of 3-0 nylon were placed to allow for delayed primary healing. Attention was then turned towards right lower extremity. The anterior ankle wound was sharply debrided with curet down to subcutaneous tissues and adequate granulation tissues. This is very superficial in nature. The heel was next. There was significant callus surrounding the wound that was unroofed. There was an area of an ulceration that did tunnel connecting 2 portions of the wound together. This was excised creating one wound itself. This wound did go other down to the level of the bone which was very friable and. The chronic infection. This was biopsied and sent for culture. The edges were then cleaned and further sharp excisional debridement was performed. Residual measurements are as above. Pressure was held until hemostasis was adequate. There is cleansed with saline and slight pressure dressings were placed along with a compression dressing of the leg. The patient was transferred back to recovery in stable condition having tolerated the procedure well.]
[2020-01-23] MEDS: IRON POLYSACCHARIDES COMPLEX 150 MG CAP PO SCH (16:40)
[2020-01-23] MEDS: APIXABAN 2.5 MG TABLET PO SCH ×2 (16:40→21:04)
[2020-01-23 17:39] LABS: Glucose,Whole Blood 281 mg/dL (75-99)
[2020-01-23] MEDS ORDERED: VANCOMYCIN 1,250 MG in SODIUM CHLORIDE 0.9% 250 ML IVPB ONE (18:00)
--- NOTE | 2020-01-23 18:48 | PN ---
PROGRESS NOTE This patient underwent surgery today of bilateral lower extremity wounds. Right heel wound to bone 8 x 5 x 0.3 cm. Right anterior ankle subcutaneous 6 x 3.1. Left lateral foot wound to bone 4 x 2 x 1. Delayed primary closure of left foot wound. Dr. Jorge. Waiting for deep culture. Antibiotics. He is on dialysis. Antibiotics per Dr. De Leon. Temperature is 96.7, blood pressure is 90s to 100s over 50s to 60s, O2 94% on room air, respiratory rate 16 to 14, pulse 88 to 114, irregular. Labs show sodium 130, potassium 3.8. BUN is 80, creatinine 8.5. Sugars in the 200s. ASSESSMENT: 1. Severe wound infections. 2. End-stage renal disease. 3. Hyp tensive. 4. Acute on chronic anemia. 5. Urinary tract infection, sepsis. 6. Chronic bilateral lower extremity critical limb ischemia. 7. Elevated troponin. Medical treatment for elevated troponin which is due to renal failure and tachycardia. Chronic wound infections. Refer Dr. De Leon's recommendation after cultures are back prior to discharge with antibiotics per Dr. De Leon. MMODL / IJN: [id number] /
[2020-01-23 20:29] LABS: Glucose,Whole Blood 355 mg/dL (75-99)
[2020-01-23] MEDS: FAMOTIDINE 20 MG TAB PO SCH (21:04)
[2020-01-23] MEDS: METOPROLOL SUCCINATE (ER) 25 MG TAB.ER.24H PO SCH (21:04)
[2020-01-23] MEDS: ATORVASTATIN 40 MG TAB PO SCH (21:04)
[2020-01-23] MEDS: FOLIC ACID-VIT B COMPLEX-VIT C 1 CAP PO SCH (21:05)
--- NOTE | 2020-01-23 23:33 | PN ---
PROGRESS NOTE DATE OF SERVICE: 01/23/2020 REASON FOR FOLLOWUP: 1. MRSA bacteremia secondary to right heel osteomyelitis. 2. Positive VRE urine culture, likely colonization. INTERVAL HISTORY: The patient was seen on rounds this morning. The patient overall has been feeling better, breathing comfortably. Denies having any chest pain or cough. No nausea or vomiting. No abdominal pain. Still makes some urine, but no urinary symptoms. No worsening pain to the right heel area. PHYSICAL EXAMINATION: Blood pressure 101/64 with a pulse of 78, temperature 97.7. He is 97% on room air. General description is a middle-aged male lying in bed in no distress. RESPIRATORY SYSTEM: Unlabored breathing. Clear to auscultation anteriorly. HEART: S1, S2. Regular rate and rhythm. ABDOMEN: Soft. No tenderness. Heel is currently dressed up. No obvious drainage on the dressing. LABS: Hemoglobin is 9.6, white count 4.9, BUN of 80, creatinine 8.50. Blood cultures from 01/20 and 01/22/2020 have been negative so far. DIAGNOSTIC IMPRESSION AND PLAN: 1. Patient with methicillin-resistant Staphylococcus aeruginosa bacteremia. Source is likely right heel osteomyelitis, status post surgical debridement and deep bone biopsy. He will continue with vancomycin; planning for at least 6 weeks of antibiotic therapy. 2. Positive urine culture with vancomycin-resistant Enterococcus, which is more likely colonization, as the patient does not have any urinary symptoms and clinically improved without getting treatment for the same. We will get a repeat UA and cultures. Straight cath if needed. Discussed with the RN. LEYLA / VANN: [id number] /
[2020-01-24] MEDS: DIALYSIS (PERIT 1.5%) 2,500 ML 30 G/2,000 ML BAG INTRAPERIT SCH ×4 (02:14→20:43)
[2020-01-24 03:54] LABS: Appearance,Urine Cloudy (Clear); Bacteria,Urine Few /hpf; Bilirubin,Urine Negative (Negative); Blood,Urine Moderate (Negative); Color,Urine Light Yellow; Glucose,Urine (UA) Negative (Negative); Ketones,Urine Negative (Negative); Leukocyte Esterase,Urine Large (Negative); Mucus,Urine Rare /hpf; Nitrite,Urine Negative (Negative); PH, Urine 8.5 (5.0-8.0); Protein,Urine 1+ (Negative); RBC,Urine 28 /hpf (0-5); Specific Gravity,Urine 1.008 (1.001-1.035); Squamous Epithelial Cell,Urine <1 /hpf (0-4); Urobilinogen,Urine <2.0 mg/dL (<2.0); WBC,Urine >182 /hpf (0-5)
[2020-01-24 06:22] LABS: Glucose,Whole Blood 269 mg/dL (75-99)
[2020-01-24] MEDS: LEVOTHYROXINE 75 MCG TAB PO SCH (07:02)
[2020-01-24] MEDS: SEVELAMER 800 MG TAB PO SCH ×3 (07:02→17:40)
[2020-01-24] MEDS: INSULIN ASPART (NovoLOG) 100 UNIT/ML VIAL SQ SCH ×5 (07:02→20:13)
[2020-01-24] MEDS: MIDODRINE 5 MG TAB PO SCH ×3 (07:02→17:39)
[2020-01-24 07:13] LABS: Basophils % (A) 0 %; Eosinophils # (A) 0.1 k/uL (0-0.7); Eosinophils % (A) 1 %; HCT 31.9 % (39.0-53.0); HGB 10.2 gm/dL (13.0-17.5); Hypochromasia Moderate; Lymphocytes # (A) 0.9 k/uL (1.0-4.8); Lymphocytes % (A) 21 %; MCH 30.9 pg (25.0-35.0); MCHC 31.8 g/dL (31.0-37.0); Mean Platelet Volume 8.7; Monocytes # (A) 0.4 k/uL (0-1.0); Monocytes % (A) 9 %; Neutrophils # (A) 2.8 k/uL (1.3-7.7); Neutrophils % (A) 66 %; RBC 3.29 m/uL (4.30-5.90); RDW 15.2 % (11.5-15.5); WBC 4.2 k/uL (3.8-10.6)
[2020-01-24 07:23] LABS: INR 2.2 (<1.2); Prothrombin Time 21.2 sec (9.0-12.0)
[2020-01-24 07:26] LABS: Albumin 1.7 g/dL (3.5-5.0); Calcium 7.8 mg/dL (8.4-10.2); Potassium 3.5 mmol/L (3.5-5.1); Total Bilirubin 0.3 mg/dL (0.2-1.3); Total Protein 3.7 g/dL (6.3-8.2)
[2020-01-24 07:27] LABS: Platelet Count 91 k/uL (150-450)
[2020-01-24] MEDS: SODIUM BICARBONATE TAB 650 MG TAB PO SCH ×2 (08:26→20:13)
[2020-01-24] MEDS: APIXABAN 2.5 MG TABLET PO SCH ×2 (08:26→20:12)
[2020-01-24] MEDS: levETIRAcetam 500 MG TAB PO SCH ×2 (08:26→20:13)
[2020-01-24] MEDS: TAMSULOSIN 0.4 MG CAP.ER.24H PO SCH (08:26)
[2020-01-24] MEDS: FINASTERIDE 5 MG TAB PO SCH (08:26)
[2020-01-24] MEDS: predniSONE 5 MG TAB PO SCH (08:26)
--- NOTE | 2020-01-24 10:02 | P.PN ---
Subjective Progress Note Date: 01/24/20 Patient seen and examined. Overall doing okay. Pain well controlled. No issues overall. Right and left lower extremity dressings in place. Clean, dry and intact. Continue local wound care. Did discuss the patient and there is significant bony exposure on the right heel which may significantly diminished wound healing abilities. Bone culture was taken. Await cultures for proper antibiotics per i nfectious disease. Objective - Vital Signs Vital signs: Vital Signs Temp 97.6 F 01/24/20 08:05 Pulse 84 01/24/20 08:05 Resp 16 01/24/20 08:05 BP 102/59 01/24/20 08:05 Pulse Ox 99 01/24/20 08:05 Intake & Output 01/23/20 01/24/20 01/24/20 18:59 06:59 18:59 Intake Total 500 120 Output Total 10 325 Balance 490 -205 Weight 78.1 kg 79 kg Intake: IV 500 Oral 0 120 Output: Urine 325 Estimated Blood Loss 10 Other: Voiding Method CAPD CAPD - Labs CBC & Chem 7: 01/24/20 06:40 01/24/20 06:40 Labs: Abnormal Lab Results - Last 24 Hours (Table) 01/23/20 01/23/20 01/23/20 Range/Units 09:42 11:52 13:35 RBC (4.30-5.90) m/uL Hgb (13.0-17.5) gm/dL Hct (39.0-53.0) % Plt Count (150-450) k/uL Lymphocytes # (1.0-4.8) k/uL PT 29.7 H (9.0-12.0) sec INR 3.0 H (<1.2) Sodium (137-145) mmol/L BUN (9-20) mg/dL Creatinine (0.66-1.25) mg/dL Glucose (74-99) mg/dL POC Glucose (mg/dL) 223 H 204 H (75-99) mg/dL Calcium (8.4-10.2) mg/dL Total Protein (6.3-8.2) g/dL Albumin (3.5-5.0) g/dL Urine pH (5.0-8.0) Urine Protein (Negative) Urine Blood (Negative) Ur Leukocyte Esterase (Negative) Urine RBC (0-5) /hpf Urine WBC (0-5) /hpf Urine WBC Clumps (None) /hpf Urine Bacteria (None) /hpf Urine Mucus (None) /hpf 01/23/20 01/23/20 01/24/20 Range/Units 17:06 20:29 02:30 RBC (4.30-5.90) m/uL Hgb (13.0-17.5) gm/dL Hct (39.0-53.0) % Plt Count (150-450) k/uL Lymphocytes # (1.0-4.8) k/uL PT (9.0-12.0) sec INR (<1.2) Sodium (137-145) mmol/L BUN (9-20) mg/dL Creatinine (0.66-1.25) mg/dL Glucose (74-99) mg/dL POC Glucose (mg/dL) 281 H 355 H (75-99) mg/dL Calcium (8.4-10.2) mg/dL Total Protein (6.3-8.2) g/dL Albumin (3.5-5.0) g/dL Urine pH 8.5 H (5.0-8.0) Urine Protein 1+ H (Negative) Urine Blood Moderate H (Negative) Ur Leukocyte Esterase Large H (Negative) Urine RBC 28 H (0-5) /hpf Urine WBC >182 H (0-5) /hpf Urine WBC Clumps Few H (None) /hpf Urine Bacteria Few H (None) /hpf Urine Mucus Rare H (None) /hpf 01/24/20 01/24/20 01/24/20 Range/Units 06:20 06:40 06:40 RBC 3.29 L (4.30-5.90) m/uL Hgb 10.2 L (13.0-17.5) gm/dL Hct 31.9 L (39.0-53.0) % Plt Count 91 L (150-450) k/uL Lymphocytes # 0.9 L (1.0-4.8) k/uL PT 21.2 H (9.0-12.0) sec INR 2.2 H (<1.2) Sodium (137-145) mmol/L BUN (9-20) mg/dL Creatinine (0.66-1.25) mg/dL Glucose (74-99) mg/dL POC Glucose (mg/dL) 269 H (75-99) mg/dL Calcium (8.4-10.2) mg/dL Total Protein (6.3-8.2) g/dL Albumin (3.5-5.0) g/dL Urine pH (5.0-8.0) Urine Protein (Negative) Urine Blood (Negative) Ur Leukocyte Esterase (Negative) Urine RBC (0-5) /hpf Urine WBC (0-5) /hpf Urine WBC Clumps (None) /hpf Urine Bacteria (None) /hpf Urine Mucus (None) /hpf 01/24/20 Range/Units 06:40 RBC (4.30-5.90) m/uL Hgb (13.0-17.5) gm/dL Hct (39.0-53.0) % Plt Count (150-450) k/uL Lymphocytes # (1.0-4.8) k/uL PT (9.0-12.0) sec INR (<1.2) Sodium 132 L (137-145) mmol/L BUN 72 H (9-20) mg/dL Creatinine 8.10 H* (0.66-1.25) mg/dL Glucose 238 H (74-99) mg/dL POC Glucose (mg/dL) (75-99) mg/dL Calcium 7.8 L (8.4-10.2) mg/dL Total Protein 3.7 L (6.3-8.2) g/dL Albumin 1.7 L (3.5-5.0) g/dL Urine pH (5.0-8.0) Urine Protein (Negative) Urine Blood (Negative) Ur Leukocyte Esterase (Negative) Urine RBC (0-5) /hpf Urine WBC (0-5) /hpf Urine WBC Clumps (None) /hpf Urine Bacteria (None) /hpf Urine Mucus (None) /hpf Microbiology - Last 24 Hours (Table) 01/22/20 07:00 Blood Culture - Preliminary Blood No Growth after 48 hours 01/23/20 05:44 Blood Culture - Preliminary Blood No Growth after 24 hours 01/23/20 14:56 Gram Stain - Preliminary Foot - Right Tissue Culture - Preliminary 01/23/20 14:56 Anaerobic Culture - Preliminary Foot - Right 01/21/20 14:11 Blood Culture - Preliminary Blood No Growth after 48 hours 01/20/20 16:45 Urine Culture - Final Urine,Catheterized Enterococcus faecium VRE
--- NOTE | 2020-01-24 10:13 | P.PN ---
Subjective Patient is seen in follow-up for her incisional disease. He is making on peritoneal dialysis. No issues with dialysis exchanges. Currently being treated for MRSA bacteremia as well as lower extremity wounds. Denies chest pain or shortness of breath. No vomiting or diarrhea. Vital signs are stable. General: The patient appeared well nourished and normally developed. HEENT: Head exam is unremarkable. Neck is without jugular venous distension. LUNGS: Lungs are clear to auscultation and percussion. Breath sounds decreased. HEART: Rate and Rhythm are regular. ABDOMEN: Soft, nontender. EXTREMITITES: Lower extremities wrapped. No edema. No drainage noted. Objective - Vital Signs Vital signs: Vital Signs Temp 97.6 F 01/24/20 08:05 Pulse 84 01/24/20 08:05 Resp 16 01/24/20 08:05 BP 102/59 01/24/20 08:05 Pulse Ox 99 01/24/20 08:05 Intake & Output 01/23/20 01/24/20 01/24/20 18:59 06:59 18:59 Intake Total 500 120 Output Total 10 325 Balance 490 -205 Weight 78.1 kg 79 kg Intake: IV 500 Oral 0 120 Output: Urine 325 Estimated Blood Loss 10 Other: Voiding Method CAPD CAPD - Labs CBC & Chem 7: 01/24/20 06:40 01/24/20 06:40 Labs: Abnormal Lab Results - Last 24 Hours (Table) 01/23/20 01/23/20 01/23/20 Range/Units 11:52 13:35 17:06 RBC (4.30-5.90) m/uL Hgb (13.0-17.5) gm/dL Hct (39.0-53.0) % Plt Count (150-450) k/uL Lymphocytes # (1.0-4.8) k/uL PT (9.0-12.0) sec INR (<1.2) Sodium (137-145) mmol/L BUN (9-20) mg/dL Creatinine (0.66-1.25) mg/dL Glucose (74-99) mg/dL POC Glucose (mg/dL) 223 H 204 H 281 H (75-99) mg/dL Calcium (8.4-10.2) mg/dL Total Protein (6.3-8.2) g/dL Albumin (3.5-5.0) g/dL Urine pH (5.0-8.0) Urine Protein (Negative) Urine Blood (Negative) Ur Leukocyte Esterase (Negative) Urine RBC (0-5) /hpf Urine WBC (0-5) /hpf Urine WBC Clumps (None) /hpf Urine Bacteria (None) /hpf Urine Mucus (None) /hpf 01/23/20 01/24/20 01/24/20 Range/Units 20:29 02:30 06:20 RBC (4.30-5.90) m/uL Hgb (13.0-17.5) gm/dL Hct (39.0-53.0) % Plt Count (150-450) k/uL Lymphocytes # (1.0-4.8) k/uL PT (9.0-12.0) sec INR (<1.2) Sodium (137-145) mmol/L BUN (9-20) mg/dL Creatinine (0.66-1.25) mg/dL Glucose (74-99) mg/dL POC Glucose (mg/dL) 355 H 269 H (75-99) mg/dL Calcium (8.4-10.2) mg/dL Total Protein (6.3-8.2) g/dL Albumin (3.5-5.0) g/dL Urine pH 8.5 H (5.0-8.0) Urine Protein 1+ H (Negative) Urine Blood Moderate H (Negative) Ur Leukocyte Esterase Large H (Negative) Urine RBC 28 H (0-5) /hpf Urine WBC >182 H (0-5) /hpf Urine WBC Clumps Few H (None) /hpf Urine Bacteria Few H (None) /hpf Urine Mucus Rare H (None) /hpf 01/24/20 01/24/20 01/24/20 Range/Units 06:40 06:40 06:40 RBC 3.29 L (4.30-5.90) m/uL Hgb 10.2 L (13.0-17.5) gm/dL Hct 31.9 L (39.0-53.0) % Plt Count 91 L (150-450) k/uL Lymphocytes # 0.9 L (1.0-4.8) k/uL PT 21.2 H (9.0-12.0) sec INR 2.2 H (<1.2) Sodium 132 L (137-145) mmol/L BUN 72 H (9-20) mg/dL Creatinine 8.10 H* (0.66-1.25) mg/dL Glucose 238 H (74-99) mg/dL POC Glucose (mg/dL) (75-99) mg/dL Calcium 7.8 L (8.4-10.2) mg/dL Total Protein 3.7 L (6.3-8.2) g/dL Albumin 1.7 L (3.5-5.0) g/dL Urine pH (5.0-8.0) Urine Protein (Negative) Urine Blood (Negative) Ur Leukocyte Esterase (Negative) Urine RBC (0-5) /hpf Urine WBC (0-5) /hpf Urine WBC Clumps (None) /hpf Urine Bacteria (None) /hpf Urine Mucus (None) /hpf Microbiology - Last 24 Hours (Table) 01/22/20 07:00 Blood Culture - Preliminary Blood No Growth after 48 hours 01/23/20 05:44 Blood Culture - Preliminary Blood No Growth after 24 hours 01/23/20 14:56 Gram Stain - Preliminary Foot - Right Tissue Culture - Preliminary 01/23/20 14:56 Anaerobic Culture - Preliminary Foot - Right 01/21/20 14:11 Blood Culture - Preliminary Blood No Growth after 48 hours 01/20/20 16:45 Urine Culture - Final Urine,Catheterized Enterococcus faecium VRE Assessment and Plan Plan: Assessment: 1. End-stage renal disease maintained on peritoneal dialysis. 2. MRSA bacteremia the source likely being right heel osteomyelitis status post surgical debridement. 3. VRE UTI. Possibly colonization. 4. 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 5. Chronic hypotension maintained on midodrine. 6. Hyponatremia secondary to chronic kidney disease. 7. Diabetes mellitus. Plan: Maintain current PD changes. Monitor vancomycin levels. Target level 15. Dose to be adjusted for renal function.
[2020-01-24 11:57] LABS: Glucose,Whole Blood 182 mg/dL (75-99)
[2020-01-24] MEDS: IRON POLYSACCHARIDES COMPLEX 150 MG CAP PO SCH (12:06)
[2020-01-24 16:54] LABS: Glucose,Whole Blood 184 mg/dL (75-99)
[2020-01-24 20:00] LABS: Glucose,Whole Blood 247 mg/dL (75-99)
[2020-01-24] MEDS: ATORVASTATIN 40 MG TAB PO SCH (20:12)
[2020-01-24] MEDS: FOLIC ACID-VIT B COMPLEX-VIT C 1 CAP PO SCH (20:13)
[2020-01-24] MEDS: FAMOTIDINE 20 MG TAB PO SCH (20:13)
[2020-01-24] MEDS: METOPROLOL SUCCINATE (ER) 25 MG TAB.ER.24H PO SCH (20:13)
--- NOTE | 2020-01-24 22:25 | PN ---
PROGRESS NOTE Status post debridement of both feet bilaterally with MRSA in his blood. Remains on dialysis and wait for deep cultures of the wound to be done. He has MRSA in his blood, most likely due to a deep left heel ulcer. He feels good. No chest pain or shortness of breath. No vomiting or diarrhea. Remains on vancomycin. Cardiovascular: S1, S2. Lungs clear. GI soft. Legs are wrapped. No edema. No drainage. Temp 97.6, pulse 80-84, respiratory 16-18, blood pressure 102/59, O2 saturation 99%. Hemoglobin 10.2, white count 4.2, BUN 72, creatinine 8.10. ASSESSMENT: 1. End-stage renal disease on dialysis. 2. MRSA bacteremia. 3. Right heel osteomyelitis status post surgical debridement. 4. VRE urinary tract infection. 5. Chronic renal disease, on calcitriol and Renvela. 6. Chronic hypotension, on midodrine. 7. Hyponatremia. 8. Chronic kidney disease. 9. Diabetes mellitus. Continue vancomycin and dialysis. Wait for deep cultures. Most likely discharged on Sunday to give long-term antibiotics and follow up in the [facility]ound Clinic and continue on vancomycin for 5-6 weeks. MMODL / IJN: [id number] /
--- NOTE | 2020-01-24 22:40 | PN ---
PROGRESS NOTE DATE OF SERVICE: 01/24/2020 REASON FOR FOLLOWUP: MRSA bacteremia and right heel osteomyelitis. INTERVAL HISTORY: Patient is currently afebrile, has been breathing comfortably. The patient denies having any chest pain. No shortness of breath or cough. No nausea, vomiting or abdominal pain or any pain to the heel area. PHYSICAL EXAMINATION: Blood pressure 113/73 with a pulse of 95, temperature 97.8. He is 98% on room air. General description is a middle-aged male lying in bed in no distress. Respiratory system: Unlabored breathing, clear to auscultation anteriorly. Heart S1, S2. Regular rate and rhythm. Abdomen soft, no tenderness. Right heel is currently dressed up. No obvious drainage on the dressing. DIAGNOSTIC IMPRESSION AND PLAN: 1. Patient with MRSA bacteremia to the right heel and this patient is currently covered with vancomycin, pharmacy to dose to continue and monitor clinical course closely. 2. Positive culture with ( ), possible colonization. Repeat culture is currently pending. MMODL / IJN: [id number] /
[2020-01-25] MEDS: DIALYSIS (PERIT 1.5%) 2,500 ML 30 G/2,000 ML BAG INTRAPERIT SCH ×4 (02:08→21:36)
[2020-01-25 06:45] LABS: INR 3.4 (<1.2); Prothrombin Time 33.6 sec (9.0-12.0)
[2020-01-25 06:48] LABS: Basophils % (A) 0 %; Eosinophils # (A) 0.1 k/uL (0-0.7); Eosinophils % (A) 1 %; HCT 30.5 % (39.0-53.0); HGB 9.6 gm/dL (13.0-17.5); Hypochromasia Slight; Lymphocytes # (A) 0.9 k/uL (1.0-4.8); Lymphocytes % (A) 25 %; MCH 29.5 pg (25.0-35.0); MCHC 31.4 g/dL (31.0-37.0); MCV 94.2 fL (80.0-100.0); Mean Platelet Volume 8.8; Monocytes # (A) 0.3 k/uL (0-1.0); Monocytes % (A) 10 %; Neutrophils # (A) 2.1 k/uL (1.3-7.7); Neutrophils % (A) 61 %; RBC 3.24 m/uL (4.30-5.90); WBC 3.5 k/uL (3.8-10.6)
[2020-01-25 07:00] LABS: Albumin 1.6 g/dL (3.5-5.0); Calcium 7.1 mg/dL (8.4-10.2); Potassium 3.2 mmol/L (3.5-5.1); Total Bilirubin 0.4 mg/dL (0.2-1.3); Total Protein 3.6 g/dL (6.3-8.2)
[2020-01-25] MEDS: LEVOTHYROXINE 75 MCG TAB PO SCH (07:01)
[2020-01-25] MEDS: MIDODRINE 5 MG TAB PO SCH ×3 (07:01→17:47)
[2020-01-25] MEDS: SEVELAMER 800 MG TAB PO SCH ×3 (07:01→17:47)
[2020-01-25 07:06] LABS: Platelet Count 83 k/uL (150-450)
[2020-01-25 07:09] LABS: Glucose,Whole Blood 188 mg/dL (75-99)
[2020-01-25] MEDS: INSULIN ASPART (NovoLOG) 100 UNIT/ML VIAL SQ SCH ×7 (07:21→20:44)
[2020-01-25 09:22] LABS: Vancomycin,Random 25.2 ug/mL
[2020-01-25] MEDS ORDERED: POTASSIUM CHLORIDE ER 20 MEQ TAB.ER PO STA (09:43)
--- NOTE | 2020-01-25 09:45 | P.PN ---
Subjective Patient is seen in follow-up for end-stage renal disease. He is maintained on peritoneal dialysis. No issues with dialysis exchanges. Currently being treated for MRSA bacteremia as well as lower extremity wounds. Denies chest pain or shortness of breath. No vomiting or diarrhea. No changes overnight. Vital signs are stable. General: The patient appeared well nourished and normally developed. HEENT: Head exam is unremarkable. Neck is without jugular venous distension. LUNGS: Lungs are clear to auscultation and percussion. Breath sounds decreased. HEART: Rate and Rhythm are regular. ABDOMEN: Soft, nontender. EXTREMITITES: Lower extremities wrapped. No edema. No drainage noted. Objective - Vital Signs Vital signs: Vital Signs Temp 97.8 F 01/25/20 08:00 Pulse 86 01/25/20 08:00 Resp 18 01/25/20 08:00 BP 117/68 01/25/20 08:00 Pulse Ox 99 01/25/20 08:00 Intake & Output 01/24/20 01/25/20 01/25/20 18:59 06:59 18:59 Intake Total 360 Output Total 50 Balance 360 -50 Weight 79.4 kg Intake: Oral 360 Output: Urine 50 Other: Voiding Method CAPD CAPD CAPD # Voids 2 1 # Bowel Movements 1 - Labs CBC & Chem 7: 01/25/20 06:15 01/25/20 06:15 Labs: Abnormal Lab Results - Last 24 Hours (Table) 01/24/20 01/24/20 01/24/20 Range/Units 11:55 16:53 20:00 WBC (3.8-10.6) k/uL RBC (4.30-5.90) m/uL Hgb (13.0-17.5) gm/dL Hct (39.0-53.0) % Plt Count (150-450) k/uL Lymphocytes # (1.0-4.8) k/uL PT (9.0-12.0) sec INR (<1.2) Sodium (137-145) mmol/L Potassium (3.5-5.1) mmol/L BUN (9-20) mg/dL Creatinine (0.66-1.25) mg/dL Glucose (74-99) mg/dL POC Glucose (mg/dL) 182 H 184 H 247 H (75-99) mg/dL Calcium (8.4-10.2) mg/dL Total Protein (6.3-8.2) g/dL Albumin (3.5-5.0) g/dL 01/25/20 01/25/20 01/25/20 Range/Units 06:15 06:15 06:15 WBC 3.5 L (3.8-10.6) k/uL RBC 3.24 L (4.30-5.90) m/uL Hgb 9.6 L (13.0-17.5) gm/dL Hct 30.5 L (39.0-53.0) % Plt Count 83 L (150-450) k/uL Lymphocytes # 0.9 L (1.0-4.8) k/uL PT 33.6 H (9.0-12.0) sec INR 3.4 H (<1.2) Sodium 132 L (137-145) mmol/L Potassium 3.2 L (3.5-5.1) mmol/L BUN 65 H (9-20) mg/dL Creatinine 7.66 H* (0.66-1.25) mg/dL Glucose 168 H (74-99) mg/dL POC Glucose (mg/dL) (75-99) mg/dL Calcium 7.1 L (8.4-10.2) mg/dL Total Protein 3.6 L (6.3-8.2) g/dL Albumin 1.6 L (3.5-5.0) g/dL 01/25/20 Range/Units 07:08 WBC (3.8-10.6) k/uL RBC (4.30-5.90) m/uL Hgb (13.0-17.5) gm/dL Hct (39.0-53.0) % Plt Count (150-450) k/uL Lymphocytes # (1.0-4.8) k/uL PT (9.0-12.0) sec INR (<1.2) Sodium (137-145) mmol/L Potassium (3.5-5.1) mmol/L BUN (9-20) mg/dL Creatinine (0.66-1.25) mg/dL Glucose (74-99) mg/dL POC Glucose (mg/dL) 188 H (75-99) mg/dL Calcium (8.4-10.2) mg/dL Total Protein (6.3-8.2) g/dL Albumin (3.5-5.0) g/dL Microbiology - Last 24 Hours (Table) 01/23/20 05:44 Blood Culture - Preliminary Blood No Growth after 48 hours 01/23/20 14:56 Gram Stain - Preliminary Foot - Right Tissue Culture - Preliminary Yeast species Presumptive Staph aureus 01/24/20 02:30 Urine Culture - Preliminary Urine,Voided 01/21/20 14:11 Blood Culture - Preliminary Blood No Growth after 72 hours 01/22/20 07:00 Blood Culture - Preliminary Blood No Growth after 48 hours Assessment and Plan Plan: Assessment: 1. End-stage renal disease maintained on peritoneal dialysis. 2. MRSA bacteremia the source likely being right heel osteomyelitis status post surgical debridement. 3. VRE UTI. Possibly colonization. 4. 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 5. Chronic hypotension maintained on midodrine. 6. Hyponatremia secondary to chronic kidney disease. 7. Diabetes mellitus. 8. Hypokalemia from PD losses. Plan: Maintain current PD changes. Monitor vancomycin levels. Target level 15. Dose to be adjusted for renal function. Replace potassium. 40 mEq today. Check magnesium level.
[2020-01-25] MEDS: SODIUM BICARBONATE TAB 650 MG TAB PO SCH ×2 (10:49→20:48)
[2020-01-25] MEDS: POTASSIUM CHLORIDE ER 10 MEQ TAB.ER.PRT PO SCH (10:49)
[2020-01-25] MEDS: APIXABAN 2.5 MG TABLET PO SCH ×2 (10:50→20:48)
[2020-01-25] MEDS: levETIRAcetam 500 MG TAB PO SCH ×2 (10:50→20:48)
[2020-01-25] MEDS: TAMSULOSIN 0.4 MG CAP.ER.24H PO SCH (10:50)
[2020-01-25] MEDS: FINASTERIDE 5 MG TAB PO SCH (10:50)
[2020-01-25] MEDS: predniSONE 5 MG TAB PO SCH (10:51)
[2020-01-25 12:08] LABS: Glucose,Whole Blood 182 mg/dL (75-99)
[2020-01-25] MEDS: IRON POLYSACCHARIDES COMPLEX 150 MG CAP PO SCH (12:22)
[2020-01-25 15:47] LABS: Glucose,Whole Blood 125 mg/dL (75-99)
[2020-01-25 17:03] LABS: Glucose,Whole Blood 167 mg/dL (75-99)
[2020-01-25 20:38] LABS: Glucose,Whole Blood 130 mg/dL (75-99)
[2020-01-25] MEDS: ATORVASTATIN 40 MG TAB PO SCH (20:48)
[2020-01-25] MEDS: FOLIC ACID-VIT B COMPLEX-VIT C 1 CAP PO SCH (20:48)
[2020-01-25] MEDS: FAMOTIDINE 20 MG TAB PO SCH (20:48)
[2020-01-25] MEDS: METOPROLOL SUCCINATE (ER) 25 MG TAB.ER.24H PO SCH (20:49)
--- NOTE | 2020-01-25 23:11 | PN ---
PROGRESS NOTE DATE OF SERVICE: 01/25/2020 REASON FOR FOLLOWUP: Right heel osteomyelitis with MRSA bacteremia. INTERVAL HISTORY: Patient is currently afebrile, has been breathing comfortably. Patient denies having any chest pain or shortness of breath or cough. No nausea or vomiting. No abdominal pain or any worsening pain to the right heel. PHYSICAL EXAMINATION: Blood pressure is 115/72 with a pulse of 84, temperature 97.7. He is 98% on room air. General description is a middle-aged male lying in bed in no distress. RESPIRATORY SYSTEM: Unlabored breathing, clear to auscultation anteriorly. HEART: S1, S2. Regular rate and rhythm. ABDOMEN: Soft, no tenderness. Right heel is currently dressed up. No obvious drainage on the dressing. LABS: Hemoglobin 9.6, white count 3.5, BUN of 65, creatinine 7.66. DIAGNOSTIC IMPRESSION AND PLAN: 1. Patient with right heel osteomyelitis with MRSA bacteremia. Patient is currently covered with vancomycin, pharmacy to dose to continue. He will need outpatient IV antibiotic arrangement for which needs a PICC line once cleared by Nephrology. 2. Positive urine culture with VRE, possible colonization, as the patient's fever resolved without receiving treatment for the same. Waiting for repeat urine culture. MMODL / IJN: [id number] /
--- NOTE | 2020-01-26 01:23 | PN ---
PROGRESS NOTE A 64-year-old white male with bacteremia with MRSA, for wound debridements to the legs and follow up in the wound clinic. He is going to be sent home with IV vancomycin with a PICC line tomorrow hopefully or Sunday for 6 weeks. He will follow up with dialysis center and wound center for wound debridement. He will need home nursing and home PICC line IV antibiotics. Discussed the case with his and him. Vital signs are reviewed. CARDIOVASCULAR: S1, S2. LUNGS: Clear. PSYCH: Fair mood and affect. ASSESSMENT: Sepsis due to MRSA with MRSA bacteremia due to heel ulcer on the right foot. He is getting dialysis through intraabdominal peritoneal dialysis. He is afebrile. Denies any chest pain or shortness of breath. No nausea or vomiting. He has MRSA bacteremia on vancomycin. Urinary tract infection. Repeat cultures pending for the urinary tract infection, possible contamination. Prognosis guarded. Hopefully discharge with a PICC line tomorrow. Wound care by wound physician in the wound clinic and home nursing wound care. MMODL / IJN: [id number] /
[2020-01-26] MEDS: DIALYSIS (PERIT 1.5%) 2,500 ML 30 G/2,000 ML BAG INTRAPERIT SCH ×4 (03:24→21:47)
[2020-01-26 06:39] LABS: Basophils % (A) 0 %; Eosinophils # (A) 0.1 k/uL (0-0.7); Eosinophils % (A) 2 %; HCT 30.4 % (39.0-53.0); HGB 9.8 gm/dL (13.0-17.5); Hypochromasia Moderate; Lymphocytes # (A) 1.1 k/uL (1.0-4.8); Lymphocytes % (A) 27 %; MCH 30.4 pg (25.0-35.0); MCHC 32.1 g/dL (31.0-37.0); MCV 94.9 fL (80.0-100.0); Mean Platelet Volume 8.6; Monocytes # (A) 0.4 k/uL (0-1.0); Monocytes % (A) 10 %; Neutrophils # (A) 2.3 k/uL (1.3-7.7); Neutrophils % (A) 59 %; RBC 3.21 m/uL (4.30-5.90); RDW 15.2 % (11.5-15.5)
[2020-01-26 06:44] LABS: INR 2.2 (<1.2); Platelet Count 82 k/uL (150-450)
[2020-01-26 06:50] LABS: Albumin 1.7 g/dL (3.5-5.0); Calcium 7.1 mg/dL (8.4-10.2); Potassium 3.7 mmol/L (3.5-5.1); Total Bilirubin 0.5 mg/dL (0.2-1.3); Total Protein 3.8 g/dL (6.3-8.2)
[2020-01-26 07:18] LABS: Glucose,Whole Blood 214 mg/dL (75-99)
[2020-01-26] MEDS: MIDODRINE 5 MG TAB PO SCH ×3 (07:42→17:42)
[2020-01-26] MEDS: LEVOTHYROXINE 75 MCG TAB PO SCH (07:42)
[2020-01-26] MEDS: SEVELAMER 800 MG TAB PO SCH ×3 (07:42→17:42)
[2020-01-26] MEDS: INSULIN ASPART (NovoLOG) 100 UNIT/ML VIAL SQ SCH ×7 (07:42→21:44)
[2020-01-26 08:02] LABS: Vancomycin,Random 21.7 ug/mL
[2020-01-26] MEDS: levETIRAcetam 500 MG TAB PO SCH ×2 (08:49→21:39)
[2020-01-26] MEDS: FINASTERIDE 5 MG TAB PO SCH (08:49)
[2020-01-26] MEDS: APIXABAN 2.5 MG TABLET PO SCH (08:50)
[2020-01-26] MEDS: TAMSULOSIN 0.4 MG CAP.ER.24H PO SCH (08:50)
[2020-01-26] MEDS: predniSONE 5 MG TAB PO SCH (08:50)
[2020-01-26] MEDS: SODIUM BICARBONATE TAB 650 MG TAB PO SCH ×2 (08:50→21:38)
--- NOTE | 2020-01-26 11:16 | P.PN ---
Subjective Patient is seen in follow-up for end-stage renal disease. He is maintained on peritoneal dialysis. No issues with dialysis exchanges. Currently being treated for MRSA bacteremia as well as lower extremity wounds. Denies chest pain or shortness of breath. No vomiting or diarrhea. No changes overnight. Vital signs are stable. General: The patient appeared well nourished and normally developed. HEENT: Head exam is unremarkable. Neck is without jugular venous distension. LUNGS: Lungs are clear to auscultation and percussion. Breath sounds decreased. HEART: Rate and Rhythm are regular. ABDOMEN: Soft, nontender. EXTREMITITES: Lower extremities wrapped. No edema. No drainage noted. Objective - Vital Signs Vital signs: Vital Signs Temp 97.5 F L 01/26/20 08:31 Pulse 95 01/26/20 08:31 Resp 20 01/26/20 08:31 BP 96/53 01/26/20 08:31 Pulse Ox 93 L 01/26/20 08:31 Intake & Output 01/25/20 01/26/20 01/26/20 18:59 06:59 18:59 Intake Total 480 240 Output Total 200 Balance 280 240 Weight 79 kg Intake: Oral 480 240 Output: Urine 200 Other: Voiding Method CAPD CAPD CAPD # Bowel Movements 1 - Labs CBC & Chem 7: 01/26/20 06:24 01/26/20 06:20 Labs: Abnormal Lab Results - Last 24 Hours (Table) 01/25/20 01/25/20 01/25/20 Range/Units 12:07 15:45 17:01 RBC (4.30-5.90) m/uL Hgb (13.0-17.5) gm/dL Hct (39.0-53.0) % Plt Count (150-450) k/uL PT (9.0-12.0) sec INR (<1.2) Sodium (137-145) mmol/L BUN (9-20) mg/dL Creatinine (0.66-1.25) mg/dL Glucose (74-99) mg/dL POC Glucose (mg/dL) 182 H 125 H 167 H (75-99) mg/dL Calcium (8.4-10.2) mg/dL Total Protein (6.3-8.2) g/dL Albumin (3.5-5.0) g/dL 01/25/20 01/26/20 01/26/20 Range/Units 20:36 06:20 06:24 RBC (4.30-5.90) m/uL Hgb (13.0-17.5) gm/dL Hct (39.0-53.0) % Plt Count (150-450) k/uL PT 21.0 H (9.0-12.0) sec INR 2.2 H (<1.2) Sodium 129 L (137-145) mmol/L BUN 60 H (9-20) mg/dL Creatinine 7.20 H* (0.66-1.25) mg/dL Glucose 171 H (74-99) mg/dL POC Glucose (mg/dL) 130 H (75-99) mg/dL Calcium 7.1 L (8.4-10.2) mg/dL Total Protein 3.8 L (6.3-8.2) g/dL Albumin 1.7 L (3.5-5.0) g/dL 01/26/20 01/26/20 Range/Units 06:24 07:16 RBC 3.21 L (4.30-5.90) m/uL Hgb 9.8 L (13.0-17.5) gm/dL Hct 30.4 L (39.0-53.0) % Plt Count 82 L (150-450) k/uL PT (9.0-12.0) sec INR (<1.2) Sodium (137-145) mmol/L BUN (9-20) mg/dL Creatinine (0.66-1.25) mg/dL Glucose (74-99) mg/dL POC Glucose (mg/dL) 214 H (75-99) mg/dL Calcium (8.4-10.2) mg/dL Total Protein (6.3-8.2) g/dL Albumin (3.5-5.0) g/dL Microbiology - Last 24 Hours (Table) 01/22/20 07:00 Blood Culture - Preliminary Blood No Growth after 96 hours 01/23/20 05:44 Blood Culture - Preliminary Blood No Growth after 72 hours 01/23/20 14:56 Gram Stain - Preliminary Foot - Right Tissue Culture - Preliminary Yeast species Presumptive MRSA 01/23/20 14:56 Anaerobic Culture - Preliminary Foot - Right 01/24/20 02:30 Urine Culture - Preliminary Urine,Voided Group D Enterococcus 01/21/20 14:11 Blood Culture - Preliminary Blood No Growth after 96 hours Assessment and Plan Plan: Assessment: 1. End-stage renal disease maintained on peritoneal dialysis. 2. MRSA bacteremia the source likely being right heel osteomyelitis status post surgical debridement. 3. VRE UTI. Possibly colonization. 4. 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 5. Chronic hypotension maintained on midodrine. 6. Hyponatremia secondary to chronic kidney disease. 7. Diabetes mellitus. 8. Hypokalemia from PD losses. better. magnesium normal. Plan: Maintain current PD changes. Monitor vancomycin levels. Target level 15. Dose to be adjusted for renal function. 25 g IV albumin 2 doses today.
[2020-01-26 11:57] LABS: Glucose,Whole Blood 200 mg/dL (75-99)
[2020-01-26 12:02] VITALS: BMI 22.4
[2020-01-26] MEDS: IRON POLYSACCHARIDES COMPLEX 150 MG CAP PO SCH (12:43)
[2020-01-26] MEDS: ALBUMIN HUMAN 25% 50 ML in EMPTY BAG 1 BAG IVPB SCH ×3 (12:50→21:39)
--- NOTE | 2020-01-26 13:13 | P.PN ---
Subjective Progress Note Date: 01/26/20 Patient seen and examined at the bedside. Patient states pain has been well- controlled. He denies any fevers or chills. He states overall he is feeling very well. Objective - Vital Signs Vital signs: Vital Signs Temp 97.5 F L 01/26/20 08:31 Pulse 95 01/26/20 08:31 Resp 20 01/26/20 08:31 BP 96/53 01/26/20 08:31 Pulse Ox 93 L 01/26/20 08:31 Intake & Output 01/25/20 01/26/20 01/26/20 18:59 06:59 18:59 Intake Total 480 240 Output Total 200 Balance 280 240 Weight 79 kg 79 kg Intake: Oral 480 240 Output: Urine 200 Other: Voiding Method CAPD CAPD CAPD # Bowel Movements 1 - Exam Patient is alert and oriented without any distress. Bilateral lower extremities with dressing that are clean dry and intact. Bilateral dressing were removed. Debridement sites with serosanguineous drainage. No foul odor. - Labs CBC & Chem 7: 01/26/20 06:24 01/26/20 06:20 Labs: Abnormal Lab Results - Last 24 Hours (Table) 01/25/20 01/25/20 01/25/20 Range/Units 15:45 17:01 20:36 RBC (4.30-5.90) m/uL Hgb (13.0-17.5) gm/dL Hct (39.0-53.0) % Plt Count (150-450) k/uL PT (9.0-12.0) sec INR (<1.2) Sodium (137-145) mmol/L BUN (9-20) mg/dL Creatinine (0.66-1.25) mg/dL Glucose (74-99) mg/dL POC Glucose (mg/dL) 125 H 167 H 130 H (75-99) mg/dL Calcium (8.4-10.2) mg/dL Total Protein (6.3-8.2) g/dL Albumin (3.5-5.0) g/dL 01/26/20 01/26/20 01/26/20 Range/Units 06:20 06:24 06:24 RBC 3.21 L (4.30-5.90) m/uL Hgb 9.8 L (13.0-17.5) gm/dL Hct 30.4 L (39.0-53.0) % Plt Count 82 L (150-450) k/uL PT 21.0 H (9.0-12.0) sec INR 2.2 H (<1.2) Sodium 129 L (137-145) mmol/L BUN 60 H (9-20) mg/dL Creatinine 7.20 H* (0.66-1.25) mg/dL Glucose 171 H (74-99) mg/dL POC Glucose (mg/dL) (75-99) mg/dL Calcium 7.1 L (8.4-10.2) mg/dL Total Protein 3.8 L (6.3-8.2) g/dL Albumin 1.7 L (3.5-5.0) g/dL 01/26/20 01/26/20 Range/Units 07:16 11:56 RBC (4.30-5.90) m/uL Hgb (13.0-17.5) gm/dL Hct (39.0-53.0) % Plt Count (150-450) k/uL PT (9.0-12.0) sec INR (<1.2) Sodium (137-145) mmol/L BUN (9-20) mg/dL Creatinine (0.66-1.25) mg/dL Glucose (74-99) mg/dL POC Glucose (mg/dL) 214 H 200 H (75-99) mg/dL Calcium (8.4-10.2) mg/dL Total Protein (6.3-8.2) g/dL Albumin (3.5-5.0) g/dL Microbiology - Last 24 Hours (Table) 01/22/20 07:00 Blood Culture - Preliminary Blood No Growth after 96 hours 01/23/20 05:44 Blood Culture - Preliminary Blood No Growth after 72 hours 01/23/20 14:56 Gram Stain - Preliminary Foot - Right Tissue Culture - Preliminary Yeast species Presumptive MRSA 01/23/20 14:56 Anaerobic Culture - Preliminary Foot - Right 01/24/20 02:30 Urine Culture - Preliminary Urine,Voided Group D Enterococcus 01/21/20 14:11 Blood Culture - Preliminary Blood No Growth after 96 hours Assessment and Plan Assessment: #1 postop day 2 for wound debridement to bilateral lower extremities #2 bilateral lower extremity wounds #3 diabetes #4 bilateral lower extremity edema #5 atrial fibrillation #6 end-stage renal disease on peritoneal dialysis #7 urosepsis #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 Continue IV antibiotics per infectious disease. Cultures still pending. Patient to follow- up with Dr. Jorge in 7-10 days. Further recommendations to follow. The above dictated assessment and findings were discussed with Dr. Jorge. The impression and plan of care have been directed as dictated.
[2020-01-26] MEDS: DAPTOmycin 500 MG in SODIUM CHLORIDE 0.9% 50 ML IVPB SCH (14:35)
[2020-01-26 17:11] LABS: Glucose,Whole Blood 223 mg/dL (75-99)
--- NOTE | 2020-01-26 17:27 | PN ---
PROGRESS NOTE DATE OF SERVICE: 01/26/2020 REASON FOR FOLLOWUP: 1. MRSA bacteremia secondary to right heel osteomyelitis. 2. VRE urinary tract infection or UTI. INTERVAL HISTORY: Patient is currently afebrile, has been breathing comfortably. The patient complaining of some bleeding from his right heel wound. No chest pain. No cough. No abdominal pain, no diarrhea. PHYSICAL EXAMINATION: Blood pressure 133/74 with a pulse of 62, temperature 98.3, he is 96% on room air. General description is a middle-aged male, lying in bed in no distress. RESPIRATORY SYSTEM: Unlabored breathing, clear to auscultation anteriorly. HEART: S1, S2. Regular rate and rhythm. ABDOMEN: Right heel wound with minimal slough tissue. Surrounding swelling has improved. LABS: Hemoglobin 9.1, white count 4.0, BUN of 60, creatinine 7.0, urine showing group D Enterococcus. Blood culture repeat 01/22, 01/21 has been negative. DIAGNOSTIC IMPRESSION AND PLAN: Patient with MRSA bacteremia secondary right heel osteomyelitis. Repeat blood culture has been negative so far. Patient is status post debridement of his right heel wound. Plan at this time is to switch him over to daptomycin as urination showing VRE again with concern for underlying urinary source as the daptomycin to cover both the UTI as well as the osteomyelitis. Plan is for 6 weeks of antibiotic and close outpatient followup. MMODL / IJN: [id number] /
[2020-01-26 20:55] LABS: Glucose,Whole Blood 165 mg/dL (75-99)
[2020-01-26] MEDS: METOPROLOL SUCCINATE (ER) 25 MG TAB.ER.24H PO SCH (21:38)
[2020-01-26] MEDS: FAMOTIDINE 20 MG TAB PO SCH (21:38)
[2020-01-26] MEDS: FOLIC ACID-VIT B COMPLEX-VIT C 1 CAP PO SCH (21:39)
--- NOTE | 2020-01-26 23:20 | PN ---
PROGRESS NOTE This is a 64-year-old white male, UTI, UTI with sepsis. No chest pain. He is going to get Santyl to wounds x4 on his feet. PICC line for IV daptomycin for long-term IV antibiotics. Once a PICC line and IV daptomycin, will be discharged home tomorrow, having things set up correctly with discharge planning. PSYCH: Fair mood and affect. CARDIOVASCULAR: S1, S2. LUNGS: Clear. GI: Soft. Please see further orders for PICC line, IV daptomycin was cleared by insurance. He can be discharged. MMODL / IJN: [id number] /
[2020-01-27] MEDS: ALBUMIN HUMAN 25% 50 ML in EMPTY BAG 1 BAG IVPB SCH (00:30)
[2020-01-27] MEDS: DIALYSIS (PERIT 1.5%) 2,500 ML 30 G/2,000 ML BAG INTRAPERIT SCH ×4 (02:18→21:49)
[2020-01-27 06:52] LABS: Glucose,Whole Blood 214 mg/dL (75-99)
[2020-01-27] MEDS ORDERED: VANCOMYCIN 1,250 MG in SODIUM CHLORIDE 0.9% 250 ML IVPB ONE (08:00)
[2020-01-27] MEDS: INSULIN ASPART (NovoLOG) 100 UNIT/ML VIAL SQ SCH ×7 (08:59→20:38)
[2020-01-27] MEDS: TAMSULOSIN 0.4 MG CAP.ER.24H PO SCH (09:01)
[2020-01-27] MEDS: FINASTERIDE 5 MG TAB PO SCH (09:01)
[2020-01-27] MEDS: IRON POLYSACCHARIDES COMPLEX 150 MG CAP PO SCH (09:01)
[2020-01-27] MEDS: LEVOTHYROXINE 75 MCG TAB PO SCH (09:01)
[2020-01-27] MEDS: levETIRAcetam 500 MG TAB PO SCH ×2 (09:01→20:34)
[2020-01-27] MEDS: SODIUM BICARBONATE TAB 650 MG TAB PO SCH ×2 (09:01→20:34)
[2020-01-27] MEDS: predniSONE 5 MG TAB PO SCH (09:02)
[2020-01-27] MEDS: POTASSIUM CHLORIDE ER 10 MEQ TAB.ER.PRT PO SCH (09:02)
[2020-01-27] MEDS: SEVELAMER 800 MG TAB PO SCH ×3 (09:02→17:52)
[2020-01-27] MEDS: MIDODRINE 5 MG TAB PO SCH ×3 (09:02→17:52)
[2020-01-27 09:06] LABS: Glucose,Whole Blood 306 mg/dL (75-99)
[2020-01-27] MEDS ORDERED: SODIUM CHLORIDE 0.9% 1,000 ML IV SCH (09:15)
--- NOTE | 2020-01-27 10:39 | PN ---
PROGRESS NOTE A 64-year-old white male with UTI and sepsis with MRSA bacteremia secondary to right heel infection. He has had multiple deep wounds for which Santyl dressings are being changed. He is getting a PICC line today for long-term daptomycin per Dr. De Leon for MRSA bacteremia secondary to heel. He will go home with a PICC line and daptomycin. He had a fall this morning, possibly orthostatic changes. I told the nurse to check for orthostasis. He apparently had no head injury, but we may have to increase his midodrine as his blood pressure apparently was low this morning, 86/50, 98% on room air, pulse 60s to 90s, respiratory rate 18-28. ASSESSMENT: 1. Orthostatic hypotension. 2. End-stage renal disease. 3. Sepsis, bacteremia. 4. Hypothyroidism. 5. Hypertension. He is on midodrine 10 mg a.c. t.i.d. Will possibly have to give him some fluids today due to hypotension . Do a cortisol level to rule out adrenal insufficiency. Please see further orders. MMODL / IJN: [id number] /
[2020-01-27] MEDS: SODIUM CHLORIDE 0.9% 250 ML IV SCH ×9 (11:39→12:45)
--- NOTE | 2020-01-27 12:22 | P.PN ---
Subjective Patient is seen in follow-up for end-stage renal disease. He is maintained on peritoneal dialysis. No issues with dialysis exchanges. Currently being treated for MRSA bacteremia as well as lower extremity wounds. Denies chest pain or shortness of breath. No vomiting or diarrhea. [place] weaker this morning and blood pressure was in the systolic 80s. Better now. Vital signs are stable. General: The patient appeared well nourished and normally developed. HEENT: Head exam is unremarkable. Neck is without jugular venous distension. LUNGS: Lungs are clear to auscultation and percussion. Breath sounds decreased. HEART: Rate and Rhythm are regular. ABDOMEN: Soft, nontender. EXTREMITITES: Lower extremities wrapped. No edema. No drainage noted. Objective - Vital Signs Vital signs: Vital Signs Temp 98.4 F 01/27/20 08:00 Pulse 81 01/27/20 08:00 Resp 18 01/27/20 08:00 BP 135/60 01/27/20 08:00 Pulse Ox 100 01/27/20 08:00 Intake & Output 01/26/20 01/27/20 01/27/20 18:59 06:59 18:59 Intake Total 720 850 Output Total 1999 1999 Balance -1280 -1150 Weight 79 kg 82 kg Intake: Intake, IV Titration 850 Amount Albumin Human 25% 50 ml 50 In Empty Bag 1 bag @ 50 mls/hr IVPB Q1H [facility] Rx#: [id number] Albumin Human 25% 50 ml 50 In Empty Bag 1 bag @ 50 mls/hr IVPB Q1H [facility] Rx#: [id number] Sodium Chloride 0.9% 500 750 ml 500 ml @ 0 mls/hr IV . [facility] Rx#: [id number] Oral 720 Output: Other 1999 1999 Other: Voiding Method CAPD CAPD CAPD - Labs CBC & Chem 7: 01/26/20 06:24 01/26/20 06:20 Labs: Abnormal Lab Results - Last 24 Hours (Table) 01/26/20 01/26/20 01/27/20 Range/Units 17:09 20:53 06:50 POC Glucose (mg/dL) 223 H 165 H 214 H (75-99) mg/dL 01/27/20 Range/Units 08:59 POC Glucose (mg/dL) 306 H (75-99) mg/dL Microbiology - Last 24 Hours (Table) 01/22/20 07:00 Blood Culture - Preliminary Blood No Growth after 120 hours 01/23/20 05:44 Blood Culture - Preliminary Blood No Growth after 96 hours 01/23/20 14:56 Gram Stain - Final Foot - Right Tissue Culture - Final [place] albicans Methicillin resist S. aureus 01/24/20 02:30 Urine Culture - Final Urine,Voided Enterococcus faecium VRE 01/21/20 14:11 Blood Culture - Preliminary Blood No Growth after 120 hours Assessment and Plan Plan: Assessment: 1. End-stage renal disease maintained on peritoneal dialysis. 2. MRSA bacteremia the source likely being right heel osteomyelitis status post surgical debridement. 3. VRE UTI. Possibly colonization. 4. 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 5. Chronic hypotension maintained on midodrine. 6. Hyponatremia secondary to chronic kidney disease. 7. Diabetes mellitus. 8. Hypokalemia from PD losses. better. magnesium normal. Plan: Maintain current PD changes. Monitor vancomycin levels. Target level 15. Dose to be adjusted for renal function. Status post IV albumin on January 25. Discontinue Flomax. 500 mL bolus of normal saline now.
[2020-01-27 12:33] LABS: Glucose,Whole Blood 204 mg/dL (75-99)
--- NOTE | 2020-01-27 14:38 | CDI ---
Documentation Clarification Form Date: 01/27/2020 02:22:49 PM From: Maribell DonatoVALENTÍN terrell, CCDS Admit Date: 01/20/2020 05:46:00 PM Patient Name: Salvador Hernandez Visit Number: [id number] Discharge Date: ATTENTION: The Clinical Documentation Specialists (CDI) and [facility] Coding Staff appreciate your assistance in clarifying documentation. Please respond to the clarification below the line at the bottom and electronically sign. The CDI & [facility] Coding staff will review the response and follow-up if needed. Please note: Queries are made part of the Legal Health Record. If you have any questions, please contact the author of this message via ITS. Dr. Ricardo Villar: Anemia is documented in the 01/22 Attending Progress Note without further specificity. 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 Clinical indicators: Presented to the ED on 01/19 with generalized weakness, chronic bilateral foot wounds & low blood sugar. Diagnosed with Sepsis due to MRSA secondary to UTI, Acidosis & Hyponatremia. Patient had an Excisional Debridement of a right heel wound, right anterior ankle & left lateral foot. Hemoglobin 01/19: 11.2*, 01/20: 10.4*, 01/21: 10.0*, 01/22: 9.6*, 01/23: 10.2*, 01/24: 9.6*, 01/25 9.8: Hematocrit 35.6*, 8.: 33.8*, 01/21: 32.3*, 01/22: 31.1*, 01/23: 31.9*, 01/24 30.5*, 01/25: 30.4* Treatment: Typed & Crossed (FFP), no BT. IV albumin Human 50 ml @ 50 mls/hr q1hr x2 (01/25). 01/19 IV fluid 1,000 mls @ 130 mls/hr, IV fluid 1,000 mls @ 999 mls/hr x2. In order to capture the severity of condition, please clarify the type of anemia and etiology if known:. Acute blood loss anemia Acute on chronic blood loss anemia Chronic blood loss anemia Hemolytic anemia Drug induced anemia Anemia due to malignancy Nutritional anemia Anemia of chronic kidney disease Unable to determine Other, please specify (Last Form Revision: August 2019) MTDD
--- NOTE | 2020-01-27 15:44 | PN ---
PROGRESS NOTE DATE OF SERVICE: 01/27/2020 REASON FOR FOLLOWUP: 1. Right heel osteomyelitis with MRSA bacteremia. 2. VRE UTI. INTERVAL HISTORY: The patient is currently afebrile, has been breathing comfortably. The patient denies having any chest pain or shortness of breath or cough. No nausea, vomiting, abdominal pain or pain to the right heel area. PHYSICAL EXAMINATION: Blood pressure 135/60 with a pulse of 81, temperature 98.4. He is 100% on room air. General description is a middle-aged male lying in bed in no distress. RESPIRATORY SYSTEM: Unlabored breathing. Clear to auscultation anteriorly. HEART: S1, S2. Regular rate and rhythm. ABDOMEN: Soft. No tenderness. Heel is currently dressed up. No obvious drainage on the dressing. LABS: Hemoglobin 9.8, white count 4.0, BUN of 60, creatinine 7.20. DIAGNOSTIC IMPRESSION AND PLAN: Patient with methicillin-resistant Staphylococcus aeruginosa right heel wound infection with secondary osteomyelitis and bacteremia. The patient also has evidence of recurrent positive urine culture. Because of possible prostatitis, antibiotic has been adjusted to daptomycin 500 mg q.48 hours; to continue for 6 weeks. Local wound care to continue per Surgery. Continue with supportive care. MMODL / IJN: [id number] /
[2020-01-27 17:04] LABS: Glucose,Whole Blood 84 mg/dL (75-99)
[2020-01-27 17:15] LABS: Glucose,Whole Blood 70 mg/dL (75-99)
[2020-01-27 17:52] LABS: Glucose,Whole Blood 68 mg/dL (75-99)
[2020-01-27 18:09] LABS: Glucose,Whole Blood 81 mg/dL (75-99)
[2020-01-27 20:02] LABS: Glucose,Whole Blood 118 mg/dL (75-99)
[2020-01-27] MEDS: FAMOTIDINE 20 MG TAB PO SCH (20:34)
[2020-01-27] MEDS: FOLIC ACID-VIT B COMPLEX-VIT C 1 CAP PO SCH (20:35)
[2020-01-27] MEDS: METOPROLOL SUCCINATE (ER) 25 MG TAB.ER.24H PO SCH (20:35)
[2020-01-28] MEDS: DIALYSIS (PERIT 1.5%) 2,500 ML 30 G/2,000 ML BAG INTRAPERIT SCH ×2 (03:16→08:05)
[2020-01-28] MEDS: LEVOTHYROXINE 75 MCG TAB PO SCH (06:54)
[2020-01-28] MEDS: INSULIN ASPART (NovoLOG) 100 UNIT/ML VIAL SQ SCH ×4 (07:37→12:40)
[2020-01-28 07:40] LABS: Glucose,Whole Blood 306 mg/dL (75-99)
[2020-01-28 08:11] VITALS: RESP 16
[2020-01-28] MEDS: FINASTERIDE 5 MG TAB PO SCH (08:11)
[2020-01-28] MEDS: levETIRAcetam 500 MG TAB PO SCH (08:11)
[2020-01-28] MEDS: MIDODRINE 5 MG TAB PO SCH ×2 (08:11→12:40)
[2020-01-28] MEDS: predniSONE 5 MG TAB PO SCH (08:12)
[2020-01-28] MEDS: SEVELAMER 800 MG TAB PO SCH ×2 (08:12→12:40)
[2020-01-28] MEDS: SODIUM BICARBONATE TAB 650 MG TAB PO SCH (08:12)
[2020-01-28 12:31] LABS: Glucose,Whole Blood 225 mg/dL (75-99)
[2020-01-28] MEDS: IRON POLYSACCHARIDES COMPLEX 150 MG CAP PO SCH (12:44)
[2020-01-28] MEDS: DAPTOmycin 500 MG in SODIUM CHLORIDE 0.9% 50 ML IVPB SCH (12:45)
--- NOTE | 2020-01-28 14:54 | PN ---
PROGRESS NOTE DATE OF SERVICE: 01/28/2020 REASON FOR FOLLOWUP: 1. Right heel osteomyelitis with MRSA bacteremia. 2. VRE urinary tract infection. INTERVAL HISTORY: Patient is currently afebrile. The patient is breathing comfortably. The patient denies having any chest pain, shortness of breath or cough. No nausea, no vomiting. No abdominal pain or pain to the right heel area. He is currently waiting for the outpatient IV antibiotic arrangement before discharge. PHYSICAL EXAMINATION: Blood pressure is 111/74 with a pulse of 77, temperature 98.1. He is 96% on room air. General description is a middle-aged male up in the room, in no distress. RESPIRATORY SYSTEM: Unlabored breathing, clear to auscultation anteriorly. HEART: S1, S2. Regular rate and rhythm. ABDOMEN: Soft, no tenderness. Heel wound is currently dressed up. No obvious drainage on the dressing. LABS: No new labs have been obtained today. IMPRESSION: 1. Patient with MRSA bacteremia secondary to right heel osteomyelitis, status post debridement of his wound. Followup blood culture has been negative. Currently on daptomycin. 2. Patient with VRE urinary tract infection, covered with daptomycin. Plan is for close 6 weeks of daptomycin. Local wound care per Surgery and close outpatient followup. MMODL / IJN: [id number] /
--- NOTE | 2020-01-28 14:55 | P.PN ---
Subjective Patient is seen in follow-up for end-stage renal disease. He is maintained on peritoneal dialysis. No issues with dialysis exchanges. Currently being treated for VRE UTI, MRSA bacteremia as well as lower extremity wounds. Denies chest pain or shortness of breath. No vomiting or diarrhea. Feels better today. BP stable. Vital signs are stable. General: The patient appeared well nourished and normally developed. HEENT: Head exam is unremarkable. Neck is without jugular venous distension. LUNGS: Lungs are clear to auscultation and percussion. Breath sounds decreased. HEART: Rate and Rhythm are regular. ABDOMEN: Soft, nontender. EXTREMITITES: Lower extremities wrapped. No edema. No drainage noted. Objective - Vital Signs Vital signs: Vital Signs Temp 98.1 F 01/28/20 12:00 Pulse 77 01/28/20 12:00 Resp 16 01/28/20 12:00 BP 111/74 01/28/20 12:00 Pulse Ox 96 01/28/20 12:00 Intake & Output 01/27/20 01/28/20 01/28/20 18:59 06:59 18:59 Intake Total 480 120 Output Total 1999 2099 Balance -1519 Weight 81.5 kg Intake: Oral 480 120 Output: Other 1999 2099 Other: Voiding Method CAPD CAPD CAPD # Voids 1 1 # Bowel Movements 1 - Labs CBC & Chem 7: 01/26/20 06:24 01/26/20 06:20 Labs: Abnormal Lab Results - Last 24 Hours (Table) 01/27/20 01/27/20 01/27/20 Range/Units 17:13 17:51 20:00 POC Glucose (mg/dL) 70 L 68 L 118 H (75-99) mg/dL 01/28/20 01/28/20 Range/Units 07:34 12:27 POC Glucose (mg/dL) 306 H 225 H (75-99) mg/dL Microbiology - Last 24 Hours (Table) 01/22/20 07:00 Blood Culture - Final Blood No Growth after 144 hours 01/23/20 05:44 Blood Culture - Preliminary Blood No Growth after 120 hours 01/23/20 14:56 Anaerobic Culture - Final Foot - Right 01/21/20 14:11 Blood Culture - Final Blood No Growth after 144 hours 01/24/20 02:30 Urine Culture - Final Urine,Voided Enterococcus faecium VRE 01/23/20 14:56 Gram Stain - Final Foot - Right Tissue Culture - Final [place] albicans Methicillin resist S. aureus Assessment and Plan Plan: Assessment: 1. End-stage renal disease maintained on peritoneal dialysis. 2. MRSA bacteremia the source likely being right heel osteomyelitis status post surgical debridement. 3. VRE UTI. 4. 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 5. Chronic hypotension maintained on midodrine. 6. Hyponatremia secondary to chronic kidney disease. 7. Diabetes mellitus. 8. Hypokalemia from PD losses. better. magnesium normal. Plan: Maintain current PD changes. Status post IV albumin on January 25. Discontinued Flomax. Abx per ID.
[2020-01-28 15:45] VITALS: BP 121/73; PULSE 94; TEMP 98.2
--- NOTE | 2020-01-28 16:37 | IR ---
EXAMINATION TYPE: IR cvc insert >=5 years DATE OF EXAM: 01/28/2020 COMPARISON: Chest radiograph 01/20/2020 CLINICAL HISTORY: Foot ulcer. Need for long-term antibiotics. CIVIL RIGHTS REPRESENTATIVE: Dr. Mayuri Cook D.O. PROCEDURE: The procedure was discussed with the patient. The risks, complications, benefits, and alternatives we re discussed and any questions were answered. Informed consent was obtained. Maximal barrier technique utilized. The skin overlying the right basilic vein was localized with ultr asound and noted to be compressible and patent. An ultrasound image was obtained and submitted on patient's chart. Sterile technique utilized with the ultrasound machine. The skin overlying was pre pped and draped and Lidocaine used for local anesthesia. Access was gained to the vein under ultrasou nd guidance with a 21 gauge needle and a 0.018 inch wire was advanced. A skin lorraine was made with a sc alpel. Access site was dilated with Peel-Away sheath. 4 FR single lumen catheter tailored to the appr opriate length of 42 cm and advanced such that the distal tip is at the cavoatrial junction, at 40 cm depth. Spot image was obtained verifying PICC placement. Catheter was fixed to the skin and a steril e dressing was placed following hemostasis. Catheter was aspirated and flushed with saline. Patient w as discharged from the radiology department in stable condition without immediate complication. Fluoro time: 2.6 minutes Fluoroscopic images obtained: 107 IMPRESSION: Status post ultrasound-guided and fluoroscopic-guided PICC placement, ready for use.
--- NOTE | 2020-01-28 18:08 | DS ---
DISCHARGE SUMMARY DISCHARGE MEDICATIONS: 1. Daptomycin 500 mg IV Q 48 hours for 6 weeks. 2. Renvela 1600 mg a.c. t.i.d. 3. Metoprolol ER 25 mg daily. 4. Acetaminophen, Tylenol 650 q.6h p.r.n. 5. Finasteride 2.5 mg daily. 6. Levothyroxine 150 mcg daily. 7. Ferrex 150 mg daily. 8. He does his insulin Fiesta pump at home for insulin 0.01 units subcu pump continuous. 9. Dialyvite, Zinc vitamin once a day. 10.Calcitriol 0.5 mg on Wednesdays. 11.Pepcid 20 mg q.h.s. 12.Midodrine 10 mg a.c. t.i.d. 13.Eliquis 2.5 b.i.d. 14.Sodium bicarb 650 b.i.d. 15.Prednisone 5 mg daily. 16.Potassium chloride 10 mEq every 48 hours. 17.Keppra 500 q.12. CONDITION: Stable. PROGNOSIS: Guarded. Ambulate as tolerated. White male with osteomyelitis, severe wound infections and debridement x4 wounds, seeing the wound clinic physician. He has home dressing changes with Santyl lotion on his wounds. He gets home wound care. Follow up in the Wound Clinic once a week and he had MRSA in his blood for which he was given daptomycin for long-term care in the hospital. He had orthostatic hypotension for which Midodrine had to be adjusted to 10 mg before meals t.i.d. and he was taken off his Flomax. He has severe peripheral vascular disease and end-stage renal disease, which he does peritoneal dialysis at home. He wants to go home and do it tonight. ASSESSMENT: 1. End-stage renal disease. 2. MRSA bacteremia source being right heel osteomyelitis. 3. VRE UTI. 4. Colonization. 5. Chronic kidney disease. 6. Mineral bone disease. 7. Chronic hypotension. 8. Hyponatremia. 9. Diabetes mellitus. 10.Hypokalemia. Continue current medicines as mentioned above. Diet will be his normal renal diet. Ambulate as tolerated. Home nursing with wound care. Home IV antibiotics. MMODL / IJN: [id number] /
--- NOTE | 2020-01-29 11:10 | CDI ---
Documentation Clarification Form Date: 01/29/20 From: Milagros Mcbride Phone: If you have a question about this query, please contact Nerissa Calhoun, Pants Cutter at [phone] between 8am and 5pm. Admit Date: 01/20/20 Discharge Date: 01/28/20 Patient Name: ALLAN SAUCEDO Visit Number: [id number] ATTENTION: The Clinical Documentation Specialists (CDI) and [facility] Coding Staff appreciate your assistance in clarifying documentation. Please respond to the clarification below the line at the bottom and electronically sign. The CDI & [facility] Coding staff will review the response and follow-up if needed. Please note: Queries are made part of the Legal Health Record. If you have any questions, please contact the author of this message via ITS. Dear Dr. Ricardo Villar, Osteomyelitis has been documented by Drs: chris, Moises, and Pat. History/Risk Factors: DM foot ulcers & decubitus ulcer of right heel stage 2, HTN w ESRD, S/P kidney transplant, hyponatremia, acidosis, UTI, Clinical Indicators: Patient presented to hospital with sepsis in this patient did have fever tachycardia now with evidence of gram-positive bacteremia source is likely right heel infected wound with secondary bacteremia underlying osteomyelitis needs to be ruled out - per Dr De Leon consult Labs: lactic acid-4.4, CRP-55.0 Foot X-Ray Results: Soft tissue edema and suspected ulcer involving the plantar surface of the foot with no evidence of destructive change to suggest osteomyelitis. Treatment: Excisional debridement to bone right heel and left lateral foot, excisional debridement right anterior ankle subcutaneous tissue, IV antibiotics In your professional opinion, please specify the acuity of the osteomyelitis of right heel; Acute Chronic Subacute Unable to Determine MTDD
--- NOTE | 2020-01-29 11:23 | CDI ---
Documentation Clarification Form Date: 01/29/20 From: Milagros Mcbride Phone: If you have a question about this query, please contact Nerissa Calhoun, Stone Finisher at [phone] between 8am and 5pm. Admit Date: 01/20/20 Discharge Date: 01/28/20 Patient Name: ALLAN SAUCEDO Visit Number: [id number] ATTENTION: The Clinical Documentation Specialists (CDI) and [facility] Coding Staff appreciate your assistance in clarifying documentation. Please respond to the clarification below the line at the bottom and electronically sign. The CDI & [facility] Coding staff will review the response and follow-up if needed. Please note: Queries are made part of the Legal Health Record. If you have any questions, please contact the author of this message via ITS. Dear Dr. Ricardo Villar, The patient presented with nonhealing ulceration of left lateral foot, right lateral calcaneus and UTI, large amount of UTI at which time he was admitted to the hospital for UTI with sepsis per your H&P. History/Risk Factors: DM foot ulcers & decubitus ulcer of right heel stage 2, HTN w ESRD on CAPD, S/P kidney transplant, hyponatremia, acidosis, UTI. chronic hypotension Per your 01/24 PN: Sepsis due to MRSA with MRSA bacteremia due ot heel ulcer on right foot. Per your DS: MRSA bacteremia source being right heel osteomyelitis. No mention of MRSA sepsis. WBC: 6.3 Lactic acid: 4.4 Blood cultures: MRSA Vitals signs on admission: T-102.8, P-112, R-18, BP-112/78, O2-92 Other Clinical Indicators: CRP- 55.0, Platelets-112 to 83 Treatment: IV fluids, IV Rocephin, IV Vancomycin, IV Cubicin ID Consult: Dr De Leon-sepsis In your professional opinion, please clarify if these findings signify one of the following conditions, whether the condition is POA, and cause, if known: 1.Condition Sepsis ruled out SIRS, without underlying infectious process Sepsis Severe Sepsis Septic Shock Other, please specify Unable to determine 2.Identify the (suspected) organism 3.Link or clarify if there is associated (due to/with): Organ failure Shock SIRS Criteria (2 or more of the following may indicate SIRS): -Temperature < 96.8F (36C) or > 101.0F (38.3C) -Heart Rate > 90 bpm -Respiratory Rate > 20 breaths/min or PaCO2 < 32 mmHg -White Blood Cell Count > 12,000 or < 4,000 cells/mm3 or > 10% bands -Lactate >2.0 mmol/L (>4.0 is equivalent to septic shock) MTDD
--- NOTE | 2020-01-29 11:43 | CDI ---
Documentation Clarification Form Date: 01/29/20 From: Milagros Mcbride Phone: If you have a question about this query, please contact Nerissa Calhoun, Motorcycle Mechanic Apprentice at [phone] between 8am and 5pm. Admit Date: 01/20/20 Discharge Date: 01/28/20 Patient Name: ALLAN SAUCEDO Visit Number: [id number] ATTENTION: The Clinical Documentation Specialists (CDI) and [facility] Coding Staff appreciate your assistance in clarifying documentation. Please respond to the clarification below the line at the bottom and electronically sign. The CDI & [facility] Coding staff will review the response and follow-up if needed. Please note: Queries are made part of the Legal Health Record. If you have any questions, please contact the author of this message via ITS. Dear Dr. Rciardo Villar, Confusion/altered Mental Status was documented in the ED note, H&P and Dr Goff's consult. History/Risk Factors: DM foot ulcers & decubitus ulcer of right heel stage 2, HTN w ESRD on CAPD, S/P kidney transplant, hyponatremia, acidosis, UTI, chronic hypotension Clinical Indicators: He became confused due to UTI with sepsis and was admitted to the hospital. Labs: WBC-6.3, Lactic acid-4.4, BC-MRSA, CRP-55.0, [id number] ED Coma Scores: Eyes-open spon, Motor-obeys commands, Verbal-confused conversation Treatment: IV fluids, IV Rocephin, IV Vancomycin, IV Cubicin In your professional opinion, please clarify the etiology of the Altered Mental Status, if known. Delirium (specify cause): Dementia (if know, specify Type and if with/without Behavioral Disturbance) Encephalopathy (specify Type and Underlying Medical Illness) Other condition (please specify) Unable to determine MTDD
--- NOTE | 2020-02-02 18:58 | PN ---
PROGRESS NOTE Chronic ulcerations to the heels and sepsis ruled in. Encephalopathy secondary to sepsis. MMODL / IJN: [id number] /
--- NOTE | 2020-02-03 10:53 | CDI ---
Documentation Clarification Form Date: 01/29/20 From: Milagros Mcbride Phone: If you have a question about this query, please contact Nerissa Calhoun, Neurophysiological Technician at [phone] between 8am and 5pm. Admit Date: 01/20/20 Discharge Date: 01/28/20 Patient Name: ALLAN SAUCEDO Visit Number: [id number] ATTENTION: The Clinical Documentation Specialists (CDI) and [facility] Coding Staff appreciate your assistance in clarifying documentation. Please respond to the clarification below the line at the bottom and electronically sign. The CDI & [facility] Coding staff will review the response and follow-up if needed. Please note: Queries are made part of the Legal Health Record. If you have any questions, please contact the author of this message via ITS. Dear Dr. Ricardo Villar, Osteomyelitis has been documented by Drs: chris, Moises, and Pat. History/Risk Factors: DM foot ulcers & decubitus ulcer of right heel stage 2, HTN w ESRD, S/P kidney transplant, hyponatremia, acidosis, UTI, Clinical Indicators: Patient presented to hospital with sepsis in this patient did have fever tachycardia now with evidence of gram-positive bacteremia source is likely right heel infected wound with secondary bacteremia underlying osteomyelitis needs to be ruled out - per Dr De Leon consult Labs: lactic acid-4.4, CRP-55.0 Foot X-Ray Results: Soft tissue edema and suspected ulcer involving the plantar surface of the foot with no evidence of destructive change to suggest osteomyelitis. Treatment: Excisional debridement to bone right heel and left lateral foot, excisional debridement right anterior ankle subcutaneous tissue, IV antibiotics In your professional opinion, please specify the acuity of the osteomyelitis of right heel; Acute Chronic Subacute Unable to Determine MTDD
--- NOTE | 2020-02-03 19:57 | PN ---
PROGRESS NOTE Acute osteomyelitis of the right heel. MMODL / IJN: [id number] /
--- NOTE | 2020-02-04 09:15 | CDI ---
Documentation Clarification Form Date: 01/27/2020 02:22:00 PM From: Maribell DonatoVALENTÍN terrell, CCDS Admit Date: 01/20/2020 05:46:00 PM Patient Name: Salvador Hernandez Visit Number: [id number] Discharge Date: 01/28/2020 05:53:00 PM ATTENTION: The Clinical Documentation Specialists (CDI) and [facility] Coding Staff appreciate your assistance in clarifying documentation. Please respond to the clarification below the line at the bottom and electronically sign. The CDI & [facility] Coding staff will review the response and follow-up if needed. Please note: Queries are made part of the Legal Health Record. If you have any questions, please contact the author of this message via ITS. Dr. Ricardo Villar: Anemia is documented in the 01/22 Attending Progress Note without further specificity. 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 Clinical indicators: Presented to the ED on 01/19 with generalized weakness, chronic bilateral foot wounds & low blood sugar. Diagnosed with Sepsis due to MRSA secondary to UTI, Acidosis & Hyponatremia. Patient had an Excisional Debridement of a right heel wound, right anterior ankle & left lateral foot. Hemoglobin 01/19: 11.2*, 01/20: 10.4*, 01/21: 10.0*, 01/22: 9.6*, 01/23: 10.2*, 01/24: 9.6*, 01/25 9.8: Hematocrit 35.6*, 8.: 33.8*, 01/21: 32.3*, 01/22: 31.1*, 01/23: 31.9*, 01/24 30.5*, 01/25: 30.4* Treatment: Typed & Crossed (FFP), no BT. IV albumin Human 50 ml @ 50 mls/hr q1hr x2 (01/25). 01/19 IV fluid 1,000 mls @ 130 mls/hr, IV fluid 1,000 mls @ 999 mls/hr x2. In order to capture the severity of condition, please clarify the type of anemia and etiology if known:. Acute blood loss anemia Acute on chronic blood loss anemia Chronic blood loss anemia Hemolytic anemia Drug induced anemia Anemia due to malignancy Nutritional anemia Anemia of chronic kidney disease Unable to determine Other, please specify (Last Form Revision: August 2019) MTDD
--- NOTE | 2020-02-07 11:25 | PN ---
PROGRESS NOTE ADDENDUM: Please add: Acute on chronic blood-loss anemia. MMODL / IJN: [id number] /
== END 2020-01-28 17:53 | disposition home health service (06) | DRG 853 ==
LOC: EC 14:44 → 3SCARD 17:46
PROVIDERS: ADMIT Family Medicine; ATTEND Family Medicine
PROC: 3E1M39Z Irrigation of Peritoneal Cavity using Dialysate, Percutaneous Approach (ICD-10-PCS; 2020-01-21)
PROC: 0JBQ0ZZ Excision of Right Foot Subcutaneous Tissue and Fascia, Open Approach (ICD-10-PCS; principal; 2020-01-23 07:30)
PROC: 0QBP0ZZ Excision of Left Metatarsal, Open Approach (ICD-10-PCS; principal; 2020-01-23 07:30)
PROC: 0QBL0ZZ Excision of Right Tarsal, Open Approach (ICD-10-PCS; principal; 2020-01-23 07:30)
PROC: 02HV33Z Insertion of Infusion Device into Superior Vena Cava, Percutaneous Approach (ICD-10-PCS; 2020-01-28)
DX: A41.02 Sepsis due to Methicillin resistant Staphylococcus aureus (principal); N18.6 End stage renal disease; R65.21 Severe sepsis with septic shock; G93.41 Metabolic encephalopathy; E87.2 Acidosis; I13.11 Hypertensive heart and chronic kidney disease without heart failure, with stage 5 chronic kidney disease, or end stage renal disease; I48.11 Longstanding persistent atrial fibrillation; E87.1 Hypo-osmolality and hyponatremia; L97.412 Non-pressure chronic ulcer of right heel and midfoot with fat layer exposed; M86.171 Other acute osteomyelitis, right ankle and foot; N39.0 Urinary tract infection, site not specified; Z94.0 Kidney transplant status; Z16.21 Resistance to vancomycin; D62 Acute posthemorrhagic anemia; D63.1 Anemia in chronic kidney disease; L89.612 Pressure ulcer of right heel, stage 2; L97.522 Non-pressure chronic ulcer of other part of left foot with fat layer exposed; E11.69 Type 2 diabetes mellitus with other specified complication; E11.22 Type 2 diabetes mellitus with diabetic chronic kidney disease; E11.40 Type 2 diabetes mellitus with diabetic neuropathy, unspecified; E11.51 Type 2 diabetes mellitus with diabetic peripheral angiopathy without gangrene; E11.621 Type 2 diabetes mellitus with foot ulcer; Z99.2 Dependence on renal dialysis; Z79.4 Long term (current) use of insulin; Z20.828 Contact with and (suspected) exposure to other viral communicable diseases; Z89.432 Acquired absence of left foot; E83.9 Disorder of mineral metabolism, unspecified; B95.2 Enterococcus as the cause of diseases classified elsewhere; I99.8 Other disorder of circulatory system; E03.9 Hypothyroidism, unspecified; N41.9 Inflammatory disease of prostate, unspecified; E87.6 Hypokalemia; I25.10 Atherosclerotic heart disease of native coronary artery without angina pectoris; K21.9 Gastro-esophageal reflux disease without esophagitis; E78.5 Hyperlipidemia, unspecified; I95.1 Orthostatic hypotension; M19.90 Unspecified osteoarthritis, unspecified site; Z79.01 Long term (current) use of anticoagulants; Z79.890 Hormone replacement therapy; Z79.51 Long term (current) use of inhaled steroids; Z79.899 Other long term (current) drug therapy; Z86.718 Personal history of other venous thrombosis and embolism; Z85.828 Personal history of other malignant neoplasm of skin; Z85.72 Personal history of non-Hodgkin lymphomas; Z86.14 Personal history of Methicillin resistant Staphylococcus aureus infection; Z86.19 Personal history of other infectious and parasitic diseases; Z98.890 Other specified postprocedural states; Z92.21 Personal history of antineoplastic chemotherapy; Z92.3 Personal history of irradiation; W19.XXXA Unspecified fall, initial encounter; Y92.239 Unspecified place in hospital as the place of occurrence of the external cause
CPT/HCPCS: 36415; 36573; 51701; 71046; 80053; 80202; 81001; 82550; 82553; 83605; 83735; 84484; 85025; 85610; 85730; 86140; 86850; 86900; 86901; 87040; 87070; 87075; 87077; 87086; 87186; 87205; 93005; 93306; 96361; 96365; 96366; 99291

== ENCOUNTER 2020-02-15 11:01 | Inpatient (IN) | payer MEDICAID, MEDICARE ==
[2020-02-15 11:58] LABS: Anisocytosis Slight; Basophils # (A) 0.1 k/uL (0-0.2); Basophils % (A) 1 %; Eosinophils # (A) 0.1 k/uL (0-0.7); Eosinophils % (A) 2 %; HCT 32.9 % (39.0-53.0); HGB 10.4 gm/dL (13.0-17.5); Hypochromasia Slight; Lymphocytes # (A) 1.8 k/uL (1.0-4.8); Lymphocytes % (A) 27 %; MCH 30.1 pg (25.0-35.0); MCHC 31.7 g/dL (31.0-37.0); MCV 94.7 fL (80.0-100.0); Macrocytosis Slight; Mean Platelet Volume 10.2; Monocytes # (A) 0.6 k/uL (0-1.0); Monocytes % (A) 9 %; Neutrophils % (A) 60 %; Platelet Count 117 k/uL (150-450); Poikilocytosis Slight; RBC 3.47 m/uL (4.30-5.90); RDW 17.3 % (11.5-15.5); WBC 6.6 k/uL (3.8-10.6)
[2020-02-15 12:07] LABS: Albumin 2.1 g/dL (3.5-5.0); Calcium 7.8 mg/dL (8.4-10.2); Potassium 2.9 mmol/L (3.5-5.1); Total Bilirubin 0.4 mg/dL (0.2-1.3); Total Protein 4.5 g/dL (6.3-8.2)
--- NOTE | 2020-02-15 12:31 | ED ---
Weakness HPI - General Chief complaint: Weakness Stated complaint: Pain,Infection in foot Time Seen by Provider: 02/15/20 11:10 Source: patient, family, RN notes reviewed, old records reviewed Mode of arrival: ambulatory Limitations: no limitations - History of Present Illness Initial comments: This is a 64-year-old male with a history of multiple medical issues including kidney failure with peritoneal dialysis and foot infections and wounds which she was on daptomycin who presents today with complaints of weakness dizziness for last day or so per his the patient was extubated improving on the foot. He denies any fevers chills nausea vomiting sweats he does admit to decreased oral intake. Also per family his normal blood pressures in the 80s to 90s systolic over 60s diastolic. Additionally the patient. He'll fluid is been very clear. Also the wounds on the foot appear to be getting better. The patient's did show me pictures phone. MD Complaint: generalized weakness - Related Data Home Medications Medication Instructions Recorded Confirmed Finasteride 2.5 mg PO DAILY 07/04/16 01/20/20 Insulin Aspart (Niacinamide) 0.01 unit SQ-PUMP CONTINUOUS 11/05/18 01/20/20 [Fiasp 100 Unit/ml Vial] Iron Polysaccharide Complex 150 mg PO DAILY 11/05/18 01/20/20 [Ferrex 150] Levothyroxine Sodium 150 mcg PO DAILY 11/05/18 01/20/20 Apixaban [Eliquis] 2.5 mg PO BID 09/16/19 01/20/20 Dialyvite 800-Zinc 15 Tab 0.8m 1 tab PO HS 09/16/19 01/20/20 Famotidine [Pepcid] 20 mg PO HS 09/16/19 01/20/20 Midodrine HCl [ProAmatine] 10 mg PO TID 09/16/19 01/20/20 calcitrioL [Calcitriol] 0.5 mg PO WE 09/16/19 01/20/20 predniSONE 5 mg PO DAILY 09/26/19 01/20/20 Potassium Chloride ER [K-Dur 10] 10 meq PO Q48H 01/20/20 01/20/20 levETIRAcetam [Keppra] 500 mg PO Q12H 01/20/20 01/20/20 Previous Rx's Medication Instructions Recorded Sodium Bicarbonate Tab 650 mg PO BID #60 tab 09/18/19 DAPTOmycin [Cubicin] 500 mg IV Q48H #22 bag 01/26/20 Acetaminophen Tab [Tylenol] 650 mg PO Q6HR PRN tab 01/28/20 Metoprolol Succinate (ER) [Toprol 25 mg PO HS tab.er.24h 01/28/20 XL] Sevelamer [Renvela] 1,600 mg PO AC-TID tab 01/28/20 Sevelamer [Renvela] 800 mg PO BID PRN tab 01/28/20 Allergies Allergy/AdvReac Type Severity Reaction Status Date / Time No Known Allergies Allergy Verified 01/20/20 17:05 Review of Systems ROS Statement: Those systems with pertinent positive or pertinent negative responses have been documented in the HPI. ROS Other: All systems not noted in ROS Statement are negative. Past Medical History Past Medical History: Atrial Fibrillation, Cancer, Diabetes Mellitus, Dialysis, Deep Vein Thrombosis (DVT), GERD/Reflux, Hyperlipidemia, Hypertension, Osteoarthritis (OA), Prostate Disorder, Renal Disease, Skin Disorder, Thyroid Disorder, Vascular Disorder Additional Past Medical History / Comment(s): hx vascular calcification, basal cell carcinoma nose removed 2010. 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 peritoneal dialysis cycler at night, peritonitis 05/06, wounds susannah feet seen in wound care center History of Any Multi-Drug Resistant Organisms: MRSA, VRE Date of last positivie culture/infection: 01/23/20 MDRO Source:: MRSA BLOOD/ FOOT VRE URINE Additional Past Surgical History / Comment(s): kidney transplant : 1992 & 1997. Left transmetatarsal amputation. basal cell carcinoma excision.BRAIN TUMOR RE MOVED WITH CHEMO , brain hematoma drained. COLONOSCOPY Past Anesthesia/Blood Transfusion Reactions: No Reported Reaction Past Psychological History: No Psychological Hx Reported Smoking Status: Never smoker Past Alcohol Use History: None Reported Past Drug Use History: None Reported - Past Family History Mother Family Medical History: No Reported History Father Family Medical History: No Reported History Brother(s) Family Medical History: No Reported History Sister(s) Family Medical History: No Reported History Son(s) Family Medical History: No Reported History General Exam - General Exam Comments Initial Comments: This is a well-developed asthenic appearing male was awake alert oriented 3 Limitations: no limitations General appearance: alert, in no apparent distress Head exam: Present: atraumatic, normocephalic, normal inspection Eye exam: Present: normal appearance, PERRL, EOMI. Absent: scleral icterus, conjunctival injection, periorbital swelling ENT exam: Present: mucous membranes dry Neck exam: Present: normal inspection, full ROM. Absent: tenderness, meningismus, lymphadenopathy Respiratory exam: Present: normal lung sounds bilaterally. Absent: respiratory distress, wheezes, rales, rhonchi, stridor Cardiovascular Exam: Present: regular rate, normal rhythm, normal heart sounds. Absent: systolic murmur, diastolic murmur, rubs, gallop, clicks GI/Abdominal exam: Present: soft, normal bowel sounds, other (Dialysis catheter in place no evidence of any drainage or discharge. No localized erythema at the insertion site). Absent: distended, tenderness, guarding, rebound, rigid Extremities exam: Present: full ROM, normal capillary refill, other ((Intact no evidence of any lymphangitis). Absent: tenderness, pedal edema, joint swelling, calf tenderness Back exam: Present: normal inspection Neurological exam: Present: alert, oriented X3, CN II-XII intact Psychiatric exam: Present: normal affect, normal mood Skin exam: Present: warm, dry, intact, normal color. Absent: rash Course Vital Signs 02/15/20 02/15/20 02/15/20 11:05 11:19 11:25 Temperature 97.7 F Pulse Rate 76 73 Pulse Rate [ Delivery [employer] Installation Subcontractor ] Respiratory 18 18 Rate Blood Pressure 67/44 80/52 85/50 O2 Sat by Pulse 100 Oximetry 02/15/20 02/15/20 02/15/20 11:26 11:34 11:59 Temperature Pulse Rate 75 861 H Pulse Rate [ 84 Delivery And Installation Subcontractor ] Respiratory 18 18 Rate Blood Pressure 88/55 91/50 O2 Sat by Pulse 98 Oximetry 02/15/20 02/15/20 02/15/20 12:33 12:45 13:00 Temperature Pulse Rate 75 75 79 Pulse Rate [ Delivery [employer] Installation Subcontractor ] Respiratory 16 16 16 Rate Blood Pressure 80/61 96/61 94/63 O2 Sat by Pulse 91 L 96 Oximetry 02/15/20 13:29 Temperature 97.6 F Pulse Rate 66 Pulse Rate [ Delivery [employer] Installation Subcontractor ] Respiratory 16 Rate Blood Pressure 93/67 O2 Sat by Pulse Oximetry EKG Findings - EKG Results: EKG: interpreted by BRANDON, sinus rhythm (Sinus rhythm 87 QRS 88 QT since QTC 414/498 evidence of A. fib low-voltage nonspecific anterior configuration's) Medical Decision Making - Medical Decision Making I did discuss findings with the patient family as well as Dr. Villar patient will be admitted with consultation from infectious disease as well as nephrology. - Lab Data Result diagrams: 02/15/20 11:48 02/15/20 11:48 Lab Results 02/15/20 02/15/20 02/15/20 Range/Units 11:48 11:48 11:48 WBC 6.6 (3.8-10.6) k/uL RBC 3.47 L (4.30-5.90) m/uL Hgb 10.4 L (13.0-17.5) gm/dL Hct 32.9 L (39.0-53.0) % MCV 94.7 (80.0-100.0) fL MCH 30.1 (25.0-35.0) pg MCHC 31.7 (31.0-37.0) g/dL RDW 17.3 H (11.5-15.5) % Plt Count 117 L (150-450) k/uL Neutrophils % 60 % Lymphocytes % 27 % Monocytes % 9 % Eosinophils % 2 % Basophils % 1 % Neutrophils # 4.0 (1.3-7.7) k/uL Lymphocytes # 1.8 (1.0-4.8) k/uL Monocytes # 0.6 (0-1.0) k/uL Eosinophils # 0.1 (0-0.7) k/uL Basophils # 0.1 (0-0.2) k/uL Hypochromasia Slight Poikilocytosis Slight Anisocytosis Slight Macrocytosis Slight Sodium 130 L (137-145) mmol/L Potassium 2.9 L (3.5-5.1) mmol/L Chloride 98 (98-107) mmol/L Carbon Dioxide 22 (22-30) mmol/L Anion Gap 10 mmol/L BUN 50 H (9-20) mg/dL Creatinine 7.10 H* (0.66-1.25) mg/dL Est GFR (CKD-EPI)AfAm 9 (>60 ml/min/1.73 sqM) Est GFR (CKD-EPI)NonAf 7 (>60 ml/min/1.73 sqM) Glucose 91 (74-99) mg/dL Plasma Lactic Acid Chavez (0.7-2.0) mmol/L Calcium 7.8 L (8.4-10.2) mg/dL Magnesium 2.0 (1.6-2.3) mg/dL Total Bilirubin 0.4 (0.2-1.3) mg/dL AST 31 (17-59) U/L ALT 28 (4-49) U/L Alkaline Phosphatase 105 (38-126) U/L Creatine Kinase 117 (55-170) U/L Troponin I 0.014 (0.000-0.034) ng/mL Total Protein 4.5 L (6.3-8.2) g/dL Albumin 2.1 L (3.5-5.0) g/dL 02/15/20 Range/Units 11:48 WBC (3.8-10.6) k/uL RBC (4.30-5.90) m/uL Hgb (13.0-17.5) gm/dL Hct (39.0-53.0) % MCV (80.0-100.0) fL MCH (25.0-35.0) pg MCHC (31.0-37.0) g/dL RDW (11.5-15.5) % Plt Count (150-450) k/uL Neutrophils % % Lymphocytes % % Monocytes % % Eosinophils % % Basophils % % Neutrophils # (1.3-7.7) k/uL Lymphocytes # (1.0-4.8) k/uL Monocytes # (0-1.0) k/uL Eosinophils # (0-0.7) k/uL Basophils # (0-0.2) k/uL Hypochromasia Poikilocytosis Anisocytosis Macrocytosis Sodium (137-145) mmol/L Potassium (3.5-5.1) mmol/L Chloride (98-107) mmol/L Carbon Dioxide (22-30) mmol/L Anion Gap mmol/L BUN (9-20) mg/dL Creatinine (0.66-1.25) mg/dL Est GFR (CKD-EPI)AfAm (>60 ml/min/1.73 sqM) Est GFR (CKD-EPI)NonAf (>60 ml/min/1.73 sqM) Glucose (74-99) mg/dL Plasma Lactic Acid Chavez 3.3 H* (0.7-2.0) mmol/L Calcium (8.4-10.2) mg/dL Magnesium (1.6-2.3) mg/dL Total Bilirubin (0.2-1.3) mg/dL AST (17-59) U/L ALT (4-49) U/L Alkaline Phosphatase (38-126) U/L Creatine Kinase (55-170) U/L Troponin I (0.000-0.034) ng/mL Total Protein (6.3-8.2) g/dL Albumin (3.5-5.0) g/dL - Radiology Data Radiology results: report reviewed (I did review the imaging no acute findings.), image reviewed Disposition Clinical Impression: Weakness, Hypotensive episode, Chronic renal disease, Dehydration Disposition: ADMITTED IP TO THIS [facility] Condition: Fair Referrals: Ricardo Villar MD [Primary Care Provider] - 1-2 days
[2020-02-15] MEDS ORDERED: SODIUM CHLORIDE 0.9% 500 ML 500 ML IV ONE (12:34)
--- NOTE | 2020-02-15 12:54 | XR ---
EXAMINATION TYPE: XR chest 2V DATE OF EXAM: 02/15/2020 COMPARISON: 01/20/2020 INDICATION: Hypotension, recent "blood infection" TECHNIQUE: Frontal and lateral views of the chest are obtained. FINDINGS: The heart size is normal. The pulmonary vasculature is normal. On the lateral projection there is some posterior area of increased density may be some atelectasis. PICC line enters on the right with the tip in the distal superior vena cava region. IMPRESSION: 1. Posterior atelectasis. Clinical correlation recommended.
[2020-02-15] MEDS ORDERED: ACETAMINOPHEN TAB 325 MG TAB PO PRN (13:49)
[2020-02-15] MEDS ORDERED: NALOXONE 0.4 MG/ML 1 ML VIAL IV PRN (13:49)
[2020-02-15] MEDS ORDERED: SEVELAMER 800 MG TAB PO PRN (13:52)
[2020-02-15] MEDS ORDERED: DAPTOmycin 500 MG VIAL IV SCH (14:00)
[2020-02-15] MEDS: MIDODRINE 5 MG TAB PO SCH ×2 (16:25→20:12)
[2020-02-15 16:57] LABS: Glucose,Whole Blood 158 mg/dL (75-99)
[2020-02-15] MEDS: SEVELAMER 800 MG TAB PO SCH (17:36)
[2020-02-15] MEDS: levETIRAcetam 500 MG TAB PO SCH (17:36)
[2020-02-15] MEDS: APIXABAN 2.5 MG TABLET PO SCH (20:12)
[2020-02-15] MEDS: FAMOTIDINE 20 MG TAB PO SCH (20:12)
[2020-02-15] MEDS: FOLIC ACID-VIT B COMPLEX-VIT C 1 CAP PO SCH (20:12)
[2020-02-15] MEDS: SODIUM BICARBONATE TAB 650 MG TAB PO SCH (20:12)
[2020-02-15] MEDS: METOPROLOL SUCCINATE (ER) 25 MG TAB.ER.24H PO SCH (20:12)
[2020-02-15 20:14] LABS: Glucose,Whole Blood 351 mg/dL (75-99)
[2020-02-15] MEDS ORDERED: Potassium Replacement Protocol 1 EACH MISC MISCELLANE PRN (22:01)
[2020-02-15] MEDS: INSULIN ASPART (NovoLOG) 100 UNIT/ML VIAL SQ SCH (22:15)
[2020-02-15] MEDS: POTASSIUM CHLORIDE ER 20 MEQ TAB.ER PO SCH ×2 (22:15→22:55)
[2020-02-16] MEDS: POTASSIUM CHLORIDE ER 20 MEQ TAB.ER PO SCH (02:53)
[2020-02-16 06:23] LABS: Glucose,Whole Blood 104 mg/dL (75-99)
--- NOTE | 2020-02-16 06:25 | P.CONS ---
History of Present Illness - Reason for Consult Consult date: 02/15/20 Foot infection Requesting physician: Ricardo Villar - Chief Complaint Weakness and no energy x one day - History of Present Illness Patient is a 64-year-old male with a past medical history significant for end-stage renal disease on peritoneal dialysis patient also have a history of chronic nonhealing wound to the right foot/heel area which was recently debrided and the local culture were positive for MRSA patient also have MRSA bacteremia and the urine culture were positive for VRE patient subsequently got a PICC line and is currently getting daptomycin at home for his right heel osteomyelitis And VRE urinary tract infection, patient has been brought into the ER at [facility] for evaluation of generalized weakness no energy and decreased oral intake is no clear history of any fever or chills patient denies having any headache or URI symptoms no chest pain shortness of breath or cough. Denies having abdominal pain is felt on her fluid is clear no nausea no vomiting and no diarrhea and denies having any worsening symptoms as well as his right heel and foot wounds are concerned about those wounds are improving and healing well patient on arrival to the hospital was afebrile he did have a normal white count chest x-ray was negative for any acute infiltrate patient did have elevated lactic acid 3.2 he was started on IV fluids admitted to the hospital infectious disease was consulted for further local wound care and antibiotic therapy Review of Systems Positive point has been mentioned in the HPI rest of the systems are negative Past Medical History Past Medical History: Atrial Fibrillation, Cancer, Diabetes Mellitus, Dialysis, Deep Vein Thrombosis (DVT), GERD/Reflux, Hyperlipidemia, Hypertension, Osteoarthritis (OA), Prostate Disorder, Renal Disease, Skin Disorder, Thyroid Disorder, Vascular Disorder Additional Past Medical History / Comment(s): hx vascular calcification, basal cell carcinoma nose removed 2010. 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 peritoneal dialysis cycler at night, peritonitis 05/06, wounds susannah feet seen in wound care center History of Any Multi-Drug Resistant Organisms: MRSA, VRE Year Discovered:: 01/23/20 MDRO Source:: MRSA BLOOD/ FOOT VRE URINE Additional Past Surgical History / Comment(s): kidney transplant : 1992 & 1997. Left transmetatarsal amputation. basal cell carcinoma excision.BRAIN TUMOR REMOVED WITH CHEMO , brain hematoma drained. COLONOSCOPY Past Anesthesia/Blood Transfusion Reactions: No Reported Reaction Past Psychological History: No Psychological Hx Reported Smoking Status: Never smoker Past Alcohol Use History: None Reported Past Drug Use History: None Reported - Past Family History Mother Family Medical History: No Reported History Father Family Medical History: No Reported History Brother(s) Family Medical History: No Reported History Sister(s) Family Medical History: No Reported History Son(s) Family Medical History: No Reported History Medications and Allergies Home Medications Medication Instructions Recorded Confirmed Type Finasteride 2.5 mg PO DAILY 07/04/16 02/15/20 History Insulin Aspart (Niacinamide) 0.01 unit SQ-PUMP CONTINUOUS 11/05/18 02/15/20 History [Fiasp 100 Unit/ml Vial] Iron Polysaccharide Complex 150 mg PO DAILY 11/05/18 02/15/20 History [Ferrex 150] Levothyroxine Sodium 150 mcg PO DAILY 11/05/18 02/15/20 History Apixaban [Eliquis] 2.5 mg PO BID 09/16/19 02/15/20 History Dialyvite 800-Zinc 15 Tab 0.8m 1 tab PO HS 09/16/19 02/15/20 History Famotidine [Pepcid] 20 mg PO HS 09/16/19 02/15/20 History Midodrine HCl [ProAmatine] 10 mg PO TID 09/16/19 02/15/20 History calcitrioL [Calcitriol] 0.5 mg PO WE 09/16/19 02/15/20 History Sodium Bicarbonate Tab 650 mg PO BID #60 tab 09/18/19 02/15/20 Rx Potassium Chloride ER [K-Dur 10] 10 meq PO Q48H 01/20/20 02/15/20 History levETIRAcetam [Keppra] 500 mg PO Q12H 01/20/20 02/15/20 History DAPTOmycin [Cubicin] 500 mg IV Q48H #22 bag 01/26/20 02/15/20 Rx Acetaminophen Tab [Tylenol] 650 mg PO Q6HR PRN tab 01/28/20 02/15/20 Rx Metoprolol Succinate (ER) [Toprol 25 mg PO HS tab.er.24h 01/28/20 02/15/20 Rx XL] Sevelamer [Renvela] 1,600 mg PO AC-TID tab 01/28/20 02/15/20 Rx Sevelamer [Renvela] 800 mg PO BID PRN tab 01/28/20 02/15/20 Rx predniSONE 1 mg PO DAILY 02/15/20 02/15/20 History Allergies Allergy/AdvReac Type Severity Reaction Status Date / Time No Known Allergies Allergy Verified 02/15/20 15:14 Physical Exam Vitals: Vital Signs Temp Pulse Pulse Resp BP Pulse Ox 02/15/20 14:33 84 18 94/56 98 02/15/20 14:07 79 18 87/60 97 02/15/20 13:29 97.6 F 66 16 93/67 02/15/20 13:00 79 16 94/63 96 02/15/20 12:45 75 16 96/61 91 L 02/15/20 12:33 75 16 80/61 02/15/20 11:59 861 H 18 91/50 98 02/15/20 11:34 75 18 88/55 02/15/20 11:26 84 02/15/20 11:25 73 18 85/50 02/15/20 11:19 76 18 80/52 100 02/15/20 11:05 97.7 F 67/44 Intake and Output 02/15/20 02/15/20 02/15/20 06:59 14:59 22:59 Other: Weight 78.018 kg GENERAL DESCRIPTION: Middle-aged male lying in bed, no distress. No tachypnea or accessory muscle of respiration use. HEENT: Shows Pallor , no scleral icterus. Oral mucous membrane is dry. No pharyngeal erythema or thrush NECK: Trachea central, no thyromegaly. LUNGS: Unlabored breathing. Clear to auscultation anteriorly. No wheeze or crackle. HEART: S1, S2, regular rate and rhythm. No loud murmur ABDOMEN: Soft, no tenderness , guarding or rigidity, no organomegaly EXTREMITIES: No edema of feet. Right heel wound with no significant slough tissue or surrounding redness, right foot dorsum wound tendon exposed no significant slough. Surrounding redness or drainage SKIN: No rash, no masses palpable. NEUROLOGICAL: The patient is awake, alert, oriented x3, mood and affect normal. Results CBC & Chem 7: 02/15/20 11:48 02/15/20 11:48 Labs: Abnormal Lab Results - Last 24 Hours (Table) 02/15/20 02/15/20 02/15/20 Range/Units 11:48 11:48 11:48 RBC 3.47 L (4.30-5.90) m/uL Hgb 10.4 L (13.0-17.5) gm/dL Hct 32.9 L (39.0-53.0) % RDW 17.3 H (11.5-15.5) % Plt Count 117 L (150-450) k/uL Sodium 130 L (137-145) mmol/L Potassium 2.9 L (3.5-5.1) mmol/L BUN 50 H (9-20) mg/dL Creatinine 7.10 H* (0.66-1.25) mg/dL Plasma Lactic Acid Chavez 3.3 H* (0.7-2.0) mmol/L Calcium 7.8 L (8.4-10.2) mg/dL Total Protein 4.5 L (6.3-8.2) g/dL Albumin 2.1 L (3.5-5.0) g/dL Assessment and Plan Assessment: 1- patient with right heel pressure ulcer with secondary Osteomyelitis culture were positive for MRSA and he also have MRSA bacteremia follow-up blood culture were negative for the patient is currently being treated with daptomycin as he did have we had the usual infection, patient presented to hospital with general ized weakness no energy and poor appetite with a question of possible dehydration as clinically no evidence of any worsening infection (1) Foot osteomyelitis, right Current Visit: Yes Status: Acute Code(s): M86.9 - OSTEOMYELITIS, UNSPECIFIED SNOMED Code(s): 7342812096175715 (2) Stage IV pressure ulcer of right heel Current Visit: Yes Status: Acute Code(s): L89.614 - PRESSURE ULCER OF RIGHT HEEL, STAGE 4 SNOMED Code(s): 748398502 Plan: 1- daptomycin 6 mg per KG every 48 hour 2-gentle IV fluid 3-we will check a CPK CRP and a sed rate 4- local wound care to the right heel and right foot wound with dry Aquacel silver dressing We will follow on clinical condition and cultures to further adjust medication if needed Thank you for this consultation will follow this patient with you Time with Patient: Greater than 30
[2020-02-16] MEDS: LEVOTHYROXINE 75 MCG TAB PO SCH (06:26)
[2020-02-16] MEDS: INSULIN ASPART (NovoLOG) 100 UNIT/ML VIAL SQ SCH ×4 (06:26→21:30)
[2020-02-16] MEDS: SEVELAMER 800 MG TAB PO SCH ×3 (06:26→18:17)
[2020-02-16] MEDS: levETIRAcetam 500 MG TAB PO SCH ×2 (06:26→18:17)
[2020-02-16 07:53] LABS: Anisocytosis Slight; Basophils % (A) 1 %; Eosinophils # (A) 0.1 k/uL (0-0.7); Eosinophils % (A) 2 %; HGB 9.5 gm/dL (13.0-17.5); Hypochromasia Slight; Lymphocytes # (A) 1.3 k/uL (1.0-4.8); Lymphocytes % (A) 26 %; MCH 30.2 pg (25.0-35.0); MCHC 31.7 g/dL (31.0-37.0); MCV 95.2 fL (80.0-100.0); Macrocytosis Slight; Mean Platelet Volume 10.7; Monocytes # (A) 0.6 k/uL (0-1.0); Monocytes % (A) 11 %; Neutrophils % (A) 59 %; Platelet Count 103 k/uL (150-450); Poikilocytosis Slight; RBC 3.15 m/uL (4.30-5.90); RDW 17.4 % (11.5-15.5)
[2020-02-16 08:02] LABS: Albumin 1.8 g/dL (3.5-5.0); Calcium 7.3 mg/dL (8.4-10.2); Potassium 3.5 mmol/L (3.5-5.1); Total Bilirubin 0.4 mg/dL (0.2-1.3); Total Protein 3.9 g/dL (6.3-8.2)
[2020-02-16 08:19] LABS: C Reactive Protein 33.5 mg/L (<10.0)
[2020-02-16] MEDS: MIDODRINE 5 MG TAB PO SCH ×3 (08:26→21:29)
[2020-02-16] MEDS: SODIUM BICARBONATE TAB 650 MG TAB PO SCH ×2 (08:26→21:29)
[2020-02-16] MEDS: APIXABAN 2.5 MG TABLET PO SCH ×2 (08:26→21:29)
[2020-02-16] MEDS: DAPTOmycin 500 MG in SODIUM CHLORIDE 0.9% 50 ML IVPB SCH (08:27)
[2020-02-16] MEDS: POTASSIUM CHLORIDE ER 10 MEQ TAB.ER.PRT PO SCH (08:27)
[2020-02-16 09:08] LABS: Erythrocyte Sedimentation Rate 24 mm/hr (0-15)
--- NOTE | 2020-02-16 09:59 | HP ---
HISTORY AND PHYSICAL A 64-year-old white male who came to the hospital, he has a history of end-stage renal disease, chronic nonhealing wounds to the right foot heel area, recently debrided. Local cultures positive for MRSA bacteremia. Urine cultures positive for VRE. The PICC line getting daptomycin at home. He was brought to the ER for evaluation of generalized weakness. No energy, decreased oral intake. He has had no vomiting or diarrhea. He had a normal white count, negative for acute infiltrate on chest x-ray, elevated lactic acid 3.2 on IV fluids. Infectious Disease consulted. . PAST MEDICAL HISTORY: Atrial fibrillation, cancer, diabetes mellitus, dialysis, end-stage renal disease, DVT, GERD, dyslipidemia, hypertension, osteoarthritis, BPH, renal disease, skin disorder, hypothyroidism, non-Hodgkin's lymphoma with metastases to the brain, history of vascular calcification, basal cell carcinoma, MRSA blood foot, VRE of the urine, brain tumor removed, brain hematoma. Does not smoke, no alcohol, no drugs. FAMILY MEDICAL HISTORY: Please see further review of systems and home family history. ALLERGIES: See list. MEDICATIONS: Takes insulin pump at home, levothyroxine 150 mcg daily, Eliquis 2.5 b.i.d., iron supplementation 150 daily, Pepcid 20 mg daily, midodrine 10 mg a.c. t.i.d., calcitriol 0.5 mg once a week. Sodium bicarb 650 b.i.d., potassium chloride 10 mEq every 48 hours, Keppra 500 q.12, Cubicin 500 IV q.48, metoprolol ER 25 mg daily, Renvela 1600 mg a.c. t.i.d. and 800 b.i.d. prednisone 1 mg daily. ALLERGIES: No known drug allergies, temperature 97.6, pulse 70s to 80s, respiratory rate 16-18, blood pressure is 80s to 90s/60s, pulse ox 98. He is a thin, middle-age male in no acute distress. No tachypnea. Neck is supple. No mass. Lungs are unlabored breathing, clear. Heart, S1, S2. Abdomen is soft, nontender. Extremities right heel with a wound. No significant soft tissue surrounding redness. Skin no rashes. No masses. Psych, alert oriented x3. LABS: Reviewed with a potassium 2.9, sodium 130, BUN 56, creatinine 7.1, hemoglobin is 10.4, white count 6.6. ASSESSMENT: Right heel pressure ulcer secondary to osteomyelitis with MRSA bacteremia. He is currently being treated with daptomycin through the IV. He has severe weakness at this point. He appears to be possibly dehydrated with hypokalemia. Continue with treatment for osteomyelitis and daptomycin. Fluid rehydration. Local wound care. Will replace his potassium. Please see further orders. MMODL / IJN: [id number] /
[2020-02-16 12:26] LABS: Glucose,Whole Blood 164 mg/dL (75-99)
[2020-02-16] MEDS: DIALYSIS (PERIT 1.5%) 2,500 ML 37.5 G/2,500 ML BAG INTRAPERIT SCH ×3 (12:43→23:37)
[2020-02-16 17:23] LABS: Glucose,Whole Blood 246 mg/dL (75-99)
[2020-02-16] MEDS: DARBEPOETIN ALFA 60 MCG/0.3 ML SYRINGE SQ SCH (18:16)
[2020-02-16] MEDS: IRON POLYSACCHARIDES COMPLEX 150 MG CAP PO SCH (18:17)
--- NOTE | 2020-02-16 20:17 | CONS ---
CONSULTATION REASON FOR CONSULT: End-stage renal disease. HISTORY OF PRESENT ILLNESS: The patient is a 64-year-old male with end-stage renal disease, on peritoneal dialysis, who was admitted to the hospital with complaints of increased weakness and fatigue. He denied any chest pains or shortness of breath. He is being treated with IV antibiotics as outpatient for nonhealing wound to right foot and heel area which had recently grown MRSA as well as history of MRSA bacteremia during that hospitalization. The patient was also being treated for VRE urinary tract infection. He had been receiving daptomycin as outpatient. At the time of hospitalization, patient did not have any fever. He was started on IV fluids and he states he is feeling much better now. No abdominal pain. No change in color of the dialysate. PAST MEDICAL HISTORY: Significant for end-stage renal disease, peripheral vascular disease, hypertension, BPH, hypothyroidism, chronic nonhealing wounds of lower extremities, history of MRSA foot infection and MRSA bacteremia, history of basal cell cancer, history of atrial fibrillation, history of DVT, removal of brain tumor, status post chemotherapy, possible lymphoma, previous history of renal transplant in 1992 and 1997. PAST SURGICAL HISTORY: Colonoscopy, multiple debridements, PD catheter insertion, previous hemodialysis catheter insertion and removal. SOCIAL HISTORY: Negative for smoking, drug abuse or alcohol abuse. MEDICATIONS: Medications prior to admission included insulin, finasteride, Synthroid, Eliquis, Pepcid, midodrine, calcitriol, sodium bicarb, potassium, Keppra, daptomycin, Renvela, prednisone, metoprolol. ALLERGIES: NONE. PHYSICAL EXAMINATION: Patient is comfortable, awake, not in any acute distress. Alert, oriented x3. Blood pressure is 96/57, heart rate 67 per minute. He is afebrile. EXAMINATION OF THE HEART: S1 and S2. EXAMINATION OF LUNGS: Bilateral breath sounds are heard. ABDOMEN: Soft, non-tender. Examination of lower extremities shows edema 1+ bilaterally. Both feet are wrapped. Transmetatarsal amputation of the left foot. AUTOMOTIVE ELECTRICIAN exam is grossly intact. LABS: Labs show sodium 131, potassium 3.5, BUN 58, creatinine 7.56, hemoglobin 9.5 g/dL. ASSESSMENT: 1. End-stage renal disease, on peritoneal dialysis. Will start PD exchanges using low concentration of solute, as patient's blood pressure remains low. 2. Possible intravascular volume depletion, status post IV fluids. 3. Methicillin-resistant Staphylococcus aeruginosa wound infection on the right heel, maintained on daptomycin. 4. Vancomycin-resistant Enterococcus urinary tract infection on last admission. 5. Anemia of chronic disease. 6. Hypokalemia, maintained on potassium supplementation. 7. Chronic kidney disease mineral bone disorder. PLAN: Start peritoneal dialysis. May continue with the Eliquis and the Rocaltrol. May continue with the midodrine as well along with the potassium and phosphate binders in the form of Renvela. Currently patient is not acidotic. I will continue with the sodium bicarb and adjust if needed. Add Aranesp for anemia. Thank you for this consultation. Will continue to follow the patient with you during his hospitalization. MMODL / IJN: [id number] /
[2020-02-16 20:38] LABS: Glucose,Whole Blood 290 mg/dL (75-99)
[2020-02-16] MEDS: METOPROLOL SUCCINATE (ER) 25 MG TAB.ER.24H PO SCH (21:29)
[2020-02-16] MEDS: FAMOTIDINE 20 MG TAB PO SCH (21:29)
[2020-02-16] MEDS: FOLIC ACID-VIT B COMPLEX-VIT C 1 CAP PO SCH (21:29)
--- NOTE | 2020-02-16 22:26 | PN ---
PROGRESS NOTE DATE OF SERVICE: 02/16/2020 REASON FOR FOLLOWUP: Right heel and foot wound and osteomyelitis. INTERVAL HISTORY: The patient is currently afebrile. The patient is feeling better, breathing comfortably. Denies having any chest pain, shortness of breath or cough. No nausea or vomiting. No abdominal pain or pain to the right heel or foot wound area. PHYSICAL EXAMINATION: Blood pressure is 99/57 with a pulse of 100, temperature 98.4. He is 93% on room air. General description is a middle-aged male lying in bed in no distress. RESPIRATORY SYSTEM: Unlabored breathing. Clear to auscultation anteriorly. HEART: S1, S2. Regular rate and rhythm. ABDOMEN: Soft. No tenderness. LABS: Hemoglobin is 9.5, white count 5.0, BUN of 58, creatinine 7.56. Blood culture has been negative. DIAGNOSTIC IMPRESSION AND PLAN: Patient with right heel and foot wound with underlying osteomyelitis. Culture positive for MRSA in this patient who also has a VRE urinary tract infection, for which the patient is currently covered with daptomycin, admitted to the hospital with weakness, possible dehydration. He seems to have clinically responded to the IV fluid. To continue with gentle hydration. Local care to the heel and foot wound with Aquacel Silver dressing. Continue with supportive care. MMODL / IJN: [id number] /
[2020-02-17] MEDS: DIALYSIS (PERIT 1.5%) 2,500 ML 37.5 G/2,500 ML BAG INTRAPERIT SCH ×4 (05:49→23:38)
[2020-02-17 06:17] LABS: Glucose,Whole Blood 154 mg/dL (75-99)
[2020-02-17] MEDS: INSULIN ASPART (NovoLOG) 100 UNIT/ML VIAL SQ SCH ×4 (06:20→21:24)
[2020-02-17] MEDS: LEVOTHYROXINE 75 MCG TAB PO SCH (06:23)
[2020-02-17] MEDS: levETIRAcetam 500 MG TAB PO SCH ×2 (06:23→16:52)
[2020-02-17] MEDS: SEVELAMER 800 MG TAB PO SCH ×3 (06:23→16:51)
[2020-02-17 09:12] LABS: Albumin 1.8 g/dL (3.5-5.0); Calcium 7.7 mg/dL (8.4-10.2); Potassium 3.3 mmol/L (3.5-5.1); Total Bilirubin 0.4 mg/dL (0.2-1.3)
[2020-02-17 09:17] LABS: Anisocytosis Slight; Basophils % (A) 1 %; Eosinophils # (A) 0.1 k/uL (0-0.7); Eosinophils % (A) 2 %; HCT 29.9 % (39.0-53.0); HGB 9.9 gm/dL (13.0-17.5); Hypochromasia Slight; Lymphocytes # (A) 1.2 k/uL (1.0-4.8); Lymphocytes % (A) 25 %; MCH 31.4 pg (25.0-35.0); MCV 95.1 fL (80.0-100.0); Macrocytosis Slight; Monocytes # (A) 0.6 k/uL (0-1.0); Monocytes % (A) 13 %; Neutrophils # (A) 2.9 k/uL (1.3-7.7); Neutrophils % (A) 59 %; Platelet Count 109 k/uL (150-450); Poikilocytosis Slight; RBC 3.15 m/uL (4.30-5.90); RDW 17.4 % (11.5-15.5); WBC 4.9 k/uL (3.8-10.6)
[2020-02-17] MEDS: MIDODRINE 5 MG TAB PO SCH ×3 (09:38→21:24)
[2020-02-17] MEDS: APIXABAN 2.5 MG TABLET PO SCH ×2 (09:38→21:23)
[2020-02-17] MEDS: SODIUM BICARBONATE TAB 650 MG TAB PO SCH ×2 (09:38→21:23)
[2020-02-17] MEDS ORDERED: SODIUM CHLORIDE 0.9% 500 ML 500 ML IV ONE (09:54)
[2020-02-17] MEDS ORDERED: POTASSIUM CHLORIDE ER 20 MEQ TAB.ER PO STA (09:54)
[2020-02-17] MEDS: IRON POLYSACCHARIDES COMPLEX 150 MG CAP PO SCH (11:49)
[2020-02-17 11:52] LABS: Glucose,Whole Blood 261 mg/dL (75-99)
--- NOTE | 2020-02-17 12:54 | P.PN ---
Subjective Patient is seen in follow for end-stage renal disease. He is maintained on peritoneal dialysis. Grace nauseous this morning. Blood pressure was also low in the systolic 60s to 70s. He did receive 500 mL bolus with improvement in blood pressure. Denies chest pain or shortness of breath. No issues with peritoneal dialysis. Still feels nauseous. Vital signs are stable. General: The patient appeared well nourished and normally developed. HEENT: Head exam is unremarkable. Neck is without jugular venous distension. LUNGS: Breath sounds decreased. HEART: Rate and Rhythm are regular. ABDOMEN: Soft, nontender. EXTREMITITES: Trace edema. Objective - Vital Signs Vital signs: Vital Signs Temp 98.4 F 02/17/20 11:43 Pulse 77 02/17/20 11:43 Resp 18 02/17/20 11:43 BP 90/53 02/17/20 11:43 Pulse Ox 92 L 02/17/20 11:43 Intake & Output 02/16/20 02/17/20 02/17/20 18:59 06:59 18:59 Intake Total 540 Output Total 300 Balance 540 -300 Weight 115 kg Intake: Intake, IV Titration 50 Amount DAPTOmycin 500 mg In 50 Sodium Chloride 0.9% 50 ml @ 100 mls/hr IVPB Q48H [facility] Rx#:[id number] Oral 490 Output: Urine 300 Other: Voiding Method Toilet - Labs CBC & Chem 7: 02/17/20 08:02 02/17/20 08:02 Labs: Abnormal Lab Results - Last 24 Hours (Table) 02/16/20 02/16/20 02/17/20 Range/Units 16:59 20:36 05:56 RBC (4.30-5.90) m/uL Hgb (13.0-17.5) gm/dL Hct (39.0-53.0) % RDW (11.5-15.5) % Plt Count (150-450) k/uL Sodium (137-145) mmol/L Potassium (3.5-5.1) mmol/L BUN (9-20) mg/dL Creatinine (0.66-1.25) mg/dL Glucose (74-99) mg/dL POC Glucose (mg/dL) 246 H 290 H 154 H (75-99) mg/dL Calcium (8.4-10.2) mg/dL Total Protein (6.3-8.2) g/dL Albumin (3.5-5.0) g/dL 02/17/20 02/17/20 02/17/20 Range/Units 08:02 08:02 11:38 RBC 3.15 L (4.30-5.90) m/uL Hgb 9.9 L (13.0-17.5) gm/dL Hct 29.9 L (39.0-53.0) % RDW 17.4 H (11.5-15.5) % Plt Count 109 L (150-450) k/uL Sodium 131 L (137-145) mmol/L Potassium 3.3 L (3.5-5.1) mmol/L BUN 54 H (9-20) mg/dL Creatinine 7.61 H* (0.66-1.25) mg/dL Glucose 198 H (74-99) mg/dL POC Glucose (mg/dL) 261 H (75-99) mg/dL Calcium 7.7 L (8.4-10.2) mg/dL Total Protein 4.0 L (6.3-8.2) g/dL Albumin 1.8 L (3.5-5.0) g/dL Microbiology - Last 24 Hours (Table) 02/15/20 11:56 Blood Culture - Preliminary Blood No Growth after 24 hours 02/15/20 11:45 Blood Culture - Preliminary Blood No Growth after 24 hours Assessment and Plan Plan: Assessment: 1. End-stage renal disease maintained on peritoneal dialysis. 2. Chronic hypotension maintained on midodrine. Status post 500 mL bolus of normal saline this morning. Improved. 3. Hypokalemia secondary to poor intake and PD losses. Magnesium normal. 4. MRSA right heel infection maintained on daptomycin. 5. Anemia of chronic kidney disease maintained on Aranesp. 6. Chronic kidney disease mineral bone disease maintained on calcitriol And Renvela. Plan: Maintain current PD exchanges. Replace potassium. 40 mg once today. Check dialysate for cell count culture and Gram stain. Encourage oral intake, particularly protein.
[2020-02-17 16:56] LABS: Glucose,Whole Blood 170 mg/dL (75-99)
[2020-02-17 17:17] LABS: Color,BF Colorless
[2020-02-17 17:18] LABS: Appearance,BF Clear; Nucleated Cells, Body Fluid 38 /uL; RBC, Body Fluid 60 /uL
[2020-02-17 17:24] LABS: Mononuclear WBC,Body Fluid 98 %; Polynuclear WBC,Body Fluid 2 %; Total Cells Counted,Body Fluid 100
--- NOTE | 2020-02-17 17:47 | PN ---
PROGRESS NOTE DATE OF SERVICE: 02/17/2020 REASON FOR FOLLOWUP: Right foot and heel wound and osteomyelitis, MRSA with VRE UTI. INTERVAL HISTORY: The patient is currently afebrile. He is complaining of not feeling well, generalized not feeling well, but no chest pain, no cough. No abdominal pain. No nausea, vomiting or diarrhea or pain to the right heel. PHYSICAL EXAMINATION: Blood pressure 112/71 with a pulse of 78, temperature 99.4. He is 94% on 2 L cannula. General description is a middle-aged male up in the chair in no distress. RESPIRATORY SYSTEM: Unlabored breathing. Clear to auscultation anteriorly. HEART: S1, S2. Regular rate and rhythm. ABDOMEN: Soft. No tenderness. LABS: Hemoglobin 9.1, white count 4.9, BUN of 54, creatinine 7.61. Blood culture has been negative. DIAGNOSTIC IMPRESSION AND PLAN: Patient with right heel osteomyelitis, also with a right foot wound. Previous culture positive for MRSA with VRE bacteremia. Patient is covered with daptomycin, admitted to hospital with weakness, possible dehydration. Patient to continue daptomycin. Local wound care with Aquacel Silver dressing. Keep the area off pressure. Continue supportive care. MMODL / IJN: [id number] /
[2020-02-17 21:05] LABS: Glucose,Whole Blood 178 mg/dL (75-99)
[2020-02-17] MEDS: FAMOTIDINE 20 MG TAB PO SCH (21:23)
[2020-02-17] MEDS: METOPROLOL SUCCINATE (ER) 25 MG TAB.ER.24H PO SCH (21:23)
[2020-02-17] MEDS: FOLIC ACID-VIT B COMPLEX-VIT C 1 CAP PO SCH (21:23)
--- NOTE | 2020-02-17 22:19 | PN ---
PROGRESS NOTE This 64-year-old white male remains on his Synthroid 150, Toprol XL. Midodrine has been increased to 10 mg before meals t.i.d. IV fluid bolus has been given. Discussed with him eating and drinking and keeping his nutrition up. Sodium 131, potassium 3.3, BUN is 54, creatinine 7.61. Sugars are in the 100s to 200s. Albumin level is 1.8. ASSESSMENT: 1. Protein-calorie malnutrition. 2. Dehydration of significant nature. 3. End-stage renal disease. 4. Orthostatic hypotension. 5. Cellulitis. 6. Osteomyelitis of the heels. Continue current treatments. Rehydrate. Await fluid rehydration. Continue IV antibiotics. Wait for possible discharge home if we can correct the potassium, sodium and dehydration. MMODL / IJN: [id number] /
[2020-02-18] MEDS: DIALYSIS (PERIT 1.5%) 2,500 ML 37.5 G/2,500 ML BAG INTRAPERIT SCH ×4 (05:40→23:56)
[2020-02-18 06:19] LABS: Glucose,Whole Blood 194 mg/dL (75-99)
[2020-02-18] MEDS: SEVELAMER 800 MG TAB PO SCH ×3 (06:36→18:29)
[2020-02-18] MEDS: levETIRAcetam 500 MG TAB PO SCH ×2 (06:36→18:28)
[2020-02-18] MEDS: LEVOTHYROXINE 75 MCG TAB PO SCH (06:36)
[2020-02-18] MEDS: INSULIN ASPART (NovoLOG) 100 UNIT/ML VIAL SQ SCH ×4 (06:37→21:42)
[2020-02-18 07:26] LABS: Anisocytosis Slight; Basophils % (A) 1 %; Eosinophils # (A) 0.1 k/uL (0-0.7); Eosinophils % (A) 2 %; HCT 31.6 % (39.0-53.0); HGB 9.8 gm/dL (13.0-17.5); Hypochromasia Moderate; Lymphocytes # (A) 1.3 k/uL (1.0-4.8); Lymphocytes % (A) 26 %; MCH 29.6 pg (25.0-35.0); MCHC 31.1 g/dL (31.0-37.0); MCV 95.3 fL (80.0-100.0); Macrocytosis Slight; Mean Platelet Volume 9.4; Monocytes # (A) 0.5 k/uL (0-1.0); Monocytes % (A) 10 %; Neutrophils # (A) 3.1 k/uL (1.3-7.7); Neutrophils % (A) 59 %; Platelet Count 100 k/uL (150-450); Poikilocytosis Slight; RBC 3.32 m/uL (4.30-5.90); RDW 17.4 % (11.5-15.5); WBC 5.2 k/uL (3.8-10.6)
[2020-02-18 07:33] LABS: Albumin 1.8 g/dL (3.5-5.0); Calcium 7.6 mg/dL (8.4-10.2); Potassium 3.7 mmol/L (3.5-5.1); Total Bilirubin 0.4 mg/dL (0.2-1.3); Total Protein 3.8 g/dL (6.3-8.2)
[2020-02-18] MEDS: APIXABAN 2.5 MG TABLET PO SCH ×2 (10:29→20:36)
[2020-02-18] MEDS: MIDODRINE 5 MG TAB PO SCH ×4 (10:29→20:35)
[2020-02-18] MEDS: SODIUM BICARBONATE TAB 650 MG TAB PO SCH ×2 (10:29→20:35)
[2020-02-18] MEDS: POTASSIUM CHLORIDE ER 10 MEQ TAB.ER.PRT PO SCH (10:29)
[2020-02-18 11:44] LABS: Glucose,Whole Blood 187 mg/dL (75-99)
[2020-02-18] MEDS: DAPTOmycin 500 MG in SODIUM CHLORIDE 0.9% 50 ML IVPB SCH (12:15)
[2020-02-18] MEDS: IRON POLYSACCHARIDES COMPLEX 150 MG CAP PO SCH ×4 (12:16→12:21)
--- NOTE | 2020-02-18 14:46 | CDI ---
Documentation Clarification Form Date: 02/18/2020 02:28:21 PM From: Rae Grier RN, CCDS Admit Date: 02/15/2020 01:49:00 PM Patient Name: Salvador Hernandez Visit Number: [id number] Discharge Date: ATTENTION: The Clinical Documentation Specialists (CDI) and [facility] Coding Staff appreciate your assistance in clarifying documentation. Please respond to the clarification below the line at the bottom and electronically sign. The CDI & [facility] Coding staff will review the response and follow-up if needed. Please note: Queries are made part of the Legal Health Record. If you have any questions, please contact the author of this message via ITS. Dr. Ricardo Villar Atrial Fibrillation is documented in the patient past medical history with current treatment. Please document the type of atrial fibrillation if known. History/Risk Factors: Atrial Fibrillation, Diabetes Mellitus, End Stage Renal Disease on Peritoneal Dialysis, Hypertension Clinical Indicators: 64-year-old male present to ED on 02/14 with complaints of weakness dizziness for last few days. Family notes his normal blood pressure is in the 80s to 90s systolic over 60s diastolic. 02/14 EKG/telemetry: Sinus rhythm 87, evidence of A.fib low-voltage nonspecific anterior configuration's 02/14 Vital signs @11:19: 80/52 76 18 Treatment: Eliquis 2.5 mg PO BID In your professional opinion, can you please clarify the type of Atrial Fibrillation, if known? Chronic/Permanent Paroxysmal Persistent Other, please specify Unable to determine (Last Revision: September 2017) MTDD
[2020-02-18 16:28] LABS: Glucose,Whole Blood 201 mg/dL (75-99)
--- NOTE | 2020-02-18 16:35 | PN ---
PROGRESS NOTE Patient is seen for followup for end-stage renal disease. He is currently maintained on peritoneal dialysis. Patient is being treated for heel ulcers and osteomyelitis. He states he is eating well. Denies any significant complaints. Awaiting I&D, according to patient. PHYSICAL EXAMINATION: On examination, blood pressure was 89/46, heart rate 109 per minute. He is afebrile. EXAMINATION OF THE HEART: S1 and S2. EXAMINATION OF LUNGS: Bilateral breath sounds are heard. Decreased breath sounds at bases. ABDOMEN: Soft, non-tender. Examination of lower extremities shows edema 1+ bilaterally. Right foot is currently wrapped and left forefoot is amputated. 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 LABS: Labs show sodium 131, potassium 3.7, BUN 52, creatinine 8.3, hemoglobin 9.8 g/dL. Albumin was 1.8. ASSESSMENT: 1. End-stage renal disease, on peritoneal dialysis, with poor clearances as outpatient. Given his significantly low albumin at 1.8 and poor clearances as outpatient, patient needs to be considered to be switched to hemodialysis. However, his blood pressure is on the lower side. I am not sure how he will tolerate hemodialysis if we switch him. 2. Right foot wound and osteomyelitis, maintained on antibiotics, being followed by Infectious Disease. 3. Vancomycin-resistant Enterococcus urinary tract infection. 4. Mild volume overload. No significant ultrafiltration can be done, as patient's blood pressure is quite low. 5. Chronic hypotension, maintained on midodrine. PLAN: Continue antibiotics. Will discuss with the patient and his down the road regarding switching to hemodialysis. This can be done as outpatient if he is agreeable. MMODL / IJN: [id number] /
--- NOTE | 2020-02-18 16:44 | PN ---
PROGRESS NOTE DATE OF SERVICE: 02/18/2020 REASON FOR FOLLOWUP: Right foot wound with underlying osteomyelitis, MRSA and VRE urinary tract infection. INTERVAL HISTORY: Patient is currently afebrile. Patient is feeling better. Breathing comfortably. Patient denies having any chest pain or shortness of breath. No cough, no nausea, no vomiting, no abdominal pain or pain to the right foot. PHYSICAL EXAMINATION: Blood pressure is 95/59 with a pulse of 55, temperature 97.1. He is 93% on 2 L. General description is a middle-aged male,. lying in bed in no distress. RESPIRATORY SYSTEM: Unlabored breathing, decreased breath sounds in the base, no wheeze. HEART: S1, S2. Regular rate and rhythm. ABDOMEN: Soft, no tenderness. Right foot is dressed up, no obvious drainage on the dressing. LABS: Hemoglobin is 9.8, white count of 5.2, BUN of 52, creatinine 8.33. Blood culture has been negative. Fluid culture so far negative. DIAGNOSTIC IMPRESSION AND PLAN: Patient with right foot wound and right heel osteomyelitis. Cultures were positive for MRSA with VRE bacteremia for the patient currently on daptomycin has been in the hospital with generalized weakness. However, this admission patient has no fever, no elevated white count and no obvious clinical focus of infection. Will keep the patient on daptomycin and local wound care to the right foot as ordered and monitor clinical course closely. MMODL / IJN: [id number] /
[2020-02-18] MEDS: METOPROLOL SUCCINATE (ER) 25 MG TAB.ER.24H PO SCH (20:35)
[2020-02-18] MEDS: FAMOTIDINE 20 MG TAB PO SCH (20:35)
[2020-02-18] MEDS: FOLIC ACID-VIT B COMPLEX-VIT C 1 CAP PO SCH (20:36)
--- NOTE | 2020-02-18 23:28 | PN ---
PROGRESS NOTE A 64-year-old white male, dehydration, end-stage renal disease, chronic osteomyelitis of the extremities. He was made DNR. He is still weak and fatigued he says. He has underlying osteomyelitis MRSA, VRE. He is weak and fatigued. CARDIOVASCULAR: S1, S2. LUNGS: Clear. GI: Soft. Blood pressure is 95/59, pulse 55, temperature 97.O2 was 93 on 2 L., Midodrine has been increased to 10 mg a.c. for orthostatic hypotension. Continues to have decreased breath sounds at the bases. Heart S1, S2. Abdomen is soft, nontender. Labs show hemoglobin 9.8, white count 5.2, BUN 52, creatinine 8.33. Blood cultures negative. Fluid cultures negative. Right foot right heel osteomyelitis. MRSA, VRE bacteremia. Continue on daptomycin. Dialysis will have to be will be monitored for less amount of fluid taken off as he gets dehydrated. Midodrine for orthostatic hypotension. PT, OT. The patient was made DNR last night. MMODL / IJN: [id number] /
[2020-02-19 06:17] LABS: Glucose,Whole Blood 229 mg/dL (75-99)
[2020-02-19] MEDS: DIALYSIS (PERIT 1.5%) 2,500 ML 37.5 G/2,500 ML BAG INTRAPERIT SCH ×5 (06:17→20:12)
[2020-02-19] MEDS: SEVELAMER 800 MG TAB PO SCH ×3 (06:20→18:04)
[2020-02-19] MEDS: LEVOTHYROXINE 75 MCG TAB PO SCH (06:20)
[2020-02-19] MEDS: INSULIN ASPART (NovoLOG) 100 UNIT/ML VIAL SQ SCH ×4 (06:20→20:46)
[2020-02-19] MEDS: levETIRAcetam 500 MG TAB PO SCH ×2 (06:20→18:04)
--- NOTE | 2020-02-19 09:01 | CDI ---
Documentation Clarification Form Date: 02/18/2020 02:48:00 PM From: Rae Grier RN, CCDS Admit Date: 02/15/2020 01:49:00 PM Patient Name: Salvador Hernandez Visit Number: [id number] Discharge Date: ATTENTION: The Clinical Documentation Specialists (CDI) and [facility] Coding Staff appreciate your assistance in clarifying documentation. Please respond to the clarification below the line at the bottom and electronically sign. The CDI & [facility] Coding staff will review the response and follow-up if needed. Please note: Queries are made part of the Legal Health Record. If you have any questions, please contact the author of this message via ITS. Dr. Ricardo Villar Protein-calorie Malnutrition has been documented in your progress note on 02/17 and further specificity is requested for the degree of malnutrition if known. History/Risk Factors: Atrial Fibrillation, Diabetes mellitus, ESRD on Peritoneal Dialysis, Hypertension Clinical Indicators: 64-year-old male who present to D on - with complaints of weakness and dizziness last few days. General appearance by nephrology on 02/16: The patient appeared wall nourished and normally developed. Still fells nauseous. hypokalemia secondary to poor intake and PD loses. 02/14 Vital signs: 80/52 76 18 100 % RA 02/16 progress note: Protein-calorie malnutrition 02/14 Labs: BUN 50, CR 7.10 Lactic acid 3.3 Total protein 4.5, Albumin 2.1 Potassium 2.9 Current BMI: 32.4 Decreased hand stockroom keeper strength: Generalized weakness per ED evaluation on admission Treatment: Monitor I/O Multivit/CA Carb/B Cmplx 1 po q hs Encourage oral intake, Particularly protein Potassium 40 mg po x1 CBC, BUN, CR, Lytes per orders In your professional opinion, can you please clarify if these findings signify one of the following conditions? Mild Protein-Calorie Malnutrition Moderate Protein-Calorie Malnutrition Other condition, please specify Unable to determine (Last Revision: December 2018) GINID
[2020-02-19] MEDS: SODIUM BICARBONATE TAB 650 MG TAB PO SCH ×2 (09:08→20:45)
[2020-02-19] MEDS: MIDODRINE 5 MG TAB PO SCH ×4 (09:08→20:45)
[2020-02-19] MEDS: APIXABAN 2.5 MG TABLET PO SCH ×2 (09:08→20:46)
[2020-02-19] MEDS: IRON POLYSACCHARIDES COMPLEX 150 MG CAP PO SCH (09:08)
--- NOTE | 2020-02-19 11:22 | PN ---
PROGRESS NOTE Patient is seen for followup for end-stage renal disease. He is maintained on peritoneal dialysis. This morning he has been confused. No significant distress. Blood pressure was 114/82, heart rate 75 per minute, he is afebrile. Examination of the heart S1, S2. Examination of the lungs, bilateral breath sounds are heard. Abdomen is soft, nontender. Examination of the lower extremities shows edema 1+ bilaterally. Both feet are currently wrapped. LABS: From yesterday show creatinine 8.3, BUN 52, sodium 131, hemoglobin 9.8 g/dL. ASSESSMENT: 1. End-stage renal disease, on peritoneal dialysis with poor clearances as outpatient. I will increase exchanges to q.4 hours for now and I will discuss with the regarding possibly switching to hemodialysis for a short period of time to help with the healing and hypoalbuminemia, especially given the fact that he has not had good clearances as outpatient. 2. Osteomyelitis with right foot wound being followed by Infectious Disease, maintained on antibiotics. 3. VRE urinary tract infection. 4. Chronic hypotension maintained on midodrine. PLAN: Increase dialysis to q.4 hours. Discussed with regarding possibly switching to temporary hemodialysis as outpatient. MMODL / IJN: [id number] /
[2020-02-19] MEDS: ACETAMINOPHEN TAB 325 MG TAB PO PRN (11:38)
[2020-02-19 11:44] LABS: Glucose,Whole Blood 104 mg/dL (75-99)
[2020-02-19 16:56] LABS: Glucose,Whole Blood 190 mg/dL (75-99)
--- NOTE | 2020-02-19 19:34 | PN ---
PROGRESS NOTE DATE OF SERVICE: 02/19/2020 REASON FOR FOLLOWUP: Right heel osteomyelitis, MRSA and VRE urinary tract infection. INTERVAL HISTORY: The patient is currently afebrile. The patient is breathing comfortably. Denies having any chest pain or shortness of breath or cough. No nausea, no vomiting. No abdominal pain or pain to the right foot. PHYSICAL EXAMINATION: Blood pressure 114/75 with a pulse of 98, temperature 97.9. He is 100% on 2 L nasal cannula. General description is a middle-aged male up in the chair in no distress. RESPIRATORY SYSTEM: Unlabored breathing. Clear to auscultation anteriorly. HEART: S1, S2. Regular rate and rhythm. ABDOMEN: Soft. No tenderness. LABS: Blood cultures and dialysate culture have been negative. DIAGNOSTIC IMPRESSION AND PLAN: Patient admitted to hospital with weakness, lethargy, possible dehydration in this patient with a history of right heel osteomyelitis and vancomycin-resistant Enterococcus urinary tract infection, for which the patient is covered with daptomycin; to continue. Local wound care to continue as ordered. Continue with supportive care. MMODL / IJN: [id number] /
[2020-02-19 20:27] LABS: Glucose,Whole Blood 171 mg/dL (75-99)
[2020-02-19] MEDS: FOLIC ACID-VIT B COMPLEX-VIT C 1 CAP PO SCH (20:45)
[2020-02-19] MEDS: METOPROLOL SUCCINATE (ER) 25 MG TAB.ER.24H PO SCH (20:45)
[2020-02-19] MEDS: FAMOTIDINE 20 MG TAB PO SCH (20:45)
[2020-02-20] MEDS: DIALYSIS (PERIT 1.5%) 2,500 ML 37.5 G/2,500 ML BAG INTRAPERIT SCH ×7 (00:06→23:57)
[2020-02-20] MEDS: LEVOTHYROXINE 75 MCG TAB PO SCH (06:42)
[2020-02-20] MEDS: INSULIN ASPART (NovoLOG) 100 UNIT/ML VIAL SQ SCH ×4 (06:42→22:09)
[2020-02-20] MEDS: levETIRAcetam 500 MG TAB PO SCH ×2 (06:42→19:04)
[2020-02-20] MEDS: SEVELAMER 800 MG TAB PO SCH ×3 (06:43→19:03)
[2020-02-20 06:46] LABS: Glucose,Whole Blood 200 mg/dL (75-99)
--- NOTE | 2020-02-20 06:58 | PN ---
PROGRESS NOTE A 64-year-old white male. He feels fatigued and weak. Having no chest pain, shortness of breath, no lightheadedness, dizziness, syncope. Cardiovascular S1-S2. Lungs clear. GI soft. Integument shows dry skin turgor, poor mucous membranes. ASSESSMENT: 1. Dehydration. 2. Hypertension. 3. End-stage renal disease. 4. Acute on chronic anemia. Continue current 24-48 hours. Continue with IV fluids. PT, OT. IV antibiotics for wound infections. Dialysis. Continue on midodrine 10 mg a.c. and h.s. Follow up in the next 24 to 48 hours. MMODL / IJN: [id number] /
[2020-02-20 07:18] LABS: Anisocytosis Slight; Basophils % (A) 1 %; Eosinophils # (A) 0.1 k/uL (0-0.7); Eosinophils % (A) 1 %; HCT 33.9 % (39.0-53.0); HGB 10.5 gm/dL (13.0-17.5); Hypochromasia Moderate; Lymphocytes # (A) 1.6 k/uL (1.0-4.8); Lymphocytes % (A) 19 %; MCH 29.4 pg (25.0-35.0); MCHC 30.9 g/dL (31.0-37.0); Macrocytosis Slight; Mean Platelet Volume 9.5; Monocytes # (A) 0.9 k/uL (0-1.0); Monocytes % (A) 10 %; Neutrophils # (A) 5.5 k/uL (1.3-7.7); Neutrophils % (A) 66 %; Platelet Count 134 k/uL (150-450); Poikilocytosis Slight; RBC 3.57 m/uL (4.30-5.90); WBC 8.3 k/uL (3.8-10.6)
[2020-02-20 08:03] LABS: Albumin 1.7 g/dL (3.5-5.0); Calcium 7.3 mg/dL (8.4-10.2); Potassium 3.3 mmol/L (3.5-5.1); Total Bilirubin 0.5 mg/dL (0.2-1.3); Total Protein 3.9 g/dL (6.3-8.2)
[2020-02-20] MEDS: IRON POLYSACCHARIDES COMPLEX 150 MG CAP PO SCH (09:06)
[2020-02-20] MEDS: MIDODRINE 5 MG TAB PO SCH ×4 (09:06→22:16)
[2020-02-20] MEDS: APIXABAN 2.5 MG TABLET PO SCH ×2 (09:06→22:15)
[2020-02-20] MEDS: DAPTOmycin 500 MG in SODIUM CHLORIDE 0.9% 50 ML IVPB SCH (09:07)
[2020-02-20] MEDS: SODIUM BICARBONATE TAB 650 MG TAB PO SCH ×2 (09:07→22:16)
[2020-02-20] MEDS: POTASSIUM CHLORIDE ER 10 MEQ TAB.ER.PRT PO SCH (09:07)
[2020-02-20] MEDS: ACETAMINOPHEN TAB 325 MG TAB PO PRN (09:09)
[2020-02-20] MEDS ORDERED: Potassium Replacement Protocol 1 EACH MISC MISCELLANE PRN (10:08)
[2020-02-20] MEDS: POTASSIUM CHLORIDE ER 20 MEQ TAB.ER PO SCH ×2 (12:28→13:10)
[2020-02-20 12:54] LABS: Glucose,Whole Blood 121 mg/dL (75-99)
--- NOTE | 2020-02-20 13:26 | P.GSCN ---
History of Present Illness History of present illness: 64-year-old gentleman known to me from the past. Patient has history of end- stage renal disease. Patient is on peritoneal dialysis I was consulted for placement for Dialysis catheter this patient had a dialysis catheter placed in the posterior tibial vein in the past Patient seen in his room neck is supple no bruit appreciated Chest chest is clear first and second sound present in entry is good and both sides Abdomen is soft no pertinent sign noted Vascular examination brachial radial femoral pulses are present patient has a transmetatarsal amputation left foot with bilateral ulcer noted on the both feet patient is a under care of wound center for local wound care Plan is placement of the dialysis catheter risk and complication discussed thank you Past Medical History Past Medical History: Atrial Fibrillation, Cancer, Diabetes Mellitus, Dialysis, Deep Vein Thrombosis (DVT), GERD/Reflux, Hyperlipidemia, Hypertension, Osteoarthritis (OA), Prostate Disorder, Renal Disease, Skin Disorder, Thyroid Disorder, Vascular Disorder Additional Past Medical History / Comment(s): hx vascular calcification, basal cell carcinoma nose removed 2010. 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 peritoneal dialysis cycler at night, peritonitis 05/06, wounds susannah feet seen in wound care center History of Any Multi-Drug Resistant Organisms: MRSA, VRE Year Discovered:: 01/23/20 MDRO Source:: MRSA BLOOD/ FOOT VRE URINE Additional Past Surgical History / Comment(s): kidney transplant : 1992 & 1997. Left transmetatarsal amputation. basal cell carcinoma excision.BRAIN TUMOR REMOVED WITH CHEMO , brain hematoma drained. COLONOSCOPY Past Anesthesia/Blood Transfusion Reactions: No Reported Reaction Past Psychological History: No Psychological Hx Reported Smoking Status: Never smoker Past Alcohol Use History: None Reported Past Drug Use History: None Reported - Past Family History Mother Family Medical History: No Reported History Father Family Medical History: No Reported History Brother(s) Family Medical History: No Reported History Sister(s) Family Medical History: No Reported History Son(s) Family Medical History: No Reported History Medications and Allergies Home Medications Medication Instructions Recorded Confirmed Type Finasteride 2.5 mg PO DAILY 07/04/16 02/15/20 History Insulin Aspart (Niacinamide) 0.01 unit SQ-PUMP CONTINUOUS 11/05/18 02/15/20 History [Fiasp 100 Unit/ml Vial] Iron Polysaccharide Complex 150 mg PO DAILY 11/05/18 02/15/20 History [Ferrex 150] Levothyroxine Sodium 150 mcg PO DAILY 11/05/18 02/15/20 History Apixaban [Eliquis] 2.5 mg PO BID 09/16/19 02/15/20 History Dialyvite 800-Zinc 15 Tab 0.8m 1 tab PO HS 09/16/19 02/15/20 History Famotidine [Pepcid] 20 mg PO HS 09/16/19 02/15/20 History Midodrine HCl [ProAmatine] 10 mg PO TID 09/16/19 02/15/20 History calcitrioL [Calcitriol] 0.5 mg PO WE 09/16/19 02/15/20 History Sodium Bicarbonate Tab 650 mg PO BID #60 tab 09/18/19 02/15/20 Rx Potassium Chloride ER [K-Dur 10] 10 meq PO Q48H 01/20/20 02/15/20 History levETIRAcetam [Keppra] 500 mg PO Q12H 01/20/20 02/15/20 History DAPTOmycin [Cubicin] 500 mg IV Q48H #22 bag 01/26/20 02/15/20 Rx Acetaminophen Tab [Tylenol] 650 mg PO Q6HR PRN tab 01/28/20 02/15/20 Rx Metoprolol Succinate (ER) [Toprol 25 mg PO HS tab.er.24h 01/28/20 02/15/20 Rx XL] Sevelamer [Renvela] 1,600 mg PO AC-TID tab 01/28/20 02/15/20 Rx Sevelamer [Renvela] 800 mg PO BID PRN tab 01/28/20 02/15/20 Rx predniSONE 1 mg PO DAILY 02/15/20 02/15/20 History Allergies Allergy/AdvReac Type Severity Reaction Status Date / Time No Known Allergies Allergy Verified 02/15/20 15:14 Surgical - Exam Vital Signs Temp BP 97.7 F 67/44 02/15/20 11:05 02/15/20 11:05 Results - Labs 02/20/20 06:31 02/20/20 06:31 Abnormal Lab Results - Last 24 Hours (Table) 02/19/20 02/19/20 02/20/20 Range/Units 16:54 20:25 06:31 RBC 3.57 L (4.30-5.90) m/uL Hgb 10.5 L (13.0-17.5) gm/dL Hct 33.9 L (39.0-53.0) % MCHC 30.9 L (31.0-37.0) g/dL RDW 17.0 H (11.5-15.5) % Plt Count 134 L (150-450) k/uL Sodium (137-145) mmol/L Potassium (3.5-5.1) mmol/L Chloride (98-107) mmol/L BUN (9-20) mg/dL Creatinine (0.66-1.25) mg/dL Glucose (74-99) mg/dL POC Glucose (mg/dL) 190 H 171 H (75-99) mg/dL Calcium (8.4-10.2) mg/dL Total Protein (6.3-8.2) g/dL Albumin (3.5-5.0) g/dL 02/20/20 02/20/20 02/20/20 Range/Units 06:31 06:35 12:39 RBC (4.30-5.90) m/uL Hgb (13.0-17.5) gm/dL Hct (39.0-53.0) % MCHC (31.0-37.0) g/dL RDW (11.5-15.5) % Plt Count (150-450) k/uL Sodium 130 L (137-145) mmol/L Potassium 3.3 L (3.5-5.1) mmol/L Chloride 97 L (98-107) mmol/L BUN 44 H (9-20) mg/dL Creatinine 6.95 H (0.66-1.25) mg/dL Glucose 133 H (74-99) mg/dL POC Glucose (mg/dL) 200 H 121 H (75-99) mg/dL Calcium 7.3 L (8.4-10.2) mg/dL Total Protein 3.9 L (6.3-8.2) g/dL Albumin 1.7 L (3.5-5.0) g/dL Microbiology - Last 24 Hours (Table) 02/17/20 14:21 Gram Stain - Preliminary Dialysate Body Fluid Culture - Preliminary 02/15/20 11:56 Blood Culture - Preliminary Blood No Growth after 96 hours 02/15/20 11:45 Blood Culture - Preliminary Blood No Growth after 96 hours Diabetes panel 02/20/20 Range/Units 06:31 Sodium 130 L (137-145) mmol/L Potassium 3.3 L (3.5-5.1) mmol/L Chloride 97 L (98-107) mmol/L Carbon Dioxide 26 (22-30) mmol/L BUN 44 H (9-20) mg/dL Creatinine 6.95 H (0.66-1.25) mg/dL Glucose 133 H (74-99) mg/dL Calcium 7.3 L (8.4-10.2) mg/dL AST 51 (17-59) U/L ALT 26 (4-49) U/L Alkaline Phosphatase 85 (38-126) U/L Total Protein 3.9 L (6.3-8.2) g/dL Albumin 1.7 L (3.5-5.0) g/dL Calcium panel 02/20/20 Range/Units 06:31 Calcium 7.3 L (8.4-10.2) mg/dL Albumin 1.7 L (3.5-5.0) g/dL Pituitary panel 02/20/20 Range/Units 06:31 Sodium 130 L (137-145) mmol/L Potassium 3.3 L (3.5-5.1) mmol/L Chloride 97 L (98-107) mmol/L Carbon Dioxide 26 (22-30) mmol/L BUN 44 H (9-20) mg/dL Creatinine 6.95 H (0.66-1.25) mg/dL Glucose 133 H (74-99) mg/dL Calcium 7.3 L (8.4-10.2) mg/dL Adrenal panel 02/20/20 Range/Units 06:31 Sodium 130 L (137-145) mmol/L Potassium 3.3 L (3.5-5.1) mmol/L Chloride 97 L (98-107) mmol/L Carbon Dioxide 26 (22-30) mmol/L BUN 44 H (9-20) mg/dL Creatinine 6.95 H (0.66-1.25) mg/dL Glucose 133 H (74-99) mg/dL Calcium 7.3 L (8.4-10.2) mg/dL Total Bilirubin 0.5 (0.2-1.3) mg/dL AST 51 (17-59) U/L ALT 26 (4-49) U/L Alkaline Phosphatase 85 (38-126) U/L Total Protein 3.9 L (6.3-8.2) g/dL Albumin 1.7 L (3.5-5.0) g/dL
--- NOTE | 2020-02-20 14:43 | PN ---
PROGRESS NOTE Patient is seen for followup for end-stage renal disease. I discussed with his yesterday regarding switching to hemodialysis. The patient's is agreeable. He is somewhat improved today with more frequent dialysis. However, they will not be able to maintain the increased dialysis prescription as outpatient. We will proceed with Vascular Surgery consult for placement of dialysis catheter and will plan for first hemodialysis treatment tomorrow. At this time, I am not sure how he will tolerate hemodialysis as his blood pressure remains on the lower side in spite of midodrine. Patient is currently being treated for osteomyelitis of the right foot with right foot wound as well as VRE urinary tract infection. PHYSICAL EXAMINATION: Today, patient is comfortable. He is confused. Blood pressure was low at 95/54, heart rate 72 per minute, he is afebrile. Examination of the heart S1, S2. Examination of the lungs, bilateral breath sounds are heard. Abdomen is soft, nontender. Examination of the lower extremities shows edema 1+ bilaterally. Right foot is currently wrapped. [employer] exam shows patient is confused. He has been moving all 4 extremities. LABS: Show sodium 130, potassium 3.3, chloride 97, BUN 44, creatinine 6.95, hemoglobin 10.5 g/dL. ASSESSMENT: 1. End-stage renal disease maintained on peritoneal dialysis with poor clearance as outpatient, being switched over to hemodialysis. However, it is unclear if patient will be able to tolerate hemodialysis. There was some discussion regarding hospice care and we will need to pursue hospice if the patient is not able to tolerate hemodialysis. 2. Hypokalemia associated with more frequent peritoneal dialysis, currently being replaced. 3. Left heel ulcer, osteomyelitis and VRE urinary tract infection, maintained on antibiotics. 4. Generalized debility. 5. Mental status changes, possibly related to uremia. PLAN: Continue with q.4 hour dialysis treatments and plans for PermCath placement for trial of hemodialysis, particularly given the significantly low albumin, chronic ongoing ulcers and poor clearance on PD as outpatient. The patient has also had a history of peritonitis on more than one occasion previously. MMODL / IJN: [id number] /
--- NOTE | 2020-02-20 15:07 | PN ---
PROGRESS NOTE A 64-year-old white male who is admitted with end-stage renal disease, vascular wound infection for which Dr. Canales has been ordered. Remains on Eliquis, daptomycin, and getting dialysis here with Dr. Wright. Sodium, potassium is being replaced. Sugars are mid 100s to 200s. Orthostatic hypotension is improving. Severe malnutrition. He is not eating and drinking much and patient has no strength at all. Blood pressure 79/50, O2 is 98, pulse 89, respiratory rate 16 18, temperature 97.3. ASSESSMENT: Severe dehydration, hypokalemia, hyponatremia. Fluid rehydration will have to be done. Dietitian will have to be given for protein supplements. Possibly fluid bolus will need to be given at this point as he appears to be dehydrated. Prognosis extremely guarded. Will get Vascular Surgery to see the patient, possibly fluids need to be begin for orthostatic hypotension, severe weakness. At this time, prognosis is extremely guarded. MMODL / IJN: [id number] /
[2020-02-20 17:11] LABS: Glucose,Whole Blood 259 mg/dL (75-99)
--- NOTE | 2020-02-20 17:28 | PN ---
PROGRESS NOTE DATE OF SERVICE: 02/20/2020 REASON FOR FOLLOWUP: Right heel osteomyelitis, right foot wound and VRE urinary tract infection. INTERVAL HISTORY: The patient is currently afebrile. The patient clinically blood pressure is slightly marginal, complains of feeling weak. No vomiting or diarrhea on any change reported by the nursing staff. PHYSICAL EXAMINATION: Blood pressure 91/64 with a pulse of 81, temperature 97.5. He is 98% on room air. General description is a middle-aged male, lying in bed in no distress. RESPIRATORY SYSTEM: Unlabored breathing, clear to auscultation anteriorly. HEART: S1, S2. Regular rate and rhythm. ABDOMEN: Soft, no tenderness. Right foot is currently dressed up. No obvious drainage on the dressing. LABS: Hemoglobin is 10.5, white count 8.3, BUN of 44, creatinine 6.95, blood culture and fluid culture have been negative. DIAGNOSTIC IMPRESSION AND PLAN: Patient admitted to the hospital with generalized weakness in this patient currently being treated for right heel osteomyelitis and VRE UTI on daptomycin that will be continued. Clinically doubt any worsening infection as no fever, cultures negative and white count is normal. Local care to the foot continue as ordered. MMODL / IJN: [id number] /
[2020-02-20 18:20] LABS: Hepatitis A Antibody IgM Non-Reactive (Non-Reactive); Hepatitis B Core IgM Non-Reactive (Non-Reactive); Hepatitis B Surface Antigen Non-Reactive (Non-Reactive); Hepatitis C IgG Antibody Non-Reactive (Non-Reactive)
[2020-02-20] MEDS: SODIUM CHLORIDE 0.9% 1,000 ML IV SCH (19:17)
[2020-02-20 20:42] LABS: Glucose,Whole Blood 375 mg/dL (75-99)
[2020-02-20 20:42] LABS: Glucose,Whole Blood 408 mg/dL (75-99)
[2020-02-20] MEDS: FOLIC ACID-VIT B COMPLEX-VIT C 1 CAP PO SCH (22:16)
[2020-02-20] MEDS: FAMOTIDINE 20 MG TAB PO SCH (22:16)
[2020-02-21] MEDS: METOPROLOL SUCCINATE (ER) 25 MG TAB.ER.24H PO SCH ×2 (02:49→20:56)
[2020-02-21] MEDS: DIALYSIS (PERIT 1.5%) 2,500 ML 37.5 G/2,500 ML BAG INTRAPERIT SCH ×5 (03:58→22:42)
[2020-02-21] MEDS: SODIUM CHLORIDE 0.9% 1,000 ML IV SCH ×2 (06:39→22:42)
[2020-02-21] MEDS: SEVELAMER 800 MG TAB PO SCH ×3 (06:39→18:00)
[2020-02-21 06:44] LABS: Glucose,Whole Blood 168 mg/dL (75-99)
[2020-02-21] MEDS: INSULIN ASPART (NovoLOG) 100 UNIT/ML VIAL SQ SCH ×4 (06:45→20:55)
[2020-02-21] MEDS: LEVOTHYROXINE 75 MCG TAB PO SCH (06:46)
[2020-02-21] MEDS: levETIRAcetam 500 MG TAB PO SCH ×2 (06:46→18:00)
[2020-02-21 06:49] LABS: Anisocytosis Slight; Basophils % (A) 0 %; Eosinophils # (A) 0.1 k/uL (0-0.7); Eosinophils % (A) 2 %; HCT 33.2 % (39.0-53.0); Hypochromasia Moderate; Lymphocytes # (A) 1.5 k/uL (1.0-4.8); Lymphocytes % (A) 21 %; MCH 28.9 pg (25.0-35.0); MCHC 30.1 g/dL (31.0-37.0); MCV 95.9 fL (80.0-100.0); Macrocytosis Slight; Monocytes # (A) 0.7 k/uL (0-1.0); Monocytes % (A) 11 %; Neutrophils # (A) 4.4 k/uL (1.3-7.7); Neutrophils % (A) 63 %; Platelet Count 124 k/uL (150-450); Poikilocytosis Slight; RBC 3.46 m/uL (4.30-5.90); RDW 16.9 % (11.5-15.5)
[2020-02-21 07:27] LABS: Albumin 1.6 g/dL (3.5-5.0); Calcium 7.5 mg/dL (8.4-10.2); Potassium 3.7 mmol/L (3.5-5.1); Total Bilirubin 0.4 mg/dL (0.2-1.3); Total Protein 3.7 g/dL (6.3-8.2)
--- NOTE | 2020-02-21 07:37 | PN ---
PROGRESS NOTE ADDENDUM: Paroxysmal atrial fibrillation. MMODL / IJN: [id number] /
--- NOTE | 2020-02-21 07:43 | PN ---
PROGRESS NOTE ADDENDUM: Severe protein calorie malnutrition. MMODL / IJN: [id number] /
[2020-02-21] MEDS: MIDODRINE 5 MG TAB PO SCH ×4 (08:49→20:56)
[2020-02-21] MEDS ORDERED: LIDOCAINE 1% INJ 10MG/ML (20 ML MDV) SQ ONE (10:02)
[2020-02-21] MEDS ORDERED: fentaNYL (PF) 50 MCG/ML 2 ML AMP IVP ONE (10:02)
[2020-02-21] MEDS ORDERED: MIDAZOLAM 2 MG/2 ML VIAL IVP ONE (10:02)
[2020-02-21] MEDS ORDERED: IV FLUID CONTINUATION 200 ML IV ONE ×2 (10:53)
[2020-02-21] MEDS: SODIUM BICARBONATE TAB 650 MG TAB PO SCH ×2 (11:35→20:56)
[2020-02-21] MEDS: IRON POLYSACCHARIDES COMPLEX 150 MG CAP PO SCH (11:39)
[2020-02-21 12:43] LABS: Glucose,Whole Blood 130 mg/dL (75-99)
--- NOTE | 2020-02-21 15:53 | P.PN ---
Subjective Progress Note Date: 02/21/20 Follow-up for ESRD. Permacath was placed in the right groin today. Hypotensive since morning. No nausea vomiting diarrhea. PD currently on hold. Objective - Vital Signs Vital signs: Vital Signs Temp 98 F 02/21/20 12:00 Pulse 113 H 02/21/20 12:00 Resp 18 02/21/20 12:00 BP 81/52 02/21/20 12:00 Pulse Ox 94 L 02/21/20 12:00 Intake & Output 02/20/20 02/21/20 02/21/20 18:59 06:59 18:59 Intake Total 200 230 Output Total 300 Balance -100 230 Weight 114.5 kg Intake: IV 50 Intake, IV Titration 100 180 Amount DAPTOmycin 500 mg In 100 Sodium Chloride 0.9% 50 ml @ 100 mls/hr IVPB Q48H [facility] Rx#:[id number] Sodium Chloride 0.9% 1, 180 000 ml @ 75 mls/hr IV . [id number] [facility] Rx#:[id number] Oral 100 Output: Urine 300 Other: Voiding Method Urinal Urinal Urinal # Voids 1 - Exam No acute distress S1-S2 heard Lungs clear Abdomen soft PD catheter in place Right groin femoral permacath trace edema - Labs CBC & Chem 7: 02/21/20 06:11 02/21/20 06:11 Labs: Abnormal Lab Results - Last 24 Hours (Table) 02/20/20 02/20/20 02/20/20 Range/Units 16:57 20:36 20:39 RBC (4.30-5.90) m/uL Hgb (13.0-17.5) gm/dL Hct (39.0-53.0) % MCHC (31.0-37.0) g/dL RDW (11.5-15.5) % Plt Count (150-450) k/uL Sodium (137-145) mmol/L BUN (9-20) mg/dL Creatinine (0.66-1.25) mg/dL Glucose (74-99) mg/dL POC Glucose (mg/dL) 259 H 408 H 375 H (75-99) mg/dL Calcium (8.4-10.2) mg/dL Total Protein (6.3-8.2) g/dL Albumin (3.5-5.0) g/dL 02/21/20 02/21/20 02/21/20 Range/Units 06:11 06:11 06:33 RBC 3.46 L (4.30-5.90) m/uL Hgb 10.0 L (13.0-17.5) gm/dL Hct 33.2 L (39.0-53.0) % MCHC 30.1 L (31.0-37.0) g/dL RDW 16.9 H (11.5-15.5) % Plt Count 124 L (150-450) k/uL Sodium 132 L (137-145) mmol/L BUN 42 H (9-20) mg/dL Creatinine 6.08 H (0.66-1.25) mg/dL Glucose 146 H (74-99) mg/dL POC Glucose (mg/dL) 168 H (75-99) mg/dL Calcium 7.5 L (8.4-10.2) mg/dL Total Protein 3.7 L (6.3-8.2) g/dL Albumin 1.6 L (3.5-5.0) g/dL 02/21/20 Range/Units 12:42 RBC (4.30-5.90) m/uL Hgb (13.0-17.5) gm/dL Hct (39.0-53.0) % MCHC (31.0-37.0) g/dL RDW (11.5-15.5) % Plt Count (150-450) k/uL Sodium (137-145) mmol/L BUN (9-20) mg/dL Creatinine (0.66-1.25) mg/dL Glucose (74-99) mg/dL POC Glucose (mg/dL) 130 H (75-99) mg/dL Calcium (8.4-10.2) mg/dL Total Protein (6.3-8.2) g/dL Albumin (3.5-5.0) g/dL Microbiology - Last 24 Hours (Table) 02/15/20 11:56 Blood Culture - Final Blood No Growth after 144 hours 02/15/20 11:45 Blood Culture - Final Blood No Growth after 144 hours 02/17/20 14:21 Gram Stain - Preliminary Dialysate Body Fluid Culture - Preliminary Assessment and Plan Assessment: #1 ESRD transitioned from PD to HD secondary to poor clearance. #2 hypokalemia secondary to frequent dialysis #3 left heel ulcer with osteomyelitis and VRE UTI. #4 anemia with ESRD #5 hypotension on midodrine #6 metabolic bone disease. Plan: #1 hold hemodialysis and peritoneal dialysis today, reevaluate hemodialysis tomorrow based on volume status and blood pressure. #2 ESRD medications #3 supportive care
--- NOTE | 2020-02-21 15:55 | PN ---
PROGRESS NOTE DATE OF SERVICE: 02/21/2020 REASON FOR FOLLOWUP: Right heel osteomyelitis and right heel and right foot wound, VRE urinary tract infection. INTERVAL HISTORY: Patient is currently afebrile, has been breathing comfortably. Complaining of feeling weak and tired. No chest pain. No abdominal pain. No pain to the right foot. PHYSICAL EXAMINATION: Blood pressure 99/77 with a pulse of 103, temperature 98.2. He is 93% on room air. General description is a middle-aged male lying in bed in no distress. Respiratory system: Unlabored breathing, clear to auscultation anteriorly. Heart S1, S2. Regular rate and rhythm. Abdomen is soft, no tenderness. Extremity with more maceration, however, no significant slough. Drainage was noted but no foul smelling. LABS: Hemoglobin is 10, white count 7.0, BUN of 42, creatinine 6.08. DIAGNOSTIC IMPRESSION AND PLAN: Patient with right heel osteomyelitis with MRSA bacteremia, right foot wound and VRE urinary tract infection. Admitted to the hospital with generalized weakness. The patient has been switched over to hemodialysis. Cultures have been negative. We will keep the patient on daptomycin. Local care with Aquacel dressing. However, the dressing should be changed daily to keep the area dry and prevent any further maceration. The patient's was at the bedside. Questions were answered. MMODL / IJN: [id number] /
--- NOTE | 2020-02-21 16:34 | OP ---
OPERATIVE REPORT PREOPERATIVE DIAGNOSIS: Acute on chronic renal failure. POSTOPERATIVE DIAGNOSIS: Acute on chronic renal failure. PROCEDURE: 1. Attempted to access the right and left jugular vein; both were occluded. 2. Placement of a 44 cm permanent dialysis catheter via right femoral approach, ultrasound-guided. SEDATION TIME: 44 minutes. DESCRIPTION OF PROCEDURE: This patient was brought to the skilled labor. The right and left side of the neck and chest was prepped and drapes applied in the usual sterile manner. [id number] micropuncture entered into the right jugular vein, could not advance the guidewire. A few attempts were made. This patient had multiple catheters placed in the past in the right and left jugular vein. The left jugular was attempted. The left jugular was smaller, which was also occluded. We prepped the right groin. Next, 1% lidocaine infiltrated. Ultrasound-guided micropuncture right common femoral vein, micropuncture guidewire was passed, 4-Wolof dilator advanced on top of the guidewire. Then we created a tunnel. Through the tunnel we brought permanent dialysis catheter 44 cm. Regular guidewire was passed under fluoroscopy control. Dilator and sheath were advanced. Then we introduced the dialysis catheter through the sheath, the sheath was removed. The tip of the catheter was at the superior vena cava. Flushed with heparin and saline and hep-locked and secured with 3-0 nylon. The patient tolerated the procedure well. Dressing applied. MMBAILEY / IJN: [id number] /
[2020-02-21 16:49] LABS: Glucose,Whole Blood 213 mg/dL (75-99)
[2020-02-21 20:17] LABS: Glucose,Whole Blood 161 mg/dL (75-99)
[2020-02-21] MEDS: FAMOTIDINE 20 MG TAB PO SCH (20:56)
[2020-02-21] MEDS: FOLIC ACID-VIT B COMPLEX-VIT C 1 CAP PO SCH (20:56)
--- NOTE | 2020-02-22 03:10 | PN ---
PROGRESS NOTE 64-year-old white male who has severe protein-calorie malnutrition of severe nature. Having no chest pain, shortness of breath, extreme weakness, unable to get out of bed or move due to dehydration and severe malnutrition. BUN is 42, creatinine 6.08. Sugars in the 100-200s. Albumin is 1.6. Calcium is 7.5. Cardiovascular S1-S2. Lungs clear. GI soft. Hematology negative Homans. ASSESSMENT: 1. Protein calorie malnutrition. 2. End-stage renal disease. 3. Hyponatremia. 4. Acute on chronic anemia. Continue with Marinol for appetite stimulation 5 mg b.i.d. Fluids to be given sparingly. Dialysis given sparing. Increase nutrition. Dietary consult. Prognosis guarded. MMODL / IJN: [id number] /
[2020-02-22] MEDS: DIALYSIS (PERIT 1.5%) 2,500 ML 37.5 G/2,500 ML BAG INTRAPERIT SCH ×5 (04:54→21:30)
[2020-02-22 06:26] LABS: Glucose,Whole Blood 106 mg/dL (75-99)
[2020-02-22] MEDS: INSULIN ASPART (NovoLOG) 100 UNIT/ML VIAL SQ SCH ×4 (06:31→21:41)
[2020-02-22] MEDS: SODIUM CHLORIDE 0.9% 1,000 ML IV SCH (06:31)
[2020-02-22] MEDS: SEVELAMER 800 MG TAB PO SCH ×3 (06:36→17:54)
[2020-02-22] MEDS: levETIRAcetam 500 MG TAB PO SCH ×2 (06:37→17:55)
[2020-02-22] MEDS: LEVOTHYROXINE 75 MCG TAB PO SCH (06:37)
[2020-02-22] MEDS: DAPTOmycin 500 MG in SODIUM CHLORIDE 0.9% 50 ML IVPB SCH (08:16)
[2020-02-22] MEDS: POTASSIUM CHLORIDE ER 10 MEQ TAB.ER.PRT PO SCH (08:16)
[2020-02-22] MEDS: IRON POLYSACCHARIDES COMPLEX 150 MG CAP PO SCH (08:16)
[2020-02-22] MEDS: SODIUM BICARBONATE TAB 650 MG TAB PO SCH ×2 (08:16→21:40)
[2020-02-22] MEDS: MIDODRINE 5 MG TAB PO SCH ×5 (08:16→21:40)
--- NOTE | 2020-02-22 11:16 | P.PN ---
Subjective Progress Note Date: 02/22/20 Follow-up for ESRD. Permacath was placed in the right groin yesterday and he pulled it out last night. Persistent hypotension. PD was started this morning. Objective - Vital Signs Vital signs: Vital Signs Temp 97.5 F L 02/22/20 08:00 Pulse 102 H 02/22/20 08:00 Resp 16 02/22/20 08:00 BP 73/44 02/22/20 08:00 Pulse Ox 92 L 02/22/20 08:00 Intake & Output 02/21/20 02/22/20 02/22/20 18:59 06:59 18:59 Intake Total 452 100 Output Total 0 Balance 452 100 Weight 106.5 kg Intake: IV 50 Intake, IV Titration 180 Amount Sodium Chloride 0.9% 1, 180 000 ml @ 75 mls/hr IV . [id number] [facility] Rx#:[id number] Oral 222 100 Output: Urine 0 Other: Voiding Method Urinal Urinal Urinal - Exam No acute distress S1-S2 heard Lungs clear Abdomen soft PD catheter in place trace edema - Labs CBC & Chem 7: 02/21/20 06:11 02/21/20 06:11 Labs: Abnormal Lab Results - Last 24 Hours (Table) 02/21/20 02/21/20 02/21/20 Range/Units 12:42 16:48 20:14 POC Glucose (mg/dL) 130 H 213 H 161 H (75-99) mg/dL 02/22/20 Range/Units 06:26 POC Glucose (mg/dL) 106 H (75-99) mg/dL Microbiology - Last 24 Hours (Table) 02/17/20 14:21 Gram Stain - Final Dialysate Body Fluid Culture - Final 02/15/20 11:56 Blood Culture - Final Blood No Growth after 144 hours 02/15/20 11:45 Blood Culture - Final Blood No Growth after 144 hours Assessment and Plan Assessment: #1 ESRD transitioned from PD to HD secondary to poor clearance. #2 hypokalemia resolved. #3 left heel ulcer with osteomyelitis and VRE UTI. #4 anemia with ESRD #5 hypotension on midodrine #6 metabolic bone disease. Plan: #1 restart peritoneal dialysis today as he removed his permacath. #2 increase midodrine to 15 mg 4 times a day. And stop metoprolol completely. #3 discussed with the on the phone regarding multiple comorbid conditions and poor outcome. Advised for hospice, she wants to discuss with her sons and get back to us. Meanwhile we will hold permacath for now.
[2020-02-22 12:17] LABS: Glucose,Whole Blood 232 mg/dL (75-99)
--- NOTE | 2020-02-22 13:50 | PN ---
PROGRESS NOTE HISTORY: A 64-year-old white male continues with hypotension. Poor oral intake continues despite Marinol. Severe low albumin levels. Remains on dialysis as tolerated. EXAM: Weak, fatigued. Cardiovascular S1-S2. Lungs clear. GI soft. Hematology negative Homans. LABS: Sugars in the 200s. Hemoglobin is 10. White count 7. ASSESSMENT: 1. End-stage renal disease. 2. Orthostatic hypotension. 3. Dehydration. 4. Hypokalemia, resolved. 5. Left heel ulcer osteomyelitis. 6. VRE UTI. 7. Anemia with end-stage renal disease. 8. Hypertension. 9. Metabolic bone disease. PLAN: He is getting a peritoneal dialysis as he removed his PermCath. Increase midodrine to 15 mg q.i.d. Stop metoprolol. Poor outcome, advised hospice. She wants to discuss with her sons and get back to us. Hold PermCath for now. MMODL / IJN: [id number] /
[2020-02-22 17:12] LABS: Glucose,Whole Blood 364 mg/dL (75-99)
[2020-02-22 20:23] LABS: Glucose,Whole Blood 378 mg/dL (75-99)
[2020-02-22] MEDS ORDERED: METOPROLOL TARTRATE 12.5 MG TAB PO SCH (21:00)
--- NOTE | 2020-02-22 21:39 | PN ---
PROGRESS NOTE DATE OF SERVICE: 02/22/2020 REASON FOR FOLLOWUP: Right hand osteomyelitis and right foot wound and VRE urinary tract infection. INTERVAL HISTORY: Patient is currently afebrile. The patient is hemodynamically stable. The patient was resting comfortably and did not provide any history. No vomiting or diarrhea or any change reported by nursing staff. PHYSICAL EXAMINATION: Blood pressure 106/53 with a pulse of 97, temperature 98.1. He is 95% on 2 L nasal cannula. General description is a middle-aged male lying in bed in no distress. Respiratory system: Unlabored breathing. Right foot is covered with dressed and no drainage on the dressing. LABS: No new labs have been obtained today. Blood culture has been negative. DIAGNOSTIC IMPRESSION AND PLAN: Patient with right heel osteomyelitis. Culture positive for MRSA, has a history of VRE urinary tract infection. The patient is currently covered with daptomycin, to be continued. Local wound care to continued with dry Aquacel dressing to be changed daily. Continue with supportive care. MMODL / IJN: [id number] /
[2020-02-22] MEDS: FAMOTIDINE 20 MG TAB PO SCH (21:40)
[2020-02-22] MEDS: FOLIC ACID-VIT B COMPLEX-VIT C 1 CAP PO SCH (21:41)
[2020-02-23] MEDS: DIALYSIS (PERIT 1.5%) 2,500 ML 37.5 G/2,500 ML BAG INTRAPERIT SCH ×7 (00:43→23:08)
[2020-02-23] MEDS: SODIUM CHLORIDE 0.9% 1,000 ML IV SCH ×3 (00:53→23:08)
[2020-02-23 06:21] LABS: Glucose,Whole Blood 190 mg/dL (75-99)
[2020-02-23 06:52] LABS: Anisocytosis Slight; HCT 27.1 % (39.0-53.0); Hypochromasia Marked; MCH 29.7 pg (25.0-35.0); MCHC 30.8 g/dL (31.0-37.0); MCV 96.7 fL (80.0-100.0); Macrocytosis Slight; Mean Platelet Volume 10.1; Platelet Count 107 k/uL (150-450); Poikilocytosis Slight; RDW 16.9 % (11.5-15.5); WBC 6.5 k/uL (3.8-10.6)
[2020-02-23] MEDS: INSULIN ASPART (NovoLOG) 100 UNIT/ML VIAL SQ SCH ×4 (06:54→20:32)
[2020-02-23] MEDS: levETIRAcetam 500 MG TAB PO SCH ×2 (06:54→17:46)
[2020-02-23] MEDS: LEVOTHYROXINE 75 MCG TAB PO SCH (06:54)
[2020-02-23] MEDS: SEVELAMER 800 MG TAB PO SCH ×3 (06:54→17:46)
[2020-02-23 07:03] LABS: HGB 8.3 gm/dL (13.0-17.5)
[2020-02-23 07:15] LABS: Albumin 1.4 g/dL (3.5-5.0); Calcium 7.1 mg/dL (8.4-10.2); Potassium 3.5 mmol/L (3.5-5.1); Total Bilirubin 0.6 mg/dL (0.2-1.3); Total Protein 3.5 g/dL (6.3-8.2)
[2020-02-23] MEDS: MIDODRINE 5 MG TAB PO SCH ×4 (08:43→20:31)
[2020-02-23] MEDS: SODIUM BICARBONATE TAB 650 MG TAB PO SCH ×2 (08:43→20:31)
[2020-02-23 09:29] LABS: Eosinophils # (M) 0.13 k/uL (0-0.7); Lymphocytes # (M) 0.85 k/uL (1.0-4.8); Monocytes # (M) 0.91 k/uL (0-1.0); Neutrophils # (M) 4.62 k/uL (1.3-7.7); Neutrophils % (M) 71 %; Nucleated Red Blood Cells 0 /100 WBC (0-0); Total Cells Counted 100
[2020-02-23] MEDS: IRON POLYSACCHARIDES COMPLEX 150 MG CAP PO SCH (09:37)
[2020-02-23] MEDS ORDERED: LORazepam 1 MG TAB PO PRN (11:49)
[2020-02-23 12:09] LABS: Glucose,Whole Blood 269 mg/dL (75-99)
--- NOTE | 2020-02-23 13:28 | P.PN ---
Subjective Progress Note Date: 02/23/20 Follow-up for ESRD. Permacath was placed in the right groin on 12/21/2019 and he pulled it out the same night. Persistent hypotension. PD was started yesterday. Objective - Vital Signs Vital signs: Vital Signs Temp 98.2 F 02/23/20 08:00 Pulse 71 02/23/20 12:00 Resp 16 02/23/20 12:00 BP 96/57 02/23/20 12:00 Pulse Ox 96 02/23/20 12:00 Intake & Output 02/22/20 02/23/20 02/23/20 18:59 06:59 18:59 Intake Total 640 Output Total 600 Balance 40 Weight 86.5 kg Intake: Intake, IV Titration 100 Amount DAPTOmycin 500 mg In 100 Sodium Chloride 0.9% 50 ml @ 100 mls/hr IVPB Q48H [facility] Rx#:[id number] Oral 540 Output: Urine 600 Other: Voiding Method Urinal Indwelling Catheter Indwelling Catheter # Bowel Movements 1 - Exam No acute distress S1-S2 heard Lungs clear Abdomen soft PD catheter in place trace edema - Labs CBC & Chem 7: 02/23/20 05:53 02/23/20 05:53 Labs: Abnormal Lab Results - Last 24 Hours (Table) 02/22/20 02/22/20 02/23/20 Range/Units 17:00 20:20 05:53 RBC 2.80 L (4.30-5.90) m/uL Hgb 8.3 L D (13.0-17.5) gm/dL Hct 27.1 L (39.0-53.0) % MCHC 30.8 L (31.0-37.0) g/dL RDW 16.9 H (11.5-15.5) % Plt Count 107 L (150-450) k/uL Lymphocytes # (Manual) 0.85 L (1.0-4.8) k/uL Sodium (137-145) mmol/L BUN (9-20) mg/dL Creatinine (0.66-1.25) mg/dL Glucose (74-99) mg/dL POC Glucose (mg/dL) 364 H 378 H (75-99) mg/dL Calcium (8.4-10.2) mg/dL Alkaline Phosphatase (38-126) U/L Total Protein (6.3-8.2) g/dL Albumin (3.5-5.0) g/dL 02/23/20 02/23/20 02/23/20 Range/Units 05:53 06:19 12:07 RBC (4.30-5.90) m/uL Hgb (13.0-17.5) gm/dL Hct (39.0-53.0) % MCHC (31.0-37.0) g/dL RDW (11.5-15.5) % Plt Count (150-450) k/uL Lymphocytes # (Manual) (1.0-4.8) k/uL Sodium 130 L (137-145) mmol/L BUN 49 H (9-20) mg/dL Creatinine 6.72 H (0.66-1.25) mg/dL Glucose 152 H (74-99) mg/dL POC Glucose (mg/dL) 190 H 269 H (75-99) mg/dL Calcium 7.1 L (8.4-10.2) mg/dL Alkaline Phosphatase 214 H (38-126) U/L Total Protein 3.5 L (6.3-8.2) g/dL Albumin 1.4 L (3.5-5.0) g/dL Assessment and Plan Assessment: #1 ESRD transitioned from PD to HD secondary to poor clearance. #2 hypokalemia resolved. #3 left heel ulcer with osteomyelitis and VRE UTI. #4 anemia with ESRD #5 hypotension on midodrine #6 metabolic bone disease. Plan: #1 restart peritoneal dialysis as he removed his permacath. #2 midodrine increased to 15 mg 4 times a day. And metoprolol stopped completely. #3 discussed with the on the phone regarding multiple comorbid conditions and poor outcome. Advised for hospice, she wants to discuss with her sons and get back to us. Meanwhile we will hold permacath for now.
[2020-02-23] MEDS: DARBEPOETIN ALFA 60 MCG/0.3 ML SYRINGE SQ SCH (16:27)
[2020-02-23 16:53] LABS: Glucose,Whole Blood 277 mg/dL (75-99)
[2020-02-23 20:11] LABS: Glucose,Whole Blood 330 mg/dL (75-99)
[2020-02-23] MEDS: FAMOTIDINE 20 MG TAB PO SCH (20:31)
[2020-02-23] MEDS: FOLIC ACID-VIT B COMPLEX-VIT C 1 CAP PO SCH (20:32)
[2020-02-23] MEDS ORDERED: DAPTOmycin 500 MG in SODIUM CHLORIDE 0.9% 50 ML IVPB SCH (22:15)
[2020-02-24] MEDS: DIALYSIS (PERIT 1.5%) 2,500 ML 37.5 G/2,500 ML BAG INTRAPERIT SCH ×5 (03:09→19:40)
--- NOTE | 2020-02-24 04:14 | PN ---
PROGRESS NOTE Follow up end-stage renal disease. He pulled out his PermCath last night. Started back on peritoneal dialysis. He still had poor oral intake including liquids, although this afternoon his blood pressure is up to 107 systolic, which is much improved. Temperature 98.2, pulse 70 to 71, respiratory rate 16 to 18, O2 of 96. CARDIOVASCULAR: S1, S2. LUNGS: Transmitted upper airway sounds. GI: Soft. HEMATOLOGIC: Trace edema in his lower legs. Family hospice consult has been ordered. Ativan for night time unsettling. If he can increase his food and oral intake he might do better. Otherwise continue on Accu-Chek protocol for sugar. Restart peritoneal dialysis. Midodrine increased to 15 mg q.i.d. Possible hospice will be ordered. LEYLA / KEON: [id number] /
--- NOTE | 2020-02-24 05:42 | PN ---
PROGRESS NOTE DATE OF SERVICE: 02/23/2020 REASON FOR FOLLOWUP: Right heel osteomyelitis and VRE urinary tract infection. INTERVAL HISTORY: The patient is currently afebrile, has been breathing comfortably. Denies having any chest pain. No shortness of breath or cough. No nausea, no vomiting. No abdominal pain. Pain to the right foot. PHYSICAL EXAMINATION: Blood pressure 109/59 with a pulse of 85, temperature 98.5. He is 96% on room air. General description is a middle-aged male lying in bed in no distress. RESPIRATORY SYSTEM: Unlabored breathing, clear to auscultation anteriorly. HEART: S1, S2. Regular rate and rhythm. ABDOMEN: Soft, no tenderness. Right foot is currently dressed up. No obvious drainage on the dressing. LABS: Hemoglobin 8.3, white count 6.5, BUN of 49, creatinine 6.72. Blood culture has been negative. Dialysate fluid culture negative. DIAGNOSTIC IMPRESSION AND PLAN: Patient with right heel osteomyelitis with MRSA and right foot wound as well as VRE urinary tract infection. The patient is currently covered with daptomycin to continue to finish a 6-week course of therapy. Local wound care with dry Aquacel silver dressing. To keep the area dry and off the pressure and monitor his clinical course closely. MMODL / IJN: [id number] /
[2020-02-24] MEDS: INSULIN ASPART (NovoLOG) 100 UNIT/ML VIAL SQ SCH ×4 (06:26→21:54)
[2020-02-24] MEDS: LEVOTHYROXINE 75 MCG TAB PO SCH (06:27)
[2020-02-24] MEDS: SEVELAMER 800 MG TAB PO SCH ×3 (06:27→17:14)
[2020-02-24] MEDS: levETIRAcetam 500 MG TAB PO SCH ×2 (06:27→17:15)
[2020-02-24 06:29] LABS: Glucose,Whole Blood 123 mg/dL (75-99)
[2020-02-24 07:33] LABS: Albumin 1.6 g/dL (3.5-5.0); Calcium 7.4 mg/dL (8.4-10.2); Potassium 3.5 mmol/L (3.5-5.1); Total Bilirubin 0.8 mg/dL (0.2-1.3); Total Protein 3.9 g/dL (6.3-8.2)
[2020-02-24 07:46] LABS: Anisocytosis Slight; Basophils % (A) 1 %; Eosinophils # (A) 0.1 k/uL (0-0.7); Eosinophils % (A) 2 %; HCT 30.4 % (39.0-53.0); HGB 9.3 gm/dL (13.0-17.5); Hypochromasia Marked; Lymphocytes # (A) 1.4 k/uL (1.0-4.8); Lymphocytes % (A) 20 %; MCH 29.9 pg (25.0-35.0); MCHC 30.5 g/dL (31.0-37.0); MCV 98.1 fL (80.0-100.0); Macrocytosis Slight; Mean Platelet Volume 10.5; Monocytes # (A) 0.6 k/uL (0-1.0); Monocytes % (A) 10 %; Neutrophils # (A) 4.4 k/uL (1.3-7.7); Neutrophils % (A) 65 %; Platelet Count 107 k/uL (150-450); Poikilocytosis Slight; RDW 16.6 % (11.5-15.5); WBC 6.8 k/uL (3.8-10.6)
[2020-02-24] MEDS ORDERED: DAPTOmycin 500 MG in SODIUM CHLORIDE 0.9% 50 ML IVPB SCH (08:00)
[2020-02-24] MEDS: IRON POLYSACCHARIDES COMPLEX 150 MG CAP PO SCH (09:32)
[2020-02-24] MEDS: SODIUM BICARBONATE TAB 650 MG TAB PO SCH ×2 (09:32→20:10)
[2020-02-24] MEDS: MIDODRINE 5 MG TAB PO SCH ×4 (09:32→20:10)
[2020-02-24] MEDS: POTASSIUM CHLORIDE ER 10 MEQ TAB.ER.PRT PO SCH (09:33)
[2020-02-24 10:54] VITALS: BMI 31.5
[2020-02-24] MEDS ORDERED: POTASSIUM CHLORIDE ER 20 MEQ TAB.ER PO STA (11:29)
--- NOTE | 2020-02-24 11:29 | P.PN ---
Subjective Patient is seen in follow-up for incisional disease. He is maintained on peritoneal dialysis. Patient is quite lethargic today. is present at bedside. Vital signs are stable. Blood pressure in the lower side. General: The patient appeared well nourished and normally developed. HEENT: Head exam is unremarkable. Neck is without jugular venous distension. LUNGS: Breath sounds decreased. HEART: Rate and Rhythm are regular. ABDOMEN: Soft, nontender. EXTREMITITES: No clubbing, cyanosis, or edema. Erythema noted. Objective - Vital Signs Vital signs: Vital Signs Temp 98.2 F 02/24/20 04:00 Pulse 90 02/24/20 08:00 Resp 16 02/24/20 08:00 BP 72/40 02/24/20 08:00 Pulse Ox 98 02/24/20 04:00 Intake & Output 02/23/20 02/24/20 02/24/20 18:59 06:59 18:59 Intake Total 270 0 Output Total 725 275 Balance -455 -275 Weight 111.5 kg 111.5 kg Intake: Intake, IV Titration 150 Amount Sodium Chloride 0.9% 1, 150 000 ml @ 50 mls/hr IV . Q20H [facility] Rx#:[id number] Oral 120 0 Output: Urine 725 275 Other: Voiding Method Indwelling Catheter Indwelling Catheter Indwelling Catheter # Bowel Movements 1 1 - Labs CBC & Chem 7: 02/24/20 06:26 02/24/20 06:26 Labs: Abnormal Lab Results - Last 24 Hours (Table) 02/23/20 02/23/20 02/23/20 Range/Units 12:07 16:51 20:09 RBC (4.30-5.90) m/uL Hgb (13.0-17.5) gm/dL Hct (39.0-53.0) % MCHC (31.0-37.0) g/dL RDW (11.5-15.5) % Plt Count (150-450) k/uL Sodium (137-145) mmol/L BUN (9-20) mg/dL Creatinine (0.66-1.25) mg/dL Glucose (74-99) mg/dL POC Glucose (mg/dL) 269 H 277 H 330 H (75-99) mg/dL Calcium (8.4-10.2) mg/dL AST (17-59) U/L Alkaline Phosphatase (38-126) U/L Total Protein (6.3-8.2) g/dL Albumin (3.5-5.0) g/dL 02/24/20 02/24/20 02/24/20 Range/Units 06:21 06:26 06:26 RBC 3.10 L (4.30-5.90) m/uL Hgb 9.3 L (13.0-17.5) gm/dL Hct 30.4 L (39.0-53.0) % MCHC 30.5 L (31.0-37.0) g/dL RDW 16.6 H (11.5-15.5) % Plt Count 107 L (150-450) k/uL Sodium 132 L (137-145) mmol/L BUN 43 H (9-20) mg/dL Creatinine 6.38 H (0.66-1.25) mg/dL Glucose 106 H (74-99) mg/dL POC Glucose (mg/dL) 123 H (75-99) mg/dL Calcium 7.4 L (8.4-10.2) mg/dL AST 62 H (17-59) U/L Alkaline Phosphatase 804 H (38-126) U/L Total Protein 3.9 L (6.3-8.2) g/dL Albumin 1.6 L (3.5-5.0) g/dL Assessment and Plan Plan: Assessment: 1. End-stage renal disease maintained on peritoneal dialysis. 2. Chronic hypotension maintained on midodrine. 3. Hypokalemia secondary to poor intake and PD losses. 4. MRSA right heel infection maintained on daptomycin. 5. Anemia of chronic kidney disease maintained on Aranesp. 6. Chronic kidney disease mineral bone disease maintained on calcitriol And Renvela. 7. Severe protein calorie malnutrition. Plan: Maintain current PD exchanges. Replace potassium. 40 mg once today. Encourage oral intake, particularly protein. 25 g IV albumin 4 doses. Discussed patient's condition at length with patient's . Overall prognosis poor. Hospice being considered.
[2020-02-24 12:17] LABS: Glucose,Whole Blood 223 mg/dL (75-99)
[2020-02-24] MEDS: ALBUMIN HUMAN 25% 50 ML in EMPTY BAG 1 BAG IVPB SCH ×4 (12:37→20:14)
--- NOTE | 2020-02-24 14:08 | IR ---
EXAMINATION TYPE: IR cvc insert central tunneled DATE OF EXAM: 02/21/2020 CLINICAL HISTORY: Failed dialysis. TECHNIQUE: Fluoroscopy. COMPARISON: None. FINDINGS: Fluoroscopic guidance was provided during right groin dialysis catheter insertion procedur e performed by Dr. Canales. A total of 1.7 minutes of fluoroscopic time was utilized during the proc edure and four spot images was acquired. Images show catheter placement right common femoral vein lev el extending into iliac vein. IMPRESSION: As Above.
[2020-02-24 17:09] LABS: Glucose,Whole Blood 254 mg/dL (75-99)
--- NOTE | 2020-02-24 18:40 | PN ---
PROGRESS NOTE This patient is a 64-year-old white male who is kind of confused today. Discussed with his that possibly it was due to the Ativan he was given last night to help with sleep and calming down, which recommended. His albumin level has slowly improved to 1.6. She is sitting at the bed feeding him some soup. Apparently he had 2/3 of his protein drink. He remains extremely weak and fatigued. He is getting dialysis through his peritoneal dialysis. Prognosis is extremely guarded. Remains on IV antibiotics per Dr. De Leon. His just wants him to go home on his antibiotics at this time with daptomycin for a 6-week course of therapy and Aquacel Silver. Wait for outpatient antibiotics to be set up for this patient for the patient to go home. Continue with protein-calorie malnutrition supplements and increasing his diet, Marinol. Watch his Ativan dose at night, as he is increasingly confused today, although he is eating. He was given albumin x4 doses to try to get some third-spacing removed out of his body fluids. Midodrine is increased for his orthostatic hypotension. Prognosis extremely guarded. She wants to hold off on hospice to go home if he does not improve by increasing his nutrition status at home. Continue with daptomycin at home and then with home nursing and possible hospice if he does not improve. MMPRASANTHL / VANN: [id number] /
[2020-02-24] MEDS: SODIUM CHLORIDE 0.9% 1,000 ML IV SCH (19:50)
[2020-02-24] MEDS: FAMOTIDINE 20 MG TAB PO SCH (20:10)
[2020-02-24] MEDS: FOLIC ACID-VIT B COMPLEX-VIT C 1 CAP PO SCH (20:10)
[2020-02-24 20:29] LABS: Glucose,Whole Blood 233 mg/dL (75-99)
[2020-02-24] MEDS ORDERED: LORazepam 0.5 MG TAB PO SCH (21:00)
[2020-02-24 21:36] LABS: Glucose,Whole Blood 228 mg/dL (75-99)
--- NOTE | 2020-02-24 23:11 | PN ---
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 INTERVAL HISTORY: The patient is currently afebrile. The patient is breathing comfortably. Denies having any chest pain or shortness of breath or cough. No abdominal pain or any worsening pain to the right foot area. PHYSICAL EXAMINATION: Blood pressure 93/41 with a pulse of 60, temperature 98.1. He is 92% on room air. General description is a middle-aged male lying in bed in no distress. RESPIRATORY SYSTEM: Unlabored breathing. Clear to auscultation anteriorly. HEART: S1, S2. Regular rate and rhythm. ABDOMEN: Soft. No tenderness. Right foot is currently dressed. No obvious drainage on the dressing. LABS: No new labs have been obtained today. DIAGNOSTIC IMPRESSION AND PLAN: Patient with right heel osteomyelitis with vancomycin-resistant Enterococcus urinary tract infection, for which the patient is currently covered with daptomycin. Continue local wound care with dry Aquacel Silver dressing. Keep the area dry and off pressure. Continue with supportive care. MMODL / IJN: [id number] /
[2020-02-25] MEDS: DIALYSIS (PERIT 1.5%) 2,500 ML 37.5 G/2,500 ML BAG INTRAPERIT SCH ×5 (00:27→17:02)
[2020-02-25] MEDS: LEVOTHYROXINE 75 MCG TAB PO SCH (05:59)
[2020-02-25] MEDS: levETIRAcetam 500 MG TAB PO SCH (05:59)
[2020-02-25 06:53] LABS: Glucose,Whole Blood 123 mg/dL (75-99)
[2020-02-25] MEDS: INSULIN ASPART (NovoLOG) 100 UNIT/ML VIAL SQ SCH ×3 (08:13→17:08)
[2020-02-25] MEDS: MIDODRINE 5 MG TAB PO SCH ×3 (08:22→17:08)
[2020-02-25] MEDS: SODIUM BICARBONATE TAB 650 MG TAB PO SCH (08:22)
[2020-02-25] MEDS: IRON POLYSACCHARIDES COMPLEX 150 MG CAP PO SCH (08:23)
[2020-02-25 08:42] LABS: Albumin 1.7 g/dL (3.5-5.0); Calcium 7.3 mg/dL (8.4-10.2); Total Bilirubin 0.8 mg/dL (0.2-1.3); Total Protein 3.8 g/dL (6.3-8.2)
[2020-02-25 08:48] LABS: Anisocytosis Slight; HCT 26.9 % (39.0-53.0); HGB 8.1 gm/dL (13.0-17.5); Hypochromasia Marked; MCH 29.3 pg (25.0-35.0); MCV 97.8 fL (80.0-100.0); Macrocytosis Slight; Poikilocytosis Slight; RBC 2.75 m/uL (4.30-5.90); RDW 16.8 % (11.5-15.5); WBC 5.8 k/uL (3.8-10.6)
--- NOTE | 2020-02-25 08:54 | P.PN ---
Progress Note - Text Progress Note Date: 02/25/20 At discharge, patient will require a hospital bed secondary to orthopnea, requiring head of bed raised greater than 30 at all times in a patient with limited cognition, poor balance, decreased strength and endurance. The impression and plan of care has been dictated as directed. : I performed a history and examination of this patient, discussed the same with the dictator. I agree with the dictator's note ,documented as a scribe. Any additional findings or plans will be noted.
[2020-02-25] MEDS: ALBUMIN HUMAN 25% 50 ML in EMPTY BAG 1 BAG IVPB SCH ×2 (09:00→10:43)
[2020-02-25 09:29] LABS: Potassium 3.4 mmol/L (3.5-5.1)
[2020-02-25] MEDS ORDERED: POTASSIUM CHLORIDE ER 20 MEQ TAB.ER PO STA (09:46)
--- NOTE | 2020-02-25 09:47 | P.PN ---
Subjective Patient is seen in follow-up for end-stage renal disease. He is maintained on peritoneal dialysis. peritoneal dialysis exchanges going well. Patient remains quite lethargic. Vital signs are stable. Blood pressure in the lower side. General: The patient appeared well nourished and normally developed. HEENT: Head exam is unremarkable. Neck is without jugular venous distension. LUNGS: Breath sounds decreased. HEART: Rate and Rhythm are regular. ABDOMEN: Soft, nontender. EXTREMITITES: No clubbing, cyanosis, or edema. Erythema noted. Objective - Vital Signs Vital signs: Vital Signs Temp 98.1 F 02/25/20 08:29 Pulse 89 02/25/20 08:29 Resp 17 02/25/20 08:00 BP 79/74 02/25/20 08:29 Pulse Ox 95 02/25/20 08:29 Intake & Output 02/24/20 02/25/20 02/25/20 18:59 06:59 18:59 Intake Total 220 Output Total 275 650 Balance -55 -650 Weight 111.5 kg 110.5 kg Intake: Oral 220 Output: Urine 275 650 Other: Voiding Method Indwelling Catheter Indwelling Catheter Indwelling Catheter # Voids 1 # Bowel Movements 1 1 - Labs CBC & Chem 7: 02/25/20 07:15 02/25/20 07:15 Labs: Abnormal Lab Results - Last 24 Hours (Table) 02/24/20 02/24/20 02/24/20 Range/Units 06:26 12:03 16:56 RBC 3.10 L (4.30-5.90) m/uL Hgb 9.3 L (13.0-17.5) gm/dL Hct 30.4 L (39.0-53.0) % MCHC 30.5 L (31.0-37.0) g/dL RDW 16.6 H (11.5-15.5) % Plt Count 107 L (150-450) k/uL Sodium (137-145) mmol/L Potassium (3.5-5.1) mmol/L BUN (9-20) mg/dL Creatinine (0.66-1.25) mg/dL Glucose (74-99) mg/dL POC Glucose (mg/dL) 223 H 254 H (75-99) mg/dL Calcium (8.4-10.2) mg/dL Alkaline Phosphatase (38-126) U/L Total Protein (6.3-8.2) g/dL Albumin (3.5-5.0) g/dL 02/24/20 02/24/20 02/25/20 Range/Units 20:28 21:36 06:52 RBC (4.30-5.90) m/uL Hgb (13.0-17.5) gm/dL Hct (39.0-53.0) % MCHC (31.0-37.0) g/dL RDW (11.5-15.5) % Plt Count (150-450) k/uL Sodium (137-145) mmol/L Potassium (3.5-5.1) mmol/L BUN (9-20) mg/dL Creatinine (0.66-1.25) mg/dL Glucose (74-99) mg/dL POC Glucose (mg/dL) 233 H 228 H 123 H (75-99) mg/dL Calcium (8.4-10.2) mg/dL Alkaline Phosphatase (38-126) U/L Total Protein (6.3-8.2) g/dL Albumin (3.5-5.0) g/dL 02/25/20 02/25/20 Range/Units 07:15 07:15 RBC 2.75 L (4.30-5.90) m/uL Hgb 8.1 L (13.0-17.5) gm/dL Hct 26.9 L (39.0-53.0) % MCHC 30.0 L (31.0-37.0) g/dL RDW 16.8 H (11.5-15.5) % Plt Count (150-450) k/uL Sodium 131 L (137-145) mmol/L Potassium 3.4 L (3.5-5.1) mmol/L BUN 36 H (9-20) mg/dL Creatinine 5.52 H (0.66-1.25) mg/dL Glucose 113 H (74-99) mg/dL POC Glucose (mg/dL) (75-99) mg/dL Calcium 7.3 L (8.4-10.2) mg/dL Alkaline Phosphatase 539 H (38-126) U/L Total Protein 3.8 L (6.3-8.2) g/dL Albumin 1.7 L (3.5-5.0) g/dL Assessment and Plan Plan: Assessment: 1. End-stage renal disease maintained on peritoneal dialysis. 2. Chronic hypotension maintained on midodrine. 3. Hypokalemia secondary to poor intake and PD losses. 4. MRSA right heel infection maintained on daptomycin. 5. Anemia of chronic kidney disease maintained on Aranesp. 6. Chronic kidney disease mineral bone disease maintained on calcitriol And Renvela. 7. Severe protein calorie malnutrition. Plan: Maintain current PD exchanges. Replace potassium. 40 mg once today. Encourage oral intake, particularly protein. 25 g IV albumin 4 doses. receiving the last 2 doses today. Discussed patient's condition at length with patient's . Overall prognosis poor. Hospice being considered. final decision pending.
[2020-02-25] MEDS: SEVELAMER 800 MG TAB PO SCH ×3 (10:45→17:08)
[2020-02-25 11:50] LABS: Glucose,Whole Blood 295 mg/dL (75-99)
[2020-02-25 12:45] LABS: Eosinophils # (M) 0.06 k/uL (0-0.7); Lymphocytes # (M) 1.16 k/uL (1.0-4.8); Monocytes # (M) 0.46 k/uL (0-1.0); Neutrophils # (M) 4.12 k/uL (1.3-7.7); Neutrophils % (M) 71 %; Nucleated Red Blood Cells 0 /100 WBC (0-0); Total Cells Counted 100
[2020-02-25 12:46] LABS: Platelet Count 96 k/uL (150-450)
--- NOTE | 2020-02-25 16:14 | PN ---
PROGRESS NOTE DATE OF SERVICE: 02/25/2020 REASON FOR FOLLOWUP: Right heel osteomyelitis and VRE urinary tract infection. INTERVAL HISTORY: The patient is currently afebrile. He is breathing comfortably. Denies having any chest pain. No shortness of breath or cough. No abdominal pain or any diarrhea. PHYSICAL EXAMINATION: Blood pressure is 91/56, pulse of 89, temperature 97.2. He is 96% on room air. General description is a middle-aged male, lying in bed in no distress. RESPIRATORY SYSTEM: Unlabored breathing, clear to auscultation anteriorly. HEART: S1, S2. Regular rate and rhythm. ABDOMEN: Soft, no tenderness. LABS: Hemoglobin 8.1, white count of 5.8. BUN of 36, creatinine 5.52. IMPRESSION: Patient with right heel osteomyelitis and MRSA with VRE urinary tract infection. The patient has been on daptomycin, the patient has not completed his course. He will continue daptomycin 500 mg to q.48 hours for another 12 doses. Local care to continue with dry Aquacel dressing, keep the area dry and off the pressure. Continue supportive care. MMODL / IJN: [id number] /
[2020-02-25 16:48] LABS: Glucose,Whole Blood 322 mg/dL (75-99)
[2020-02-25] MEDS: SODIUM CHLORIDE 0.9% 1,000 ML IV SCH (17:02)
[2020-02-25 19:59] VITALS: BP 95/66; PULSE 59; RESP 17; TEMP 97.2
[2020-02-25] MEDS ORDERED: ALBUMIN HUMAN 25% 50 ML in EMPTY BAG 1 BAG IVPB SCH (21:00)
== END 2020-02-25 18:32 | disposition home health service (06) | DRG 640 ==
LOC: EC 11:01 → 3SCARD 13:49 → 4SSUR 02-24 21:21
PROVIDERS: ADMIT Family Medicine; ATTEND Family Medicine
PROC: 06HY33Z Insertion of Infusion Device into Lower Vein, Percutaneous Approach (ICD-10-PCS; 2020-02-15)
PROC: 3E1M39Z Irrigation of Peritoneal Cavity using Dialysate, Percutaneous Approach (ICD-10-PCS; principal; 2020-02-16)
PROC: 06HY33Z Insertion of Infusion Device into Lower Vein, Percutaneous Approach (ICD-10-PCS; 2020-02-21 09:32)
DX: E86.0 Dehydration (principal); E43 Unspecified severe protein-calorie malnutrition; L89.614 Pressure ulcer of right heel, stage 4; N18.6 End stage renal disease; R78.81 Bacteremia; N17.9 Acute kidney failure, unspecified; I12.0 Hypertensive chronic kidney disease with stage 5 chronic kidney disease or end stage renal disease; L97.429 Non-pressure chronic ulcer of left heel and midfoot with unspecified severity; M86.671 Other chronic osteomyelitis, right ankle and foot; Z94.0 Kidney transplant status; N39.0 Urinary tract infection, site not specified; Z16.21 Resistance to vancomycin; D63.1 Anemia in chronic kidney disease; I48.0 Paroxysmal atrial fibrillation; L97.529 Non-pressure chronic ulcer of other part of left foot with unspecified severity; E11.621 Type 2 diabetes mellitus with foot ulcer; E11.22 Type 2 diabetes mellitus with diabetic chronic kidney disease; E11.51 Type 2 diabetes mellitus with diabetic peripheral angiopathy without gangrene; E11.69 Type 2 diabetes mellitus with other specified complication; Z99.2 Dependence on renal dialysis; Z89.422 Acquired absence of other left toe(s); Z79.4 Long term (current) use of insulin; Z66 Do not resuscitate; Z51.5 Encounter for palliative care; E87.1 Hypo-osmolality and hyponatremia; E87.6 Hypokalemia; B95.2 Enterococcus as the cause of diseases classified elsewhere; B95.62 Methicillin resistant Staphylococcus aureus infection as the cause of diseases classified elsewhere; I95.1 Orthostatic hypotension; E87.70 Fluid overload, unspecified; E83.9 Disorder of mineral metabolism, unspecified; E78.5 Hyperlipidemia, unspecified; K21.9 Gastro-esophageal reflux disease without esophagitis; N40.0 Benign prostatic hyperplasia without lower urinary tract symptoms; E03.9 Hypothyroidism, unspecified; M19.90 Unspecified osteoarthritis, unspecified site; Z68.31 Body mass index [BMI] 31.0-31.9, adult; Z79.01 Long term (current) use of anticoagulants; Z79.2 Long term (current) use of antibiotics; Z79.890 Hormone replacement therapy; Z79.899 Other long term (current) drug therapy; Z85.72 Personal history of non-Hodgkin lymphomas; Z92.21 Personal history of antineoplastic chemotherapy; Z86.718 Personal history of other venous thrombosis and embolism; Z85.828 Personal history of other malignant neoplasm of skin; Z98.890 Other specified postprocedural states
CPT/HCPCS: 36415; 36558; 71046; 76937; 77001; 80053; 80074; 82140; 82533; 82550; 83605; 83735; 84484; 85025; 85652; 86140; 87040; 87070; 87205; 89050; 93005; 96360; 99285